=== PATIENT | female | born 1960 | race African-American/Black ===

== ENCOUNTER 2016-07-15 10:20 | Emergency (ER) | payer MEDICAID ==
--- NOTE | 2016-07-15 10:13 | EDPHY ---
H & P HPI/ROS: CHIEF COMPLAINT: Dyspnea HISTORY OF PRESENT ILLNESS: The patient is a 56 year old female with history of reactive airway disease, brought in by EMS, presenting with 4 days of worsening shortness of breath. The patient has a violent cough with associated chest pain. The patient has repeated bouts of asthma exacerbation and has been intubated multiple times in the past.She has been taking Mucinex, using albuterol inhaler, and DuoNeb treatments. She received 125mg Solu-Medrol IV and 2 breathing treatments en route. Vitals in the field BP: 102/56, HR: 110, and O2 saturations in the 90s. Patient additionally notes fever and diarrhea for the past few days and is concerned she may have the flu. REVIEW OF SYSTEMS: Aside from elements discussed in the HPI, a comprehensive 10-point review of systems was reviewed and is negative. Past Medical/Surgical History: I reviewed the patient's past medical records from admission 07/05/16. Reactive airways disease, Seizure disorder. Social History: Current tobacco user. Currently living in a safe house in [place], but usually lives in [place]. Physical Exam: General Appearance: Alert, tachypneic Eyes: Pupils equal and round, no conjunctival pallor or injection ENT, Mouth: Mucous membranes moist Neck: Normal inspection Respiratory: Moderate respiratory distress, Tachypneic, Good air exchange, Occasional expiatory wheezing. Cardiovascular: Regular rate and rhythm Gastrointestinal: Abdomen is soft and non-tender Neurological: A&O, nonfocal, normal gait Skin: Warm and dry, no rash Extremities: Nontender, no pedal edema Psychiatric: anxious Constitutional: Initial Vital Signs Temperature (C) 36.7 C 07/15/16 10:37 Heart Rate 115 H 07/15/16 10:37 Respiratory Rate 32 H 07/15/16 10:37 Blood Pressure 115/77 07/15/16 10:37 O2 Sat (%) 100 07/15/16 10:37 O2 Delivery Mode Room Air O2 (L/minute) 2 Allergies/Adverse Reactions: acetaminophen [From Tylenol] Allergy (Verified 07/15/16 10:37) ibuprofen Allergy (Verified 07/15/16 10:37) Home Medications: Medication Instructions Recorded diphenhydrAMINE [Benadryl 25 MG 50 mg PO BID 07/05/16 (*)] Albuterol Hfa Anes Only [Proair 2 puffs IH BID #1 mdi 07/07/16 Hfa Icu (*)] Benzonatate [Tessalon Pearles] 200 mg PO TID PRN #30 cap 07/07/16 Cephalexin [Keflex (*)] 500 mg PO Q6H #24 cap 07/07/16 Fluticasone/Salmeter 250/50Mcg 2 puffs IH BID #1 disk 07/07/16 [Advair 250/50 (*)] HYDROmorphone HCL [Dilaudid 2 mg 2 mg PO Q6H PRN #10 tab 07/07/16 (*)] levETIRAcetam [Keppra 500 mg (*)] 500 mg PO BID #60 tab 07/07/16 predniSONE 40 mg PO DAILY #6 tab 07/07/16 Azithromycin [Zithromax] 250 mg PO DAILY #6 tab 07/15/16 predniSONE 1 tab PO DAILY #15 tab 07/15/16 Medical Decision Making - Diagnostics Imaging: Study: X-ray of the chest was obtained. Results: No acute disease. I viewed the images myself on the PACS system. ED Course/Re-evaluation: On initial evaluation, she was very anxious and tachypneic. Concerning for acute severe bronchospasm. However, she was able to speak in full sentences and respiratory rate decreased just with speaking to her. c/w acute bronchospasm with underlying anxiety. Plan to start patient on continuous nebulizer. 12:05 p.m.: On reevaluation, the patient is feeling better. Her symptoms have resolved. Chest CTA, good air exchange, O2 sat 96% on RA. Plan to discharge home with Prednisone and Azithromycin. Differential Diagnosis: includes though not limited to pneumonia, respiratory failure, status asthmaticus, ACS. - Data Points Laboratory Results: Laboratory Results 07/15/16 10:30 07/15/16 10:30 Medications Given: Discontinued Medications Albuterol (Proventil Neb) 9 ml IH CONT ONE Stop: 07/15/16 10:31 Last Admin: 07/15/16 10:43 Dose: 9 ml Albuterol Sulfate (Proventil Inh Prepack) 1 mdi TAKEHOME EDNOW ONE Stop: 07/15/16 12:25 Last Admin: 07/15/16 12:28 Dose: 1 mdi Sodium Chloride (Ns) 1,000 mls @ 0 mls/hr IV ONCE ONE PRN Reason: Wide Open Stop: 07/15/16 10:31 Last Admin: 07/15/16 10:43 Dose: 1,000 mls Departure - Departure Disposition: Home, Routine, Self-Care Clinical Impression: Asthma attack Acute bronchitis Qualifiers: Bronchitis organism: unspecified organism Qualifier Code: (J20.9) Acute bronchitis, unspecified Condition: Good Instructions: Reactive Airways Disease (ED), Acute Bronchitis (GEN) Additional Instructions: Take Prednisone as directed. Take full course of antibiotics as prescribed. Followup with your primary care physician if symptoms persist. Use albuterol inhaler 2 puffs three times daily as needed for wheezing. Return to the Emergency Department with shortness of breath, chest pain, or worsening of your condition. Referrals: [facility] [Outside] - As per Instructions Prescriptions: Azithromycin [Zithromax] 250 mg PO DAILY #6 tab predniSONE 1 tab PO DAILY #15 tab Report Scribed for: Traci Harrell Report Scribed by: Blanca Delgado Date of Report: 07/15/16 Time of Report: 10:12 Physician Review and Approval Statement: 07/15/16 10:12 Portions of this note were transcribed by a medical or surgical instrument maker. I personally performed the history, physical exam, and medical decision-making; and confirmed the accuracy of the information in the transcribed note.
[2016-07-15] MEDS ORDERED: NS 1,000 ML IV ONE (10:30)
[2016-07-15] MEDS ORDERED: ALBUTEROL 3 ML DEYVIAL IH ONE (10:30)
[2016-07-15 10:47] LABS: % IMMATURE GRANULYOCYTES 0.4 % (0.0-1.1); ABSOLUTE IMMATURE GRANULOCYTES 0.05 10^3/uL (0.00-0.10); ADD DIFF? NO; ADD MORPH? NO; ADD SCAN? NO; ATYPICAL LYMPHOCYTE FLAG 10 (0-99); FRAGMENT RBC FLAG 0 (0-99); HEMATOCRIT 37.6 % (38.0-47.0); HEMOGLOBIN 12.9 g/dL (12.6-16.3); LEFT SHIFT FLG 0 (0-99); LIPEMIA HEMOLYSIS FLAG 90 (0-99); MEAN CELL HEMOGLOBIN 30.9 pg (27.9-34.1); MEAN CELL HEMOGLOBIN CONCENTR. 34.3 g/dL (32.4-36.7); MEAN CELL VOLUME 90.2 fL (81.5-99.8); MEAN PLATELET VOLUME 10.3 fL (8.7-11.7); PLATELET CLUMPS FLAG 0 (0-99); PLATELET COUNT 319 10^3/uL (150-400); RED BLOOD CELL COUNT 4.17 10^6/uL (4.18-5.33); RED CELL DISTRIBUTION WIDTH 12.5 % (11.5-15.2)
[2016-07-15 11:12] LABS: ANION GAP 12 mEq/L (8-16); CALCIUM 9.8 mg/dL (8.5-10.4); CARBON DIOXIDE 24 mEq/l (22-31); CHLORIDE 105 mEq/L (97-110); CREATININE 0.8 mg/dL (0.6-1.0); GLOMERULAR FILTRATION RATE > 60; GLUCOSE 99 mg/dL (70-100); POTASSIUM 4.4 mEq/L (3.5-5.2); SODIUM 141 mEq/L (134-144)
[2016-07-15 12:12] VITALS: TEMP 98.1
[2016-07-15] MEDS ORDERED: ALBUTEROL INH PREPACK MDI TAKEHOME ONE ×2 (12:24)
[2016-07-15 12:27] VITALS: BP 110/62; PULSE 97; RESP 16; O2SAT 95
--- NOTE | 2016-07-15 12:37 | DX ---
Portable Chest, Single View July 15, 2016 at 10:43 a.m. Indication: Dyspnea. Findings: Mild diffuse peribronchial thickening is similar to July 05, 2016. No pneumothorax, demetris ma, consolidation or effusion has developed. Heart size is normal. Impression: Mild bronchitis unchanged since 2 weeks prior.
== END 2016-07-15 12:26 | disposition home or self-care (01) ==
LOC: EDUNIT#
DX: J45.909 Unspecified asthma, uncomplicated (principal); J20.9 Acute bronchitis, unspecified; F17.200 Nicotine dependence, unspecified, uncomplicated

== ENCOUNTER 2016-08-17 09:25 | Emergency (ER) | payer MEDICAID ==
[2016-08-17] MEDS ORDERED: IPRATROPIUM/ALBUTEROL 3 ML DEYVIAL ONE (09:30)
--- NOTE | 2016-08-17 09:32 | EDPHY ---
HPI/HX/ROS/PE/MDM Narrative: Chief complaint: Seizure HPI: 56-year-old female was in the hospital to visit a friend when she was witnessed to have a tonic-clonic seizure in a common area. Patient was a rapid response and was brought to the emergency department. Emergency department initially she appeared postictal and then abruptly woke up and was answering questions. Patient states she has a history of a seizure disorder but is not take medications because they make her sick. No recent illness. No fevers or chills. No nausea or vomiting. Patient is admitted month ago after a CE OPD exacerbation. At that time they started her on Keppra however the patient states she stopped taking this because she who felt nauseated. She discussed with her primary care physician at [facility] who is going to start her on another medication but she has not followed up since that time. On my examination patient was initially not responding however to noxious stimuli shoe abruptly woke up and looked around and asked what was going on. There was no confusion. She is awake and alert an oriented immediately. Complaining some mild headache. ROS: 10 point Review of Systems is negative except as noted in the HPI. Physical exam: Gen: Awake, Alert, No Distress, mild scalp tenderness on the right parietal. There is no hematoma. There is no abrasion. There is no laceration. There is no bony tenderness. HEENT: Nose: no rhinorrhea Eyes: PERRLA, EOMI Mouth: Moist mucosa no intraoral trauma, no tongue biting Neck: Supple, no JVD Chest: nontender, lungs clear to auscultation Heart: S1, S2 normal, no murmur Abd: Soft, non-tender, no guarding Back: no CVA tenderness, no midline tenderness Ext: no edema, non-tender Skin: no rash Neuro: CN II-XII intact, Sensation grossly intact, Strength 5/5 in bilateral upper and lower extremities ED Course: 56-year-old with a history of known seizures presenting with a seizure while in the waiting area up stairs. Patient is now awake and alert. She did not really have much of a postictal process. I have discussed with Dr. Troy Miller, neurology. He is recommending that given the patient's Keppra allergy was start the patient on lamotrigine 25 mg twice a day. She can follow up with him or with her neurologist as an outpatient for outpatient EEG and further evaluation. Patient is awake and alert. Has not had any further complications. Blood work is unremarkable. - Data Points Laboratory Results: Laboratory Results 08/17/16 09:35 08/17/16 09:35 08/17/16 09:35 WBC 8.02 10^3/uL (3.80-9.50) RBC 4.33 10^6/uL (4.18-5.33) Hgb 13.5 g/dL (12.6-16.3) Hct 40.4 % (38.0-47.0) MCV 93.3 fL (81.5-99.8) MCH 31.2 pg (27.9-34.1) MCHC 33.4 g/dL (32.4-36.7) RDW 13.1 % (11.5-15.2) Plt Count 289 10^3/uL (150-400) MPV 10.7 fL (8.7-11.7) Neut % (Auto) 60.7 % (39.3-74.2) Lymph % (Auto) 24.6 % (15.0-45.0) Grimes % (Auto) 7.5 % (4.5-13.0) Eos % (Auto) 6.4 % (0.6-7.6) Baso % (Auto) 0.6 % (0.3-1.7) Nucleat RBC Rel Count 0.0 % (0.0-0.2) Absolute Neuts (auto) 4.87 10^3/uL (1.70-6.50) Absolute Lymphs (auto) 1.97 10^3/uL (1.00-3.00) Absolute Monos (auto) 0.60 10^3/uL (0.30-0.80) Absolute Eos (auto) 0.51 H 10^3/uL (0.03-0.40) Absolute Basos (auto) 0.05 10^3/uL (0.02-0.10) Absolute Nucleated RBC 0.00 10^3/uL (0-0.01) Immature Gran % 0.2 % (0.0-1.1) Immature Gran # 0.02 10^3/uL (0.00-0.10) Sodium 144 mEq/L (134-144) Potassium 4.7 mEq/L (3.5-5.2) Chloride 105 mEq/L (97-110) Carbon Dioxide 23 mEq/l (22-31) Anion Gap 16 mEq/L (8-16) BUN 11 mg/dL (7-23) Creatinine 0.9 mg/dL (0.6-1.0) Estimated GFR > 60 Glucose 86 mg/dL (70-100) Calcium 9.7 mg/dL (8.5-10.4) Medications Given: Discontinued Medications Albuterol/Ipratropium (Duoneb) 3 ml IH EDNOW ONE Stop: 08/17/16 09:36 Last Admin: 08/17/16 09:48 Dose: 3 ml General Time Seen by Provider: 08/17/16 09:26 Initial Vital Signs: Initial Vital Signs Temperature (C) 37.1 C 08/17/16 09:27 Heart Rate 96 08/17/16 09:27 Respiratory Rate 18 08/17/16 09:27 Blood Pressure 116/70 08/17/16 09:27 O2 Sat (%) 97 08/17/16 09:27 O2 Delivery Mode Room Air Allergies/Adverse Reactions: acetaminophen [From Tylenol] Allergy (Verified 07/15/16 10:37) ibuprofen Allergy (Verified 07/15/16 10:37) Home Medications: Medication Instructions Recorded Albuterol Hfa Anes Only [Proair 2 puffs IH BID #1 mdi 07/07/16 Hfa Icu (*)] Fluticasone/Salmeter 250/50Mcg 2 puffs IH BID #1 disk 07/07/16 [Advair 250/50 (*)] lamOTRIGine [LAMOTRIGINE] 25 mg PO BID #60 08/17/16 Departure - Departure Disposition: Home, Routine, Self-Care Clinical Impression: Seizure Condition: Good Instructions: Epilepsy (ED) Additional Instructions: Follow up with Dr. Miller next week for further evaluation of your seizures in for outpatient EEG testing. Start lamotrigine 25 mg twice a day for seizures. Return to the emergency department for further seizures, worsening difficulty breathing, cough, fevers, chills, or any other concerns. Referrals: NONE *PRIMARY CARE P,. [Primary Care Provider] - As per Instructions Troy Miller MD [Medical Doctor] - As per Instructions Prescriptions: lamOTRIGine [LAMOTRIGINE] 25 mg PO BID #60
[2016-08-17 09:33] VITALS: RESP 18
[2016-08-17] MEDS ORDERED: IPRATROPIUM/ALBUTEROL 3 ML DEYVIAL IH ONE (09:35)
[2016-08-17 09:54] LABS: % IMMATURE GRANULYOCYTES 0.2 % (0.0-1.1); ABSOLUTE IMMATURE GRANULOCYTES 0.02 10^3/uL (0.00-0.10); ADD DIFF? NO; ADD MORPH? NO; ADD SCAN? NO; ATYPICAL LYMPHOCYTE FLAG 20 (0-99); FRAGMENT RBC FLAG 0 (0-99); HEMATOCRIT 40.4 % (38.0-47.0); HEMOGLOBIN 13.5 g/dL (12.6-16.3); LEFT SHIFT FLG 0 (0-99); LIPEMIA HEMOLYSIS FLAG 80 (0-99); MEAN CELL HEMOGLOBIN 31.2 pg (27.9-34.1); MEAN CELL HEMOGLOBIN CONCENTR. 33.4 g/dL (32.4-36.7); MEAN CELL VOLUME 93.3 fL (81.5-99.8); MEAN PLATELET VOLUME 10.7 fL (8.7-11.7); PLATELET CLUMPS FLAG 0 (0-99); PLATELET COUNT 289 10^3/uL (150-400); RED BLOOD CELL COUNT 4.33 10^6/uL (4.18-5.33); RED CELL DISTRIBUTION WIDTH 13.1 % (11.5-15.2)
[2016-08-17 10:11] LABS: ANION GAP 16 mEq/L (8-16); CALCIUM 9.7 mg/dL (8.5-10.4); CARBON DIOXIDE 23 mEq/l (22-31); CHLORIDE 105 mEq/L (97-110); CREATININE 0.9 mg/dL (0.6-1.0); GLOMERULAR FILTRATION RATE > 60; GLUCOSE 86 mg/dL (70-100); POTASSIUM 4.7 mEq/L (3.5-5.2); SODIUM 144 mEq/L (134-144)
[2016-08-17] MEDS ORDERED: lamoTRIgine 25 MG TAB PO ONE (11:22)
[2016-08-17 12:22] VITALS: BP 160/90; PULSE 75; O2SAT 96
[2016-08-17 12:28] VITALS: TEMP 97.9
== END 2016-08-17 12:28 | disposition home or self-care (01) ==
DX: G40.909 Epilepsy, unspecified, not intractable, without status epilepticus (principal)

== ENCOUNTER 2016-09-10 23:38 | Emergency (ER) | payer MEDICAID ==
[2016-09-10] MEDS ORDERED: IPRATROPIUM/ALBUTEROL 3 ML DEYVIAL ONE (23:56)
[2016-09-10] MEDS ORDERED: methylPREDNISolone SOD SUCC 125 MG/2 ML VIAL ONE (23:56)
[2016-09-10] MEDS ORDERED: IPRATROPIUM/ALBUTEROL 3 ML DEYVIAL IH ONE (23:56)
[2016-09-10] MEDS ORDERED: methylPREDNISolone SOD SUCC 125 MG/2 ML VIAL IVP ONE (23:56)
--- NOTE | 2016-09-11 00:16 | EDPHY ---
H & P Time Seen by Provider: 09/10/16 23:50 HPI/ROS: HPI Seizure at [facility], fall out of bed. 56-year-old female by ambulance. She comes from the homeless retirement. She was apparently in bed, lower bunk at the homeless retirement when she started having seizure activity described as shaking all over per the staff. She fell out of bed onto her right side. She apparently hit the right side of her head. EMS was called. EMS reports normal blood glucose 136. Intermittent seizure activity described as shaking all over. She would then suddenly stop, answer questions appropriately. No postictal phase. She complains of right lateral neck pain into her trapezius and pain to her right posterior parietal scalp. This is very similar to her presentation on August 17 in our emergency department when she was seen for the same complaint. She is supposed to be on Keppra but she states it makes her feel ill and nausea. She was started on lamotrigine after a neurology consult from her last emergency department visit on follow-up. She states that she followed up with Neurology through the office of Troy Miller and was put on another seizure medication because the lamotrigine made her feel nauseous. She reports that this medication makes her feel nauseous as well and she has not taken any in 3 days. She does not know the name of it. ROS: Constitutional: No fever, no chills. No weakness. As above Eyes: No discharge. No changes in vision. ENT: No sore throat. No nasal congestion or rhinorrhea. Respiratory: Chronic. No shortness of breath. Cardiac: No chest pain, no palpitations. Gastrointestinal: No abdominal pain, no vomiting, no diarrhea. Genitourinary: No hematuria. No dysuria or increased frequency with urination. Musculoskeletal: No back pain. No neck pain. No myalgias or arthralgias. Skin: No rashes. Neurological: No headache. No focal weakness or altered sensation. Past medical history: Asthma/COPD. She takes an albuterol inhaler for this. Seizure disorder versus pseudoseizures. Social history: Heavy smoker. Homeless. Physical Exam: General Appearance: Alert, no distress. This patient is responding to questions appropriately and in full sentences. This patient appears well- hydrated and well-nourished. Head: Normocephalic atraumatic. Some tenderness right posterior parietal scalp but no associated hematoma or other abnormality. Face: Facial bones are stable on palpation. Eyes: Pupils equal and round and reactive to light, no pallor or injection. No lid erythema or edema. ENT, Mouth: Mucous membranes moist. Dentition is intact. No malocclusion of the jaw. No tongue lacerations or abrasions. Pharynx is clear. The bilateral nasal canals are clear. No septal hematoma. Respiratory: There are no retractions, she has diffuse wheezing on exhalation anteriorly but good air movement. No tachypnea.. Chest wall is stable to AP and lateral palpation. Cardiovascular: Regular rate and rhythm. No murmur. Gastrointestinal: Abdomen is soft and nontender, no masses, bowel sounds normal. Neurological: Motor sensory function is intact. Cranial nerves are normal. Cerebellar function intact. Skin: Warm and dry, no rashes. No lacerations, abrasions or contusions. Musculoskeletal: Neck is supple and nontender. The trachea is midline. No midline cervical, thoracic, lumbar or sacral tenderness on palpation. No flank tenderness on palpation. She has mild tenderness right lateral lower paraspinal area extending into the right mid muscle body of the trapezius. Extremities are symmetrical, full range of motion. All joints in the bilateral upper and bilateral lower extremities range without pain or impingement. No tenderness on palpation of the long bones in the bilateral upper and bilateral lower extremities. Psychiatric: No agitation. No depression. Database: EKG: Imaging: Procedures: Emergency department course: Patient given albuterol/Atrovent nebulizer by EMS. She was given 60 mg of oral prednisone here in the emergency department. 12:10 a.m., while an IV was being attempted by her nursing staff, the patient had sudden seizure activity. I was immediately at the bedside. She shakes all over then suddenly stops. No postictal phase. She then will answer questions appropriately. She then starts shaking all over again. These episodes would last 10-15 seconds at a time. She fell out of her bed during this episode. Repeat trauma physical was as above with no change. She refuses to wear her cervical collar. She is refusing any imaging. I feel that significant traumatic spinal injury, head injury is unlikely. She was given 60 mg of oral prednisone. Vital signs on this patient reviewed. 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 She is noncompliant with any medications provided to her in the past for her seizures. Plan will be to discharge her back to the retirement. I have instructed her on following up again with Dr. Troy Miller and his Neurology group [facility] regarding her seizure disorder. Return to emergency department precautions discussed. All of her questions were answered. She was discharged in good condition. Differential Diagnosis: The differential diagnosis on this patient includes but is not limited to pseudoseizures, asthma. Traumatic brain injury, hypoglycemia, hyponatremia, traumatic spinal injury, other significant traumatic injury unlikely. This represents a partial list of diagnoses considered. These considerations are based on history, physical exam, past history, reassessment and diagnostic testing. Smoking Status: Light smoker Constitutional: Initial Vital Signs Temperature (C) 36.6 C 09/10/16 23:46 Heart Rate 108 H 09/10/16 23:46 Respiratory Rate 23 H 09/10/16 23:46 Blood Pressure 116/68 09/10/16 23:46 O2 Sat (%) 99 09/10/16 23:46 O2 Delivery Mode Room Air Allergies/Adverse Reactions: acetaminophen [From Tylenol] Allergy (Verified 07/15/16 10:37) ibuprofen Allergy (Verified 07/15/16 10:37) Home Medications: Medication Instructions Recorded Albuterol Hfa Anes Only [Proair 2 puffs IH BID #1 mdi 07/07/16 Hfa Icu (*)] Fluticasone/Salmeter 250/50Mcg 2 puffs IH BID #1 disk 07/07/16 [Advair 250/50 (*)] lamOTRIGine [LAMOTRIGINE] 25 mg PO BID #60 08/17/16 predniSONE [prednisone 20mg (RX)] 60 mg PO DAILY #9 tab 09/11/16 Medical Decision Making - Data Points Laboratory Results: 09/10/16 23:59 Sodium Pending Potassium Pending Chloride Pending Carbon Dioxide Pending Anion Gap Pending BUN Pending Creatinine Pending Estimated GFR Pending Glucose Pending Calcium Pending Medications Given: Discontinued Medications Albuterol/Ipratropium (Duoneb) 3 ml IH EDNOW ONE Stop: 09/10/16 23:57 Last Admin: 09/10/16 23:58 Dose: 3 ml Methylprednisolone Sodium Succinate (Solu-Medrol) 125 mg IVP EDNOW ONE Stop: 09/10/16 23:57 Last Admin: 09/11/16 00:09 Dose: Not Given Prednisone (Prednisone) 60 mg PO EDNOW ONE Stop: 09/11/16 00:19 Last Admin: 09/11/16 00:25 Dose: 60 mg Departure - Departure Disposition: Home, Routine, Self-Care Clinical Impression: Pseudoseizures, Asthma Condition: Good Instructions: Asthma (ED), Recurrent Seizures in Adults (ED) Additional Instructions: Read and follow provided instructions. Follow-up with your primary care physician at [facility] in 1-2 days for re -evaluation at their walk-in clinic regarding her seizure activity. They can refer you back to the office of Troy Miller, neurologist, as needed. Take medication your medications as prescribed. Return to the emergency department for worsening symptoms or other serious concerns. Referrals: Patient,NotPresent [Unknown] - As per Instructions Prescriptions: predniSONE [prednisone 20mg (RX)] 60 mg PO DAILY #9 tab
[2016-09-11 00:18] VITALS: BP 105/58; PULSE 98; RESP 20; TEMP 97.7; O2SAT 93
[2016-09-11] MEDS ORDERED: predniSONE 20 MG TAB PO ONE (00:18)
[2016-09-11 00:41] LABS: ANION GAP 16 mEq/L (8-16); CALCIUM 10.1 mg/dL (8.5-10.4); CARBON DIOXIDE 22 mEq/l (22-31); CHLORIDE 104 mEq/L (97-110); CREATININE 0.8 mg/dL (0.6-1.0); GLOMERULAR FILTRATION RATE > 60; GLUCOSE 100 mg/dL (70-100); POTASSIUM 3.7 mEq/L (3.5-5.2); SODIUM 142 mEq/L (134-144)
== END 2016-09-11 00:27 | disposition home or self-care (01) ==
LOC: EDUNIT#
DX: F44.5 Conversion disorder with seizures or convulsions (principal); J45.909 Unspecified asthma, uncomplicated; F17.200 Nicotine dependence, unspecified, uncomplicated

== ENCOUNTER 2017-04-28 00:56 | Inpatient (IN) | payer MEDICAID ==
[2017-04-28] MEDS ORDERED: IPRATROPIUM/ALBUTEROL 3 ML DEYVIAL ONE (01:00)
[2017-04-28] MEDS ORDERED: NS 1,000 ML IV ONE (01:02)
[2017-04-28] MEDS ORDERED: MAGNESIUM SULF 2 GM/WATER 50 ML BAG IV ONE (01:02)
[2017-04-28] MEDS ORDERED: ONDANSETRON 4 MG/2 ML VIAL IVP ONE (01:03)
[2017-04-28] MEDS ORDERED: MAGNESIUM SULF 2 GM/WATER 50 ML IV ONE (01:03)
--- NOTE | 2017-04-28 01:07 | CPEKG ---
Heart Rate: 105 RR Interval: 571 P-R Interval: 148 QRSD Interval: 82 QT Interval: 352 QTC Interval: 466 P Shanks: 88 QRS Shanks: 73 T Wave Shanks: 37 EKG Severity - BORDERLINE ECG - EKG Impression: SINUS TACHYCARDIA EKG Impression: Possible right atrial abnormality. This is seen only significant change from EKG Impression: July 05, 2016 Electronically Signed By: Darrius Granger 04-May-2017 10:53:53
--- NOTE | 2017-04-28 01:07 | EDPHY ---
H & P HPI/ROS: HPI CHIEF COMPLAINT: Respiratory distress, severe asthma HISTORY OF PRESENT ILLNESS: Patient is a 56-year-old female, well known to myself as well as the emergency room she presents emergency room from a local [facility] for acute asthma attack. She states she has been sick recently with cough, diarrhea and vomiting. Additionally a source is a fever. She called 911 from fdc for increased work of breathing and wheezing. When EMS arrived they found to be tachypneic in the 60s. An audible wheezing. Respiratory distress and try potting. Room air saturation was noted to be 90%. But in severe distress. It is reported to me this patient has been intubated before for acute asthma. Past Medical History: Severe asthma Past Surgical History: No recent surgery Social History: Denies daily use of drugs alcohol tobacco. Family History: Noncontributory ROS REVIEW OF SYSTEMS: A comprehensive 10 point review of systems is otherwise negative aside from elements mentioned in the history of present illness. Exam Constitutional respiratory distress, triage nursing summary reviewed, vital signs reviewed, awake/alert. Noted to be in respiratory distress. Tachycardic , tachypneic. Eyes normal conjunctivae and sclera, EOMI, PERRLA. HENT normal inspection, atraumatic, moist mucus membranes, no epistaxis, neck supple/ no meningismus, no raccoon eyes. Respiratory decreased breath sounds bilaterally, audible wheezing, respiratory distress, tachypnea Cardiovascular tachycardic , regular rhythm, no murmur, no edema, distal pulses normal. Gastrointestinal soft, non-tender, no rebound, no guarding, normal bowel sounds, no distension, no pulsatile mass. Genitourinary no CVA tenderness. Musculoskeletal no midline vertebral tenderness, full range of motion, no calf swelling, no tenderness of extremities, no meningismus, good pulses, neurovascularly intact. Skin pink, warm, & dry, no rash, skin atraumatic. Neurologic awake, alert and oriented x 3, AAOx3, moves all 4 extremities equally, motor intact, sensory intact, CN II-XII intact, normal cerebellar, normal vision, normal speech. Psychiatric normal mood/affect. Heme/Lymph/Immune no lymphadenopathy. Differential Diagnosis: Includes but is not limited to in a particular order acute asthma, severe asthma attack, pneumonia, pneumothorax, CHF. Medical Decision Making: Plan for this patient IV establishment, blood draw, BiPAP breathing treatment, continuous albuterol neb, ABG, IV fluid bolus, IV magnesium, continuous neb, close monitoring of respiratory distress. May need intubation. Re-evaluation: Critical Care: Total Critical Care Time Spent Managing this Patient: 65Minutes. This time was spent Exclusively with this patient. This Care was exclusive of procedures. The Organ System/life at risk was respiratory distress This Patient was in Critical Condition because respiratory distress, asthma exacerbation, hypoxia. EKG interpretation by me on record in [employer] system. Impression time of EKG 1:02 a.m., this is sinus rhythm rate of 105. No acute ischemic change appreciated. Biphasic T-wave noted V1 V2 pain 0148: I was able to remove this patient from BiPAP as she has made a drastic recovery. Her heart rate is currently 96. Pulse ox 90% on 2 L. Respiratory rate 20. Resting comfortably. 0157: I did re-evaluate this patient this time resting comfortably. Feels comfortable on nasal cannula. Good air movement. Pulse ox appropriate. No distress. I believe that she can go to a PCU bed and does not require ICU at this time. ED x-ray chest one view: No appreciable pneumonia. No acute cardiopulmonary disease. Source: Patient, EMS - Medical/Surgical History Hx Asthma: Yes Hx Chronic Respiratory Disease: No Hx Diabetes: No Hx Cardiac Disease: No Hx Renal Disease: No Hx Cirrhosis: No Hx Alcoholism: No Hx HIV/AIDS: No Hx Splenectomy or Spleen Trauma: No Other PMH: asthma, sz, hysterectomy, abd infx req mult surg - Social History Smoking Status: Light smoker Constitutional: Initial Vital Signs Heart Rate 103 H 04/28/17 01:15 Respiratory Rate 29 H 04/28/17 01:15 O2 Sat (%) 98 04/28/17 01:15 O2 Delivery Mode Nasal Cannula O2 (L/minute) 2 Allergies/Adverse Reactions: acetaminophen [From Tylenol] Allergy (Verified 04/28/17 01:35) ibuprofen Allergy (Verified 04/28/17 01:35) Home Medications: Medication Instructions Recorded Gabapentin [Neurontin 400 MG (*)] 800 mg PO BID 04/28/17 diphenhydrAMINE [Benadryl 50 MG 50 mg PO DAILY PRN 04/28/17 (*)] Albuterol [Proventil Inhaler HFA 1 - 2 puffs IH Q4H PRN #1 mdi 04/29/17 (*)] Benzonatate [Tessalon Pearles] 200 mg PO TID PRN #30 cap 04/29/17 Budesonide/Formoterol 160/4.5 2 puffs IH BID mdi 04/29/17 [Symbicort 160-4.5 Mcg Inh (*)] Montelukast Sodium [Singulair 10 10 mg PO DAILY@1800 #30 tab 04/29/17 mg (*)] guaiFENesin [Mucinex 600 MG (*)] 1,200 mg PO BID #20 tab.er 04/29/17 predniSONE 60 mg PO DAILY #9 tablet 04/29/17 Medical Decision Making - Data Points Laboratory Results: Laboratory Results 04/28/17 05:58 04/29/17 04:12 Microbiology Results: MICROBIOLOGY 04/28/17 01:30 Blood Blood Culture - Preliminary 04/28/17 01:10 Blood Blood Culture - Preliminary Medications Given: Albuterol/Ipratropium (Duoneb) 3 ml IH Q6HRS [facility] Stop: 10/25/17 11:59 Last Admin: 04/30/17 05:23 Dose: 3 ml Budesonide/Formoterol Fumarate (Symbicort 160-4.5 Mcg Inhaler) 2 puffs IH BID [facility] Stop: 10/25/17 20:59 Last Admin: 04/29/17 21:11 Dose: 2 puffs Enoxaparin Sodium (Lovenox) 40 mg SC DAILY [facility] Stop: 10/25/17 08:59 Last Admin: 04/30/17 08:55 Dose: 40 mg Gabapentin (Neurontin) 800 mg PO BID [facility] Stop: 10/25/17 09:14 Last Admin: 04/30/17 08:55 Dose: 800 mg Guaifenesin (Mucinex) 1,200 mg PO BID [facility] Stop: 10/25/17 11:29 Last Admin: 04/30/17 08:55 Dose: 1,200 mg Sodium Chloride (Ns) 1,000 mls @ 100 mls/hr IV CONT [facility] Stop: 10/25/17 02:29 Last Admin: 04/28/17 03:05 Dose: 1,000 mls Lorazepam (Ativan) 0.5 - 1 mg PO Q8HRS PRN PRN Reason: Anxiety, Able to Take PO Stop: 10/25/17 02:24 Last Admin: 04/29/17 09:17 Dose: 1 mg Montelukast Sodium (Singulair) 10 mg PO DAILY@1800 [facility] Stop: 10/25/17 06:59 Last Admin: 04/28/17 20:23 Dose: 10 mg Nicotine (Nicoderm Cq) 21 mg TD DAILY [facility] Stop: 10/26/17 14:59 Last Admin: 04/30/17 08:55 Dose: 21 mg Prednisone (Prednisone) 60 mg PO DAILY [facility] Stop: 10/25/17 09:14 Last Admin: 04/30/17 08:55 Dose: 60 mg Discontinued Medications Albuterol (Proventil Neb) 3 ml IH Q2HRS PRN PRN Reason: Short of Breath/Dyspnea Stop: 10/25/17 02:24 Last Admin: 04/28/17 02:10 Dose: 3 ml Albuterol/Ipratropium (Duoneb) 9 ml IH EDNOW ONE Stop: 04/28/17 01:44 Last Admin: 04/28/17 01:10 Dose: 9 ml Albuterol/Ipratropium (Duoneb) 3 ml IH Q6HRS PRN PRN Reason: Short of Breath/Dyspnea Stop: 10/25/17 03:53 Last Admin: 04/28/17 05:27 Dose: 3 ml Budesonide (Budesonide 0.5mg/2ml Neb) 0.5 mg IH BID [facility] Stop: 10/25/17 08:59 Last Admin: 04/28/17 08:54 Dose: 0.5 mg Sodium Chloride (Ns) 1,000 mls @ 0 mls/hr IV EDNOW ONE; Wide Open PRN Reason: Protocol Stop: 04/28/17 01:03 Last Admin: 04/28/17 01:13 Dose: 1,000 mls Magnesium Sulfate (Magnesium Sulf 2 Gm (Premix)) 50 mls @ 50 mls/hr IV EDNOW ONE Stop: 04/28/17 02:02 Last Admin: 04/28/17 01:08 Dose: 50 mls Methylprednisolone Sodium Succinate (Solu-Medrol) 60 mg IVP BID [facility] Stop: 10/25/17 08:59 Last Admin: 04/28/17 12:36 Dose: Not Given Morphine Sulfate (Morphine) 4 mg IVP EDNOW ONE Stop: 04/28/17 01:04 Last Admin: 04/28/17 01:14 Dose: 4 mg Ondansetron HCl (Zofran) 4 mg IVP EDNOW ONE Stop: 04/28/17 01:04 Last Admin: 04/28/17 01:11 Dose: 4 mg Promethazine HCl (Phenergan) 6.25 mg IVP ONCE ONE Stop: 04/28/17 01:25 Last Admin: 04/28/17 01:31 Dose: 6.25 mg Departure - Departure Disposition: [facility] Acute Clinical Impression: Asthma exacerbation Qualifiers: Asthma severity: mild Asthma persistence: persistent Qualified Code(s): J45.31 - Mild persistent asthma with (acute) exacerbation Condition: Good
[2017-04-28] MEDS: ALBUTEROL 3 ML DEYVIAL IH PRN ×4 (01:15→02:10)
[2017-04-28 01:19] LABS: % IMMATURE GRANULYOCYTES 0.2 % (0.0-1.1); ABSOLUTE IMMATURE GRANULOCYTES 0.03 10^3/uL (0.00-0.10); ADD DIFF? NO; ADD MORPH? NO; ADD SCAN? NO; ATYPICAL LYMPHOCYTE FLAG 0 (0-99); FRAGMENT RBC FLAG 0 (0-99); HEMATOCRIT 36.4 % (38.0-47.0); HEMOGLOBIN 12.9 g/dL (12.6-16.3); LEFT SHIFT FLG 0 (0-99); LIPEMIA HEMOLYSIS FLAG 90 (0-99); MEAN CELL HEMOGLOBIN 31.2 pg (27.9-34.1); MEAN CELL HEMOGLOBIN CONCENTR. 35.4 g/dL (32.4-36.7); MEAN CELL VOLUME 87.9 fL (81.5-99.8); MEAN PLATELET VOLUME 10.2 fL (8.7-11.7); PLATELET CLUMPS FLAG 0 (0-99); PLATELET COUNT 260 10^3/uL (150-400); RED BLOOD CELL COUNT 4.14 10^6/uL (4.18-5.33); RED CELL DISTRIBUTION WIDTH 13.2 % (11.5-15.2)
[2017-04-28] MEDS ORDERED: PROMETHAZINE HCL 25 MG/ML INJ IVP ONE (01:24)
[2017-04-28] MEDS ORDERED: PROMETHAZINE HCL 25 MG/ML INJ ONE (01:24)
[2017-04-28 01:27] LABS: INR 0.98 (0.83-1.16); PROTIME(PATIENT) 12.9 SEC (12.0-15.0)
[2017-04-28 01:28] LABS: APTT 33.6 SEC (23.0-38.0)
[2017-04-28 01:36] LABS: ALANINE AMINOTRANSFERASE 26 IU/L (9-52); ALKALINE PHOSPHATASE 116 IU/L (38-126); ANION GAP 15 mEq/L (8-16); ASPARTATE AMINOTRANSFERASE 23 IU/L (14-46); BILIRUBIN,TOTAL 0.6 mg/dL (0.1-1.4); BILIRUBIN-CONJUGATED 0.3 mg/dL (0.0-0.5); BILIRUBIN-UNCONJUGATED 0.3 mg/dL (0.0-1.1); CALCIUM 10.6 mg/dL (8.5-10.4); CARBON DIOXIDE 23 mEq/l (22-31); CHLORIDE 105 mEq/L (97-110); CREATININE 0.8 mg/dL (0.6-1.0); GLOMERULAR FILTRATION RATE > 60; GLUCOSE 96 mg/dL (70-100); MAGNESIUM 1.9 mg/dL (1.6-2.3); POTASSIUM 4.3 mEq/L (3.5-5.2); SODIUM 143 mEq/L (134-144); TOTAL PROTEIN 7.7 g/dL (6.3-8.2)
[2017-04-28] MEDS ORDERED: IPRATROPIUM/ALBUTEROL 3 ML DEYVIAL IH ONE (01:43)
[2017-04-28 01:49] LABS: CREATINE KINASE-MB FRACTION 1.76 ng/mL (0.00-3.19); TROPONIN I < 0.012 ng/mL (0.000-0.034)
[2017-04-28] MEDS ORDERED: ONDANSETRON 4 MG/2 ML VIAL IVP PRN (02:25)
[2017-04-28] MEDS ORDERED: NS 1,000 ML IV SCH (02:30)
[2017-04-28 02:48] LABS: CALCULATED OXYGEN SATURATION 100 % (92-95)
[2017-04-28] MEDS ORDERED: IPRATROPIUM/ALBUTEROL 3 ML DEYVIAL IH PRN (03:54)
[2017-04-28 06:18] LABS: % IMMATURE GRANULYOCYTES 0.5 % (0.0-1.1); ABSOLUTE IMMATURE GRANULOCYTES 0.05 10^3/uL (0.00-0.10); ADD DIFF? NO; ADD MORPH? NO; ADD SCAN? NO; ATYPICAL LYMPHOCYTE FLAG 0 (0-99); FRAGMENT RBC FLAG 20 (0-99); HEMOGLOBIN 11.1 g/dL (12.6-16.3); LEFT SHIFT FLG 0 (0-99); LIPEMIA HEMOLYSIS FLAG 80 (0-99); MEAN CELL HEMOGLOBIN 30.7 pg (27.9-34.1); MEAN CELL HEMOGLOBIN CONCENTR. 33.6 g/dL (32.4-36.7); MEAN CELL VOLUME 91.4 fL (81.5-99.8); MEAN PLATELET VOLUME 10.6 fL (8.7-11.7); PLATELET CLUMPS FLAG 10 (0-99); PLATELET COUNT 222 10^3/uL (150-400); RED BLOOD CELL COUNT 3.61 10^6/uL (4.18-5.33); RED CELL DISTRIBUTION WIDTH 13.2 % (11.5-15.2)
[2017-04-28 06:36] LABS: ANION GAP 12 mEq/L (8-16); CALCIUM 8.9 mg/dL (8.5-10.4); CARBON DIOXIDE 21 mEq/l (22-31); CHLORIDE 107 mEq/L (97-110); CREATININE 0.7 mg/dL (0.6-1.0); GLOMERULAR FILTRATION RATE > 60; GLUCOSE 156 mg/dL (70-100); MAGNESIUM 2.2 mg/dL (1.6-2.3); POTASSIUM 4.2 mEq/L (3.5-5.2); SODIUM 140 mEq/L (134-144)
--- NOTE | 2017-04-28 07:31 | GHP ---
[f rep st] HISTORY AND PHYSICAL DATE OF ADMISSION: 04/28/2017 Patient without PCP. SOURCE: Patient able to provide majority of the history, appears reliable. Her EMR was also javier garcia, but however, she is not forthcoming with all of her answers. CHIEF COMPLAINT: Shortness of breath. HISTORY OF PRESENT ILLNESS: This is a 56-year-old female with past medical history significant for t obacco abuse, polysubstance abuse, asthma, and seizure disorder, who presents to the emergency depart ment today with complaints of worsening shortness of breath. The patient currently resides at a home less long-term and had been feeling unwell over the course of several days. In fact, she has made charly ral visits to the emergency department for worsening shortness of breath. Patient was diagnosed with bronchitis and discharged with azithromycin. She has no known sick contacts. She has persistent pr oductive cough of green sputum. Positive nasal congestion, rhinorrhea, fevers, chills and sweats at home. The patient reports that she just received her influenza and Pneumovax recently. REVIEW OF SYSTEMS: GENERAL: Positive for fevers, chills, sweats. SKIN: Patient complains of dry s kin. No open sores or rashes. ENT: Patient reports chronic rhinorrhea and nasal congestion due to seasonal allergies. EYES: Patient denies any acute changes in vision. Does wear readers. CV: The patient reporting some substernal chest pain that only occurs with coughing. She also reports some swelling in the right leg, which is persistent and stable. RESPIRATORY: Patient reports a productiv e cough of green thick sputum. GI: Nausea, vomiting, diarrhea. : No dysuria or hematuria. MUSC ULOSKELETAL: Patient does complain of chronic back pain, as well as diffuse myalgias more acutely. NEURO: The patient complains of right arm numbness, tingling to her fingers. She also reports heada debbie. PSYCH: The patient denies any anxiety, depression. The remainder of review of systems negativ e, except as noted above. ALLERGIES: Acetaminophen, ibuprofen. Patient reports she develops seizures. MEDICATIONS: Gabapentin, Keppra. Home medications: Gabapentin. Recently given prednisone, Lamictal, Advair and albuterol. PAST MEDICAL HISTORY: Significant for asthma, seizures, chronic back pain. PAST SURGICAL HISTORY: Significant for hysterectomy. FAMILY HISTORY: Significant for a daughter who is at age 29 due to asthma exacerbation. Radhames sanabria and 2 sisters with history of CAD and CHF all in the 50s. SOCIAL HISTORY: Patient continues to smoke tobacco, last intake was 3-4 days ago. She denies any il licit drugs or alcohol. However, her U tox is positive for cocaine and opioids. CODE STATUS: Patient does not want any cardiac resuscitation, but she is amenable to intubation if n eeded. PHYSICAL EXAMINATION: VITAL SIGNS: Upon arrival to the emergency department, heart rate 103, respir atory rate 29, O2 saturation 98% on BiPAP. Please note that the patient was brought in by EMS and wh en they evaluated the patient she had respiratory rate in the 60s, blood pressure 154/112. Current v itals: Blood pressure 120/67, heart rate 88, respiratory rate 22, O2 saturation 95% on 2 L by OxyMas k, temperature 36.4. GENERAL: No acute distress. Patient is resting quietly in bed. She does appe ar chronically ill and older than stated age. HEAD: Normocephalic, atraumatic. EYES: Extraocular muscles intact. Pupils equal, round, react to light bilaterally and symmetric. No scleral icterus o r conjunctival injection noted. ENT: Mucous membranes appear dry. No oropharyngeal erythema. Poor dentition. NECK: Supple. Trachea midline. CV: Regular rate and rhythm. No murmurs, rubs, or ga llops appreciated. RESPIRATORY: Patient with significantly decreased air movement in all lung field s. There is occasional wheezing. No crackles or rhonchi. Breathing is unlabored. ABDOMEN: Positi ve bowel sounds. Soft, nontender to palpation. No rebound, guarding, or masses appreciated. : N o Woodard in place. No suprapubic tenderness to palpation. No CVA tenderness. MUSCULOSKELETAL: Madeleine ent able to sit up independently. Strength is grossly normal with strength 5/5 in upper and lower ex tremities. NEURO: Cranial nerves 2-12 are intact, symmetric bilaterally. Patient is awake, alert, and oriented x3. No focal deficits. LABORATORY STUDIES: WBC 13.5, H and H is 12.9, 36.4, MCV 87.9, platelet count 260, neutrophil percen t is an absolute neutrophil 9.83, no bands. PT 12.9, INR 0.98, PTT 33.6. Point of care VBG, pH is 7 .66, pCO2 16, PO2 is 159, bicarb 17, total CO2 is 18, base excess -1, O2 saturation 100%. VBG lactic acid is 1.26. Sodium is 143, potassium 4.3, chloride 105, CO2 23, BUN is 14, creatinine is 0.8, GFR greater than 60, glucose 96, calcium 10.6, magnesium 1.9, total bilirubin 0.6, ALT 26, AST 23, alkal ine phosphatase is 116. CK is 137, CK-MB 1.76. Troponin is less than 0.012. BTNP is 195. Total pr otein 7.7, albumin is 5.0, lipase is 54. U tox positive for opiates and cocaine. Chest x-ray: Image reviewed myself, report is pending. Clear without any evidence of consolidation. EKG: Reviewed myself, sinus tachycardia in the 140s. No acute ST changes. QTc is 466. ASSESSMENT AND PLAN: This is a 56-year-old female with history of asthma, who presents today with co mplaints of acute on chronic shortness of breath. 1. Asthma exacerbation. The patient has received steroids, which will continue. We will also sched ule albuterol nebulizers and add Pulmicort and Singulair. The patient is status post multiple contin uous nebulizers from the ED to the floor. 2. Acute respiratory failure with hypoxia. Continue with supplemental oxygen. Continue treatment a s above. 3. Systemic inflammatory response syndrome. Patient without a leukocytosis, but has tachycardic and tachypneic, but this is likely related to her asthma, as well as likely a viral etiology. 4. Bronchitis, as noted above. 5. Polysubstance abuse. Cessation will be encouraged. 6. Chronic back pain, supportive care. 7. Anxiety, depression. Ativan p.r.n. Resume home medications. 8. Homelessness. Case Management consultation at discharge. 9. Fluid, electrolyte, nutrition: IV fluids overnight for some gentle hydration. Electrolyte repla cement p.r.n. and nutrition. Diet as tolerated. 10. Prophylaxis. Sequential compression devices and Lovenox. 11. Code status. Patient is a limited code. She does not want any cardiac resuscitation, but mainor ble to intubation if needed. 12. Disposition: The patient will be admitted to observation on the PCU floor at this time. /[id number]/MODL
[2017-04-28] MEDS ORDERED: methylPREDNISolone SOD SUCC 125 MG/2 ML VIAL IVP SCH (09:00)
[2017-04-28] MEDS ORDERED: BUDESONIDE 0.5 MG/2 ML AMPUL.NEB IH SCH (09:00)
[2017-04-28] MEDS ORDERED: diphenhydrAMINE 50 MG CAP PO PRN (09:08)
[2017-04-28] MEDS ORDERED: diphenhydrAMINE 25 MG CAP PO PRN (09:13)
[2017-04-28] MEDS ORDERED: ALBUTEROL 60 PUFFS/8 GM MDI IH SCH (09:15)
[2017-04-28] MEDS: ENOXAPARIN 40 MG/0.4 ML SYR SC SCH (09:18)
[2017-04-28] MEDS ORDERED: ALBUTEROL 200 PUFFS/18 GM MDI IH PRN (09:36)
[2017-04-28] MEDS: GABAPENTIN 400 MG CAP PO SCH ×2 (09:56→20:22)
[2017-04-28] MEDS: predniSONE 20 MG TAB PO SCH (09:56)
[2017-04-28] MEDS ORDERED: ALBUTEROL 200 PUFFS/18 GM MDI IH SCH (10:00)
--- NOTE | 2017-04-28 10:14 | ASMTCMCOM ---
CM Note CM Note Notes: Case Management Note Met w/pt. Pt reports living in transitional housing through the [facility] giving the [facility] as [facility]. Reports Casimiro is [employer]. Left vm for Casimiro at [phone] ext [phone]. Pt reports working at [employer] [place] [facility], reports using the bus for transportation and that meals are provided by the [facility]. Pt states that Yris Gonzalez is primary MD and that Dr. Edmond through [facility] is psychiatrist. All phone numbers pt gave case management are wrong numbers or disconnected. Pt reports daughter lives in [facility] but works in [place]. Case Management unable to verify information. Case Management d/c poc: to homeless [facility] when medically stable. Date Signed: 04/28/2017 10:13 AM Electronically Signed By:Le Russell RN
[2017-04-28] MEDS: MONTELUKAST SODIUM 10 MG TAB PO SCH ×4 (10:40→20:23)
[2017-04-28] MEDS: IPRATROPIUM/ALBUTEROL 3 ML DEYVIAL IH SCH ×3 (12:31→21:46)
[2017-04-28] MEDS: guaiFENesin 600 MG TAB.ER PO SCH ×2 (12:52→20:22)
--- NOTE | 2017-04-28 17:50 | HOSPPROG ---
Hospitalist Progress Note Assessment/Plan: Prolonged service in addition to the history and physical originally performed by Dr. Tori Greer, direct patient care at bedside, [id number] with the patient and her partner, from 10:55 a.m. until 11:28 a.m., 33 minutes, addressing the following: -physical exam reveals ongoing diffuse expiratory wheezes, although the patient is able to speak in full sentences, she does appear to have tachypnea when she is speaking, continues on supplemental oxygen face mask, heart rate remains tachycardic and regular -if worsening, get ABG level -continue scheduled duo nebs, utilize Xopenex as the p.r.n. neb given her tremulousness -adjusted steroids IV to oral 60 mg daily of prednisone -per patient's request, adjusted Advair to Symbicort, this which she is taking at home -placed on scheduled Mucinex, as needed Tessalon Raymonde -patient is not currently taking Seroquel, discontinue -monitor respiratory status closely as she is high risk for decompensation, and did present with acute overt hypoxic respiratory failure, saturating 89% on room air with objective tachypnea of 34 breaths per minute, requiring immediate BiPAP therapy -continue monitor this patient very closely as she may require intubation, although she has sided not to receive CPR, she would be okay with intubation if necessary from a pulmonary standpoint Subjective: tremulous w/ activity, ongoing SOB Objective: Vital Signs Temp Pulse Resp BP Pulse Ox 36.6 C 120 H 15 104/48 L 98 04/28/17 13:56 04/28/17 13:56 04/28/17 13:56 04/28/17 13:56 04/28/17 13:56 Laboratory Results 04/28/17 05:58 04/28/17 05:58 04/27/17 04/28/17 04/29/17 05:59 05:59 05:59 Intake Total 1559 671 Output Total 300 1000 Balance 1259 -329 PT 12.9 SEC (12.0-15.0) 04/28/17 01:00 INR 0.98 (0.83-1.16) 04/28/17 01:00 ICD10 Worksheet Patient Problems: Problems Problem Status Onset Asthma attack Acute Seizure Acute Submandibular gland swelling Acute Acute asthma exacerbation Acute
[2017-04-28] MEDS ORDERED: FLUTICASONE/SALMETER 250/50MCG DISKUS IH SCH (21:00)
[2017-04-28] MEDS ORDERED: QUEtiapine FUMARATE 200 MG TAB PO SCH (21:00)
[2017-04-28] MEDS ORDERED: QUETIAPINE FUMARATE 400 MG PO SCH (21:00)
[2017-04-28] MEDS: BUDESONIDE/FORMOTEROL 160/4.5 60 PUFFS/MDI IH SCH (22:00)
[2017-04-29] MEDS: GABAPENTIN 400 MG CAP PO SCH ×2 (04:27→21:37)
[2017-04-29] MEDS: IPRATROPIUM/ALBUTEROL 3 ML DEYVIAL IH SCH ×4 (05:33→22:17)
[2017-04-29 05:57] LABS: ANION GAP 13 mEq/L (8-16); CALCIUM 9.5 mg/dL (8.5-10.4); CARBON DIOXIDE 25 mEq/l (22-31); CHLORIDE 106 mEq/L (97-110); CREATININE 0.7 mg/dL (0.6-1.0); GLOMERULAR FILTRATION RATE > 60; GLUCOSE 111 mg/dL (70-100); SODIUM 144 mEq/L (134-144)
[2017-04-29 07:01] LABS: BASE EXCESS 0.8 mEq/L (-2.5-2.5); BICARBONATE 25 mEq/L (22-26); MEASURED OXYGEN SATURATION 93 % (92-95); PCO2 37 mmHg (34-38); PO2 65 mmHg (65-75); TCO2 26 mEq/L (23-27)
[2017-04-29] MEDS: guaiFENesin 600 MG TAB.ER PO SCH ×2 (09:12→21:37)
[2017-04-29] MEDS: ENOXAPARIN 40 MG/0.4 ML SYR SC SCH (09:12)
[2017-04-29] MEDS: predniSONE 20 MG TAB PO SCH (09:12)
[2017-04-29] MEDS: LORazepam 0.5 MG TAB PO PRN (09:17)
[2017-04-29] MEDS: BUDESONIDE/FORMOTEROL 160/4.5 60 PUFFS/MDI IH SCH ×2 (11:32→21:11)
--- NOTE | 2017-04-29 14:59 | CPEKG ---
Heart Rate: 116 RR Interval: 517 P-R Interval: 144 QRSD Interval: 78 QT Interval: 328 QTC Interval: 456 P Wilton: 68 QRS Wilton: 52 T Wave Wilton: 44 EKG Severity - BORDERLINE ECG - EKG Impression: SINUS TACHYCARDIA EKG Impression: CONSIDER INFERIOR INFARCT EKG Impression: No significant change from April 28, 2017 EKG Impression: Possible left atrial abnormality Electronically Signed By: Darrius Granger 30-Apr-2017 06:51:05
--- NOTE | 2017-04-29 16:47 | HOSPPROG ---
Hospitalist Progress Note Assessment/Plan: Assessment: 56 yo F p/w acute asthma exacerbation Plan: # Asthma exacerbation. Acute, new problem, further w/u indicated. Evidenced by diffuse exp wheezes, recurrent this afternoon after ambulation and patient surreptitiously smoking a cigarette off the unit - patient informed that if she leaves unit unsupervised again, she will be discharged; patient reports she will not leave unit - give xopenex now, cont scheduled duoneb, cont pred 60 daily, cont symbicort - condition unresolved, HR 150 w/ tachypnea s/p ambulation, placed on o2 - EKG ordered, sinus tach (personally interpreted), ddimer ordered to r/o PE, CXR w/o focal infiltrate - will need pulm f/u s/p discharge, rec w/ Dr. Abreu # Polysubstance abuse. Cocaine and Opiate positive on presentation, patient denies taking cocaine while off unit today, although her behavior upon returning to unit is suspicious for use - cont to monitor behavior, recommend complete sobriety # Acute hypoxic respiratory failure. Evidenced by SpO2 89% on room air w/ objective tachypnea (RR 34) and labored breathing, requiring BiPAP, 2/2 asthma exacerbation - she is high risk of decompensation, will tx on scheduled nebs additional 24hrs and monitor progress Diet. Regular PPx. High risk, on lovenox 40 Code. No CPR per patient, OK w/ intubation if necessary Dispo. ADD uncertain, upgrade to inpatient admission status re: anticipated LOS > 48hrs for reasonable medical necessity including clinically unresolved asthma exacerbation Subjective: patient reports respiratory distress s/p her jaunt off the unit Objective: Vital Signs Temp Pulse Resp BP Pulse Ox 36.7 C 135 H 27 H 129/79 H 93 04/29/17 13:29 04/29/17 14:22 04/29/17 14:22 04/29/17 13:29 04/29/17 14:22 Laboratory Results 04/28/17 05:58 04/29/17 04:12 04/28/17 04/29/17 04/30/17 05:59 05:59 05:59 Intake Total 1559 1971 360 Output Total 300 1400 100 Balance 1259 571 260 PT 12.9 SEC (12.0-15.0) 04/28/17 01:00 INR 0.98 (0.83-1.16) 04/28/17 01:00 - Physical Exam Constitutional: appears nourished, chronically ill appearing, uncomfortable, No obese Cardiovascular: tachycardia, No systolic murmur, No irregularly irregular, No edema Respiratory: reduced air movement (on exp bilat), expiratory wheeze, other ( visible tachypnea, unable to speak full sentences), No inspiratory crackles Gastrointestinal: normoactive bowel sounds, soft, non-tender abdomen, no palpable masses Neurologic: AAOx3, No facial droop Psychiatric: not encephalopathic, anxious, other (having difficulty focusing, but directible), No agitated ICD10 Worksheet Patient Problems: Problems Problem Status Onset Asthma attack Acute Seizure Acute Submandibular gland swelling Acute Acute asthma exacerbation Acute
[2017-04-29] MEDS: NICOTINE 21 MG/24 HR PATCH TD SCH (17:40)
--- NOTE | 2017-04-29 17:42 | PDMN ---
Medical Necessity Medical necessity: C/M review: est. > 2 MN LOS for eval and TX of acute and persistent asthma exacerbation, acute hypoxic respiratory failure, patient at high risk of decompensation, tachycardia, requiring ongoing cardiac monitoring, pulse oximetry, Duonebs, supplemental O2 as needed, comorbid polysubstance abuse , 04/29/2017 unsupervised episode of patient leaving the nursing unit and surreptitiously smoking a cigarette per 04/29/2017 Hospitalist progress note.
[2017-04-30 04:54] LABS: ANION GAP 11 mEq/L (8-16); CALCIUM 9.7 mg/dL (8.5-10.4); CARBON DIOXIDE 26 mEq/l (22-31); CHLORIDE 106 mEq/L (97-110); CREATININE 0.7 mg/dL (0.6-1.0); GLOMERULAR FILTRATION RATE > 60; GLUCOSE 80 mg/dL (70-100); POTASSIUM 3.9 mEq/L (3.5-5.2); SODIUM 143 mEq/L (134-144)
[2017-04-30] MEDS: IPRATROPIUM/ALBUTEROL 3 ML DEYVIAL IH SCH ×4 (05:23→23:11)
[2017-04-30] MEDS: predniSONE 20 MG TAB PO SCH (08:55)
[2017-04-30] MEDS: guaiFENesin 600 MG TAB.ER PO SCH ×2 (08:55→19:48)
[2017-04-30] MEDS: NICOTINE 21 MG/24 HR PATCH TD SCH (08:55)
[2017-04-30] MEDS: GABAPENTIN 400 MG CAP PO SCH ×2 (08:55→19:48)
[2017-04-30] MEDS: ENOXAPARIN 40 MG/0.4 ML SYR SC SCH (08:55)
[2017-04-30] MEDS: BUDESONIDE/FORMOTEROL 160/4.5 60 PUFFS/MDI IH SCH ×2 (09:42→20:44)
--- NOTE | 2017-04-30 10:17 | HOSPPROG ---
Hospitalist Progress Note Assessment/Plan: Assessment: 56 yo F p/w acute asthma exacerbation Plan: # Asthma exacerbation. Acute, ongoing wheezes/reactive airways, clinically unresolved - cont on scheduled duonebs x 24hrs, PRN xopenex w/ RT - add more PRN anti-tussives - cont Pred, D#3/ - will need pulm f/u s/p discharge, rec w/ Dr. Abreu # Polysubstance abuse. Cocaine and Opiate positive on presentation - cont to monitor behavior, recommend complete sobriety - NRT # Acute hypoxic respiratory failure. Evidenced by SpO2 89% on room air w/ objective tachypnea (RR 34) and labored breathing, requiring BiPAP, 2/2 asthma exacerbation - she is high risk of decompensation, will tx on scheduled nebs additional 24hrs and monitor progress Diet. Regular PPx. High risk, on lovenox 40 Code. No CPR per patient, OK w/ intubation if necessary Dispo. ADD uncertain, clinically unresolved. Subjective: ongoing SOB w/ any ambulation, coughing all night Objective: Vital Signs Temp Pulse Resp BP Pulse Ox 36.6 C 102 H 25 H 128/85 H 93 04/30/17 04:00 04/30/17 09:40 04/30/17 09:40 04/30/17 08:00 04/30/17 09:40 Laboratory Results 04/30/17 04:21 04/29/17 04/30/17 05/01/17 05:59 05:59 05:59 Intake Total 1150 Output Total 2500 Balance -1350 PT 12.9 SEC (12.0-15.0) 04/28/17 01:00 INR 0.98 (0.83-1.16) 04/28/17 01:00 - Physical Exam Constitutional: not in pain, chronically ill appearing, uncomfortable, unkempt Cardiovascular: tachycardia, No systolic murmur, No irregularly irregular, No edema Respiratory: reduced air movement (on expiration bilaterally), expiratory wheeze , bronchial breath sounds, No inspiratory crackles Gastrointestinal: normoactive bowel sounds, soft, non-tender abdomen, no palpable masses Neurologic: AAOx3, sensation intact bilaterally Psychiatric: not anxious, not encephalopathic, thought process linear, flat affect, other (poor eye contact) ICD10 Worksheet Patient Problems: Problems Problem Status Onset Asthma attack Acute Seizure Acute Submandibular gland swelling Acute Acute asthma exacerbation Acute
--- NOTE | 2017-04-30 15:01 | ASMTCMCOM ---
CM Note CM Note Notes: 04/30/2017 Case Management Note Received call from Casimiro, caser at the [place] [facility] through the [facility] (P: [phone] ext [phone]) Casimiro states that pt has a bed in the [facility]. Casimiro requested notification of d/c. Notified pt that Casimiro requires pt to report directly to fdc after d/c to maintain bed in the transitions program at the fdc. Pt in agreement. Case Management to follow. Date Signed: 04/30/2017 03:00 PM Electronically Signed By:Le Russell RN
[2017-04-30] MEDS: LEVALBUTEROL 1.25 MG/3 ML DEYVIAL IH PRN (17:33)
[2017-04-30] MEDS: BENZONATATE 100 MG CAP PO PRN (17:50)
[2017-04-30] MEDS: MONTELUKAST SODIUM 10 MG TAB PO SCH (17:50)
[2017-04-30] MEDS: LORazepam 0.5 MG TAB PO PRN (19:48)
[2017-05-01] MEDS: LORazepam 0.5 MG TAB PO PRN ×2 (04:12→19:56)
[2017-05-01] MEDS: BENZONATATE 100 MG CAP PO PRN ×2 (04:12→19:56)
[2017-05-01] MEDS: IPRATROPIUM/ALBUTEROL 3 ML DEYVIAL IH SCH ×3 (05:51→16:33)
[2017-05-01] MEDS: NICOTINE 21 MG/24 HR PATCH TD SCH (09:39)
[2017-05-01] MEDS: predniSONE 20 MG TAB PO SCH (09:39)
[2017-05-01] MEDS: GABAPENTIN 400 MG CAP PO SCH ×2 (09:39→19:56)
[2017-05-01] MEDS: guaiFENesin 600 MG TAB.ER PO SCH ×2 (09:39→19:56)
[2017-05-01] MEDS: ENOXAPARIN 40 MG/0.4 ML SYR SC SCH (09:40)
[2017-05-01] MEDS: BUDESONIDE/FORMOTEROL 160/4.5 60 PUFFS/MDI IH SCH ×2 (10:38→20:00)
--- NOTE | 2017-05-01 19:31 | HOSPPROG ---
Hospitalist Progress Note Assessment/Plan: Assessment: 56 yo F p/w acute asthma exacerbation Plan: # Asthma exacerbation. Acute, ongoing wheezes/reactive airways, clinically unresolved - cont on scheduled duonebs x 24hrs, PRN xopenex w/ RT - cont PRN anti-tussives, add decongestants as PND may be contributing - cont Pred, D#4/5 - will need pulm f/u s/p discharge, rec w/ Dr. Abreu # Polysubstance abuse. Cocaine and Opiate positive on presentation - cont to monitor behavior, recommend complete sobriety - NRT # Acute hypoxic respiratory failure. Evidenced by SpO2 89% on room air w/ objective tachypnea (RR 34) and labored breathing, requiring BiPAP, 2/2 asthma exacerbation - she is high risk of decompensation, will tx on scheduled nebs additional 24hrs and monitor progress Diet. Regular PPx. High risk, on lovenox 40 Code. No CPR per patient, OK w/ intubation if necessary Dispo. ADD uncertain, clinically unresolved. Subjective: ongoing SOB w/ any ambulation, feels very congested in sinuses w/ coughing Objective: Vital Signs Temp Pulse Resp BP Pulse Ox 36.6 C 114 H 22 H 145/76 H 94 05/01/17 15:30 05/01/17 16:36 05/01/17 16:36 05/01/17 15:30 05/01/17 16:36 Laboratory Results 04/30/17 04:21 04/30/17 05/01/17 05/02/17 05:59 05:59 05:59 Intake Total 1150 1450 Output Total 2500 950 Balance -1350 500 PT 12.9 SEC (12.0-15.0) 04/28/17 01:00 INR 0.98 (0.83-1.16) 04/28/17 01:00 - Physical Exam Constitutional: no apparent distress, not in pain, chronically ill appearing, uncomfortable Cardiovascular: tachycardia, No systolic murmur, No irregularly irregular, No edema Respiratory: reduced air movement (on exp bilat), expiratory wheeze, bronchial breath sounds, No inspiratory crackles Gastrointestinal: normoactive bowel sounds, soft, non-tender abdomen, no palpable masses Neurologic: AAOx3, other (no tremulousness) Psychiatric: not encephalopathic, thought process linear, anxious, No agitated ICD10 Worksheet Patient Problems: Problems Problem Status Onset Asthma attack Acute Seizure Acute Submandibular gland swelling Acute Acute asthma exacerbation Acute
[2017-05-01] MEDS: CETIRIZINE 10 MG TAB PO SCH (19:57)
[2017-05-01] MEDS: MONTELUKAST SODIUM 10 MG TAB PO SCH (19:57)
[2017-05-01] MEDS: LEVALBUTEROL 1.25 MG/3 ML DEYVIAL IH PRN (20:00)
[2017-05-02] MEDS: IPRATROPIUM/ALBUTEROL 3 ML DEYVIAL IH SCH ×6 (00:19→23:01)
[2017-05-02] MEDS: FLUTICASONE NASAL 120 SPRAYS/16 GM MDI EACHNARE SCH ×2 (01:54→10:15)
[2017-05-02] MEDS: LEVALBUTEROL 1.25 MG/3 ML DEYVIAL IH PRN ×2 (03:08→17:57)
[2017-05-02] MEDS: BUDESONIDE/FORMOTEROL 160/4.5 60 PUFFS/MDI IH SCH ×2 (09:13→21:57)
[2017-05-02] MEDS: GABAPENTIN 400 MG CAP PO SCH ×2 (09:29→21:04)
[2017-05-02] MEDS: guaiFENesin 600 MG TAB.ER PO SCH ×2 (09:29→21:04)
[2017-05-02] MEDS: NICOTINE 21 MG/24 HR PATCH TD SCH (09:29)
[2017-05-02] MEDS: ENOXAPARIN 40 MG/0.4 ML SYR SC SCH (09:30)
[2017-05-02] MEDS: predniSONE 20 MG TAB PO SCH (09:35)
[2017-05-02] MEDS ORDERED: FUROSEMIDE 20 MG TAB PO ONE (16:03)
--- NOTE | 2017-05-02 16:07 | HOSPPROG ---
Hospitalist Progress Note Assessment/Plan: new patient encounter # Asthma exacerbation. Acute, ongoing wheezes/reactive airways, clinically unresolved - cont on scheduled duonebs x 24hrs, PRN xopenex w/ RT - cont PRN anti-tussives, add decongestants as PND may be contributing - cont Prednisone at 60mg daily. Would taper - will need pulm f/u s/p discharge, rec w/ Dr. Abreu # Polysubstance abuse. Cocaine and Opiate positive on presentation - cont to monitor behavior, recommend complete sobriety - NRT # Acute hypoxic respiratory failure. Evidenced by SpO2 89% on room air w/ objective tachypnea (RR 34) and labored breathing, requiring BiPAP, 2/2 asthma exacerbation - she is high risk of decompensation, will tx on scheduled nebs additional 24hrs and monitor progress #generalized weakness and deconditioning and right leg weakness. The back and leg weakness is chronic. PT following. They recommend home. Diet. Regular PPx. High risk, on lovenox 40 Code. No CPR per patient, OK w/ intubation if necessary Dispo: very symptomatic, cont with inpt. Care per above. Subjective: still with cough and sob. On RA. Feels weak. Balance is off. Objective: Vital Signs Temp Pulse Resp BP Pulse Ox 37.1 C 125 H 14 133/78 H 96 05/02/17 15:32 05/02/17 15:32 05/02/17 15:32 05/02/17 15:32 05/02/17 15:32 Laboratory Results 04/30/17 04:21 05/01/17 05/02/17 05/03/17 05:59 05:59 05:59 Intake Total 1450 750 Output Total 950 Balance 500 750 PT 12.9 SEC (12.0-15.0) 04/28/17 01:00 INR 0.98 (0.83-1.16) 04/28/17 01:00 - Physical Exam Constitutional: no apparent distress, appears nourished Eyes: PERRL, EOMI Ears, Nose, Mouth, Throat: moist mucous membranes, hearing normal Cardiovascular: regular rate and rhythym, no murmur, rub, or gallop Respiratory: reduced air movement, expiratory wheeze, rhonchi Gastrointestinal: normoactive bowel sounds, soft, non-tender abdomen Skin: warm Neurologic: AAOx3 Psychiatric: interacting appropriately, not anxious, not encephalopathic, thought process linear ICD10 Worksheet Patient Problems: Problems Problem Status Onset Asthma attack Acute Acute asthma exacerbation Acute Seizure Acute Submandibular gland swelling Acute
[2017-05-02] MEDS: MONTELUKAST SODIUM 10 MG TAB PO SCH (17:26)
[2017-05-02] MEDS: LORazepam 0.5 MG TAB PO PRN (21:04)
[2017-05-02] MEDS: CETIRIZINE 10 MG TAB PO SCH (21:04)
[2017-05-03] MEDS: IPRATROPIUM/ALBUTEROL 3 ML DEYVIAL IH SCH ×2 (05:46→09:35)
[2017-05-03 08:18] VITALS: BP 124/78; TEMP 97.9
[2017-05-03] MEDS: GABAPENTIN 400 MG CAP PO SCH (08:58)
[2017-05-03] MEDS: ENOXAPARIN 40 MG/0.4 ML SYR SC SCH (08:58)
[2017-05-03] MEDS: predniSONE 20 MG TAB PO SCH (08:58)
[2017-05-03] MEDS: guaiFENesin 600 MG TAB.ER PO SCH (08:58)
[2017-05-03] MEDS: NICOTINE 21 MG/24 HR PATCH TD SCH (08:59)
[2017-05-03] MEDS: FLUTICASONE NASAL 120 SPRAYS/16 GM MDI EACHNARE SCH (08:59)
[2017-05-03] MEDS: BUDESONIDE/FORMOTEROL 160/4.5 60 PUFFS/MDI IH SCH (09:35)
[2017-05-03 09:52] VITALS: PULSE 111; RESP 24; O2SAT 96
--- NOTE | 2017-05-03 10:01 | GDS ---
[f rep st] DISCHARGE SUMMARY DISCHARGE DIAGNOSES: 1. Acute hypoxemic respiratory failure secondary to asthma exacerbation. 2. Acute exacerbation of asthma. 3. Polysubstance abuse. CONSULTANTS: None. HISTORY: For details, please see the history and physical dated May 01, 2017. In brief, the cesar silva is a 56-year-old female with a history of tobacco abuse and asthma diagnosed as a young child, w ho presents to the Emergency Department with shortness of breath and a productive cough. She was adm itted to the hospital for further management of an asthma exacerbation. HOSPITAL COURSE: The patient was admitted to the Progressive Care Unit. She initially required BiPA P, but then was able to wean off oxygen, has been maintaining her saturations in the mid 90s on room air for the past 4 days. She was treated with high-dose steroids in addition to scheduled nebulizers , along with Pulmicort and Singulair. There was no evidence of pneumonia on chest x-ray, which did r eveal some airway disease. She does have a history of polysubstance abuse with cocaine and opiates. It is unclear if there may be some chemical pneumonitis playing a role in her symptoms. On the day of discharge, she reports significant improvement in her symptoms, and she wishes to discharge back t o her transitional housing. DISPOSITION: The patient is discharged home to her transitional housing center in stable condition. FOLLOWUP: 1. [facility]. 2. Dr. Dusty Abreu, Pulmonology. DISCHARGE MEDICATIONS: Please see NAVX for complete updated outpatient medication list. New med ications on discharge include: Prednisone taper, Singulair, guaifenesin, Tessalon, albuterol inhaler , DuoNebs, Flonase and Zyrtec. She will continue her gabapentin and other outpatient medications as previously prescribed. /[id number]/MODL
--- NOTE | 2017-05-03 14:33 | ASDISCHSUM ---
Discharge Information Plan Status:Homeless/Jail Medically Cleared to Leave: Discharge Date:05/03/2017 11:43 AM CM D/C Disposition:[facility]reets (Homeless) ADT D/C Disposition:Home, Routine, Self-Care Projected Discharge Date:05/03/2017 11:43 AM Transportation at D/C:Self Discharge Delay Reason: Follow-Up Date:05/03/2017 11:43 AM Discharge Slot: Final Diagnosis: Placement Information Patient Contact Information Contact Name:NETTA Relationship:Other Address: Work Phone: City: [facility] Phone: State/Zip Code: Email: Financial Information Financial Class: Primary Plan Desc:[facility] Primary Plan Number:[id number] Secondary Plan Desc: Secondary Plan Number: Assessment Information [facility] CM Progress Note CM Note CM Note Notes: Case Management Note Met w/pt. Pt reports living in transitional housing through the [facility] giving the address as [address] [place] [address]. Reports Casimiro is Quality Control Scientist. Left for Casimiro at [phone] ext [phone]. Pt reports working at [employer] in the [place] [employer] [place], reports using the bus for transportation and that meals are provided by the [facility]. Pt states that Yris Gonzalez is primary MD and that Dr. Edmond through [facility] is psychiatrist. All phone numbers pt gave case management are wrong numbers or disconnected. Pt reports daughter lives in [facility] but works in [place]. Case Management unable to verify information. Case Management d/c poc: to homeless [facility] when medically stable. Date Signed: 04/28/2017 10:13 AM Electronically Signed By:Le Russell RN [facility] CM Progress Note CM Note CM Note Notes: 04/30/2017 Case Management Note Received call from Casimiro, rn field case manager at the [facility] through the [facility] (P: [phone] ext [phone]) Casimiro states that pt has a bed in the [facility]. Casimiro requested notification of d/c. Notified pt that Casimiro requires pt to report directly to [facility] after d/c to maintain bed in the transitions program at the [facility]. Pt in agreement. Case Management to follow. Date Signed: 04/30/2017 03:00 PM Electronically Signed By:Le Russell RN Intervention Information
== END 2017-05-03 11:43 | disposition home or self-care (01) | DRG 202 ==
LOC: EDUNIT# → INTOOBSV 01:56 → F2W 02:40 → OBSVTOIN 04-29 16:49 → F3E 05-03 02:33
PROVIDERS: ADMIT Family Medicine; ATTEND Hospitalist
DX: J45.901 Unspecified asthma with (acute) exacerbation (principal); J96.01 Acute respiratory failure with hypoxia; G40.909 Epilepsy, unspecified, not intractable, without status epilepticus; F32.9 Major depressive disorder, single episode, unspecified; F41.9 Anxiety disorder, unspecified; F11.10 Opioid abuse, uncomplicated; F14.10 Cocaine abuse, uncomplicated; Z72.0 Tobacco use; Z59.0 Homelessness; Z79.51 Long term (current) use of inhaled steroids; Z79.52 Long term (current) use of systemic steroids
CPT/HCPCS: 80305; 96365; 97110-GP; 97116-GP; 97162-GP; G0378; J1650; J2405; J2550; J7626

== ENCOUNTER 2017-05-05 21:55 | Inpatient (IN) | payer MEDICAID ==
[2017-05-05] MEDS ORDERED: NS 1,000 ML IV ONE ×2 (21:57→21:58)
[2017-05-05] MEDS ORDERED: ONDANSETRON 4 MG/2 ML VIAL IVP ONE (21:58)
[2017-05-05] MEDS ORDERED: IPRATROPIUM/ALBUTEROL 3 ML DEYVIAL IH ONE (21:58)
[2017-05-05] MEDS ORDERED: MAGNESIUM SULF 2 GM/WATER 50 ML IV ONE (21:59)
--- NOTE | 2017-05-05 22:02 | EDPHY ---
H & P HPI/ROS: HPI CHIEF COMPLAINT: Respiratory distress HISTORY OF PRESENT ILLNESS: This patient 56-year-old female, well known to myself as well as the emergency department she presents from a local [facility] respiratory distress. She has a history of asthma polysubstance abuse. She was recently admitted by myself on April 28 for acute asthma exacerbation. She presents emergency room in respiratory distress tachypneic in the 40s. Audible wheezing. This started prior to arrival. She was brought in by ambulance received 2 DuoNeb breathing treatments EN route. 125 mg IV Solu- Medrol. Upon arrival to the emergency room she is in respiratory distress tachypneic in the 30s. Audible wheezing. Getting a DuoNeb breathing treatment. Past Medical History: Asthma, polysubstance abuse Past Surgical History: No recent surgery Social History: Homeless, polysubstance abuse Family History: Noncontributory ROS REVIEW OF SYSTEMS: A comprehensive 10 point review of systems is otherwise negative aside from elements mentioned in the history of present illness. Exam Constitutional respiratory distress triage nursing summary reviewed, vital signs reviewed, awake/alert. Eyes normal conjunctivae and sclera, EOMI, PERRLA. HENT normal inspection, atraumatic, moist mucus membranes, no epistaxis, neck supple/ no meningismus, no raccoon eyes. Respiratory decreased breath sounds bilaterally, audible wheezing, wheeze out lung person, respiratory distress, tachypnea. Cardiovascular tachycardia regular rhythm, no murmur, no edema, distal pulses normal. Gastrointestinal soft, non-tender, no rebound, no guarding, normal bowel sounds, no distension, no pulsatile mass. Genitourinary no CVA tenderness. Musculoskeletal no midline vertebral tenderness, full range of motion, no calf swelling, no tenderness of extremities, no meningismus, good pulses, neurovascularly intact. Skin pink, warm, & dry, no rash, skin atraumatic. Neurologic awake, alert and oriented x 3, AAOx3, moves all 4 extremities equally, motor intact, sensory intact, CN II-XII intact, normal cerebellar, normal vision, normal speech. Psychiatric normal mood/affect. Heme/Lymph/Immune no lymphadenopathy. Differential Diagnosis: Includes but is not limited to in a particular order acute respiratory distress, acute asthma exacerbation, hypoxic respiratory failure, polysubstance abuse, pneumonia, pulmonary edema, pneumothorax, CHF Medical Decision Making: Plan for this patient IV establishment, full monitoring engineer, obtain EKG, blood work, IV Solu-Medrol was given in route by EMS, will give continuous breathing treatment. Will monitor closely for respiratory distress. Re-evaluation: EKG interpretation by me on record in [facility] system. Impression time of EKG 2224: This is sinus rhythm rate of 94. No acute ischemic changes. No ST elevation ST depression or significant T-wave abnormalities. Intervals are appropriate. ED x-ray chest one view: No pneumonia. Low lung volumes. 2315: I did re-evaluate this patient at this time. She still wheezing but feels better after continuous neb. She is able to talk to me in clear sentences. She does have a hacking bronchitic cough. She is asking me for another DuoNeb which I will provide for her. She will need to be admitted to the hospital. She has had IV Solu-Medrol by EMS, IV magnesium by me, IV fluids, DuoNeb breathing treatment x2, continuous albuterol neb. She continues to have a hacking bronchitic cough with wheezing. But much improved. Reason for admission respiratory distress asthma. Asthma exacerbation. Spoke with the hospitalist service will admit to Dr. Anguiano. Patient is stable at this time. Stable for Step-Down Unit admission. Much improved since arrival. Noted her drug screen was positive for cocaine last time she was here 5 days ago. Source: Patient, EMS - Medical/Surgical History Hx Asthma: Yes Hx Chronic Respiratory Disease: No Hx Diabetes: No Hx Cardiac Disease: No Hx Renal Disease: No Hx Cirrhosis: No Hx Alcoholism: No Hx HIV/AIDS: No Hx Splenectomy or Spleen Trauma: No Other PMH: asthma, sz, hysterectomy, abd infx req mult surg - Social History Smoking Status: Light smoker Constitutional: Initial Vital Signs Temperature (C) 37.3 C 05/05/17 22:05 Heart Rate 104 H 05/05/17 22:05 Respiratory Rate 32 H 05/05/17 22:05 Blood Pressure 116/74 05/05/17 22:05 O2 Delivery Mode Nasal Cannula O2 (L/minute) 2 Allergies/Adverse Reactions: acetaminophen [From Tylenol] Allergy (Verified 04/28/17 01:35) ibuprofen Allergy (Verified 04/28/17 01:35) Home Medications: Medication Instructions Recorded Gabapentin [Neurontin 400 MG (*)] 800 mg PO BID 10/21/17 diphenhydrAMINE [Benadryl 50 MG 50 mg PO DAILY PRN 04/28/17 (*)] Benzonatate [Tessalon Pearles] 200 mg PO TID PRN #30 cap 04/29/17 Budesonide/Formoterol 160/4.5 2 puffs IH BID mdi 04/29/17 [Symbicort 160-4.5 Mcg Inh (*)] Montelukast Sodium [Singulair 10 10 mg PO DAILY@1800 #30 tab 04/29/17 mg (*)] guaiFENesin [Mucinex 600 MG (*)] 1,200 mg PO BID #20 tab.er 04/29/17 Albuterol [Ventolin Hfa Inhaler] 1 - 2 puffs IH Q4 PRN mdi 05/03/17 Cetirizine [ZyrTEC 10 mg (*)] 10 mg PO HS #30 tab 05/03/17 Fluticasone Nasal [Flonase Nasal 2 sprays EACHNARE DAILY #1 mdi 05/03/17 [place]] Ipratropium/Albuterol [Duoneb (*)] 3 ml IH Q6HRS deyvial 05/03/17 Albuterol Sulfate [Proair Hfa] 1 - 2 puffs IH Q4H PRN 05/06/17 predniSONE [Deltasone] 60 mg PO DAILY 05/06/17 Medical Decision Making - Data Points Laboratory Results: Laboratory Results 05/05/17 22:05 05/05/17 22:05 05/05/17 05/05/17 23:30 22:05 Smear Review By Dakota NEFF MD Puncture Site Cancelled Patient Temperature Cancelled pCO2 Cancelled pO2 Cancelled Total CO2 Cancelled ABG pH Cancelled ABG PO2/FiO2 Ratio Cancelled ABG HCO3 Cancelled ABG O2 Sat (Calculated) Cancelled ABG O2 Saturation Cancelled ABG Base Excess Cancelled Total O2 Concentration Cancelled O2 Concentration % Cancelled Respiration Rate Cancelled Actual Respiration Rate Cancelled Set Respiration Rate Cancelled SIMV Cancelled Assist Control Cancelled Vent Rate Cancelled Inspiratory Time Cancelled Expiratory Pressure Cancelled Tidal Volume Cancelled End Tidal CO2 Cancelled PEEP Cancelled Inspiratory Pressure Cancelled Peak Inspir Pressure Cancelled Pressure Support Cancelled Pressure Control Cancelled CPAP Cancelled BiPAP Cancelled Mode BiPAP Cancelled Inspir/Expir Ratio Cancelled Medications Given: Albuterol (Proventil Neb) 3 ml IH Q4 ISHAN Stop: 11/02/17 01:59 Last Admin: 05/06/17 08:32 Dose: 3 ml Azithromycin (Zithromax) 250 mg PO DAILY ISHAN PRN Reason: Protocol Stop: 06/05/17 08:59 Last Admin: 05/06/17 07:54 Dose: 250 mg Enoxaparin Sodium (Lovenox) 40 mg SC DAILY ISHAN Stop: 11/02/17 08:59 Last Admin: 05/06/17 07:54 Dose: 40 mg Prednisone (Prednisone) 40 mg PO DAILY ISHAN Stop: 11/02/17 08:59 Last Admin: 05/06/17 07:54 Dose: 40 mg Discontinued Medications Albuterol (Proventil Neb) 10 ml IH CONT ONE Stop: 05/05/17 22:30 Last Admin: 05/05/17 22:46 Dose: 12 ml Albuterol/Ipratropium (Duoneb) 3 ml IH EDNOW ONE Stop: 05/05/17 21:59 Last Admin: 05/05/17 22:02 Dose: 3 ml Azithromycin (Zithromax) 500 mg PO ONCE ONE PRN Reason: Protocol Stop: 05/05/17 23:39 Last Admin: 05/05/17 23:46 Dose: 500 mg Sodium Chloride (Ns) 1,000 mls @ 0 mls/hr IV EDNOW ONE; Wide Open PRN Reason: Protocol Stop: 05/05/17 21:58 Last Admin: 05/05/17 22:03 Dose: 1,000 mls Sodium Chloride (Ns) 1,000 mls @ 0 mls/hr IV ONCE ONE PRN Reason: Wide Open Stop: 05/05/17 21:59 Last Admin: 05/05/17 22:03 Dose: 1,000 mls Magnesium Sulfate (Magnesium Sulf 2 Gm (Premix)) 50 mls @ 50 mls/hr IV EDNOW ONE Stop: 05/05/17 22:58 Last Admin: 05/05/17 22:04 Dose: 50 mls Morphine Sulfate (Morphine) 4 mg IVP EDNOW ONE Stop: 05/05/17 21:59 Last Admin: 05/05/17 22:03 Dose: 4 mg Morphine Sulfate (Morphine) 4 mg IVP Q1HR PRN PRN Reason: Pain, Severe Unable to Take PO Stop: 05/15/17 23:13 Last Admin: 05/05/17 23:46 Dose: 4 mg Ondansetron HCl (Zofran) 4 mg IVP EDNOW ONE Stop: 05/05/17 21:59 Last Admin: 05/05/17 22:03 Dose: 4 mg Oseltamivir Phosphate (Tamiflu) 75 mg PO ONCE ONE Stop: 05/06/17 01:46 Last Admin: 05/06/17 02:14 Dose: 75 mg Departure - Departure Disposition: [facility] Inpatient Acute Clinical Impression: Asthma Qualifiers: Asthma severity: severe Asthma persistence: unspecified Asthma complication type: with acute exacerbation Qualified Code(s): J45.901 - Unspecified asthma with (acute) exacerbation Condition: Fair
[2017-05-05] MEDS ORDERED: ALBUTEROL 3 ML DEYVIAL ONE (22:13)
[2017-05-05 22:17] LABS: ABSOLUTE NRBC COUNT 0.02 10^3/uL (0-0.01); ADD DIFF? YES; ADD MORPH? NO; ADD SCAN? NO; ATYPICAL LYMPHOCYTE FLAG 20 (0-99); FRAGMENT RBC FLAG 0 (0-99); HEMATOCRIT 35.5 % (38.0-47.0); HEMOGLOBIN 12.1 g/dL (12.6-16.3); LEFT SHIFT FLG 20 (0-99); LIPEMIA HEMOLYSIS FLAG 90 (0-99); MEAN CELL HEMOGLOBIN CONCENTR. 34.1 g/dL (32.4-36.7); MEAN PLATELET VOLUME 9.6 fL (8.7-11.7); NRBC-AUTO% 0.2 % (0.0-0.2); PLATELET CLUMPS FLAG 20 (0-99); PLATELET COUNT 315 10^3/uL (150-400); RED CELL DISTRIBUTION WIDTH 13.7 % (11.5-15.2)
[2017-05-05 22:25] LABS: INR 0.91 (0.83-1.16); PROTIME(PATIENT) 12.1 SEC (12.0-15.0)
[2017-05-05 22:26] LABS: APTT 26.3 SEC (23.0-38.0)
[2017-05-05 22:27] LABS: ALANINE AMINOTRANSFERASE 80 IU/L (9-52); ALKALINE PHOSPHATASE 110 IU/L (38-126); ANION GAP 13 mEq/L (8-16); ASPARTATE AMINOTRANSFERASE 40 IU/L (14-46); BILIRUBIN,TOTAL 0.2 mg/dL (0.1-1.4); BILIRUBIN-CONJUGATED 0.1 mg/dL (0.0-0.5); BILIRUBIN-UNCONJUGATED 0.1 mg/dL (0.0-1.1); CARBON DIOXIDE 26 mEq/l (22-31); CHLORIDE 98 mEq/L (97-110); CREATININE 0.8 mg/dL (0.6-1.0); GLOMERULAR FILTRATION RATE > 60; GLUCOSE 88 mg/dL (70-100); MAGNESIUM 2.3 mg/dL (1.6-2.3); POTASSIUM 4.4 mEq/L (3.5-5.2); SODIUM 137 mEq/L (134-144); TOTAL PROTEIN 6.4 g/dL (6.3-8.2)
--- NOTE | 2017-05-05 22:27 | CPEKG ---
Heart Rate: 94 RR Interval: 638 P-R Interval: 144 QRSD Interval: 82 QT Interval: 368 QTC Interval: 461 P Squire: 64 QRS Squire: 58 T Wave Squire: 45 EKG Severity - NORMAL ECG - EKG Impression: SINUS RHYTHM Electronically Signed By: Boy Camacho 06-May-2017 03:00:34
[2017-05-05] MEDS ORDERED: ALBUTEROL 3 ML DEYVIAL IH ONE (22:29)
[2017-05-05 22:39] LABS: CREATINE KINASE-MB FRACTION 1.41 ng/mL (0.00-3.19); TROPONIN I < 0.012 ng/mL (0.000-0.034)
[2017-05-05 22:47] LABS: CALCULATED OXYGEN SATURATION 99 % (92-95)
[2017-05-05 22:48] LABS: PLATELET ESTIMATE ADEQUATE (ADEQ); POLYCHROMASIA 1+
[2017-05-05] MEDS ORDERED: ACETAMINOPHEN 325 MG TAB PO PRN (23:33)
[2017-05-05] MEDS ORDERED: ONDANSETRON 4 MG/2 ML VIAL IVP PRN (23:33)
[2017-05-05] MEDS ORDERED: ONDANSETRON DISINTEGRATING 4 MG TAB PO PRN (23:33)
[2017-05-05] MEDS ORDERED: ALBUTEROL 3 ML DEYVIAL IH PRN (23:37)
[2017-05-05] MEDS ORDERED: AZITHROMYCIN 250 MG TAB PO ONE ×2 (23:38→23:45)
[2017-05-06] MEDS: ALBUTEROL 3 ML DEYVIAL IH SCH ×5 (01:32→16:49)
[2017-05-06] MEDS ORDERED: OSELTAMIVIR PHOSPHATE 75 MG CAP PO ONE (01:45)
--- NOTE | 2017-05-06 01:49 | PDGENHP ---
History and Physical - Chief Complaint Shortness of breath - History of Present Illness 56 yo F w/ hx of asthma presents in acute respiratory distress. She was discharged on 05/03 after treatment for the same. After discharge patient says she initially felt better but then started to experienced fevers, cough, and nausea. This was followed by progressive shortness of breath despite ongoing prednisone use and nebulized albuterol. In the ED her symptoms improved with nebulizers and facemaask, she did not require NIPPV. She denies tobacco or drug use since last discharge from the hospital. History Information - Allergies/Home Medication List Allergies/Adverse Reactions: acetaminophen [From Tylenol] Allergy (Verified 04/28/17 01:35) ibuprofen Allergy (Verified 04/28/17 01:35) Home Medications: Gabapentin [Neurontin 400 MG (*)] 800 mg PO BID 04/28/17 [Last Taken 04/27/17] diphenhydrAMINE [Benadryl 50 MG (*)] 50 mg PO DAILY PRN 04/28/17 [Last Taken Unknown] I have personally reviewed and updated: family history, medical history - Past Medical History asthma - Family History Positive for: cancer - Social History Smoking Status: Light smoker Review of Systems Review of Systems: ROS: 10pt was reviewed & negative except for what was stated in HPI & below Physical Exam Physical Exam: Temp Pulse Resp BP Pulse Ox 36.8 C 95 18 114/45 L 95 05/06/17 00:00 05/06/17 01:33 05/06/17 01:33 05/06/17 00:00 05/06/17 01:33 O2 (L/minute) 2 Constitutional: appears nourished, uncomfortable Eyes: PERRL, EOMI Ears, Nose, Mouth, Throat: moist mucous membranes, no oral mucosal ulcers Cardiovascular: regular rate and rhythym, no murmur, rub, or gallop Respiratory: reduced air movement, expiratory wheeze (Severe, diffuse) Gastrointestinal: normoactive bowel sounds, soft, non-tender abdomen Skin: warm, normal color Musculoskeletal: full muscle strength, no muscle tenderness Neurologic: AAOx3, CN II-XII Intact Psychiatric: interacting appropriately, not anxious Lab Data & Imaging Review 05/05/17 22:05 05/05/17 22:05 WBC 13.22 10^3/uL (3.80-9.50) H 10/28/17 22:05 RBC 3.90 10^6/uL (4.18-5.33) L 05/05/17 22:05 Hgb 12.1 g/dL (12.6-16.3) L 05/05/17 22:05 Hct 35.5 % (38.0-47.0) L 05/05/17 22:05 MCV 91.0 fL (81.5-99.8) 05/05/17 22:05 MCH 31.0 pg (27.9-34.1) 05/05/17 22:05 MCHC 34.1 g/dL (32.4-36.7) 05/05/17 22:05 RDW 13.7 % (11.5-15.2) 05/05/17 22:05 Plt Count 315 10^3/uL (150-400) 05/05/17 22:05 MPV 9.6 fL (8.7-11.7) 05/05/17 22:05 Neut % (Auto) Not Reported 05/05/17 22:05 Lymph % (Auto) Not Reported 05/05/17 22:05 [place] % (Auto) Not Reported 05/05/17 22:05 Eos % (Auto) Not Reported 05/05/17 22:05 Baso % (Auto) Not Reported 05/05/17 22:05 Nucleat RBC Rel Count 0.2 % (0.0-0.2) 05/05/17 22:05 Absolute Neuts (auto) Not Reported 05/05/17 22:05 Absolute Lymphs (auto) Not Reported 05/05/17 22:05 Absolute Monos (auto) Not Reported 05/05/17 22:05 Absolute Eos (auto) Not Reported 05/05/17 22:05 Absolute Basos (auto) Not Reported 05/05/17 22:05 Absolute Nucleated RBC 0.02 10^3/uL (0-0.01) H 05/05/17 22:05 Immature Gran % Not Reported 05/05/17 22:05 Seg Neutrophils % 48 % 05/05/17 22:05 Band Neutrophils % 1 % 05/05/17 22:05 Lymphocytes % 34 % 05/05/17 22:05 Monocytes % 8 % 05/05/17 22:05 Eosinophils % 3 % 05/05/17 22:05 Metamyelocytes % 4 % 05/05/17 22:05 Myelocytes % 2 % 05/05/17 22:05 Immature Gran # Not Reported 05/05/17 22:05 Absolute Seg Neuts 6.35 10^/uL (1.70-6.50) 05/05/17 22:05 Absolute Band Neuts 0.13 10^3/uL (0.00-0.70) 05/05/17 22:05 Absolute Lymphocytes 4.49 10^3/uL (1.00-3.00) H 05/05/17 22:05 Absolute Monocytes 1.06 10^3/uL (0.30-0.80) H 05/05/17 22:05 Absolute Eosinophils 0.40 10^3/uL (0.03-0.40) 05/05/17 22:05 Absolute Metamyelocyte 0.53 10^3/mL (0.00-0.00) H 05/05/17 22:05 Absolute Myelocytes 0.26 10^3/mL (0.00-0.00) H 05/05/17 22:05 Atypical Lymphocytes 1+ H 05/05/17 22:05 Platelet Estimate ADEQUATE (ADEQ) 05/05/17 22:05 Polychromasia 1+ H 05/05/17 22:05 PT 12.1 SEC (12.0-15.0) 05/05/17 22:05 INR 0.91 (0.83-1.16) 05/05/17 22:05 APTT 26.3 SEC (23.0-38.0) 05/05/17 22:05 POC Blood Source OTHER 05/05/17 22:32 Puncture Site Cancelled 05/05/17 23:30 Patient Temperature 37.0 DEGREES 05/05/17 22:32 POC pH 7.35 (7.35-7.45) 05/05/17 22:32 POC pCO2 45 mmHg (34-38) H 05/05/17 22:32 pCO2 Cancelled 05/05/17 23:30 POC pO2 130 mmHg (65-75) H 05/05/17 22:32 pO2 Cancelled 05/05/17 23:30 POC HCO3 25 mEq/L (22-26) 05/05/17 22:32 Total CO2 Cancelled 05/05/17 23:30 POC Total CO2 27 mEq/L (23-27) 05/05/17 22:32 POC Base Excess -1.0 mEq/L (-2.5-2.5) 05/05/17 22:32 POC O2 Sat (Calc) 99 % (92-95) H 05/05/17 22:32 ABG pH Cancelled 05/05/17 23:30 ABG PO2/FiO2 Ratio Cancelled 05/05/17 23:30 ABG HCO3 Cancelled 05/05/17 23:30 ABG O2 Sat (Calculated) Cancelled 05/05/17 23:30 ABG O2 Saturation Cancelled 05/05/17 23:30 ABG Base Excess Cancelled 05/05/17 23:30 Total O2 Concentration Cancelled 05/05/17 23:30 O2 Concentration % Cancelled 05/05/17 23:30 Respiration Rate Cancelled 05/05/17 23:30 Actual Respiration Rate Cancelled 05/05/17 23:30 Set Respiration Rate Cancelled 05/05/17 23:30 SIMV Cancelled 05/05/17 23:30 Assist Control Cancelled 05/05/17 23:30 Vent Rate Cancelled 05/05/17 23:30 Inspiratory Time Cancelled 05/05/17 23:30 Expiratory Pressure Cancelled 05/05/17 23:30 Tidal Volume Cancelled 05/05/17 23:30 End Tidal CO2 Cancelled 05/05/17 23:30 PEEP Cancelled 05/05/17 23:30 Inspiratory Pressure Cancelled 05/05/17 23:30 Peak Inspir Pressure Cancelled 05/05/17 23:30 Pressure Support Cancelled 05/05/17 23:30 Pressure Control Cancelled 05/05/17 23:30 CPAP Cancelled 05/05/17 23:30 BiPAP Cancelled 05/05/17 23:30 Mode BiPAP Cancelled 05/05/17 23:30 Inspir/Expir Ratio Cancelled 05/05/17 23:30 Sodium 137 mEq/L (134-144) 05/05/17 22:05 Potassium 4.4 mEq/L (3.5-5.2) 05/05/17 22:05 Chloride 98 mEq/L (97-110) 05/05/17 22:05 Carbon Dioxide 26 mEq/l (22-31) 05/05/17 22:05 Anion Gap 13 mEq/L (8-16) 05/05/17 22:05 BUN 21 mg/dL (7-23) 05/05/17 22:05 Creatinine 0.8 mg/dL (0.6-1.0) 05/05/17 22:05 Estimated GFR > 60 05/05/17 22:05 Glucose 88 mg/dL (70-100) 05/05/17 22:05 Calcium 9.0 mg/dL (8.5-10.4) 05/05/17 22:05 Magnesium 2.3 mg/dL (1.6-2.3) 05/05/17 22:05 Total Bilirubin 0.2 mg/dL (0.1-1.4) 05/05/17 22:05 Conjugated Bilirubin 0.1 mg/dL (0.0-0.5) 05/05/17 22:05 Unconjugated Bilirubin 0.1 mg/dL (0.0-1.1) 05/05/17 22:05 AST 40 IU/L (14-46) 05/05/17 22:05 ALT 80 IU/L (9-52) H 05/05/17 22:05 Alkaline Phosphatase 110 IU/L (38-126) 05/05/17 22:05 Creatine Kinase 111 IU/L (0-156) 05/05/17 22:05 CK-MB (CK-2) Fraction 1.41 ng/mL (0.00-3.19) 05/05/17 22:05 Troponin I < 0.012 ng/mL (0.000-0.034) 05/05/17 22:05 NT-Pro-B Natriuret Pep 78 pg/mL (0-125) 05/05/17 22:05 Total Protein 6.4 g/dL (6.3-8.2) 05/05/17 22:05 Albumin 4.0 g/dL (3.5-5.0) 05/05/17 22:05 Visualized and Interpreted Chest x-ray results: Yes Chest X-Ray results: no infiltrate Visualized and Interpreted EKG results: Yes EKG Interpretation: Positive for: normal sinsus rhythm Assessment & Plan Assessment: 56 yo F w/ asthma presents with acute exacerbation after recent discharge on . Plan: 1. AHRF 2/2 acute asthma exacerbation - Symptoms recurrent after recent discharge, perhaps brought on by viral illness per history (fever, cough, nausea followed by progressive SOB). Improved with facemask O2 and nebulization in ED, has not required NIPPV. Patient states she has been compliant with her prednisone taper but cannot recall what dose she is currently taking. She received methylpred via EMS en route. - Albuterol scheduled q4h + q2h PRN - Prednisone 40 mg qD, azithromycin x5 days - Empiric Tamiflu x1, check respiratory PCR - Continue home inhalers once respiratory distress resolved Diet - Regular Code - Full Ppx - LMWH Dispo - Admit to observation status
[2017-05-06 05:06] LABS: ADD DIFF? YES; ADD MORPH? NO; ADD SCAN? NO; ATYPICAL LYMPHOCYTE FLAG 10 (0-99); FRAGMENT RBC FLAG 0 (0-99); HEMATOCRIT 32.2 % (38.0-47.0); HEMOGLOBIN 10.7 g/dL (12.6-16.3); LEFT SHIFT FLG 20 (0-99); LIPEMIA HEMOLYSIS FLAG 80 (0-99); MEAN CELL HEMOGLOBIN 31.1 pg (27.9-34.1); MEAN CELL HEMOGLOBIN CONCENTR. 33.2 g/dL (32.4-36.7); MEAN CELL VOLUME 93.6 fL (81.5-99.8); MEAN PLATELET VOLUME 9.7 fL (8.7-11.7); PLATELET CLUMPS FLAG 0 (0-99); PLATELET COUNT 286 10^3/uL (150-400); RED BLOOD CELL COUNT 3.44 10^6/uL (4.18-5.33); RED CELL DISTRIBUTION WIDTH 13.7 % (11.5-15.2)
[2017-05-06 05:43] LABS: ANION GAP 11 mEq/L (8-16); CALCIUM 8.5 mg/dL (8.5-10.4); CARBON DIOXIDE 21 mEq/l (22-31); CHLORIDE 107 mEq/L (97-110); CREATININE 0.6 mg/dL (0.6-1.0); GLOMERULAR FILTRATION RATE > 60; GLUCOSE 151 mg/dL (70-100); SODIUM 139 mEq/L (134-144)
[2017-05-06 05:49] LABS: PLATELET ESTIMATE ADEQUATE (ADEQ); POLYCHROMASIA 1+
[2017-05-06] MEDS: AZITHROMYCIN 250 MG TAB PO SCH (07:54)
[2017-05-06] MEDS: ENOXAPARIN 40 MG/0.4 ML SYR SC SCH (07:54)
[2017-05-06] MEDS ORDERED: predniSONE 20 MG TAB PO SCH (09:00)
--- NOTE | 2017-05-06 13:56 | HOSPPROG ---
Hospitalist Progress Note Assessment/Plan: Assessment: 56 yo F w/ asthma presents with acute exacerbation after recent discharge on . #. AHRF 2/2 acute asthma exacerbation likely triggered by rhinovirus - Albuterol scheduled q4h + q2h PRN - Prednisone 40 mg qD, azithromycin x5 days - dc Empiric Tamiflu - Continue home inhalers once respiratory distress resolved Diet - Regular Code - Full Ppx - LMWH Dispo - change to inpatient status Subjective: feels better but still wheezing. no fever or chills. nonproductive cough Objective: Vital Signs Temp Pulse Resp BP Pulse Ox 36.7 C 94 16 117/66 91 L 05/06/17 11:46 05/06/17 13:21 05/06/17 13:21 05/06/17 11:46 05/06/17 13:21 Microbiology 05/06/17 02:20 Respiratory Panel (PCR) - Final Nasal, Sinus - Swab Human Rhinovirus/Enterovirus Laboratory Results 05/06/17 04:59 05/06/17 04:59 05/05/17 05/06/17 05/07/17 05:59 05:59 05:59 Intake Total 3100 Balance 3100 PT 12.1 SEC (12.0-15.0) 05/05/17 22:05 INR 0.91 (0.83-1.16) 05/05/17 22:05 - Physical Exam Constitutional: no apparent distress, appears nourished, not in pain Ears, Nose, Mouth, Throat: moist mucous membranes, hearing normal, ears appear normal, no oral mucosal ulcers Cardiovascular: regular rate and rhythym, no murmur, rub, or gallop Respiratory: no respiratory distress, reduced air movement, expiratory wheeze Gastrointestinal: normoactive bowel sounds, soft, non-tender abdomen, no palpable masses, No guarding, No rebound ICD10 Worksheet Patient Problems: Problems Problem Status Onset Asthma attack Acute Seizure Acute Submandibular gland swelling Acute Acute asthma exacerbation Acute Asthma Acute
[2017-05-06] MEDS ORDERED: ASPIRIN EC 325 MG TAB PO PRN (14:00)
--- NOTE | 2017-05-06 14:43 | PDMN ---
Medical Necessity Medical necessity: C/M review: est. > 2 MN LOS for eval and TX of acute hypoxic respiratory failure secondary to acute asthma exacerbation likely triggered by rhinovirus requiring ongoing IV steroids, Albuterol, pulse oximetry , comorbid 04/29/2017-05/03/2017 hospitalization for acute asthma exacerbation per 05/06/2017 Hospitalist progress note.
[2017-05-06] MEDS: IPRATROPIUM/ALBUTEROL 3 ML DEYVIAL IH SCH ×2 (16:47→23:54)
--- NOTE | 2017-05-06 18:18 | ASMTCMCOM ---
CM Note CM Note Notes: 56 year old female admitted for asthma exascerbation, sz, was admitted and discharged 05/03 with the same dx. Patient transferred to . to follow for possible discharge needs. Date Signed: 05/06/2017 06:18 PM Electronically Signed By:Kaylee Garcia LCSW
[2017-05-06] MEDS: MONTELUKAST SODIUM 10 MG TAB PO SCH (18:29)
[2017-05-06] MEDS: methylPREDNISolone SOD SUCC 125 MG/2 ML VIAL IVP SCH (18:29)
[2017-05-06] MEDS: GABAPENTIN 400 MG CAP PO SCH (19:44)
[2017-05-06] MEDS: CETIRIZINE 10 MG TAB PO SCH (19:44)
[2017-05-06] MEDS: guaiFENesin 600 MG TAB.ER PO SCH (19:44)
[2017-05-06] MEDS: BUDESONIDE/FORMOTEROL 160/4.5 60 PUFFS/MDI IH SCH (21:02)
[2017-05-07] MEDS: methylPREDNISolone SOD SUCC 125 MG/2 ML VIAL IVP SCH ×5 (01:34→23:37)
[2017-05-07] MEDS: IPRATROPIUM/ALBUTEROL 3 ML DEYVIAL IH SCH ×4 (05:31→23:21)
[2017-05-07] MEDS: GABAPENTIN 400 MG CAP PO SCH ×2 (08:25→20:02)
[2017-05-07] MEDS: AZITHROMYCIN 250 MG TAB PO SCH (08:26)
[2017-05-07] MEDS: guaiFENesin 600 MG TAB.ER PO SCH (08:26)
[2017-05-07] MEDS: ENOXAPARIN 40 MG/0.4 ML SYR SC SCH (08:26)
[2017-05-07] MEDS: FLUTICASONE NASAL 120 SPRAYS/16 GM MDI EACHNARE SCH (09:33)
[2017-05-07] MEDS: BUDESONIDE/FORMOTEROL 160/4.5 60 PUFFS/MDI IH SCH ×2 (10:36→20:24)
[2017-05-07] MEDS ORDERED: HYDROmorphONE/DILAUDID 1 MG/ML INJ IVP ONE (11:44)
--- NOTE | 2017-05-07 11:46 | HOSPPROG ---
Hospitalist Progress Note Assessment/Plan: 56 yo F w/ asthma presents with acute exacerbation after recent discharge on . AHRF 2/2 acute asthma exacerbation likely triggered by rhinovirus cxr w no infiltrate (inter by me) Albuterol scheduled q4h + q2h PRN steroids escalated to solumedrol, azithromycin x5 days dc Empiric Tamiflu Continue home inhalers once respiratory distress resolved cough- add scheduled robitussin AC Diet - Regular Code - Full Ppx - LMWH Dispo - change to inpatient status Subjective: tele: sinus tach (interp by me). significant coughing when I walk in room Objective: Vital Signs Temp Pulse Resp BP Pulse Ox 36.9 C 101 H 24 H 131/83 H 91 L 05/07/17 08:00 05/07/17 10:24 05/07/17 10:24 05/07/17 08:00 05/07/17 10:24 05/06/17 05/07/17 05/08/17 05:59 05:59 05:59 Intake Total 1000 Balance 1000 PT 12.1 SEC (12.0-15.0) 05/05/17 22:05 INR 0.91 (0.83-1.16) 05/05/17 22:05 - Physical Exam Constitutional: other (coughing fit) Eyes: PERRL, anicteric sclera Ears, Nose, Mouth, Throat: moist mucous membranes, hearing normal Cardiovascular: regular rate and rhythym, no murmur, rub, or gallop, tachycardia Respiratory: other (coughing, b/l wheezes, good air movement) Gastrointestinal: normoactive bowel sounds, soft, non-tender abdomen Genitourinary: no bladder fullness, No hook in urethra Skin: warm, normal color Musculoskeletal: full muscle strength, no muscle tenderness Neurologic: AAOx3 ICD10 Worksheet Patient Problems: Problems Problem Status Onset Asthma Acute Acute asthma exacerbation Acute Asthma attack Acute Seizure Acute Submandibular gland swelling Acute
--- NOTE | 2017-05-07 12:20 | ASMTCMCOM ---
MAC Note MAC Note Notes: Spoke with patient - [facility]. She has called [facility] and let her inspector purchased parts Casimiro know that she's here. She will need a bus pass upon d/c. CM will follow. Date Signed: 05/07/2017 12:19 PM Electronically Signed By:Yolanda De Souza RN
[2017-05-07] MEDS: guaiFENesin/CODEINE PHOS 10 ML UDCUP PO SCH ×3 (12:26→23:37)
--- NOTE | 2017-05-07 14:21 | CPEKG ---
Heart Rate: 103 RR Interval: 583 P-R Interval: 156 QRSD Interval: 80 QT Interval: 340 QTC Interval: 445 P [place]: 66 QRS [place]: 46 T Wave [place]: 21 EKG Severity - ABNORMAL ECG - EKG Impression: SINUS TACHYCARDIA EKG Impression: RIGHT ATRIAL ABNORMALITY Electronically Signed By: Jose Vital 08-May-2017 09:57:43
[2017-05-07] MEDS: MONTELUKAST SODIUM 10 MG TAB PO SCH (17:03)
[2017-05-07] MEDS: CETIRIZINE 10 MG TAB PO SCH (20:02)
[2017-05-07 22:23] VITALS: TEMP 98.4
[2017-05-08] MEDS: IPRATROPIUM/ALBUTEROL 3 ML DEYVIAL IH SCH ×2 (05:25→10:09)
[2017-05-08 05:31] VITALS: O2SAT 94
[2017-05-08] MEDS: guaiFENesin/CODEINE PHOS 10 ML UDCUP PO SCH ×2 (06:17→11:18)
[2017-05-08] MEDS: methylPREDNISolone SOD SUCC 125 MG/2 ML VIAL IVP SCH ×2 (06:17→11:18)
[2017-05-08] MEDS: AZITHROMYCIN 250 MG TAB PO SCH (08:22)
[2017-05-08] MEDS: ENOXAPARIN 40 MG/0.4 ML SYR SC SCH (08:22)
[2017-05-08] MEDS: GABAPENTIN 400 MG CAP PO SCH (08:22)
[2017-05-08] MEDS: BUDESONIDE/FORMOTEROL 160/4.5 60 PUFFS/MDI IH SCH (08:23)
[2017-05-08] MEDS: FLUTICASONE NASAL 120 SPRAYS/16 GM MDI EACHNARE SCH (08:23)
[2017-05-08 10:07] VITALS: BP 129/76; RESP 20
[2017-05-08 10:23] VITALS: PULSE 100
--- NOTE | 2017-05-08 12:01 | HOSPPROG ---
Hospitalist Progress Note Assessment/Plan: 56 yo F w/ asthma presents with acute exacerbation after recent discharge on . AHRF 2/2 acute asthma exacerbation likely triggered by rhinovirus cxr w no infiltrate (inter by me) Albuterol scheduled q4h + q2h PRN steroids escalated to solumedrol, azithromycin x5 days dc Empiric Tamiflu Continue home inhalers once respiratory distress resolved cough- add scheduled robitussin AC Diet - Regular Code - Full Ppx - LMWH Dispo - home today > 30 minutes on dc Subjective: improved. on RA. amenable to dc Objective: Vital Signs Temp Pulse Resp BP Pulse Ox 36.9 C 100 20 129/76 H 94 05/08/17 08:00 05/08/17 10:10 05/08/17 10:10 05/08/17 08:00 05/08/17 10:10 05/07/17 05/08/17 05/09/17 05:59 05:59 05:59 Intake Total 1000 1100 Output Total 2 Balance 1000 1098 PT 12.1 SEC (12.0-15.0) 05/05/17 22:05 INR 0.91 (0.83-1.16) 05/05/17 22:05 - Physical Exam Constitutional: no apparent distress, appears nourished Eyes: PERRL, anicteric sclera Ears, Nose, Mouth, Throat: moist mucous membranes, hearing normal Cardiovascular: regular rate and rhythym, no murmur, rub, or gallop Respiratory: no respiratory distress, no rales or rhonchi Gastrointestinal: normoactive bowel sounds, soft, non-tender abdomen Genitourinary: No hook in urethra Skin: warm, normal color Musculoskeletal: full muscle strength, no muscle tenderness Neurologic: AAOx3 Psychiatric: interacting appropriately Lymph, Heme, Immunologic: no cervical LAD ICD10 Worksheet Patient Problems: Problems Problem Status Onset Asthma Acute Acute asthma exacerbation Acute Asthma attack Acute Seizure Acute Submandibular gland swelling Acute
--- NOTE | 2017-05-08 12:34 | GDS ---
[f rep st] DISCHARGE SUMMARY HOSPITAL COURSE: Please see admission history and physical by Dr. Cholo Anguiano, as the patie nt presented with increased work of breathing, wheezing. She had a chest x-ray, negative for infiltr ate. There was some discussion that this is influenza, however, she was negative for influenza. She had recently been admitted and I refer the reader to that discharge summary. The patient was coughi ng, Robitussin AC was added with significant improvement. She was on room air with good air movement . Scattered wheezes and prolonged expiratory phase. At the time of discharge, she said she felt bet ter than her baseline. Prescription was provided with azithromycin x2 days. DISCHARGE DIAGNOSES: 1. Asthma exacerbation. 2. Hypoxemic and hypercarbic respiratory failure. 3. Chest pain syndrome. 4. Cough. DISCHARGE STATUS: Home. DISCHARGE MEDICATIONS: Prescription was provided for 2 additional days of azithromycin. /[id number]/MODL
--- NOTE | 2017-05-08 12:40 | ASMTCMCOM ---
CM Note CM Note Notes: 05/08/2017 Case Management Note Pt d/c today. Notified Casimiro at [facility] [phone] ext [phone] of d/c. Provided bus ticket. Date Signed: 05/08/2017 12:39 PM Electronically Signed By:Le Russell RN
--- NOTE | 2017-05-08 14:01 | ASDISCHSUM ---
Discharge Information Plan Status:[facility] Medically Cleared to Leave:05/08/2017 Discharge Date:05/08/2017 12:32 PM CM D/C Disposition:Home, Routine, Self-Care ADT D/C Disposition:Home, Routine, Self-Care Projected Discharge Date:05/08/2017 12:32 PM Transportation at D/C:Bus Ticket Discharge Delay Reason: Follow-Up Date:05/08/2017 12:32 PM Discharge Slot: Final Diagnosis: Placement Information Patient Contact Information Contact Name:NETTA Relationship:Other Address: Work Phone: City: [facility] Phone: State/[place] Code: Email: Financial Information Financial Class: Primary Plan Desc:[employer] Primary Plan Number:[id number] Secondary Plan Desc: Secondary Plan Number: Assessment Information [facility] Progress Note CM Note CM Note Notes: 56 year old female admitted for asthma exascerbation, sz, was admitted and discharged 05/03 with the same dx. Patient transferred to [facility] to follow for possible discharge needs. Date Signed: 05/06/2017 06:18 PM Electronically Signed By:Kaylee Garcia LCSW [facility] MAC Progress Note CM Note CM Note Notes: Spoke with patient - [facility]. She has called [facility] and let her inbound sales manager Casimiro know that she's here. She will need a bus pass upon d/c. CM will follow. Date Signed: 05/07/2017 12:19 PM Electronically Signed By:Yolanda De Souza RN [facility] CM Progress Note CM Note CM Note Notes: 05/08/2017 Case Management Note Pt d/c today. Notified Casimiro at [facility] [phone] ext [phone] of d/c. Provided bus ticket. Date Signed: 05/08/2017 12:39 PM Electronically Signed By:Le Russell RN Intervention Information Intervention Type:Bus Pass Date of Service:05/08/2017 12:39 PM Patient Type:Inpatient Staff Member:ABRAN Russell, Le Hours: Discipline: Severity: Comment:
== END 2017-05-08 12:32 | disposition home or self-care (01) | DRG 202 ==
LOC: EDUNIT# → INTOOBSV 23:33 → F2N 05-06 00:02 → F2W 05-06 11:30 → OBSVTOIN 05-06 14:30
PROVIDERS: ADMIT Student in an Organized Health Care Education/Training Program; ATTEND Student in an Organized Health Care Education/Training Program
DX: J45.901 Unspecified asthma with (acute) exacerbation (principal); J96.91 Respiratory failure, unspecified with hypoxia; J96.92 Respiratory failure, unspecified with hypercapnia; R07.89 Other chest pain; Z72.0 Tobacco use
CPT/HCPCS: 96365; G0378; J1170; J1650; J2405

== ENCOUNTER 2017-05-29 09:12 | Inpatient (IN) | payer MEDICAID ==
[2017-05-29] MEDS ORDERED: IPRATROPIUM/ALBUTEROL 3 ML DEYVIAL IH ONE (09:22)
--- NOTE | 2017-05-29 09:29 | EDPHY ---
General Narrative: CHIEF COMPLAINT: Asthma exacerbation HISTORY OF PRESENT ILLNESS: Patient arrives by EMS with complaints of asthma exacerbation. She is seen at time of arrival. She complains of cough, wheezing, shortness of breath and chest pain. This all started yesterday. It has been constant duration. Worse when she lays down. Minimal improvement with her nebulizer treatments, which she has had many of. The chest pain is reproduced with cough and movement. She feels it is due to breathing heavily for the past few days. No radiating chest pain no exertional chest pain. Some productive cough at times. Mostly nonproductive. No fever or chills. No extremity erythema edema or pain. Recent hospitalization for similar complaints. She went home on Zithromax that she finished and prednisone , which she is finishing. No other associated complaints or modifying factors. REVIEW OF SYSTEMS: Ten systems reviewed and are negative unless otherwise noted in the HPI PCP: Dr. Weaver SPECIALISTS: None PAST MEDICAL HISTORY: Asthma, seasonal allergies, seizure disorder PAST SURGICAL HISTORY: Reviewed SOCIAL HISTORY: Smoker. No alcohol. No drug use. FAMILY HISTORY: Noncontributory EXAMINATION General Appearance: Alert, no distress, diaphoretic and tachypneic Head: normocephalic, atraumatic Eyes: Pupils equal and round, no conjunctival pallor or injection ENT, Mouth: Mucous membranes moist Neck: Normal inspection, supple, non-tender Respiratory: Scattered harsh wheezing and rhonchi. Decreased air movement in the bases. Some retractions and mild distress. Tachypnea. Cardiovascular: Regular rate and rhythm. No murmur. Gastrointestinal: Abdomen is soft and nontender Back: non-tender, no bony abnormalities Neurological: A&O, nonfocal, strength symmetric Skin: Diaphoretic face. Skin is grossly intact but no petechiae or purpura. Extremities: Nontender, no pedal edema Psychiatric: Mood and affect normal DIFFERENTIAL DIAGNOSES: Including but not limited to status asthmaticus, asthma exacerbation, pneumonia , bronchitis MDM: 9:24 a.m. Acute asthma exacerbation. No respiratory distress. No need for BiPAP or CPAP based on work of breathing. Oxygenation is normal on 2 L. Respiratory rate is coming down. Laboratory studies pending. Chest x-ray pending. No acute distress at this time. 10:00 a.m. Patient re-evaluated. CBC unremarkable. Chest x-ray pending. Laboratory studies pending. No further improvement but no worsening in her respiratory status. She is asking for BiPAP, but I do not feel she warrants at this time. Her work of breathing has improved. I will order a venous blood gas to analyze. 10:30 a.m. Venous blood gas does not indicate any significant hypoxemia. Given her symptoms I will order a continuous albuterol treatment per 10:55 a.m. Patient re-evaluated. She has a continuous albuterol treatment in place. Re- evaluated after this. 12:00 p.m. Patient has completed her continuous albuterol treatment. I have re-evaluated her at this time. Room air oxygen is 91%. Work of breathing is significantly elevated when taken off the oxygen. She is mildly tachycardic when doing so as well. I do not feel she is stable for discharge home at this time due to work of breathing. She may progress to the need of BiPAP intermittently. I will contact hospitalist for admission. 12:15 p.m. Case discussed with hospitalist Dr. Webb. She is requesting a peak flow to be evaluated. She will come evaluate the patient. 12:30 p.m. Patient evaluate by Respiratory therapist. Peak flow measured. Respiratory therapist also feels patient needed BiPAP. I do agree with at this point as her work of breathing continues to increase. 12:50 p.m. The patient has been evaluated in the ED by Dr. Webb. She agrees with BIPAP and SDU placement. She will monitor the patient closely. She has concern for the need for intubation in the near future. At this point the patient is admitted in stable condition with need for close monitoring of her respiratory status. - Diagnostics Imaging Results: Imaging Impressions Chest X-Ray 05/29/17 09:22 Impression: Clear lungs. Chronic minimal airways disease. - History Smoking Status: Light smoker - Objective Vital Signs: Initial Vital Signs Temperature (C) 98.4 F 05/29/17 09:17 Heart Rate 83 05/29/17 09:17 Respiratory Rate 32 H 05/29/17 09:17 Blood Pressure 110/83 H 05/29/17 09:17 O2 Sat (%) 94 05/29/17 09:17 O2 Delivery Mode Room Air O2 (L/minute) 6 Allergies/Adverse Reactions: acetaminophen [From Tylenol] Allergy (Verified 04/28/17 01:35) ibuprofen Allergy (Verified 04/28/17 01:35) Home Medications: Medication Instructions Recorded Gabapentin [Neurontin 400 MG (*)] 800 mg PO BID 04/28/17 diphenhydrAMINE [Benadryl 50 MG 50 mg PO DAILY PRN 04/28/17 (*)] Benzonatate [Tessalon Pearles] 200 mg PO TID PRN #30 cap 04/29/17 Budesonide/Formoterol 160/4.5 2 puffs IH BID mdi 04/29/17 [Symbicort 160-4.5 Mcg Inh (*)] Montelukast Sodium [Singulair 10 10 mg PO DAILY@1800 #30 tab 04/29/17 mg (*)] guaiFENesin [Mucinex 600 MG (*)] 1,200 mg PO BID #20 tab.er 04/29/17 Albuterol [Ventolin Hfa Inhaler] 1 - 2 puffs IH Q4 PRN mdi 05/03/17 Cetirizine [ZyrTEC 10 mg (*)] 10 mg PO HS #30 tab 05/03/17 Fluticasone Nasal [Flonase Nasal 2 sprays EACHNARE DAILY #1 mdi 05/03/17 [place]] Ipratropium/Albuterol [Duoneb (*)] 3 ml IH Q6HRS deyvial 05/03/17 Albuterol Sulfate [Proair Hfa] 1 - 2 puffs IH Q4H PRN 05/06/17 predniSONE [Deltasone] 60 mg PO DAILY 05/06/17 Azithromycin [Zithromax] 250 mg PO DAILY #2 tab 05/08/17 Laboratory Results: Laboratory Results 05/29/17 09:40 05/29/17 09:40 05/29/17 05/29/17 05/29/17 10:25 09:40 09:40 WBC RBC Hgb POC Hgb 12.9 gm/dL gm/dL (12.6-16.3) Hct POC Hct 38 % % (38-47) MCV MCH MCHC RDW Plt Count MPV Neut % (Auto) Lymph % (Auto) [place] % (Auto) Eos % (Auto) Baso % (Auto) Nucleat RBC Rel Count Absolute Neuts (auto) Absolute Lymphs (auto) Absolute Monos (auto) Absolute Eos (auto) Absolute Basos (auto) Absolute Nucleated RBC Immature Gran % Immature Gran # PT INR APTT Puncture Site NONE GIVEN Patient Temperature 37.0 DEGREES DEGREES VBG pH 7.35 (7.31-7.42) VBG HCO3 25 mEQ/L mEQ/L (22-26) VBG Total CO2 26 mEq/L mEq/L (23-27) VBG O2 Saturation 92 % H % (65-75) VBG Base Excess -0.9 mEq/L mEq/L (-2.5-2.5) Mixed VBG pCO2 46 mmHg H mmHg (40-44) Mixed VBG pO2 68 mmHg H mmHg (35-40) POC Sodium 142 mEq/L mEq/L (134-144) Sodium 142 mEq/L mEq/L (134-144) POC Potassium 4.1 mEq/L mEq/L (3.3-5.0) Potassium 4.3 mEq/L mEq/L (3.5-5.2) POC Chloride 107 mEq/L mEq/L (97-110) Chloride 107 mEq/L mEq/L (97-110) Carbon Dioxide 23 mEq/l mEq/l (22-31) Anion Gap 12 mEq/L mEq/L (8-16) POC BUN 12 mg/dL mg/dL (7-23) BUN 12 mg/dL mg/dL (7-23) Creatinine 0.8 mg/dL mg/dL (0.6-1.0) POC Creatinine 0.8 mg/dL mg/dL (0.6-1.0) Estimated GFR > 60 Glucose 92 mg/dL mg/dL (70-100) POC Glucose 94 mg/dL mg/dL (70-100) Calcium 9.3 mg/dL mg/dL (8.5-10.4) Troponin I < 0.012 ng/mL ng/mL (0.000-0.034) NT-Pro-B Natriuret Pep 48 pg/mL pg/mL (0-125) Nasal Influenza A PCR Nasal Influenza B PCR 05/29/17 05/29/17 05/29/17 09:40 09:40 09:30 WBC 4.38 10^3/uL 10^3/uL (3.80-9.50) RBC 4.18 10^6/uL 10^6/uL (4.18-5.33) Hgb 13.1 g/dL g/dL (12.6-16.3) POC Hgb Hct 38.1 % % (38.0-47.0) POC Hct MCV 91.1 fL fL (81.5-99.8) MCH 31.3 pg pg (27.9-34.1) MCHC 34.4 g/dL g/dL (32.4-36.7) RDW 13.4 % % (11.5-15.2) Plt Count 204 10^3/uL 10^3/uL (150-400) MPV 10.4 fL fL (8.7-11.7) Neut % (Auto) 39.0 % L % (39.3-74.2) Lymph % (Auto) 51.1 % H % (15.0-45.0) [place] % (Auto) 6.2 % % (4.5-13.0) Eos % (Auto) 3.2 % % (0.6-7.6) Baso % (Auto) 0.5 % % (0.3-1.7) Nucleat RBC Rel Count 0.0 % % (0.0-0.2) Absolute Neuts (auto) 1.71 10^3/uL 10^3/uL (1.70-6.50) Absolute Lymphs (auto) 2.24 10^3/uL 10^3/uL (1.00-3.00) Absolute Monos (auto) 0.27 10^3/uL L 10^3/uL (0.30-0.80) Absolute Eos (auto) 0.14 10^3/uL 10^3/uL (0.03-0.40) Absolute Basos (auto) 0.02 10^3/uL 10^3/uL (0.02-0.10) Absolute Nucleated RBC 0.00 10^3/uL 10^3/uL (0-0.01) Immature Gran % 0.0 % % (0.0-1.1) Immature Gran # 0.00 10^3/uL 10^3/uL (0.00-0.10) PT 13.3 SEC SEC (12.0-15.0) INR 1.02 (0.83-1.16) APTT 31.2 SEC SEC (23.0-38.0) Puncture Site Patient Temperature VBG pH VBG HCO3 VBG Total CO2 VBG O2 Saturation VBG Base Excess Mixed VBG pCO2 Mixed VBG pO2 POC Sodium Sodium POC Potassium Potassium POC Chloride Chloride Carbon Dioxide Anion Gap POC BUN BUN Creatinine POC Creatinine Estimated GFR Glucose POC Glucose Calcium Troponin I NT-Pro-B Natriuret Pep Nasal Influenza A PCR NEGATIVE FOR FLU A (NEGATIVE) Nasal Influenza B PCR NEGATIVE FOR FLU B (NEGATIVE) Medications Given: Discontinued Medications Albuterol (Proventil Neb) 3 ml IH CONT ONE Stop: 05/29/17 10:39 Last Admin: 05/29/17 10:49 Dose: 12 ml Albuterol/Ipratropium (Duoneb) 6 ml IH EDNOW ONE Stop: 05/29/17 09:23 Last Admin: 05/29/17 09:27 Dose: 6 ml Gabapentin (Neurontin) 800 mg PO EDNOW ONE Stop: 05/29/17 12:31 Last Admin: 05/29/17 12:23 Dose: 800 mg Point of Care Test Results: 05/29/17 09:40 POC Sodium 142 POC Potassium 4.1 POC Chloride 107 POC BUN 12 POC Creatinine 0.8 POC Glucose 94 Departure - Departure Disposition: [facility] Inpatient Acute Clinical Impression: Asthma exacerbation Qualifiers: Asthma severity: severe Asthma persistence: persistent Qualified Code(s): J45.51 - Severe persistent asthma with (acute) exacerbation Acute respiratory failure Qualifiers: Respiratory failure complication: unspecified whether with hypoxia or hypercapnia Qualified Code(s): J96.00 - Acute respiratory failure, unspecified whether with hypoxia or hypercapnia Condition: Fair
--- NOTE | 2017-05-29 09:48 | CPEKG ---
Heart Rate: 70 RR Interval: 857 P-R Interval: 160 QRSD Interval: 88 QT Interval: 400 QTC Interval: 432 P [place]: 63 QRS [place]: 46 T Wave [place]: 40 EKG Severity - NORMAL ECG - EKG Impression: SINUS RHYTHM Electronically Signed By: Lokesh Rubi 30-May-2017 06:58:30
[2017-05-29 10:05] LABS: ADD DIFF? NO; ADD MORPH? NO; ADD SCAN? NO; ATYPICAL LYMPHOCYTE FLAG 0 (0-99); FRAGMENT RBC FLAG 0 (0-99); HEMATOCRIT 38.1 % (38.0-47.0); HEMOGLOBIN 13.1 g/dL (12.6-16.3); LEFT SHIFT FLG 0 (0-99); LIPEMIA HEMOLYSIS FLAG 90 (0-99); MEAN CELL HEMOGLOBIN 31.3 pg (27.9-34.1); MEAN CELL HEMOGLOBIN CONCENTR. 34.4 g/dL (32.4-36.7); MEAN CELL VOLUME 91.1 fL (81.5-99.8); MEAN PLATELET VOLUME 10.4 fL (8.7-11.7); PLATELET CLUMPS FLAG 0 (0-99); PLATELET COUNT 204 10^3/uL (150-400); RED BLOOD CELL COUNT 4.18 10^6/uL (4.18-5.33); RED CELL DISTRIBUTION WIDTH 13.4 % (11.5-15.2)
[2017-05-29 10:09] LABS: APTT 31.2 SEC (23.0-38.0); INR 1.02 (0.83-1.16); PROTIME(PATIENT) 13.3 SEC (12.0-15.0)
[2017-05-29 10:21] LABS: TROPONIN I < 0.012 ng/mL (0.000-0.034)
[2017-05-29 10:29] LABS: PCO2 VENOUS 46 mmHg (40-44); PH VENOUS BLOOD 7.35 (7.31-7.42); PO2 VENOUS 68 mmHg (35-40); TCO2 VENOUS 26 mEq/L (23-27); VEN MEASURED OXYGEN SATURATION 92 % (65-75)
[2017-05-29] MEDS ORDERED: ALBUTEROL 3 ML DEYVIAL IH ONE (10:38)
[2017-05-29] MEDS ORDERED: ALBUTEROL 3 ML DEYVIAL ONE (10:39)
[2017-05-29 10:53] LABS: ANION GAP 12 mEq/L (8-16); CALCIUM 9.3 mg/dL (8.5-10.4); CARBON DIOXIDE 23 mEq/l (22-31); CHLORIDE 107 mEq/L (97-110); CREATININE 0.8 mg/dL (0.6-1.0); GLOMERULAR FILTRATION RATE > 60; GLUCOSE 92 mg/dL (70-100); POTASSIUM 4.3 mEq/L (3.5-5.2); SODIUM 142 mEq/L (134-144)
[2017-05-29] MEDS ORDERED: GABAPENTIN 100 MG CAP PO ONE (12:11)
[2017-05-29] MEDS ORDERED: GABAPENTIN 400 MG CAP PO ONE (12:30)
[2017-05-29] MEDS ORDERED: ACETAMINOPHEN 325 MG TAB PO PRN (13:14)
[2017-05-29] MEDS ORDERED: ONDANSETRON DISINTEGRATING 4 MG TAB PO PRN (13:14)
[2017-05-29] MEDS ORDERED: ALBUTEROL 3 ML DEYVIAL IH SCH (13:30)
--- NOTE | 2017-05-29 13:56 | GHP ---
[f rep st] HISTORY AND PHYSICAL DATE OF ADMISSION: 05/29/2017 CHIEF COMPLAINT: Shortness of breath. HISTORY OF PRESENT ILLNESS: This is a 56-year-old female with a history of asthma and 4 previous int ubations who presents after 2 days of described worsening shortness of breath and cough productive of slightly discolored sputum. Patient reports initially feeling badly over the weekend when she noted some shortness of breath and cough, reached out to her primary care office and was unable to obtain an appointment, therefore, presented to the emergency department. She reports up-titrating all of he r asthma medications at home until she was nearly on her nebulizer continuously before she presented to the emergency department. Her last intubation was in August of 2016. Patient has lost her daug hter in the recent year secondary to an asthma attack. Patient endorses subjective fevers or chills again, cough productive of slightly discolored sputum. Denies any nausea, vomiting, diarrhea. Has e xperienced some myalgias. Denies any rashes. Denies dysuria, hematuria, or lower extremity edema. Patient was admitted on 05/05/2017, for shortness of breath and asthma exacerbation. The patient did not require intubation during this hospital stay. PAST MEDICAL HISTORY: 1. Asthma, severe. 2. Seasonal allergies. SOCIAL HISTORY: Patient does intermittently smoke. Denies alcohol. [facility], but denies any active use. FAMILY HISTORY: Significant for severe asthma in multiple primary relatives. REVIEW OF SYSTEMS: A 10-point review of systems is negative with the exception of that reported in t he HPI. PHYSICAL EXAMINATION: VITAL SIGNS: Blood pressure 104/70, respiratory rate 38, saturating 94% on ro om air, tachycardic at 103. GENERAL: This is a middle-aged female in respiratory distress. HEENT: Notable for dry mucous membranes. Eye exam is negative for any icterus. CARDIAC: Patient is tachy cardic, but regular. PULMONARY: Very minimal movement in bilateral lung person. Can hear expirator y wheezing during cough only. Patient is tachypneic and distressed. GASTROINTESTINAL: Positive bow el sounds. Abdomen is soft. MUSCULOSKELETAL: Negative for any lower extremity edema. SKIN: Negat rhett for any rashes. NEUROLOGIC: She is alert and oriented x3. PSYCHIATRIC: She is anxious on my i nterview and examination. LABORATORY/IMAGING: White count is 4.3, hematocrit 38.1, platelets of 204. ABG: pH 7.35, pCO2 46, pO2 68, this was on room air. Creatinine 0.8, sodium 142, potassium 4.1. She is negative for influe nza A and negative for influenza B. Chest x-ray, which I personally reviewed and interpreted, shows no acute infiltrates or edema. ASSESSMENT AND PLAN: This is a 56-year-old female presenting with shortness of breath. 1. Acute asthma exacerbation. The patient's clinical presentation is consistent with status asthmat icus. Patient is markedly short of breath, tachypneic, even with oxygen supplementation, continuous nebulization. Will treat now with IV steroids and initiate BiPAP. Patient will be admitted to the [facility] unit in case she requires intubation. Respiratory viral PCR has been sent to rule out other viral pathogens. Will not initiate community-acquired pneumonia antibiotics at this time as the imag ing is not consistent with a bacterial pathogen. Discussed the case with Dr. Nicole in ICU who will a nticipate her arrival to the step-down. 2. Tachycardia. Based on telemetry appears sinus. Suspect related to continuous beta agonist thera py in the emergency department. Will continue to monitor in the ICU. 3. Diet, n.p.o. As I anticipate the patient likely will need intubation. 4. Prophylaxis with Lovenox. DISPOSITION: Greater than 2 midnights. Patient presenting in respiratory distress requiring critica l care support. I have discussed the case with Dr. Nicole in the ICU. Patient will be brought up on BiPAP and close monitoring. /[id number]/MODL
[2017-05-29] MEDS: methylPREDNISolone SOD SUCC 125 MG/2 ML VIAL IVP SCH ×2 (14:04→17:36)
[2017-05-29] MEDS: ONDANSETRON 4 MG/2 ML VIAL IVP PRN (14:27)
--- NOTE | 2017-05-29 15:19 | CPEKG ---
Heart Rate: 95 RR Interval: 632 P-R Interval: 148 QRSD Interval: 88 QT Interval: 380 QTC Interval: 478 P [place]: 84 QRS [place]: 67 T Wave [place]: 60 EKG Severity - ABNORMAL ECG - EKG Impression: SINUS RHYTHM EKG Impression: RIGHT ATRIAL ENLARGEMENT EKG Impression: BORDERLINE T ABNORMALITIES, ANT-LAT LEADS Electronically Signed By: Doug Alejandro 29-May-2017 15:35:32
--- NOTE | 2017-05-29 15:27 | PDMN ---
Medical Necessity Medical necessity: est los>2mn for acute asthma exacerbation c/w status asthmaticus, tachycardia r/t continuous beta agonist therapy; admit to ICU/SDU for critical care support, IV steroids and BiPAP; per order and H&P 05/29/17
[2017-05-29] MEDS ORDERED: IPRATROPIUM/ALBUTEROL 4GM MDI IH PRN (17:09)
[2017-05-29] MEDS ORDERED: IPRATROPIUM/ALBUTEROL 3 ML DEYVIAL ONE (17:34)
[2017-05-29] MEDS: MONTELUKAST SODIUM 10 MG TAB PO SCH (17:35)
[2017-05-29] MEDS: IPRATROPIUM/ALBUTEROL 3 ML DEYVIAL IH PRN ×2 (17:47→21:01)
[2017-05-29] MEDS: FAMOTIDINE 20 MG TAB PO SCH (20:31)
[2017-05-29] MEDS: GABAPENTIN 400 MG CAP PO SCH (20:35)
[2017-05-29] MEDS: diphenhydrAMINE 50 MG CAP PO PRN (20:52)
[2017-05-29] MEDS: BENZONATATE 100 MG CAP PO PRN (20:52)
[2017-05-30] MEDS: methylPREDNISolone SOD SUCC 125 MG/2 ML VIAL IVP SCH ×4 (00:22→18:05)
[2017-05-30] MEDS: ONDANSETRON 4 MG/2 ML VIAL IVP PRN (00:23)
[2017-05-30 00:50] LABS: % IMMATURE GRANULYOCYTES 0.4 % (0.0-1.1); ABSOLUTE IMMATURE GRANULOCYTES 0.03 10^3/uL (0.00-0.10); ADD DIFF? NO; ADD MORPH? NO; ADD SCAN? NO; ATYPICAL LYMPHOCYTE FLAG 0 (0-99); FRAGMENT RBC FLAG 0 (0-99); HEMOGLOBIN 11.6 g/dL (12.6-16.3); LEFT SHIFT FLG 0 (0-99); LIPEMIA HEMOLYSIS FLAG 90 (0-99); MEAN CELL HEMOGLOBIN 31.4 pg (27.9-34.1); MEAN CELL HEMOGLOBIN CONCENTR. 34.1 g/dL (32.4-36.7); MEAN CELL VOLUME 92.1 fL (81.5-99.8); MEAN PLATELET VOLUME 10.6 fL (8.7-11.7); PLATELET CLUMPS FLAG 0 (0-99); PLATELET COUNT 184 10^3/uL (150-400); RED BLOOD CELL COUNT 3.69 10^6/uL (4.18-5.33); RED CELL DISTRIBUTION WIDTH 13.3 % (11.5-15.2)
[2017-05-30 01:21] LABS: ANION GAP 15 mEq/L (8-16); CALCIUM 9.4 mg/dL (8.5-10.4); CARBON DIOXIDE 20 mEq/l (22-31); CHLORIDE 104 mEq/L (97-110); CREATININE 0.7 mg/dL (0.6-1.0); GLOMERULAR FILTRATION RATE > 60; GLUCOSE 300 mg/dL (70-100); MAGNESIUM 1.9 mg/dL (1.6-2.3); POTASSIUM 4.2 mEq/L (3.5-5.2); SODIUM 139 mEq/L (134-144)
--- NOTE | 2017-05-30 03:00 | GCON ---
[f rep st] CONSULTATION PULMONARY/CRITICAL CARE CONSULTATION DATE OF CONSULTATION: 05/29/2017 REASON FOR CONSULTATION: Acute severe asthma. HISTORY: The patient is a 56-year-old asthmatic, who presented to the emergency room today with incr easing shortness of breath, cough, and wheezing over approximately 48 hours. She denies fever or chi lls but has been bringing up some yellowish mucus. She has been using her nebulizer frequently at [facility]. She has had severe exacerbations in the past resulting in intubations x4. Her last was in 2016. Her last exacerbation was in late April of this year. She does have a history of seasonal allergies, as well. Home asthma medications include DuoNeb, Symb icort, albuterol by metered-dose inhaler, Singulair, and recently a prednisone burst. She comes in o n 60 mg of prednisone per day. She has also recently been on azithromycin, by report. In the emergency room, she was given albuterol by nebulizer, steroids, and placed on BiPAP. She is a dmitted to the intensive care unit on BiPAP, with significant improvement. PAST MEDICAL HISTORY: Remarkable for asthma and allergies. FAMILY HISTORY: Positive for asthma. Her daughter apparently of an acute asthma attack within the last year. Other relatives have asthma. SOCIAL HISTORY: She does smoke cigarettes occasionally. Alcohol is denied. REVIEW OF SYSTEMS: A 10-point review of systems is negative. There is no history of heart disease. DRUG ALLERGIES: Acetaminophen, ibuprofen. PHYSICAL EXAMINATION: GENERAL: Reveals a woman, who is on BiPAP and indicates that she is breathing better and is comfortable. VITAL SIGNS: Respiratory rate is 25. Blood pressure is 104/54, heart r ate 88, with sinus rhythm on the monitor. On 30% BiPAP, saturations are 99%. She is afebrile. She appears comfortable. She is not using accessory muscles. HEENT: Remarkable for the BiPAP mask bein g in place. Pupils appear equal. NECK: There is no jugular venous distention or lymphadenopathy. Trachea is midline. CHEST: Clear. On BiPAP, there are no wheezes. There are no rales or rhonchi. Breath sounds are somewhat diminished with expiratory phase slightly prolonged. BiPAP settings are 15/5. HEART: Tones are distant. The rhythm is regular. There are no gallops. P2 appears normal. ABDOMEN: Soft. Nontender. Bowel sounds are present. EXTREMITIES: Unremarkable for edema, cords, or tenderness. SKIN: Without lesions or rash. NEUROLOGIC: Within normal limits. DATABASE: Chest x-ray: Shows the lungs to be clear, and the heart size is normal. Laboratory: White blood cell count is 4.38, hematocrit 38, platelets 200,000. PT and PTT are normal . Arterial blood gas, apparently venous, drawn in the emergency department showed a pH of 7.35, veno us pCO2 of 46, and venous O2 of 68. Basic metabolic panel was within normal limits. Troponin and BNP are both negative. Influenza A/B is negative. A respiratory viral panel is negativ e. ASSESSMENT: Acute severe asthma exacerbation with respiratory failure, requiring BiPAP. With BiPAP and initial medications including continuous albuterol by nebulizer early on and Solu-Medrol, she is showed initial improvement and appears to be quite stable right now, although still requiring BiPAP s upport. A bacterial infectious etiology seems unlikely. There is no evidence of pneumonia or obviou s infectious bronchitis. Antibiotics will be held for now, but considered if indicated. PLAN/RECOMMENDATIONS: Continue treatment with nebulized bronchodilator therapy and intravenous stero ids will be continued. She will be followed closely. A sputum culture will be requested. Chest x-r ay and blood gas will be followed initially. Laboratory will be followed. Enoxaparin will be given for DVT prophylaxis and Pepcid for ulcer prophylaxis and reflux. Further plans and recommendations will be made based on her progress over the next 12-24 hours. /[id number]/MODL
[2017-05-30] MEDS: IPRATROPIUM/ALBUTEROL 3 ML DEYVIAL IH PRN ×3 (03:48→09:18)
[2017-05-30 06:32] LABS: BICARBONATE 21 mEq/L (22-26); MEASURED OXYGEN SATURATION 95 % (92-95); PCO2 36 mmHg (34-38); PO2 76 mmHg (65-75); TCO2 22 mEq/L (23-27)
[2017-05-30 06:34] LABS: BIPAP YES
[2017-05-30 06:35] LABS: EXP PRESSURE 7; O2 CONCENTRATIION 21 % (0-100); P/F RATIO 362 RATIO
[2017-05-30] MEDS: ENOXAPARIN 40 MG/0.4 ML SYR SC SCH (08:20)
[2017-05-30] MEDS: FAMOTIDINE 20 MG TAB PO SCH ×2 (08:20→20:21)
[2017-05-30] MEDS: GABAPENTIN 400 MG CAP PO SCH ×2 (08:20→20:20)
[2017-05-30] MEDS: BENZONATATE 100 MG CAP PO PRN ×2 (09:56→20:21)
[2017-05-30] MEDS: diphenhydrAMINE 50 MG CAP PO PRN ×2 (09:56→20:21)
[2017-05-30] MEDS: AZITHROMYCIN IV 500 MG in D5W 250 ML IV SCH (10:22)
--- NOTE | 2017-05-30 11:05 | ASMTCASEMG ---
Living Arrangements What is your living Answers: Alone arrangement? Who do you live with? Type Of Residence What kind of residence do Answers: House you live in? Discharge Plan Comments Coordination Status Comments Notes: Patient is a 56yo female with a hx of asthma who was admitted after 2 days of worsening shortness of breath and cough productive of slightly discolored sputum. Patient is and lost her daughter in the recent year secondary to an asthma attack.Patient has had some tachycardia. No therapies have been ordered yet. Patient will most likely d/c independently. CM available for d/c needs. Date Signed: 05/30/2017 11:04 AM Electronically Signed By:Bhavya Rao LCSW
--- NOTE | 2017-05-30 12:19 | PDINTPN ---
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 Secondary to bronchitis versus nonspecific. No evidence of pneumonia. Will add azithromycin for possible atypical bronchitis. Azithromycin also has an anti-inflammatory effect which may be of benefit. Acute severe asthma, with respiratory failure requiring almost continuous BiPAP therapy at this time. Improving slowly. Remains tight and wheezy without BiPAP support. ABG on BiPAP okay. On bronchodilators, steroids. Plan: Continue present care with BiPAP, nebulized treatments, intravenous steroids, Singulair, etc. I will add azithromycin. Follow laboratory, clinical status. Discussed with the patient, hospitalist, respiratory therapy, nursing, and the ICU multi disciplinary team. 35 minutes of critical care time spent directly with the patient. Subjective: On BiPAP. Short of breath, tight without it. Objective: Vital Signs Temp Pulse Resp BP Pulse Ox 37.0 C 104 H 24 H 115/65 92 05/30/17 12:10 05/30/17 12:10 05/30/17 12:10 05/30/17 12:10 05/30/17 12:10 Laboratory Results 05/30/17 00:45 05/30/17 00:45 05/29/17 05/30/17 05/31/17 05:59 05:59 05:59 Intake Total 1000 Balance 1000 PT 13.3 SEC (12.0-15.0) 05/29/17 09:40 INR 1.02 (0.83-1.16) 05/29/17 09:40 Laboratory Tests 05/30/17 05/30/17 00:45 06:24 pCO2 36 pO2 76 H ABG pH 7.39 O2 Concentration % 21 Expiratory Pressure 7 Mode BiPAP YES Calcium 9.4 Phosphorus 3.1 Magnesium 1.9 CXR: Remains clear Physical Exam - Physical Exam General Appearance: alert, no apparent distress (On BiPAP) EENT: PERRL/EOMI, other (BiPAP mask in place) Neck: normal inspection (No JVD) Respiratory: accessory muscle use (Mild off BiPAP), decreased breath sounds, wheezing (Present when off of BiPAP, relatively tight still.), prolonged inspiration, No lungs clear, No normal breath sounds, No respiratory distress ( On BiPAP) Cardiac/Chest: tachycardia (Sinus) Abdomen: normal bowel sounds, non-tender, soft Pelvic Exam: other (No Woodard catheter, uses bathroom) Skin: normal color, warm/dry Extremities: No pedal edema Neuro/Psych: no motor/sensory deficits, No cognition abnormalities ICD10 Worksheet Patient Problems: Problems Problem Status Onset Asthma attack Acute Seizure Acute Submandibular gland swelling Acute Acute asthma exacerbation Acute Asthma Acute Acute respiratory failure Acute
--- NOTE | 2017-05-30 16:10 | HOSPPROG ---
Hospitalist Progress Note Assessment/Plan: 56 yo F w severe asthma admitted w severe asthma exacerbation asthma exacerbation: severe, requiring BIPAP, although she is off now continue high dose steroids, nebs and antibiotics hyperglycemia: add lispro ss goal < 200 proph: lmwh tachycardia: sinus (interp by me) attributable to albuterol dispo: icu, inpt Subjective: case d/w dr gatica. cxr unchnaged, hyperinflated, no infiltrate ( interp by me) Objective: Vital Signs Temp Pulse Resp BP Pulse Ox 37.0 C 104 H 24 H 115/65 92 05/30/17 12:10 05/30/17 12:10 05/30/17 12:10 05/30/17 12:10 05/30/17 12:10 Laboratory Results 05/30/17 00:45 05/30/17 00:45 05/29/17 05/30/17 05/31/17 05:59 05:59 05:59 Intake Total 1000 Balance 1000 PT 13.3 SEC (12.0-15.0) 05/29/17 09:40 INR 1.02 (0.83-1.16) 05/29/17 09:40 - Physical Exam Constitutional: no apparent distress, appears nourished Eyes: PERRL, anicteric sclera Ears, Nose, Mouth, Throat: moist mucous membranes, hearing normal Cardiovascular: regular rate and rhythym, no murmur, rub, or gallop Respiratory: no respiratory distress, no rales or rhonchi Gastrointestinal: normoactive bowel sounds, soft, non-tender abdomen Genitourinary: no bladder fullness, No hook in urethra Skin: warm, normal color Musculoskeletal: full muscle strength, no muscle tenderness ICD10 Worksheet Patient Problems: Problems Problem Status Onset Acute respiratory failure Acute Asthma attack Acute Acute asthma exacerbation Acute Asthma Acute Seizure Acute Submandibular gland swelling Acute
[2017-05-30] MEDS ORDERED: ALBUTEROL 3 ML DEYVIAL IH PRN (16:11)
[2017-05-30] MEDS: IPRATROPIUM/ALBUTEROL 3 ML DEYVIAL IH SCH ×2 (16:31→21:45)
[2017-05-30] MEDS: MONTELUKAST SODIUM 10 MG TAB PO SCH (18:03)
[2017-05-31] MEDS: IPRATROPIUM/ALBUTEROL 3 ML DEYVIAL IH SCH ×7 (00:05→23:46)
[2017-05-31] MEDS: methylPREDNISolone SOD SUCC 125 MG/2 ML VIAL IVP SCH ×4 (00:56→17:41)
[2017-05-31] MEDS: AZITHROMYCIN IV 500 MG in D5W 250 ML IV SCH (08:27)
[2017-05-31] MEDS: GABAPENTIN 400 MG CAP PO SCH ×2 (08:28→20:17)
[2017-05-31] MEDS: FAMOTIDINE 20 MG TAB PO SCH ×2 (08:28→20:17)
[2017-05-31] MEDS: ENOXAPARIN 40 MG/0.4 ML SYR SC SCH (08:28)
--- NOTE | 2017-05-31 09:41 | PDINTPN ---
Handbag Frames Inspector Progress Note Assessment/Plan: Assessment: Asthma exacerbation. Secondary to bronchitis versus nonspecific. No evidence of pneumonia. Azithromycin added 05/30 for possible atypical bronchitis and anti-inflammatory effect Acute severe asthma, with respiratory failure requiring almost continuous BiPAP therapy initially. Improving, needing BiPAP less than 50% of the time currently. Moving more air today with resultant increased wheezing. Unable to clear secretions: Mucinex or Mucomyst may be of benefit. On bronchodilators, steroids, antibiotics. Hyperglycemia: Secondary to steroids. Will start insulin. Plan: Continue present care with BiPAP as needed, nebulized treatments, intravenous steroids, Singulair, etc. Continue azithromycin. Add mucolytics. Start insulin. Can transition to SDU status. Discussed with the patient, hospitalist, respiratory therapy, nursing, and the ICU multi disciplinary team. 30 minutes of critical care time spent directly with the patient. Subjective: Feeling better. Off BiPAP more: Used about 50% of the time last night. Coughing, but unable to bring up any mucus. Less tight, more wheezing. Objective: Vital Signs Temp Pulse Resp BP Pulse Ox 36.9 C 93 12 120/74 98 05/31/17 07:28 05/31/17 07:47 05/31/17 07:47 05/31/17 07:28 05/31/17 07:47 Laboratory Results 05/30/17 00:45 05/30/17 00:45 05/30/17 05/31/17 06/01/17 05:59 05:59 05:59 Intake Total 1000 1100 Balance 1000 1100 PT 13.3 SEC (12.0-15.0) 05/29/17 09:40 INR 1.02 (0.83-1.16) 05/29/17 09:40 A.m. glucose today 148, but repeat, but repeat is 465 Physical Exam - Physical Exam General Appearance: alert, no apparent distress EENT: PERRL/EOMI, other (Nasal cannula at 2 L) Neck: normal inspection (No JVD) Respiratory: decreased breath sounds, rhonchi (Central congestion present), wheezing (Diffuse wheezing present. Moving more air.), prolonged inspiration, No normal breath sounds, No respiratory distress, No accessory muscle use Cardiac/Chest: regular rate, rhythm Abdomen: normal bowel sounds, non-tender, soft Skin: normal color, warm/dry Extremities: No pedal edema Neuro/Psych: no motor/sensory deficits, No cognition abnormalities ICD10 Worksheet Patient Problems: Problems Problem Status Onset Asthma attack Acute Seizure Acute Submandibular gland swelling Acute Acute asthma exacerbation Acute Asthma Acute Acute respiratory failure Acute
[2017-05-31] MEDS: guaiFENesin 600 MG TAB.ER PO SCH ×2 (09:58→20:18)
[2017-05-31] MEDS ORDERED: D50W 25 GM/50 ML SYR IVP PRN (10:45)
[2017-05-31] MEDS: INSULIN REGULAR HUMAN 100 UNIT/ML SC SCH ×3 (11:57→20:32)
[2017-05-31] MEDS: ACETYLCYSTEINE 20% IH/PO 4 ML VIAL IH SCH ×3 (13:08→23:45)
--- NOTE | 2017-05-31 14:40 | HOSPPROG ---
Hospitalist Progress Note Assessment/Plan: 56 yo F w severe asthma admitted w severe asthma exacerbation asthma exacerbation: severe, requiring intermittent BIPAP, still very tight continue high dose steroids, nebs and antibiotics trial mucomyst hyperglycemia: cont SSI goal < 200 proph: lmwh tachycardia: sinus (interp by me) attributable to albuterol hyponatremia: mild, fluid restrict, recheck in am dispo: icu, inpt Subjective: Pt feels ok at rest, but very SOB with ambulation. Still requiring intermittent bipap. No fevers. No CP. Eating ok. Objective: Vital Signs Temp Pulse Resp BP Pulse Ox 36.7 C 85 22 H 119/73 99 05/31/17 12:00 05/31/17 13:14 05/31/17 13:14 05/31/17 12:00 05/31/17 13:14 Laboratory Results 05/30/17 00:45 05/30/17 00:45 05/30/17 05/31/17 06/01/17 05:59 05:59 05:59 Intake Total 1000 1100 Balance 1000 1100 PT 13.3 SEC (12.0-15.0) 05/29/17 09:40 INR 1.02 (0.83-1.16) 05/29/17 09:40 - Physical Exam Constitutional: no apparent distress Eyes: PERRL Ears, Nose, Mouth, Throat: moist mucous membranes Cardiovascular: regular rate and rhythym Respiratory: no respiratory distress, reduced air movement, expiratory wheeze Skin: warm Musculoskeletal: full muscle strength Neurologic: AAOx3 Psychiatric: interacting appropriately ICD10 Worksheet Patient Problems: Problems Problem Status Onset Acute respiratory failure Acute Asthma attack Acute Acute asthma exacerbation Acute Asthma Acute Seizure Acute Submandibular gland swelling Acute
[2017-05-31] MEDS: NICOTINE 21 MG/24 HR PATCH TD SCH (17:35)
[2017-05-31] MEDS: MONTELUKAST SODIUM 10 MG TAB PO SCH (17:42)
[2017-05-31] MEDS: BENZONATATE 100 MG CAP PO PRN (20:18)
[2017-05-31] MEDS: INSULIN GLARGINE 100 UNITS/ML SYRINGE SC SCH (20:18)
[2017-05-31] MEDS: diphenhydrAMINE 50 MG CAP PO PRN (20:19)
[2017-06-01] MEDS: methylPREDNISolone SOD SUCC 125 MG/2 ML VIAL IVP SCH ×4 (00:56→21:19)
--- NOTE | 2017-06-01 03:17 | CPEKG ---
Heart Rate: 87 RR Interval: 690 P-R Interval: 148 QRSD Interval: 88 QT Interval: 368 QTC Interval: 443 P [place]: 48 QRS [place]: 51 T Wave [place]: 33 EKG Severity - NORMAL ECG - EKG Impression: SINUS RHYTHM Electronically Signed By: Jose Vital 01-Jun-2017 10:05:09
[2017-06-01 04:33] LABS: ANION GAP 13 mEq/L (8-16); CALCIUM 9.6 mg/dL (8.5-10.4); CARBON DIOXIDE 25 mEq/l (22-31); CHLORIDE 105 mEq/L (97-110); CREATININE 0.6 mg/dL (0.6-1.0); GLOMERULAR FILTRATION RATE > 60; GLUCOSE 129 mg/dL (70-100); SODIUM 143 mEq/L (134-144)
[2017-06-01] MEDS: IPRATROPIUM/ALBUTEROL 3 ML DEYVIAL IH SCH ×5 (04:55→21:29)
[2017-06-01] MEDS: ACETYLCYSTEINE 20% IH/PO 4 ML VIAL IH SCH (05:22)
[2017-06-01] MEDS: INSULIN REGULAR HUMAN 100 UNIT/ML SC SCH (08:48)
[2017-06-01] MEDS: AZITHROMYCIN IV 500 MG in D5W 250 ML IV SCH (09:51)
[2017-06-01] MEDS: ENOXAPARIN 40 MG/0.4 ML SYR SC SCH (09:51)
[2017-06-01] MEDS: NICOTINE 21 MG/24 HR PATCH TD SCH (09:52)
[2017-06-01] MEDS: FAMOTIDINE 20 MG TAB PO SCH ×2 (09:52→20:08)
[2017-06-01] MEDS: guaiFENesin 600 MG TAB.ER PO SCH ×2 (09:52→20:08)
[2017-06-01] MEDS: GABAPENTIN 400 MG CAP PO SCH ×2 (09:52→20:08)
[2017-06-01] MEDS: diphenhydrAMINE 50 MG CAP PO PRN ×2 (09:56→20:08)
--- NOTE | 2017-06-01 11:22 | HOSPPROG ---
Hospitalist Progress Note Assessment/Plan: 56 yo F w severe asthma admitted w severe asthma exacerbation asthma exacerbation: severe, requiring intermittent BIPAP, still very tight. No bipap needs today. D/W Dr. Nicole. continue high dose steroids, begin to wean slowly cont nebs and azithromycin added mucomyst hyperglycemia: cont SSI goal < 200 tachycardia: sinus (interp by me) attributable to albuterol hyponatremia: normalized with fluid restriction, will adjust to 1.5 L / day proph: lmwh dispo: cont inpt, transfer to med/surg Subjective: Pt feels a bit better. No SOB at rest, but gets dyspneic with activity. No fevers/chills. Eating well. Objective: Vital Signs Temp Pulse Resp BP Pulse Ox 37.0 C 88 18 134/73 H 96 06/01/17 07:46 06/01/17 08:40 06/01/17 08:40 06/01/17 07:46 06/01/17 08:40 Laboratory Results 05/30/17 00:45 06/01/17 04:00 05/31/17 06/01/17 06/02/17 05:59 05:59 05:59 Intake Total 1100 2260 Balance 1100 2260 PT 13.3 SEC (12.0-15.0) 05/29/17 09:40 INR 1.02 (0.83-1.16) 05/29/17 09:40 - Physical Exam Constitutional: no apparent distress Eyes: PERRL Ears, Nose, Mouth, Throat: moist mucous membranes Cardiovascular: regular rate and rhythym Respiratory: no respiratory distress, reduced air movement, expiratory wheeze Gastrointestinal: normoactive bowel sounds, soft, non-tender abdomen Skin: warm Musculoskeletal: full muscle strength Neurologic: AAOx3 Psychiatric: interacting appropriately ICD10 Worksheet Patient Problems: Problems Problem Status Onset Acute respiratory failure Acute Asthma attack Acute Acute asthma exacerbation Acute Asthma Acute Seizure Acute Submandibular gland swelling Acute
[2017-06-01] MEDS ORDERED: D50W 25 GM/50 ML SYR IVP PRN (11:26)
--- NOTE | 2017-06-01 12:27 | PDINTPN ---
Juvenile Justice Specialist Progress Note Assessment/Plan: Assessment: Asthma exacerbation. Secondary to bronchitis versus nonspecific. No evidence of pneumonia. Azithromycin added 05/30 for possible atypical bronchitis and anti-inflammatory effect Acute severe asthma, with respiratory failure requiring almost continuous BiPAP therapy initially. Improving, needing BiPAP less than 50% of the time currently. Moving more air today with resultant increased wheezing. Unable to clear secretions: Mucinex or Mucomyst may be of benefit. On bronchodilators, steroids, antibiotics. Hyperglycemia: Secondary to steroids. Will start insulin. Plan: Continue present care, can D/C BiPAP at this point, taper steroids, continue nebulized treatments, Singulair, etc. Continue azithromycin times 5 days total. Continue Mucinex. Start insulin. Can transfer to a medical- surgical bed today. Increase ambulation. Possible discharge to home tomorrow? Discussed with the patient, hospitalist, respiratory therapy, nursing, and the ICU multi disciplinary team. 30 minutes of critical care time spent directly with the patient. Subjective: Doing well, feels much better. Back close to baseline? Did not need BiPAP over night. Objective: Vital Signs Temp Pulse Resp BP Pulse Ox 37.0 C 88 18 134/73 H 96 06/01/17 07:46 06/01/17 08:40 06/01/17 08:40 06/01/17 07:46 06/01/17 08:40 Laboratory Results 05/30/17 00:45 06/01/17 04:00 05/31/17 06/01/17 06/02/17 05:59 05:59 05:59 Intake Total 1100 2260 Balance 1100 2260 PT 13.3 SEC (12.0-15.0) 05/29/17 09:40 INR 1.02 (0.83-1.16) 05/29/17 09:40 Physical Exam - Physical Exam General Appearance: alert, no apparent distress EENT: other (On room air) Neck: normal inspection Respiratory: decreased breath sounds, wheezing (Minimal comma scattered wheezes) , No rales, No rhonchi Cardiac/Chest: regular rate, rhythm Abdomen: normal bowel sounds, non-tender, soft Skin: normal color, warm/dry Extremities: No pedal edema Neuro/Psych: no motor/sensory deficits, No cognition abnormalities ICD10 Worksheet Patient Problems: Problems Problem Status Onset Asthma attack Acute Seizure Acute Submandibular gland swelling Acute Acute asthma exacerbation Acute Asthma Acute Acute respiratory failure Acute
--- NOTE | 2017-06-01 12:35 | ASMTCMCOM ---
CM Note CM Note Notes: Patient will transfer to the floor today. D/C plan remains home independent. CM available should needs arise. Date Signed: 06/01/2017 12:34 PM Electronically Signed By:Bhavya Rao LCSW
[2017-06-01] MEDS: INSULIN LISPRO 100 UNIT/ML SC SCH ×2 (12:38→16:39)
[2017-06-01] MEDS: BENZONATATE 100 MG CAP PO PRN (20:07)
[2017-06-01] MEDS: MONTELUKAST SODIUM 10 MG TAB PO SCH (20:11)
[2017-06-01] MEDS: INSULIN GLARGINE 100 UNITS/ML SYRINGE SC SCH (20:54)
[2017-06-02] MEDS: IPRATROPIUM/ALBUTEROL 3 ML DEYVIAL IH SCH ×3 (00:46→09:01)
[2017-06-02 05:32] VITALS: O2SAT 93
[2017-06-02] MEDS: methylPREDNISolone SOD SUCC 125 MG/2 ML VIAL IVP SCH (05:33)
[2017-06-02 08:13] VITALS: BP 145/91; PULSE 84; TEMP 98.2
[2017-06-02] MEDS ORDERED: AZITHROMYCIN 250 MG TAB PO SCH (09:00)
[2017-06-02 09:04] VITALS: RESP 94
[2017-06-02] MEDS: INSULIN LISPRO 100 UNIT/ML SC SCH (09:44)
[2017-06-02] MEDS: guaiFENesin 600 MG TAB.ER PO SCH (09:45)
[2017-06-02] MEDS: GABAPENTIN 400 MG CAP PO SCH (09:46)
[2017-06-02] MEDS: FAMOTIDINE 20 MG TAB PO SCH (09:46)
[2017-06-02] MEDS: NICOTINE 21 MG/24 HR PATCH TD SCH (09:48)
[2017-06-02] MEDS: ENOXAPARIN 40 MG/0.4 ML SYR SC SCH (09:50)
[2017-06-02] MEDS ORDERED: predniSONE 20 MG TAB PO SCH (14:00)
--- NOTE | 2017-06-02 14:51 | ASDISCHSUM ---
Discharge Information Plan Status:Home with No Needs Medically Cleared to Leave: Discharge Date:06/02/2017 11:08 AM CM D/C Disposition: ADT D/C Disposition:Home, Routine, Self-Care Projected Discharge Date:06/02/2017 11:08 AM Transportation at D/C: Discharge Delay Reason: Follow-Up Date:06/02/2017 11:08 AM Discharge Slot: Final Diagnosis: Placement Information Patient Contact Information Contact Name:NETTA Relationship:Other Address: Work Phone: City: [facility] Phone: State/Zip Code: Email: Financial Information Financial Class: Primary Plan Desc:[employer] [facility] [place] Primary Plan Number:[id number] Secondary Plan Desc: Secondary Plan Number: Assessment Information [facility] Initial CM Assessment Living Arrangements What is your living Answers: Alone arrangement? Who do you live with? Type Of Residence What kind of residence do Answers: House you live in? Discharge Plan Comments Coordination Status Comments Notes: Patient is a 56yo female with a hx of asthma who was admitted after 2 days of worsening shortness of breath and cough productive of slightly discolored sputum. Patient is and lost her daughter in the recent year secondary to an asthma attack.Patient has had some tachycardia. No therapies have been ordered yet. Patient will most likely d/c independently. CM available for d/c needs. Date Signed: 05/30/2017 11:04 AM Electronically Signed By:Bhavya Rao LCSW [facility] CM Progress Note CM Note CM Note Notes: Patient will transfer to the floor today. D/C plan remains home independent. CM available should needs arise. Date Signed: 06/01/2017 12:34 PM Electronically Signed By:Bhavya Rao, GREASE REMOVER Intervention Information
--- NOTE | 2017-06-02 15:13 | GDS ---
[f rep st] DISCHARGE SUMMARY DISCHARGE DIAGNOSES: 1. Severe asthma with acute exacerbation and status asthmaticus. 2. Tachycardia secondary to beta 2 agonists, improved. 3. Hyperglycemia secondary to steroids, improved. 4. Hyponatremia, resolved. HISTORY: For details please see the history and physical dated May 29, 2017. In brief, the deepak bowers is a 56-year-old female with a history of severe asthma who has lost both her daughter and her fa ther to asthma exacerbations, presents to the emergency department with acute shortness of breath and wheezing. She has had 4 previous intubations. Her presenting picture was consistent with status as thmaticus. She was admitted to the ICU for further management. HOSPITAL COURSE: The patient was admitted in the intensive care unit on supplemental oxygen with con tinuous nebulizers. She was given IV steroids and started on BiPAP. She did not require intubation. Her respiratory viral pathogen panel was negative for influenza or other viral pathogens. She rece ived high-dose IV steroids which were weaned to oral prednisone. On the day of discharge she is on p rednisone 60 mg p.o. daily. Her wheezing is completely resolved. She is actually moving air really quite well and saturating 94% on room air. She has all of her nebulizer medications at home as well as her Symbicort and albuterol inhalers. DISPOSITION: Patient is discharged home in stable condition. FOLLOWUP: 1. Dr. Carlos Mendoza, primary care. 2. Dr. Rainer Nicole, Pulmonology. DISCHARGE MEDICATIONS: [facility] for complete updated outpatient medication list. New medications on discharge include: 1. DuoNeb 3 mL inhaled q.i.d. 2. Albuterol nebulizers 3 mL q.2 hours p.r.n. 3. Singulair 10 mg p.o. daily. 4. Symbicort 160-4.5 two puffs inhaled b.i.d. 5. Flonase 2 sprays each naris daily. 6. Tessalon Perles 200 mg p.o. t.i.d. p.r.n., #30, no refills. 7. Benadryl 50 mg p.o. daily p.r.n. 8. NicoDerm 21 mg transdermal patch daily. 9. Prednisone taper 60 mg p.o. daily for 2 more days and 50 mg daily for 3 days, then 40 mg daily fo r 3 days, then 30 mg daily for 3 days, then 20 mg daily for 3 days and 10 mg daily for 3 days, then o ff. /[id number]/MODL
== END 2017-06-02 11:08 | disposition home or self-care (01) | DRG 202 ==
LOC: EDUNIT# → F2N 13:37 → F1N 06-01 14:43
PROVIDERS: ADMIT Hospitalist; ATTEND Hospitalist
DX: J45.52 Severe persistent asthma with status asthmaticus (principal); J45.51 Severe persistent asthma with (acute) exacerbation; J96.90 Respiratory failure, unspecified, unspecified whether with hypoxia or hypercapnia; R73.9 Hyperglycemia, unspecified; T38.0X5A Adverse effect of glucocorticoids and synthetic analogues, initial encounter; E87.1 Hypo-osmolality and hyponatremia; R00.0 Tachycardia, unspecified; T44.7X5A Adverse effect of beta-adrenoreceptor antagonists, initial encounter
CPT/HCPCS: 82947-QW; J0456; J1650; J1815; J2405; J2930; J7608

== ENCOUNTER 2017-06-30 08:15 | Inpatient (IN) | payer MEDICAID ==
--- NOTE | 2017-06-30 08:25 | EDPHY ---
H & P Time Seen by Provider: 06/30/17 08:21 HPI/ROS: Chief complaint. Lethargy HPI. 57 old female with long history of severe asthma and previous intubations and recent pneumonia presents with lethargy and weakness for 1 day. She attributes it to a medication that was given to her by [facility] this week. Today she could not walk and is having trouble speaking. She has some chest discomfort at coughing. Cough is nonproductive. Some shortness of breath but not severe. No fever. No abdominal pain. Generalized weakness but no focal weakness to arms or legs. No similar symptoms previously. ROS Constitutional. Generalized weakness Eyes. no problems with vision ENT. no sore throat, no nasal drainage Cardiovascular. Chest discomfort with coughing Respiratory. Shortness breath and cough Abdominal. no abdominal pain, no nausea/vomiting, no diarrhea . no problems urinating MS. no calf pain/swelling, no neck/back pain, no joint pain Skin. no rash Lymph. no swollen glands Neuro. Inability to walk secondary to weakness and difficulty speaking Past Medical/Surgical History: Asthma with intubations and recent hospitalizations Social History: Single, daily walker, no alcohol Smoking Status: Light smoker Physical Exam: General Appearance: Alert well-developed female moderate distress signs are stable Eyes: Pupils equal and round no pallor or injection. ENT, Mouth: Mucous membranes are moist. Respiratory: No retractions with inspiratory expiratory rhonchi. Some wheezing. Cardiovascular: Regular rate and rhythm. Gastrointestinal: Abdomen is soft and nontender, no masses, bowel sounds normal. Neurological: Awake and alert, sensory and motor exams grossly normal. Speech is somewhat garbled but cranial nerves appear to be intact. No pronator drift. [id number] is intact. Skin: Warm and dry, no rashes. Musculoskeletal: Neck is supple nontender. Extremities symmetrical, full range of motion. Psychiatric: Patient is oriented X 3, there is no agitation. Constitutional: Initial Vital Signs Temperature (C) 36.3 C 06/30/17 08:27 Heart Rate 94 06/30/17 08:27 Respiratory Rate 18 06/30/17 08:27 Blood Pressure 130/106 H 06/30/17 08:27 O2 Sat (%) 95 06/30/17 08:27 O2 Delivery Mode Room Air Allergies/Adverse Reactions: acetaminophen [From Tylenol] Allergy (Severe, Verified 06/30/17 08:29) Anaphylaxis ibuprofen Allergy (Verified 06/30/17 08:29) Home Medications: Medication Instructions Recorded Gabapentin [Neurontin 400 MG (*)] 800 mg PO BID 04/28/17 diphenhydrAMINE [Benadryl 50 MG 50 mg PO DAILY PRN 04/28/17 (*)] Benzonatate [Tessalon Pearles] 200 mg PO TID PRN #30 cap 04/29/17 Budesonide/Formoterol 160/4.5 2 puffs IH BID mdi 04/29/17 [Symbicort 160-4.5 Mcg Inh (*)] Montelukast Sodium [Singulair 10 10 mg PO DAILY@1800 #30 tab 04/29/17 mg (*)] Ipratropium/Albuterol [Duoneb (*)] 3 ml IH Q6HRS deyvial 05/03/17 Albuterol Sulfate [Proair Hfa] 1 - 2 puffs IH Q4H PRN 05/06/17 Albuterol [Proventil Neb] 3 ml IH Q2HRS PRN deyvial 06/02/17 predniSONE 60 mg PO DAILY #32 tablet 06/02/17 QUEtiapine FUMARATE [Seroquel 600 mg PO DAILY 06/30/17 300mg (*)] Medical Decision Making - Diagnostics Imaging Results: Chest x-ray interpreted by me shows no obvious pneumonia Procedures: IV normal saline, monitor. DuoNeb updraft. Septic workup. ED Course/Re-evaluation: On serial evaluations patient remained stable. Mental status is unchanged. The patient and I discussed laboratory imaging evaluation. We discussed treatment plan including recommendation for admission. She expresses understanding and agreement I consulted and discussed case with Dr. Gonzalez, hospitalist, who agrees to the admission Differential Diagnosis: Patient has a cough and I considered pneumonia. She has a history of severe asthma with multiple intubations. She is lethargic possibly due to medication. Plan will be admission, respiratory support. - Data Points Laboratory Results: Laboratory Results 06/30/17 09:55 06/30/17 09:55 Medications Given: Albuterol/Ipratropium (Duoneb) 3 ml IH Q6HRS ISHAN Stop: 12/27/17 11:59 Last Admin: 07/01/17 05:36 Dose: 3 ml Benzonatate (Tessalon Pearles) 200 mg PO TID PRN PRN Reason: Cough, Mild Stop: 12/27/17 12:17 Last Admin: 06/30/17 19:58 Dose: 200 mg Budesonide/Formoterol Fumarate (Symbicort 160-4.5 Mcg Inhaler) 2 puffs IH BID [facility] Stop: 12/27/17 20:59 Last Admin: 06/30/17 21:49 Dose: 2 puffs Gabapentin (Neurontin) 800 mg PO BID [facility] Stop: 12/27/17 20:59 Last Admin: 06/30/17 19:58 Dose: 800 mg Guaifenesin (Mucinex) 1,200 mg PO BID [facility] Stop: 12/27/17 12:29 Last Admin: 06/30/17 19:58 Dose: 1,200 mg Guaifenesin/Codeine Phosphate (Robitussin Ac) 10 ml PO Q6HRS PRN PRN Reason: Cough, Moderate Stop: 12/27/17 12:17 Last Admin: 06/30/17 19:59 Dose: 10 ml Montelukast Sodium (Singulair) 10 mg PO DAILY@1800 [facility] Stop: 12/27/17 17:59 Last Admin: 06/30/17 18:00 Dose: 10 mg Discontinued Medications Albuterol/Ipratropium (Duoneb) 3 ml IH EDNOW ONE Stop: 06/30/17 08:36 Last Admin: 06/30/17 08:52 Dose: 3 ml Azithromycin (Zithromax) 500 mg PO ONCE ONE PRN Reason: Protocol Stop: 06/30/17 12:31 Last Admin: 06/30/17 14:31 Dose: 500 mg Sodium Chloride (Ns) 1,000 mls @ 0 mls/hr IV ONCE ONE; Wide Open PRN Reason: Protocol Stop: 06/30/17 08:36 Last Admin: 06/30/17 09:57 Dose: 1,000 mls Ceftriaxone Sodium/Dextrose (Rocephin 1 Gm (Premix)) 50 mls @ 100 mls/hr IV DAILY [facility] PRN Reason: Protocol Stop: 07/30/17 12:59 Last Admin: 06/30/17 14:33 Dose: Not Given Methylprednisolone Sodium Succinate (Solu-Medrol) 125 mg IVP EDNOW ONE Stop: 06/30/17 08:36 Last Admin: 06/30/17 09:57 Dose: 125 mg Departure - Departure Disposition: [facility] Acute Clinical Impression: Acute asthma exacerbation Qualifiers: Asthma severity: moderate Asthma persistence: persistent Qualified Code(s): J45.41 - Moderate persistent asthma with (acute) exacerbation Altered mental status Qualifiers: Altered mental status type: stupor Qualified Code(s): R40.1 - Stupor Condition: Fair
[2017-06-30] MEDS ORDERED: methylPREDNISolone SOD SUCC 125 MG/2 ML VIAL IVP ONE (08:35)
[2017-06-30] MEDS ORDERED: NS 1,000 ML IV ONE (08:35)
[2017-06-30] MEDS ORDERED: IPRATROPIUM/ALBUTEROL 3 ML DEYVIAL IH ONE (08:35)
--- NOTE | 2017-06-30 09:14 | CPEKG ---
Heart Rate: 81 RR Interval: 741 P-R Interval: 148 QRSD Interval: 86 QT Interval: 388 QTC Interval: 451 P [place]: 40 QRS [place]: 47 T Wave [place]: 32 EKG Severity - NORMAL ECG - EKG Impression: SINUS RHYTHM Electronically Signed By: Darrius Swain 30-Jun-2017 15:23:22
[2017-06-30 10:03] LABS: % IMMATURE GRANULYOCYTES 0.5 % (0.0-1.1); ABSOLUTE IMMATURE GRANULOCYTES 0.02 10^3/uL (0.00-0.10); ADD DIFF? NO; ADD MORPH? NO; ADD SCAN? NO; ATYPICAL LYMPHOCYTE FLAG 30 (0-99); FRAGMENT RBC FLAG 0 (0-99); HEMATOCRIT 37.7 % (38.0-47.0); HEMOGLOBIN 12.6 g/dL (12.6-16.3); LEFT SHIFT FLG 0 (0-99); LIPEMIA HEMOLYSIS FLAG 80 (0-99); MEAN CELL HEMOGLOBIN 31.2 pg (27.9-34.1); MEAN CELL HEMOGLOBIN CONCENTR. 33.4 g/dL (32.4-36.7); MEAN CELL VOLUME 93.3 fL (81.5-99.8); PLATELET CLUMPS FLAG 0 (0-99); PLATELET COUNT 234 10^3/uL (150-400); RED BLOOD CELL COUNT 4.04 10^6/uL (4.18-5.33)
[2017-06-30 10:11] LABS: INR 0.87 (0.83-1.16); PROTIME(PATIENT) 12.1 SEC (12.0-15.0)
[2017-06-30 10:12] LABS: APTT 24.8 SEC (23.0-38.0)
[2017-06-30 10:28] LABS: ANION GAP 12 mEq/L (8-16); BILIRUBIN,TOTAL 0.4 mg/dL (0.1-1.4); CALCIUM 9.8 mg/dL (8.5-10.4); CARBON DIOXIDE 25 mEq/l (22-31); CHLORIDE 110 mEq/L (97-110); CREATININE 0.8 mg/dL (0.6-1.0); GLOMERULAR FILTRATION RATE > 60; GLUCOSE 87 mg/dL (70-100); POTASSIUM 3.9 mEq/L (3.5-5.2); SODIUM 147 mEq/L (134-144)
[2017-06-30 10:40] LABS: TROPONIN I < 0.012 ng/mL (0.000-0.034)
[2017-06-30] MEDS ORDERED: ONDANSETRON DISINTEGRATING 4 MG TAB PO PRN (11:38)
[2017-06-30] MEDS ORDERED: ONDANSETRON 4 MG/2 ML VIAL IVP PRN (11:38)
[2017-06-30] MEDS ORDERED: ALBUTEROL 60 PUFFS/8 GM MDI IH PRN (12:00)
[2017-06-30] MEDS: IPRATROPIUM/ALBUTEROL 3 ML DEYVIAL IH SCH ×3 (12:28→21:49)
[2017-06-30] MEDS ORDERED: AZITHROMYCIN 250 MG TAB PO ONE (12:30)
[2017-06-30] MEDS: guaiFENesin/CODEINE PHOS 10 ML UDCUP PO PRN ×2 (12:40→19:59)
--- NOTE | 2017-06-30 13:38 | GHP ---
[f rep st] HISTORY AND PHYSICAL DATE OF ADMISSION: 06/30/2017 CHIEF COMPLAINT: Confusion, lethargy. HISTORY OF PRESENT ILLNESS: A 57-year-old female, with severe asthma with 4 prior intubations, presenting with lethargy and confusion. She says the weakness is due to an antibiotic that she was given by [facility]. Per review of [facility] records, she was seen on June 28 with cough. Chest x- ray there showed a right-sided pneumonia, and she was started on medication, which she did not bring with her. She said this morning she could not walk and was having issues speaking. She reports sweats recently. She had a temperature of a 103 earlier this week, with 5 days of diarrhea, which has since resolved. She was hospitalized at [facility] 05/29 through for asthma exacerbation. She then was hospitalized at [facility] early June for cough, was hospitalized at [facility] 06/16 through 06/18/2017 with exacerbation, thought secondary to possible crack cocaine inhalation. Since then, she says she has had increased cough with hernandez sputum. Threw up a small amount of blood yesterday. Denies NSAIDs. REVIEW OF SYSTEMS: I completed a 10-point review of systems and personally reviewed [facility] records. PAST MEDICAL HISTORY: Depression, asthma with a history of 4 intubations, allergies, seizures, cocaine use. FAMILY HISTORY: Daughter and father of asthma. Other family members with asthma. SOCIAL HISTORY: Lives in transitional housing here in [place]. Denies drugs. Said she quit smoking a week ago. Denies alcohol. PAST SURGICAL HISTORY: , tubal ligation, hysterectomy. ALLERGIES: Tylenol, ibuprofen. HOME MEDICATIONS: Seroquel 600 mg daily. Tessalon Perles as needed, albuterol nebs as needed, ProAir 1-2 puffs q.4 hours, gabapentin 800 mg b.i.d., Symbicort b.i.d., Benadryl as needed, Singulair. PHYSICAL EXAMINATION: VITAL SIGNS: Temperature 36.6, blood pressure 126/78, heart rate 70, respiration 18, 95% on room air: GENERAL: Ill-appearing and uncomfortable, coughing. HEENT: PERRLA. Dry mucous membranes. CV: Regular rate and rhythm. No murmurs, gallops, rubs. LUNGS: Rhonchorous, diffuse expiratory wheezing. ABDOMEN: Soft, nontender, nondistended. Positive bowel sounds. : No [place]. MUSCULOSKELETAL: 5/5 upper and lower extremity strength. NEURO: 2 through 12 intact. PSYCH: Alert and oriented x3. Very pleasant. LABORATORY DATA: WBCs 3, hemoglobin 12, hematocrit 37, platelets 234, coags within normal. Sodium 147, potassium 3.9, chloride 110, carbon dioxide 25, creatinine 0.8. Troponin less than 0.012. BNP is 49. Chest x-ray is personally reviewed by me. No opacity. EKG personally reviewed by me. Sinus rhythm. CT head personally reviewed. No acute hemorrhage or mass. ASSESSMENT AND PLAN: 1. Lethargy, confusion: She states due to medication, but she does not have that listed here, and neither I myself, nor the pharmacist, could obtain a list from [facility] ([place], [place], as it is closed. She is currently alert and oriented x3. Chest x-ray is without pneumonia. She had a negative flu on 06/28. We will check a urinalysis. Question possible illicit drug use, as she was positive earlier in June at [facility] ([place], [place] We will check a drug screen. 2. Asthma exacerbation: Again, no pneumonia noted on x-ray here. However, she did have pneumonia on x-ray 06/28. She was started on some sort of antibiotic, will cover for CAP. Check a procalcitonin. Scheduled DuoNeb steroids. 3. Acute cough: Mucinex, codeine, Tessalon Perles. 4. Depression: Continue Seroquel. 5. History of seizures: Continue gabapentin. 6. Diet: Regular. 7. Deep vein thrombosis prophylaxis: Lovenox. 8. Patient warrants observation and admission, given acute asthma exacerbation , confusion. Requires scheduled nebs, prednisone, and further lab testing. /[id number]/MODL MTDD
[2017-06-30] MEDS: guaiFENesin 600 MG TAB.ER PO SCH ×2 (14:26→19:58)
[2017-06-30] MEDS: MONTELUKAST SODIUM 10 MG TAB PO SCH (18:00)
[2017-06-30] MEDS: GABAPENTIN 400 MG CAP PO SCH (19:58)
[2017-06-30] MEDS: BENZONATATE 100 MG CAP PO PRN (19:58)
[2017-06-30] MEDS: BUDESONIDE/FORMOTEROL 160/4.5 60 PUFFS/MDI IH SCH (21:49)
[2017-06-30 23:36] LABS: COLOR PALE YELLOW; LEUKOCYTE ESTERASE,URINE NEGATIVE (NEGATIVE); NITRITE,URINE NEGATIVE (NEGATIVE)
[2017-06-30 23:42] LABS: MUCUS TRACE /lpf (NONE-1+)
[2017-06-30 23:43] LABS: RBC,URINE NONE SEEN /hpf (0-3); WBC,URINE NONE SEEN /hpf (0-3)
[2017-07-01 00:27] LABS: PHENCYCLIDINE URINE BCH < 6 ng/ml (NEGATIVE); PHENCYCLIDINE URINE BCH NEGATIVE (NEGATIVE); TETRAHYDROCANNABINOL URINE < 5 ng/mL (NEGATIVE); TETRAHYDROCANNABINOL URINE NEGATIVE (NEGATIVE)
[2017-07-01 05:31] LABS: HEMATOCRIT 32.1 % (38.0-47.0); HEMOGLOBIN 10.9 g/dL (12.6-16.3); MEAN CELL HEMOGLOBIN 31.1 pg (27.9-34.1); MEAN CELL VOLUME 91.5 fL (81.5-99.8); RED BLOOD CELL COUNT 3.51 10^6/uL (4.18-5.33); RED CELL DISTRIBUTION WIDTH 13.5 % (11.5-15.2)
[2017-07-01 05:33] LABS: ANION GAP 12 mEq/L (8-16); CALCIUM 9.5 mg/dL (8.5-10.4); CARBON DIOXIDE 23 mEq/l (22-31); CHLORIDE 106 mEq/L (97-110); CREATININE 0.7 mg/dL (0.6-1.0); GLOMERULAR FILTRATION RATE > 60; GLUCOSE 124 mg/dL (70-100); SODIUM 141 mEq/L (134-144)
[2017-07-01] MEDS: IPRATROPIUM/ALBUTEROL 3 ML DEYVIAL IH SCH ×4 (05:36→21:09)
[2017-07-01] MEDS: BENZONATATE 100 MG CAP PO PRN ×2 (08:26→20:31)
[2017-07-01] MEDS: GABAPENTIN 400 MG CAP PO SCH ×2 (08:27→20:31)
[2017-07-01] MEDS: predniSONE 20 MG TAB PO SCH (08:28)
[2017-07-01] MEDS: AZITHROMYCIN 250 MG TAB PO SCH (08:28)
[2017-07-01] MEDS: QUEtiapine FUMARATE 300 MG TAB PO SCH (08:28)
[2017-07-01] MEDS: guaiFENesin 600 MG TAB.ER PO SCH ×2 (08:29→20:31)
--- NOTE | 2017-07-01 08:33 | HOSPPROG ---
Hospitalist Progress Note Assessment/Plan: #Tachycardia: BP stable. May be due to drugs, vs. dehydration. Stat EKG (sinus tachy, personally-reviewed), bolus fluids #Asthma exacerbation: due to crack. Procalcitonin normal. Cont nebs, pred, azithro. #Crack abuse: counseled on cessation #Hypovolemic hyponatremia: resolved with IVFs #Depression: Seroquel, Gabapentin #Diet: regular #Disp: cont inpatient admission with poor air movement, dizziness, tachycardia. Cont IVFs, Duonebs Subjective: chest pain with cough Objective: Vital Signs Temp Pulse Resp BP Pulse Ox 37.1 C 99 19 146/78 H 92 07/01/17 08:00 07/01/17 08:00 07/01/17 08:00 07/01/17 08:00 07/01/17 08:00 Microbiology 06/30/17 14:30 Respiratory Panel (PCR) - Final Nasal, Sinus - Swab No Organism Detected Laboratory Results 07/01/17 05:02 07/01/17 05:02 06/30/17 07/01/17 07/02/17 05:59 05:59 05:59 Intake Total 1000 Balance 1000 PT 12.1 SEC (12.0-15.0) 06/30/17 09:55 INR 0.87 (0.83-1.16) 06/30/17 09:55 - Physical Exam Constitutional: no apparent distress Eyes: PERRL Ears, Nose, Mouth, Throat: moist mucous membranes Cardiovascular: tachycardia Respiratory: reduced air movement, expiratory wheeze, rhonchi Gastrointestinal: normoactive bowel sounds Genitourinary: no bladder fullness Skin: warm Musculoskeletal: full muscle strength Neurologic: AAOx3, CN II-XII Intact Psychiatric: interacting appropriately ICD10 Worksheet Patient Problems: Problems Problem Status Onset Acute asthma exacerbation Acute Altered mental status Acute Acute respiratory failure Acute Asthma Acute Asthma attack Acute Seizure Acute Submandibular gland swelling Acute
[2017-07-01] MEDS: ENOXAPARIN 40 MG/0.4 ML SYR SC SCH (08:37)
[2017-07-01] MEDS: BUDESONIDE/FORMOTEROL 160/4.5 60 PUFFS/MDI IH SCH ×2 (08:41→21:09)
[2017-07-01] MEDS ORDERED: predniSONE 20 MG TAB PO SCH (09:00)
[2017-07-01] MEDS ORDERED: FLUTICASONE NASAL 120 SPRAYS/16 GM MDI EACHNARE SCH (09:00)
[2017-07-01] MEDS ORDERED: NICOTINE 21 MG/24 HR PATCH TD SCH (09:00)
[2017-07-01] MEDS ORDERED: LR 500 ML IV SCH (10:30)
--- NOTE | 2017-07-01 10:36 | CPEKG ---
Heart Rate: 125 RR Interval: 480 P-R Interval: 140 QRSD Interval: 82 QT Interval: 304 QTC Interval: 439 P [place]: 68 QRS [place]: 53 T Wave [place]: 38 EKG Severity - BORDERLINE ECG - EKG Impression: SINUS TACHYCARDIA EKG Impression: PROBABLE LEFT ATRIAL ABNORMALITY EKG Impression: CONSIDER INFERIOR INFARCT EKG Impression: COMPARED WITH 06/30/2017 AT 9:13 AM, HR FASTER; SMALL INFERIOR Q WAVES NOW EKG Impression: PRESENT Electronically Signed By: Crystal Leigh 01-Jul-2017 17:15:08
--- NOTE | 2017-07-01 11:59 | PDMN ---
Medical Necessity Medical necessity: C/M review: est. > 2 MN LOS for eval and TX of acute and persistent asthma exacerbation due to crack, tachycardia, hypovolemic hyponatremia (resolved), dizziness, poor air movement requiring ongoing IV fluids, Duonebs, pulse oximetry, comorbid crack abuse, depression per 2016 Hospitalist progress note.
--- NOTE | 2017-07-01 15:15 | ASMTCMCOM ---
CM Note CM Note Notes: Spoke w/pt, states is in the transitional program at the [facility] and will go back there when medically stable. CM to assist with bus pass. DC Plan: [facility] Home Transitional Program Date Signed: 07/01/2017 03:15 PM Electronically Signed By:Mady Ferrell RN
[2017-07-01] MEDS: MONTELUKAST SODIUM 10 MG TAB PO SCH (17:37)
[2017-07-01] MEDS: guaiFENesin/CODEINE PHOS 10 ML UDCUP PO PRN (20:31)
[2017-07-02] MEDS: guaiFENesin/CODEINE PHOS 10 ML UDCUP PO PRN ×2 (02:42→20:13)
[2017-07-02] MEDS: BENZONATATE 100 MG CAP PO PRN ×2 (02:42→20:13)
[2017-07-02] MEDS: LR 1,000 ML IV SCH ×2 (03:41→08:11)
[2017-07-02 05:26] LABS: % IMMATURE GRANULYOCYTES 1.8 % (0.0-1.1); ABSOLUTE IMMATURE GRANULOCYTES 0.16 10^3/uL (0.00-0.10); ADD DIFF? NO; ADD MORPH? NO; ADD SCAN? NO; ATYPICAL LYMPHOCYTE FLAG 0 (0-99); FRAGMENT RBC FLAG 0 (0-99); HEMATOCRIT 31.2 % (38.0-47.0); HEMOGLOBIN 10.6 g/dL (12.6-16.3); LEFT SHIFT FLG 10 (0-99); LIPEMIA HEMOLYSIS FLAG 90 (0-99); MEAN CELL HEMOGLOBIN 31.6 pg (27.9-34.1); MEAN CELL VOLUME 93.1 fL (81.5-99.8); MEAN PLATELET VOLUME 10.1 fL (8.7-11.7); PLATELET CLUMPS FLAG 0 (0-99); PLATELET COUNT 208 10^3/uL (150-400); RED BLOOD CELL COUNT 3.35 10^6/uL (4.18-5.33); RED CELL DISTRIBUTION WIDTH 13.6 % (11.5-15.2)
[2017-07-02 05:37] LABS: ANION GAP 11 mEq/L (8-16); CALCIUM 9.3 mg/dL (8.5-10.4); CARBON DIOXIDE 25 mEq/l (22-31); CHLORIDE 106 mEq/L (97-110); CREATININE 0.7 mg/dL (0.6-1.0); GLOMERULAR FILTRATION RATE > 60; GLUCOSE 121 mg/dL (70-100); POTASSIUM 3.6 mEq/L (3.5-5.2); SODIUM 142 mEq/L (134-144)
[2017-07-02] MEDS: IPRATROPIUM/ALBUTEROL 3 ML DEYVIAL IH SCH ×4 (05:40→22:21)
[2017-07-02] MEDS: guaiFENesin 600 MG TAB.ER PO SCH ×2 (08:03→20:13)
[2017-07-02] MEDS: GABAPENTIN 400 MG CAP PO SCH ×2 (08:04→20:13)
[2017-07-02] MEDS: AZITHROMYCIN 250 MG TAB PO SCH (08:04)
[2017-07-02] MEDS: predniSONE 20 MG TAB PO SCH (08:04)
[2017-07-02] MEDS: ENOXAPARIN 40 MG/0.4 ML SYR SC SCH (08:05)
[2017-07-02] MEDS: QUEtiapine FUMARATE 300 MG TAB PO SCH ×2 (09:12→12:00)
[2017-07-02] MEDS: BUDESONIDE/FORMOTEROL 160/4.5 60 PUFFS/MDI IH SCH ×2 (10:17→22:21)
[2017-07-02] MEDS: KETOROLAC 15 MG/1 ML SDV IVP SCH ×2 (11:55→17:54)
--- NOTE | 2017-07-02 13:20 | HOSPPROG ---
Hospitalist Progress Note Assessment/Plan: #Tachycardia: BP stable. Goes up with nebulizers. May be due to drugs, vs. dehydration. Stat EKG (sinus tachy, personally-reviewed) #Asthma exacerbation: due to crack. Procalcitonin normal. Cont nebs, pred, azithro. Still with poor air movement today #Fall: did not have LOC. Orthostatics normal #Crack abuse: counseled on cessation #Hypovolemic hyponatremia: resolved with IVFs #Depression: Seroquel, Gabapentin #Diet: regular #Disp: cont inpatient admission with poor air movement, dizziness, tachycardia. Cont IVFs, Duonebs Subjective: Fell last night when in bathroom. Mildly dizzy, "leg gave out". Chest pain with cough. No associated diaphoresis, palps or nausea Objective: Vital Signs Temp Pulse Resp BP Pulse Ox 36.9 C 105 H 20 119/81 H 95 07/02/17 07:34 07/02/17 10:19 07/02/17 10:19 07/02/17 07:34 07/02/17 10:19 Laboratory Results 07/02/17 05:10 07/02/17 05:10 07/01/17 07/02/17 07/03/17 05:59 05:59 05:59 Intake Total 440 Output Total 1450 Balance -1010 PT 12.1 SEC (12.0-15.0) 06/30/17 09:55 INR 0.87 (0.83-1.16) 06/30/17 09:55 ICD10 Worksheet Patient Problems: Problems Problem Status Onset Acute asthma exacerbation Acute Altered mental status Acute Acute respiratory failure Acute Asthma Acute Asthma attack Acute Seizure Acute Submandibular gland swelling Acute
[2017-07-02] MEDS: MONTELUKAST SODIUM 10 MG TAB PO SCH (17:53)
[2017-07-03] MEDS: LR 1,000 ML IV SCH (00:11)
[2017-07-03] MEDS: KETOROLAC 15 MG/1 ML SDV IVP SCH ×2 (00:15→05:35)
[2017-07-03] MEDS: IPRATROPIUM/ALBUTEROL 3 ML DEYVIAL IH SCH ×2 (02:54→10:07)
--- NOTE | 2017-07-03 08:18 | HOSPPROG ---
Hospitalist Progress Note Assessment/Plan: #Tachycardia: resolved. BP stable. Goes up with nebulizers. May be due to drugs , vs. dehydration. Stat EKG (sinus tachy, personally-reviewed) #Asthma exacerbation: due to crack. Procalcitonin normal. Cont nebs, pred, azithro. Still with poor air movement today #Fall: did not have LOC. Orthostatics normal #Crack abuse: counseled on cessation #Hypovolemic hyponatremia: resolved with IVFs #Depression: Seroquel, Gabapentin #Diet: regular #Disp: DC to homeless assisted with pred, azithro and tessalon pearles Subjective: wants to go home. Feeling better, but still coughing Objective: Vital Signs Temp Pulse Resp BP Pulse Ox 36.6 C 92 20 145/88 H 96 07/03/17 00:00 07/03/17 02:55 07/03/17 02:55 07/03/17 00:00 07/03/17 02:55 Laboratory Results 07/02/17 05:10 07/02/17 05:10 07/02/17 07/03/17 07/04/17 05:59 05:59 05:59 Intake Total 440 1914 Output Total 1450 Balance -1010 1914 PT 12.1 SEC (12.0-15.0) 06/30/17 09:55 INR 0.87 (0.83-1.16) 06/30/17 09:55 - Time Spent With Patient Time Spent with Patient: greater than 35 minutes Time Spent with Patient: Greater than 35 minutes spent on this patients care, greater than 50% of time spent counseling, educating, and coordinating care regarding the above mentioned plan. - Physical Exam Constitutional: chronically ill appearing Eyes: PERRL Ears, Nose, Mouth, Throat: moist mucous membranes Cardiovascular: regular rate and rhythym Respiratory: rhonchi, No expiratory wheeze Gastrointestinal: normoactive bowel sounds Genitourinary: no bladder fullness Skin: warm Musculoskeletal: full muscle strength Neurologic: AAOx3, CN II-XII Intact Psychiatric: interacting appropriately ICD10 Worksheet Patient Problems: Problems Problem Status Onset Acute asthma exacerbation Acute Altered mental status Acute Acute respiratory failure Acute Asthma Acute Asthma attack Acute Seizure Acute Submandibular gland swelling Acute
[2017-07-03] MEDS: BUDESONIDE/FORMOTEROL 160/4.5 60 PUFFS/MDI IH SCH (08:23)
[2017-07-03] MEDS: AZITHROMYCIN 250 MG TAB PO SCH (08:44)
[2017-07-03] MEDS: ENOXAPARIN 40 MG/0.4 ML SYR SC SCH (08:44)
[2017-07-03] MEDS: predniSONE 20 MG TAB PO SCH (08:45)
[2017-07-03] MEDS: guaiFENesin 600 MG TAB.ER PO SCH (08:45)
[2017-07-03] MEDS: GABAPENTIN 400 MG CAP PO SCH (08:45)
[2017-07-03] MEDS: QUEtiapine FUMARATE 300 MG TAB PO SCH (08:46)
--- NOTE | 2017-07-03 10:53 | GDS ---
[f rep st] DISCHARGE SUMMARY DISCHARGE DIAGNOSES: 1. Asthma exacerbation secondary to crack. 2. Tachycardia. 3. Fall. 4. History of crack abuse. 5. Hypovolemic hyponatremia. 6. Depression. 7. Homelessness. 8. Acute toxic encephalopathy. HISTORY OF PRESENT ILLNESS: A 57-year-old female with severe asthma requiring 4 prior intubations, presenting with lethargy and confusion. She was seen on June 28 with a cough at [facility]. An x-ray showed a small right-sided pneumonia and was started on antibiotics, but she could not tell me which one. The morning of arrival here at [facility], she could not walk and was having issues speaking. She states she previously had diarrhea and temperature at 103, but this has since resolved. Upon review of [facility] records, she was hospitalized 06/16 through 06/18 with an exacerbation thought secondary to smoking crack cocaine. HOSPITAL COURSE: 1. Acute toxic encephalopathy, resolved by the time I met the patient but is likely secondary to crack use. Electrolytes are within normal. She remained afebrile here. Respiratory panel and blood cultures were negative. Chest x- ray did not reveal pneumonia, and her procalcitonin was normal. 2. Acute asthma exacerbation: Again, negative x-ray, blood cultures and respiratory panel. U-tox was positive for crack cocaine. I treated with DuoNeb , prednisone and azithromycin, which she will be discharged on. 3. Crack use. counseled on several occasions for cessation given her significant history of asthma, as well as a family history. 4. Depression. Resume home medications. 5. Fall. May have been related to her medications. She did not have a loss of consciousness. Her blood pressure remained stable. Negative orthostatics. 6. History of seizures. Continue gabapentin. 7. Disposition: Patient is stable for discharge. Has a permanent bed at [facility]. NEW MEDICATIONS: 1. Prednisone 40 mg for 3 more days. 2. Azithromycin for 1 day 3. Santosh Crawley. FOLLOWUP: 1. Primary care physician. 2. Refrain from crack use. /[id number]/MODL MTDD
[2017-07-03 11:06] VITALS: BP 138/72; PULSE 109; RESP 16; TEMP 98.6; O2SAT 95
--- NOTE | 2017-07-03 12:20 | ASDISCHSUM ---
Discharge Information Plan Status:Homeless/[facility] Medically Cleared to Leave: Discharge Date:07/03/2017 11:28 AM CM D/C Disposition:Home, Routine, Self-Care ADT D/C Disposition:Home, Routine, Self-Care Projected Discharge Date:07/03/2017 11:28 AM Transportation at D/C:Bus Ticket Discharge Delay Reason: Follow-Up Date:07/03/2017 11:28 AM Discharge Slot: Final Diagnosis: Placement Information Patient Contact Information Contact Name:NETTA Relationship:Other Address: Work Phone: City: [facility] Phone: State/Zip Code: Email: Financial Information Financial Class: Primary Plan Desc:[employer] [place] IP Primary Plan Number:[id number] Secondary Plan Desc: Secondary Plan Number: Assessment Information [facility] CM Progress Note CM Note CM Note Notes: Spoke w/pt, states is in the transitional program at the [facility] and will go back there when medically stable. CM to assist with bus pass. DC Plan: [facility] Transitional Program Date Signed: 07/01/2017 03:15 PM Electronically Signed By:Mady Ferrell RN Case Management Discharge Plan Note Case Management Discharge Discharge Order Complete? Answers: Yes Patient to Obtain Answers: Independently Medications Transportation Arranged Answers: Bus Tokens Discharge Comments Notes: Patient discharged back to her bed at the [facility] Transitional program. She has informed her case management assistant Laurie of her return. She will mushroom picker her RX at [facility]; I gave her a bus pass to get there. Date Signed: 07/03/2017 10:40 AM Electronically Signed By:Yolanda De Souza RN Intervention Information
== END 2017-07-03 11:28 | disposition home or self-care (01) | DRG 202 ==
LOC: EDUNIT# → INTOOBSV 11:17 → F3E 11:41 → OBSVTOIN 07-01 11:49
PROVIDERS: ADMIT Internal Medicine; ATTEND Internal Medicine
DX: J45.901 Unspecified asthma with (acute) exacerbation (principal); T40.5X5A Adverse effect of cocaine, initial encounter; G92 Toxic encephalopathy; F14.10 Cocaine abuse, uncomplicated; E87.1 Hypo-osmolality and hyponatremia; F32.9 Major depressive disorder, single episode, unspecified; Z87.01 Personal history of pneumonia (recurrent); Z91.81 History of falling; Z59.0 Homelessness; F17.210 Nicotine dependence, cigarettes, uncomplicated
CPT/HCPCS: 80307; 96374; G0378; G0480; J0696; J1650; J1885; J2930

== ENCOUNTER 2017-07-23 12:32 | Inpatient (IN) | payer MEDICAID ==
[2017-07-23] MEDS ORDERED: ALBUTEROL 3 ML DEYVIAL ONE ×2 (13:02→13:28)
--- NOTE | 2017-07-23 13:02 | CPEKG ---
Heart Rate: 99 RR Interval: 606 P-R Interval: 124 QRSD Interval: 88 QT Interval: 360 QTC Interval: 462 P [place]: 38 QRS [place]: 53 T Wave [place]: 56 EKG Severity - BORDERLINE ECG - EKG Impression: SINUS RHYTHM EKG Impression: BORDERLINE T ABNORMALITIES, ANT-LAT LEADS Electronically Signed By: Catalina Olivarez 23-Jul-2017 14:27:38
[2017-07-23] MEDS ORDERED: ALBUTEROL 3 ML DEYVIAL IH ONE (13:04)
--- NOTE | 2017-07-23 13:20 | EDPHY ---
H & P Stated Complaint: hx asthma/resp distress and cp HPI/ROS: CHIEF COMPLAINT: Cough HISTORY OF PRESENT ILLNESS: The patient is a homeless 57 y/o female with several recent admissions for asthma exacerbation and 4 prior intubations complaining of difficulty breathing and severe cough worsening over the last few days. She was most recently admitted here on 07/01/17, 3 weeks ago, for asthma exacerbation secondary to crack cocaine inhalation. She was visiting [place] last week and returned in the last few days. She has a permanent bed at the homeless long term when she stays in [place]. A couple days ago she developed a cough, then earache and shortness of breath. She says, "I feel like I have the frickin' flu." She has been using all of her home respiratory medications and nebulizers without improvement. She last used cocaine a week ago ; she normally smokes it. She is currently on a 2-week course of 40mg QD prednisone. Upon initial assessment, she has 1-2 word dyspnea and frequent paroxysmal coughing. She denies chest pain. REVIEW OF SYSTEMS: A ten point review of systems was performed and is negative with the exception of the items mentioned in the HPI. Past medical history: Asthma with frequent exacerbations and 4 intubations by patient's report, depression, seizures, cocaine use Past surgical history: , tubal ligation, hysterectomy Family history: Noncontributory Social history: Homelessness with permanent bed at [facility]. No tobacco use. History of cocaine abuse, last used 1 week ago. PCP: [facility] Reviewed prior medical records including admission 07/01/17 for asthma exacerbation. General Appearance: Alert. Vital signs reviewed. Respiratory rate 37 at triage. Eyes: Pupils equal and round, no conjunctival injection, no discharge. Anicteric. ENT, Mouth: Mucous membranes are moist, no oropharyngeal erythema or edema. TMs obscured by cerumen bilaterally. Neck: No lymphadenopathy, supple. Trachea midline. Respiratory: Lungs have diffuse wheezes. Tachypneic. 1-2 word dyspnea. Frequent forceful coughing. Cardiovascular: Tachycardic. Gastrointestinal: Abdomen is soft and nontender, no masses or organomegaly. Skin: Warm and dry, no rashes on exposed skin, normal color. Back: Nontender to palpation over the thoracolumbar spine. No CVAT. Extremities: No lower extremity edema, no calf tenderness or swelling. Neurological: Alert and oriented. Moving all four extremities easily and equally. Psychiatric: Normal affect. - Personal History Current Tetanus/Diphtheria Vaccine: Yes Tetanus Vaccine Date: less than 5 years - Medical/Surgical History Hx Asthma: Yes Hx Chronic Respiratory Disease: No Hx Diabetes: No Hx Cardiac Disease: No Hx Renal Disease: No Hx Cirrhosis: No Hx Alcoholism: No Hx HIV/AIDS: No Hx Splenectomy or Spleen Trauma: No Other PMH: asthma, seziure, hysterectomy, abd infx req mult surg - Social History Smoking Status: Light smoker Constitutional: Initial Vital Signs Temperature (C) 36.4 C 07/23/17 12:34 Heart Rate 100 07/23/17 12:34 Respiratory Rate 37 H 07/23/17 12:34 Blood Pressure 135/72 H 07/23/17 12:34 O2 Sat (%) 98 07/23/17 12:34 O2 Delivery Mode Non-Rebreather Mask O2 (L/minute) 10 Allergies/Adverse Reactions: acetaminophen [From Tylenol] Allergy (Severe, Verified 07/23/17 12:33) Anaphylaxis ibuprofen Allergy (Verified 07/23/17 12:33) Home Medications: Medication Instructions Recorded Gabapentin [Neurontin 400 MG (*)] 800 mg PO BID 04/28/17 diphenhydrAMINE [Benadryl 50 MG 50 mg PO DAILY PRN 04/28/17 (*)] Budesonide/Formoterol 160/4.5 2 puffs IH BID mdi 04/29/17 [Symbicort 160-4.5 Mcg Inh (*)] Montelukast Sodium [Singulair 10 10 mg PO DAILY@1800 #30 tab 04/29/17 mg (*)] Ipratropium/Albuterol [Duoneb (*)] 3 ml IH Q6HRS deyvial 05/03/17 Albuterol [Proventil Neb] 3 ml IH Q2HRS PRN deyvial 06/02/17 QUEtiapine FUMARATE [Seroquel 600 mg PO DAILY 06/30/17 300mg (*)] guaiFENesin [Mucinex 600 MG (*)] 1,200 mg PO BID #30 tab.er 07/03/17 Albuterol [Proventil Inhaler HFA 1 - 2 puffs IH Q4H PRN 07/23/17 (*)] Medical Decision Making - Diagnostics Imaging Results: Imaging Impressions Chest X-Ray 07/23/17 13:25 Impression: No evidence for acute cardiopulmonary abnormality. Imaging: I viewed and interpreted images myself ED Course/Re-evaluation: This is an ill-appearing 57 y/o female with history of frequent admissions and 4 intubations for asthma exacerbation who presents in respiratory distress following a couple days of worsening cough and shortness of breath. She is tachypneic between 35-40, has diffuse wheezes audible when walking into the room , and has frequent severe coughing fits producing clear phlegm. She is tachycardic and afebrile; unable to determine room air sat comfortably at this time. Plan for IV, labs including respiratory pathogen panel, EKG, chest x-ray, and symptom management. Patient given a DuoNeb and placed on continuous nebulizer treatment. The 12 lead EKG was interpreted by myself. Sinus mechanism. See hard copy and/ or "tracemaster" electronic copy for interpretation. Chest x-ray: no infiltrate Labs unremarkable. Reassessed patient. She looks improved with decreased respiratory effort. She is able to speak in nearly complete sentences now. Remains tachycardic and tachypneic. Will continue nebulizer treatment. Recommended admission for better control of symptoms and observation, which patient agrees to. Spoke with hospitalist service. Dr. Yu accepts admission. Respiratory pathogen panel was positive for RSV which is likely what triggered this asthma exacerbation. Differential Diagnosis: Shortness of breath including but not limited to pulmonary infectious process, COPD, asthma, pulmonary embolus and congestive heart failure. Critical Care Time: I spent a total of 30 minutes of critical care time in obtaining history, performing a physical exam, bedside monitoring of interventions, collecting and interpreting tests and discussion with consultants but not including time spent performing procedures. She was at risk of respiratory failure/deterioration. She has been intubated in the past with her asthma exacerbations. - Data Points Laboratory Results: Laboratory Results 07/23/17 13:39 07/23/17 13:39 07/23/17 07/23/17 07/23/17 13:39 13:39 13:39 WBC 4.80 10^3/uL 10^3/uL (3.80-9.50) RBC 3.86 10^6/uL L 10^6/uL (4.18-5.33) Hgb 12.0 g/dL L g/dL (12.6-16.3) Hct 35.5 % L % (38.0-47.0) MCV 92.0 fL fL (81.5-99.8) MCH 31.1 pg pg (27.9-34.1) MCHC 33.8 g/dL g/dL (32.4-36.7) RDW 13.5 % % (11.5-15.2) Plt Count 244 10^3/uL 10^3/uL (150-400) MPV 10.9 fL fL (8.7-11.7) Neut % (Auto) 53.4 % % (39.3-74.2) Lymph % (Auto) 34.4 % % (15.0-45.0) [place] % (Auto) 8.3 % % (4.5-13.0) Eos % (Auto) 3.3 % % (0.6-7.6) Baso % (Auto) 0.4 % % (0.3-1.7) Nucleat RBC Rel Count 0.0 % % (0.0-0.2) Absolute Neuts (auto) 2.56 10^3/uL 10^3/uL (1.70-6.50) Absolute Lymphs (auto) 1.65 10^3/uL 10^3/uL (1.00-3.00) Absolute Monos (auto) 0.40 10^3/uL 10^3/uL (0.30-0.80) Absolute Eos (auto) 0.16 10^3/uL 10^3/uL (0.03-0.40) Absolute Basos (auto) 0.02 10^3/uL 10^3/uL (0.02-0.10) Absolute Nucleated RBC 0.00 10^3/uL 10^3/uL (0-0.01) Immature Gran % 0.2 % % (0.0-1.1) Immature Gran # 0.01 10^3/uL 10^3/uL (0.00-0.10) Sodium 142 mEq/L mEq/L (135-145) Potassium 3.8 mEq/L mEq/L (3.5-5.2) Chloride 107 mEq/L mEq/L (97-110) Carbon Dioxide 23 mEq/l mEq/l (22-31) Anion Gap 12 mEq/L mEq/L (8-16) BUN 12 mg/dL mg/dL (7-23) Creatinine 0.7 mg/dL mg/dL (0.6-1.0) Estimated GFR > 60 Glucose 108 mg/dL H mg/dL (70-100) Calcium 9.4 mg/dL mg/dL (8.5-10.4) Troponin I < 0.012 ng/mL ng/mL (0.000-0.034) Microbiology Results: MICROBIOLOGY 07/23/17 13:05 Nasal, Sinus - Swab Respiratory Panel (PCR) - Final Respiratory Syncytial Virus Medications Given: Albuterol/Ipratropium (Duoneb) 3 ml IH Q4H ISHAN Stop: 01/19/18 15:29 Last Admin: 07/23/17 15:34 Dose: 3 ml Discontinued Medications Albuterol (Proventil Neb) 3 ml IH EDNOW ONE Stop: 07/23/17 13:05 Last Admin: 07/23/17 13:15 Dose: 3 ml Albuterol/Ipratropium (Duoneb) 3 ml IH EDNOW ONE Stop: 07/23/17 13:22 Last Admin: 07/23/17 13:25 Dose: 3 ml Methylprednisolone Sodium Succinate (Solu-Medrol) 125 mg IVP EDNOW ONE Stop: 07/23/17 13:25 Last Admin: 07/23/17 13:42 Dose: 125 mg Departure - Departure Disposition: [facility] Inpatient Acute Clinical Impression: Acute asthma exacerbation Qualifiers: Asthma severity: severe Asthma persistence: unspecified Qualified Code(s): J45.901 - Unspecified asthma with (acute) exacerbation Condition: Fair Report Scribed for: Catalina Olivarez Report Scribed by: Angelica Chowdhury Date of Report: 07/23/17 Time of Report: 13:51 Physician Review and Approval Statement: 07/23/17 13:20 Portions of this note were transcribed by the medical accounts receivable specialist. I, Dr. Catalina Olivarez, personally performed the history, physical exam, and medical decision- making; and confirmed the accuracy of the information in the transcribed note.
[2017-07-23] MEDS ORDERED: IPRATROPIUM/ALBUTEROL 3 ML DEYVIAL IH ONE (13:21)
[2017-07-23] MEDS ORDERED: methylPREDNISolone SOD SUCC 125 MG/2 ML VIAL IVP ONE (13:24)
[2017-07-23 14:15] LABS: PLATELET COUNT 244 10^3/uL (150-400)
[2017-07-23] MEDS ORDERED: ONDANSETRON DISINTEGRATING 4 MG TAB PO PRN (15:08)
[2017-07-23] MEDS ORDERED: ONDANSETRON 4 MG/2 ML VIAL IVP PRN (15:08)
[2017-07-23] MEDS ORDERED: diphenhydrAMINE 50 MG CAP PO PRN (15:10)
--- NOTE | 2017-07-23 15:15 | PDGENHP ---
History and Physical - Chief Complaint SOB, wheezing - History of Present Illness 57 yo female with h/o asthma, cocaine abuse, and frequent hospitalizations, who has required intubation in the past, presents to ED with cough, wheezing and SOB. She was recently discharged from the hospital ~3 weeks ago. She has been ill with URI symptoms for several days since returning from a trip to [place]. She endorses fever, which resolved 2-3 days ago. She complains of productive cough. Also notes chest pain, which she thinks is from coughing. No chest pressure. She quit smoking 2 weeks ago. 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 Her symptoms worsened and she presented to ED. She has not required oxygen, but has been on continuous neb treatment. She is admitted for acute exacerbation of her asthma. History Information - Allergies/Home Medication List Allergies/Adverse Reactions: acetaminophen [From Tylenol] Allergy (Severe, Verified 07/23/17 12:33) Anaphylaxis ibuprofen Allergy (Verified 07/23/17 12:33) Home Medications: Gabapentin [Neurontin 400 MG (*)] 800 mg PO BID 04/28/17 [Last Taken 07/23/17] diphenhydrAMINE [Benadryl 50 MG (*)] 50 mg PO DAILY PRN 04/28/17 [Last Taken ] QUEtiapine FUMARATE [Seroquel 300mg (*)] 600 mg PO DAILY 06/30/17 [Last Taken ] Albuterol [Proventil Inhaler HFA (*)] 1 - 2 puffs IH Q4H PRN 07/23/17 [Last Taken 07/22/17] I have personally reviewed and updated: family history, medical history, social history, surgical history - Past Medical History asthma Additional medical history: Asthma - 4 previous intubations, frequent hospitalizations. Depression. H/O seizure. Cocaine abuse - Surgical History Reports: no pertinent surgical hx - Family History Positive for: cancer Additional family history: Daughter of asthma exacerbation - Social History Smoking Status: Former smoker Alcohol Use: None Drug Use: Cocaine Additional social history: Just got an apartment, was previously homeless. Quit smoking 2 weeks ago. H/O cocaine use. Review of Systems Review of Systems: ROS: 10pt was reviewed & negative except for what was stated in HPI & below Physical Exam Physical Exam: Temp Pulse Resp BP Pulse Ox 36.8 C 103 H 32 H 142/61 H 100 07/23/17 13:16 07/23/17 13:43 07/23/17 13:43 07/23/17 13:43 07/23/17 13:43 Constitutional: no apparent distress Eyes: PERRL Ears, Nose, Mouth, Throat: moist mucous membranes Cardiovascular: no murmur, rub, or gallop, tachycardia Respiratory: no respiratory distress, reduced air movement, expiratory wheeze Gastrointestinal: normoactive bowel sounds, soft, non-tender abdomen Skin: warm Musculoskeletal: full muscle strength Neurologic: AAOx3 Psychiatric: interacting appropriately Lab Data & Imaging Review 07/23/17 13:39 07/23/17 13:39 WBC 4.80 10^3/uL (3.80-9.50) 07/23/17 13:39 RBC 3.86 10^6/uL (4.18-5.33) L 07/23/17 13:39 Hgb 12.0 g/dL (12.6-16.3) L 07/23/17 13:39 Hct 35.5 % (38.0-47.0) L 07/23/17 13:39 MCV 92.0 fL (81.5-99.8) 07/23/17 13:39 MCH 31.1 pg (27.9-34.1) 07/23/17 13:39 MCHC 33.8 g/dL (32.4-36.7) 07/23/17 13:39 RDW 13.5 % (11.5-15.2) 07/23/17 13:39 Plt Count 244 10^3/uL (150-400) 07/23/17 13:39 MPV 10.9 fL (8.7-11.7) 07/23/17 13:39 Neut % (Auto) 53.4 % (39.3-74.2) 07/23/17 13:39 Lymph % (Auto) 34.4 % (15.0-45.0) 07/23/17 13:39 [place] % (Auto) 8.3 % (4.5-13.0) 07/23/17 13:39 Eos % (Auto) 3.3 % (0.6-7.6) 07/23/17 13:39 Baso % (Auto) 0.4 % (0.3-1.7) 07/23/17 13:39 Nucleat RBC Rel Count 0.0 % (0.0-0.2) 07/23/17 13:39 Absolute Neuts (auto) 2.56 10^3/uL (1.70-6.50) 07/23/17 13:39 Absolute Lymphs (auto) 1.65 10^3/uL (1.00-3.00) 07/23/17 13:39 Absolute Monos (auto) 0.40 10^3/uL (0.30-0.80) 07/23/17 13:39 Absolute Eos (auto) 0.16 10^3/uL (0.03-0.40) 07/23/17 13:39 Absolute Basos (auto) 0.02 10^3/uL (0.02-0.10) 07/23/17 13:39 Absolute Nucleated RBC 0.00 10^3/uL (0-0.01) 07/23/17 13:39 Immature Gran % 0.2 % (0.0-1.1) 07/23/17 13:39 Immature Gran # 0.01 10^3/uL (0.00-0.10) 07/23/17 13:39 Sodium 142 mEq/L (135-145) 07/23/17 13:39 Potassium 3.8 mEq/L (3.5-5.2) 07/23/17 13:39 Chloride 107 mEq/L (97-110) 07/23/17 13:39 Carbon Dioxide 23 mEq/l (22-31) 07/23/17 13:39 Anion Gap 12 mEq/L (8-16) 07/23/17 13:39 BUN 12 mg/dL (7-23) 07/23/17 13:39 Creatinine 0.7 mg/dL (0.6-1.0) 07/23/17 13:39 Estimated GFR > 60 07/23/17 13:39 Glucose 108 mg/dL (70-100) H 07/23/17 13:39 Calcium 9.4 mg/dL (8.5-10.4) 07/23/17 13:39 Visualized and Interpreted Chest x-ray results: Yes Chest X-Ray results: no infiltrate Visualized and Interpreted EKG results: Yes EKG Interpretation: Positive for: normal sinsus rhythm Assessment & Plan Assessment: Acute asthma exacerbation (Acute) secondary to RSV - She is not requiring oxygen , but has required continuous nebs. -schedule solumedrol -schedule duonebs and prn alb nebs -O2 as needed -supportive care with mucinex, anti-tussives, RT support Tobacco abuse - quit 2 weeks ago, using nicoderm 21 mg patch, will continue H/O cocaine use - check UDS. Trend troponin given report of chest pain, EKG reassuring. Depression - cont seroquel Full code Dispo - anticipate >48 hrs hospitalization, step down unit given h/o intubation
[2017-07-23] MEDS ORDERED: IPRATROPIUM/ALBUTEROL 3 ML DEYVIAL IH SCH (15:30)
[2017-07-23] MEDS ORDERED: IPRATROPIUM/ALBUTEROL 3 ML DEYVIAL ONE (15:30)
--- NOTE | 2017-07-23 15:57 | PDMN ---
Medical Necessity Medical necessity: Pt meets IP criteria per MD; est los >2 mn for eval/tx of acute asthma exacerbation secondary to RSV, pt requiring 10 lpm O2 via non- rebreather mask & continuous nebs; admit to Step Down Unit for further workup/ monitoring & supportive care; hx drug abuse, asthma requiring intubation in the past & homelessness; per H&P & order 07/23/17
[2017-07-23] MEDS: MONTELUKAST SODIUM 10 MG TAB PO SCH (16:13)
[2017-07-23] MEDS: guaiFENesin 600 MG TAB.ER PO SCH ×2 (16:14→20:45)
[2017-07-23] MEDS ORDERED: 1/2 NS IV ONE (16:15)
[2017-07-23] MEDS ORDERED: D5W IV ONE (16:15)
[2017-07-23] MEDS ORDERED: MAGNESIUM SULFATE IV ONE (16:15)
[2017-07-23] MEDS: GUAIFENESIN/DM 10 ML UDCUP PO PRN ×2 (17:20→20:45)
[2017-07-23] MEDS ORDERED: methylPREDNISolone SOD SUCC 125 MG/2 ML VIAL IVP SCH (19:00)
[2017-07-23] MEDS: GABAPENTIN 400 MG CAP PO SCH (20:45)
[2017-07-23] MEDS: QUEtiapine FUMARATE 300 MG TAB PO SCH (20:45)
[2017-07-23] MEDS: methylPREDNISolone SOD SUCC 125 MG/2 ML VIAL IVP SCH (20:45)
[2017-07-23] MEDS: BUDESONIDE/FORMOTEROL 160/4.5 60 PUFFS/MDI IH SCH (20:56)
--- NOTE | 2017-07-23 21:19 | GCON ---
[f rep st] CONSULTATION This is an microarray specialist consultation REASON FOR ADMISSION: Acute asthma and RSV. HISTORY OF PRESENT ILLNESS: The patient is a very pleasant 57-year-old female with a past medical hi story of asthma, as well as previous tobacco abuse. She presents with complaints of breathlessness. In discussion, the patient states over last several days she has noticed increasing shortness of larry ath and worsening upon exertion. She admits to a low-grade fever. She has a cough productive of yel lowish sputum, but denies any hemoptysis. There is no chest pain, pleuritic-type chest pain, or patience na equivalent. She recently saw her primary care physician who placed her on a steroid tapering dose regimen, but she still continues to struggle. Currently she is in the intensive care unit. PAST MEDICAL HISTORY: Significant for asthma, depression, and history of seizures. ALLERGIES: Include acetaminophen and ibuprofen. SOCIAL HISTORY: She is a 3-pack-year smoker and has recently quit. No significant alcohol use. 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 She is single. She is milian sing 3 children. MEDICATIONS: Include gabapentin, albuterol, Seroquel, Benadryl, Symbicort, and Singulair. REVIEW OF SYSTEMS: A 10-point review of systems was performed and was negative except for what was s tated in the HPI. PHYSICAL EXAMINATION: VITAL SIGNS: Blood pressure is 128/60; pulse is 90; respirations 22; temperat ure is 36.8, and oxygen saturation 95% on room air. GENERAL: She is a well-developed, well-nourishe d 57-year-old female, who is resting comfortably in no acute distress HEENT: Eyes are PERRLA, EOMI. Throat shows no erythema or tonsillar hypertrophy. NECK: Supple. There is no cervical adenopathy. HEART: Regular rate and rhythm without murmurs, rubs, or gallops. LUNGS: Diminished breath sound s and end-expiratory wheeze in all lung person. ABDOMEN: Soft, nontender. Bowel sounds are present in all 4 quadrants. EXTREMITIES: No clubbing, cyanosis, or edema. LABORATORY DATA: White count 4.8, hemoglobin 12, hematocrit 35, platelet count 244. Sodium 142, pot assium 3.8, chloride 107, CO2 23, BUN 12, creatinine 0.7, and glucose is 108. Respiratory syncytial viral panel is positive for RSV. Chest x-ray is clear. IMPRESSION: 1. Acute asthma. 2. Acute respiratory failure secondary to asthma. 3. Respiratory syncytial virus. 4. History of tobacco abuse. RECOMMENDATIONS: 1. Agree with current nebulized treatment. We will discontinue DuoNeb and continue just on albutero l. 2. We will increase steroids to Solu-Medrol 125 q.6h. 3. Hold antibiotics for now. 4. DVT and PE prophylaxis. 5. Stress ulcer prophylaxis. 6. We will add magnesium to intravenous fluid. /[id number]/MODL
[2017-07-24] MEDS: methylPREDNISolone SOD SUCC 125 MG/2 ML VIAL IVP SCH ×4 (00:45→18:06)
[2017-07-24] MEDS: GUAIFENESIN/DM 10 ML UDCUP PO PRN ×2 (02:37→20:10)
[2017-07-24] MEDS: BUDESONIDE/FORMOTEROL 160/4.5 60 PUFFS/MDI IH SCH ×2 (08:46→21:17)
[2017-07-24] MEDS: GABAPENTIN 400 MG CAP PO SCH ×3 (08:57→21:12)
[2017-07-24] MEDS: NICOTINE 21 MG/24 HR PATCH TD SCH (08:57)
[2017-07-24] MEDS: ENOXAPARIN 40 MG/0.4 ML SYR SC SCH (08:58)
[2017-07-24] MEDS: guaiFENesin 600 MG TAB.ER PO SCH ×2 (08:58→21:13)
--- NOTE | 2017-07-24 09:00 | PDINTPN ---
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 Still with poor air movement. * Acute respiratory failure secondary to asthma-continue on supplemental oxygen * Depression * History of seizures Plan: Will discontinue magnesium inter IV fluid Continue frequent nebulized treatments Continue high-dose steroids Begin ambulation Out of bed to chair Adequate nutrition Subjective: Sitting up in bed. Still coughing. Breathing is little less labored. Objective: Vital Signs Temp Pulse Resp BP Pulse Ox 36.6 C 86 15 103/53 L 94 07/24/17 08:00 07/24/17 08:00 07/24/17 08:00 07/24/17 08:00 07/24/17 08:00 07/23/17 07/24/17 07/25/17 05:59 05:59 05:59 Intake Total 1610 Balance 1610 - Time Spent With Patient Time Spent With Patient: 35 min of time spent with patient, over half involved with coordination of care or counseling Physical Exam - Physical Exam General Appearance: alert, mild distress EENT: PERRL/EOMI, normal ENT inspection, pharynx normal Neck: non-tender, full range of motion, supple, normal inspection Respiratory: respiratory distress (Mild), decreased breath sounds (Poor air movement), wheezing (Diffuse but less) Cardiac/Chest: normal peripheral pulses, regular rate, rhythm, tachycardia Abdomen: normal bowel sounds, non-tender, soft Pelvic Exam: deferred Rectal: deferred Skin: normal color, warm/dry Extremities: normal range of motion, non-tender, normal inspection, normal capillary refill Neuro/Psych: no motor/sensory deficits, alert, normal mood/affect, oriented x 3 ICD10 Worksheet Patient Problems: Problems Problem Status Onset Acute asthma exacerbation Acute Acute respiratory failure Acute Altered mental status Acute Asthma Acute Asthma attack Acute Seizure Acute Submandibular gland swelling Acute
[2017-07-24] MEDS ORDERED: D5W 1/2 NS 1,000 ML IV SCH (09:15)
[2017-07-24] MEDS: ALBUTEROL 3 ML DEYVIAL IH PRN ×2 (12:28→16:20)
--- NOTE | 2017-07-24 17:11 | HOSPPROG ---
Hospitalist Progress Note Assessment/Plan: Assessment: 57-year-old female presents with acute hypoxic respiratory failure 2/2 acute asthma exacerbation Plan: # Acute asthma exacerbation secondary to RSV. Evidenced by diffuse exp wheezes, tachypnea, resp failure, CXR w/o infiltrate (personally interpreted) - d/w Dr. Peacock on team rounds, he recommends ongoing scheduled IV steroids, ongoing magnesium, cont frequent bronchodilator - patient w/ significant tachycardia, adjust from albuterol to xopenex - cont on supp o2, does not require heliox - supportive care for RSV w/ mucinex/guaif+cod/tessalon - ongoing freq RT monitoring # Acute hypoxic respiratory failure. Evidenced by 1-2 word dyspnea, objective tachypnea w/ RR 35-40, requiring up to 10LPM NRB - weaning w/ above tx - cont step down unit monitoring, high risk of worsening morbidity and high medical complexity # Tobacco abuse. Quit 2 weeks ago, using nicoderm 21 mg patch, will continue # Depression. Chronic, cont seroquel Full code Diet reg PPx lovenox Dispo ADD uncertain, clinically unresolved, start PT Subjective: ongoing shortness of breath, cough Objective: Vital Signs Temp Pulse Resp BP Pulse Ox 36.9 C 118 H 16 133/67 H 92 07/24/17 16:00 07/24/17 16:22 07/24/17 16:22 07/24/17 16:00 07/24/17 16:22 07/23/17 07/24/17 07/25/17 05:59 05:59 05:59 Intake Total 1610 Balance 1610 - Physical Exam Constitutional: not in pain, chronically ill appearing, uncomfortable, unkempt Cardiovascular: tachycardia, No systolic murmur, No irregularly irregular, No edema Respiratory: expiratory wheeze (diffusely throughout), respiratory distress ( visible tachypnea), No reduced air movement, No inspiratory crackles, No bronchial breath sounds Gastrointestinal: normoactive bowel sounds, soft, non-tender abdomen, no palpable masses Neurologic: AAOx3, sensation intact bilaterally, No weakness Psychiatric: interacting appropriately, not anxious, not encephalopathic, thought process linear ICD10 Worksheet Patient Problems: Problems Problem Status Onset Acute asthma exacerbation Acute Acute respiratory failure Acute Altered mental status Acute Asthma Acute Asthma attack Acute Seizure Acute Submandibular gland swelling Acute
[2017-07-24] MEDS ORDERED: D5W 1/2 NS W/ 20 KCl/L 1,000 ML IV SCH (17:15)
[2017-07-24] MEDS: MONTELUKAST SODIUM 10 MG TAB PO SCH (18:05)
[2017-07-24] MEDS: QUEtiapine FUMARATE 300 MG TAB PO SCH (21:13)
[2017-07-24] MEDS ORDERED: ALBUTEROL 3 ML DEYVIAL ONE (21:13)
[2017-07-25] MEDS: methylPREDNISolone SOD SUCC 125 MG/2 ML VIAL IVP SCH ×2 (00:15→04:48)
[2017-07-25] MEDS: GUAIFENESIN/DM 10 ML UDCUP PO PRN ×4 (01:11→18:46)
[2017-07-25] MEDS: LEVALBUTEROL 0.63 MG/3 ML DEYVIAL IH PRN ×3 (04:58→20:46)
[2017-07-25] MEDS: ENOXAPARIN 40 MG/0.4 ML SYR SC SCH (08:32)
[2017-07-25] MEDS: NICOTINE 21 MG/24 HR PATCH TD SCH (08:32)
[2017-07-25] MEDS: guaiFENesin 600 MG TAB.ER PO SCH ×2 (08:33→20:20)
[2017-07-25] MEDS: GABAPENTIN 400 MG CAP PO SCH ×3 (08:33→20:20)
[2017-07-25] MEDS: BUDESONIDE/FORMOTEROL 160/4.5 60 PUFFS/MDI IH SCH ×2 (08:57→20:46)
--- NOTE | 2017-07-25 09:25 | PDINTPN ---
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 Still coughing. * Acute respiratory failure secondary to asthma-improved * Depression * History of seizures Plan: Continue frequent nebulized treatments Continue high-dose steroids Begin ambulation Out of bed to chair Adequate nutrition Will transfer to medical surgical floor Subjective: Sitting up in chair. Feels markedly better. Some dizziness is present. Objective: Vital Signs Temp Pulse Resp BP Pulse Ox 37.5 C 111 H 16 121/65 H 98 07/25/17 07:51 07/25/17 08:59 07/25/17 08:59 07/25/17 07:51 07/25/17 08:59 Laboratory Results 07/25/17 06:10 07/24/17 07/25/17 07/26/17 05:59 05:59 05:59 Intake Total 1610 3904 Output Total 1900 Balance 1610 2003 - Time Spent With Patient Time Spent With Patient: 35 min of time spent with patient, over 1/2 involved coordination of care or counseling Physical Exam - Physical Exam General Appearance: alert, no apparent distress EENT: PERRL/EOMI, normal ENT inspection Neck: non-tender, full range of motion, supple, normal inspection Respiratory: prolonged expiration, No respiratory distress, No wheezing Cardiac/Chest: normal peripheral pulses, regular rate, rhythm, tachycardia Peripheral Pulses: 2+: carotid (R), carotid (L), femoral (R), femoral (L), dorsalis-pedis (R), dorsalis-pedis (L) Abdomen: normal bowel sounds, non-tender, soft Pelvic Exam: deferred Rectal: deferred Skin: normal color, warm/dry Extremities: normal range of motion, non-tender, normal inspection, normal capillary refill Neuro/Psych: no motor/sensory deficits, alert, normal mood/affect, oriented x 3 ICD10 Worksheet Patient Problems: Problems Problem Status Onset Acute asthma exacerbation Acute Acute respiratory failure Acute Altered mental status Acute Asthma Acute Asthma attack Acute Seizure Acute Submandibular gland swelling Acute
--- NOTE | 2017-07-25 11:19 | ASMTCMCOM ---
CM Note CM Note Notes: Patient admitted for asthma exacerbation/respiratory failure, for which she has frequent admissions. She is doing well, was cleared by PT for home, and will not have any discharge needs. Of note - patient has been living at the [facility] in their transitional housing program but has recently rented her own apartment in [place]. She is going to be caring for her three grandchildren. We talked about her need to be healthy and a positive role model for them; fortunately, she is quite well connected to resources through [facility]. Her psychiatrist Dr Mendoza recently adjusted her psych meds, and she feels more stable on the new doses. She will follow up with him upon discharge. She also said that she has a sponsor through [facility] who she calls when she is feeling overwhelmed. She attends [facility] support groups when she can. I applauded her efforts. Current CM Discharge plan: home independent Date Signed: 07/25/2017 11:19 AM Electronically Signed By:Yolanda De Souza RN
[2017-07-25] MEDS: predniSONE 20 MG TAB PO SCH (13:13)
[2017-07-25] MEDS ORDERED: LACTULOSE 20 GM/30 ML UDCUP PO PRN (13:46)
[2017-07-25] MEDS ORDERED: POLYETHYLENE GLYCOL 3350 17 GM PKT PO PRN (13:46)
[2017-07-25] MEDS ORDERED: MAGNESIUM HYDROXIDE 30 ML UDCUP PO PRN (13:46)
[2017-07-25] MEDS ORDERED: BISACODYL 10 MG SUPP PR PRN (13:46)
--- NOTE | 2017-07-25 13:49 | HOSPPROG ---
Hospitalist Progress Note Assessment/Plan: Assessment: 57-year-old female presents with acute hypoxic respiratory failure 2/2 acute asthma exacerbation Plan: # Acute asthma exacerbation secondary to RSV. Evidenced by diffuse exp wheezes, tachypnea, resp failure, CXR w/o infiltrate - d/w Dr. Peacock on team rounds, he recommends adjusting to Pred 40, ongoing bronchodilator (adjusted to xopenex) - cont on supp o2, does not require heliox - supportive care for RSV w/ mucinex/guaif+cod/tessalon - ongoing freq RT monitoring - ongoing significant wheezes bilat, clinically unresolved # Acute hypoxic respiratory failure. Evidenced by 1-2 word dyspnea, objective tachypnea w/ RR 35-40, requiring up to 10LPM NRB - weaning w/ above tx - cont step down unit monitoring # Tobacco abuse. Quit 2 weeks ago, using nicoderm 21 mg patch, will continue # Depression. Chronic, cont seroquel # Tachycardia. Acute, new problem, further w/u indicated. Sinus on tele ( personally interpreted), suspect 2/2 underlying pulm pathology and beta agonist - will get ddimer to r/o contributing PE Full code Diet reg PPx lovenox Dispo ADD uncertain, clinically unresolved, start PT Subjective: ongoing shortness of breath, feeling tired Objective: Vital Signs Temp Pulse Resp BP Pulse Ox 36.8 C 115 H 26 H 139/70 H 98 07/25/17 11:40 07/25/17 11:40 07/25/17 11:40 07/25/17 11:40 07/25/17 08:59 Laboratory Results 07/25/17 06:10 07/24/17 07/25/17 07/26/17 05:59 05:59 05:59 Intake Total 1610 3904 Output Total 1900 Balance 1610 2003 - Physical Exam Constitutional: no apparent distress, not in pain, chronically ill appearing, uncomfortable Cardiovascular: tachycardia, edema (mild bilat), No systolic murmur, No irregularly irregular Respiratory: expiratory wheeze (diffusely throughout), No inspiratory crackles, No bronchial breath sounds, No respiratory distress Gastrointestinal: normoactive bowel sounds, soft, non-tender abdomen, no palpable masses, distension (mild) Neurologic: AAOx3, sensation intact bilaterally, No weakness Psychiatric: not anxious, not encephalopathic, thought process linear, flat affect ICD10 Worksheet Patient Problems: Problems Problem Status Onset Acute asthma exacerbation Acute Acute respiratory failure Acute Altered mental status Acute Asthma Acute Asthma attack Acute Seizure Acute Submandibular gland swelling Acute
[2017-07-25] MEDS: MONTELUKAST SODIUM 10 MG TAB PO SCH (18:46)
[2017-07-25] MEDS: QUEtiapine FUMARATE 300 MG TAB PO SCH (20:20)
[2017-07-25] MEDS: SENNOSIDES/DOCUSATE SODIUM TAB PO SCH (20:20)
[2017-07-26] MEDS: LEVALBUTEROL 0.63 MG/3 ML DEYVIAL IH PRN ×3 (01:13→12:35)
[2017-07-26] MEDS: GUAIFENESIN/DM 10 ML UDCUP PO PRN ×3 (06:35→20:48)
[2017-07-26] MEDS: BUDESONIDE/FORMOTEROL 160/4.5 60 PUFFS/MDI IH SCH ×2 (08:37→21:06)
--- NOTE | 2017-07-26 09:08 | SOAPPROG ---
SOAP Progress Note Assessment/Plan: Assessment/Plan: * Acute asthma-more wheezy in breathless today. Coughing up green sputum. -start antibiotics * Acute respiratory failure secondary to asthma-a little worse today -will check a chest x-ray * Depression * History of seizures * PT/OT * Ambulation * Adequate nutrition * Subjective: Complains of more breathlessness with exertion. She admits to a cough productive of green sputum. Objective: Vital Signs Temp Pulse Resp BP Pulse Ox 37.7 C 103 H 20 157/87 H 95 07/25/17 20:19 07/26/17 08:45 07/26/17 01:13 07/25/17 20:19 07/26/17 08:45 Laboratory Results 07/25/17 06:10 07/25/17 07/26/17 07/27/17 05:59 05:59 05:59 Intake Total 3904 600 Output Total 1900 Balance 2003 600 - Time Spent With Patient Time Spent With Patient: 35 min of time spent with patient-over 1/2 involved with coordination of care or counseling Physical Exam - Physical Exam General Appearance: alert, mild distress EENT: PERRL/EOMI, normal ENT inspection, pharynx normal, TMs normal Neck: non-tender, full range of motion, supple, normal inspection Respiratory: respiratory distress (Mild), wheezing (Diffuse) Cardiac/Chest: normal peripheral pulses, regular rate, rhythm Peripheral Pulses: 2+: carotid (R), carotid (L), femoral (R), femoral (L), dorsalis-pedis (R), dorsalis-pedis (L) Abdomen: normal bowel sounds, non-tender, soft Pelvic Exam: deferred Rectal: deferred Back: Normal inspection Skin: normal color, warm/dry Lymphatic: no adenopathy Extremities: normal range of motion, non-tender, normal inspection, normal capillary refill Neuro/Psych: no motor/sensory deficits, alert, normal mood/affect, oriented x 3 ICD10 Worksheet Patient Problems: Problems Problem Status Onset Acute asthma exacerbation Acute Acute respiratory failure Acute Altered mental status Acute Asthma Acute Asthma attack Acute Seizure Acute Submandibular gland swelling Acute
[2017-07-26] MEDS: predniSONE 20 MG TAB PO SCH (09:26)
[2017-07-26] MEDS: ENOXAPARIN 40 MG/0.4 ML SYR SC SCH (09:27)
[2017-07-26] MEDS: GABAPENTIN 400 MG CAP PO SCH ×3 (09:27→20:48)
[2017-07-26] MEDS: guaiFENesin 600 MG TAB.ER PO SCH ×2 (09:27→20:49)
[2017-07-26] MEDS: NICOTINE 21 MG/24 HR PATCH TD SCH (09:27)
[2017-07-26] MEDS: SENNOSIDES/DOCUSATE SODIUM TAB PO SCH ×2 (09:27→20:49)
[2017-07-26] MEDS: AZITHROMYCIN 250 MG TAB PO SCH (12:28)
[2017-07-26] MEDS: BENZONATATE 100 MG CAP PO PRN ×2 (12:33→20:49)
[2017-07-26] MEDS ORDERED: ALBUTEROL 3 ML DEYVIAL IH PRN (15:01)
--- NOTE | 2017-07-26 17:35 | HOSPPROG ---
Hospitalist Progress Note Assessment/Plan: Assessment: 57-year-old female presents with acute hypoxic respiratory failure 2/2 acute asthma exacerbation Plan: # Acute asthma exacerbation secondary to RSV. Evidenced by diffuse exp wheezes, tachypnea, resp failure, CXR w/o infiltrate - d/w Dr. Peacock on team rounds, he recommends scheduled bronchodilator (xopenex ), ongoing pred 40 - weaned off supplemental o2 - supportive care for RSV w/ mucinex/guaif+cod/tessalon - ongoing freq RT monitoring - ongoing significant wheezes bilat, clinically unresolved - encouraged patient to work w/ therapy # Acute hypoxic respiratory failure. Evidenced by 1-2 word dyspnea, objective tachypnea w/ RR 35-40, requiring up to 10LPM NRB - weaning w/ above tx - CXR w/o infiltrate (personally interpreted) # Tobacco abuse. Quit 2 weeks ago, using nicoderm 21 mg patch, will continue # Depression. Chronic, cont seroquel # Tachycardia. Acute, new problem, further w/u indicated. Sinus on tele, suspect 2/2 underlying pulm pathology and beta agonist - dimer neg Full code Diet reg PPx lovenox Dispo ADD uncertain, clinically unresolved, started PT Subjective: ongoing SOB w/ ambulation, patient concerned about tachycardia, producing sputum Objective: Vital Signs Temp Pulse Resp BP Pulse Ox 36.9 C 107 H 22 H 148/75 H 97 07/26/17 16:00 07/26/17 16:00 07/26/17 16:00 07/26/17 16:00 07/26/17 16:00 Laboratory Results 07/25/17 06:10 07/25/17 07/26/17 07/27/17 05:59 05:59 05:59 Intake Total 3904 600 Output Total 1900 Balance 2004 600 - Physical Exam Constitutional: no apparent distress, not in pain, chronically ill appearing, uncomfortable Cardiovascular: tachycardia, No systolic murmur, No irregularly irregular, No edema Respiratory: reduced air movement (shortened exp phase), expiratory wheeze ( diffusely throughout), No inspiratory crackles, No bronchial breath sounds Gastrointestinal: normoactive bowel sounds, soft, non-tender abdomen, no palpable masses Neurologic: AAOx3, sensation intact bilaterally, No weakness Psychiatric: interacting appropriately, not anxious, not encephalopathic, thought process linear ICD10 Worksheet Patient Problems: Problems Problem Status Onset Asthma attack Acute Seizure Acute Submandibular gland swelling Acute Acute asthma exacerbation Acute Asthma Acute Acute respiratory failure Acute Altered mental status Acute
[2017-07-26] MEDS: ALBUTEROL 3 ML DEYVIAL IH SCH ×2 (18:01→20:58)
[2017-07-26] MEDS: MONTELUKAST SODIUM 10 MG TAB PO SCH (20:48)
[2017-07-26] MEDS: QUEtiapine FUMARATE 300 MG TAB PO SCH (20:49)
[2017-07-27] MEDS: ALBUTEROL 3 ML DEYVIAL IH SCH ×3 (00:15→09:12)
[2017-07-27] MEDS: GUAIFENESIN/DM 10 ML UDCUP PO PRN (04:42)
[2017-07-27 06:05] VITALS: O2SAT 96
[2017-07-27 07:48] VITALS: BP 133/76; PULSE 91; RESP 16; TEMP 98.3
[2017-07-27] MEDS: AZITHROMYCIN 250 MG TAB PO SCH (08:37)
[2017-07-27] MEDS: GABAPENTIN 400 MG CAP PO SCH (08:37)
[2017-07-27] MEDS: predniSONE 20 MG TAB PO SCH (08:38)
[2017-07-27] MEDS: guaiFENesin 600 MG TAB.ER PO SCH (08:38)
[2017-07-27] MEDS: NICOTINE 21 MG/24 HR PATCH TD SCH (08:38)
[2017-07-27] MEDS: ENOXAPARIN 40 MG/0.4 ML SYR SC SCH (08:38)
[2017-07-27] MEDS: BENZONATATE 100 MG CAP PO PRN (08:46)
[2017-07-27] MEDS: SENNOSIDES/DOCUSATE SODIUM TAB PO SCH (08:50)
[2017-07-27] MEDS: BUDESONIDE/FORMOTEROL 160/4.5 60 PUFFS/MDI IH SCH (09:13)
--- NOTE | 2017-07-27 09:38 | SOAPPROG ---
SOAP Progress Note Assessment/Plan: Assessment/Plan: * Acute asthma-wheezes resolved. Patient feels she is at her baseline. And wishes to be discharged home * Acute respiratory failure secondary to asthma-markedly better * Depression * History of seizures * PT/OT * Ambulation * Adequate nutrition * Disposition-likely be discharged home today. Subjective: Resting comfortably. Denies any breathlessness. Denies any wheeze. Objective: Vital Signs Temp Pulse Resp BP Pulse Ox 36.8 C 91 16 133/76 H 96 07/27/17 07:43 07/27/17 07:43 07/27/17 07:43 07/27/17 07:43 07/27/17 07:43 Laboratory Results 07/25/17 06:10 07/26/17 07/27/17 07/28/17 05:59 05:59 05:59 Intake Total 600 2800 Balance 600 2800 - Time Spent With Patient Time Spent With Patient: 35 min of time spent with patient, over 1/2 involved with coordination of care or counseling Physical Exam - Physical Exam General Appearance: alert, no apparent distress EENT: PERRL/EOMI Neck: non-tender, full range of motion, supple, normal inspection Respiratory: prolonged expiration, No wheezing Cardiac/Chest: normal peripheral pulses, regular rate, rhythm Peripheral Pulses: 2+: carotid (R), carotid (L), femoral (R), femoral (L), dorsalis-pedis (R), dorsalis-pedis (L) Abdomen: normal bowel sounds, non-tender, soft Pelvic Exam: deferred Rectal: deferred Skin: normal color, warm/dry Extremities: normal range of motion, non-tender, normal inspection, normal capillary refill Neuro/Psych: alert, oriented x 3 ICD10 Worksheet Patient Problems: Problems Problem Status Onset Acute asthma exacerbation Acute Acute respiratory failure Acute Altered mental status Acute Asthma Acute Asthma attack Acute Seizure Acute Submandibular gland swelling Acute
--- NOTE | 2017-07-27 12:51 | ASMTCMCOM ---
CM Note CM Note Notes: Patient provided a bus pass to return to her new apartment through the [facility] transitional housing program. Patient to d/c today. No further needs.CM available if new needs arise. Date Signed: 07/27/2017 12:50 PM Electronically Signed By:Bhavya Rao LCSW
--- NOTE | 2017-07-27 19:02 | PDDCSUM ---
Discharge Summary Discharge Summary: DISCHARGE SUMMARY FOLLOW-UP ITEMS: Outpatient Pulmonary referral DATE OF ADMISSION: 07/23/2017 DATE OF DISCHARGE: 07/27/2017 DISCHARGE DIAGNOSES: 1. Acute asthma exacerbation 2. Respiratory syncytial virus 3. Acute hypoxic respiratory failure 4. Sinus tachycardia CONSULTATIONS: Pulmonary critical care PROCEDURES / IMAGING: Chest x-ray demonstrating no infiltrate CHIEF COMPLAINT: Acute shortness of breath and cough SUBJECTIVE: Patient is feeling well at time discharge, she reports she is able to ambulate without getting symptomatically short of breath PHYSICAL EXAM ON DISCHARGE: Systolic blood pressure is 130-160, heart rate 90-100, satting well on room air , alert awake oriented x3, lungs are clear to auscultation bilateral without any expiratory wheezes, no tachypnea, heart is regular rhythm LABS ON DISCHARGE: RSV positive HOSPITAL COURSE BY PROBLEM: The patient presented with an acute asthma exacerbation secondary to RSV infection. This was evidenced by diffuse expiratory wheezes, tachypnea, respiratory failure and she required intensive bronchodilator treatment with frequent Xopenex and high-dose steroids. Her respiratory failure was initially evidenced by 1-2 word dyspnea, objective tachypnea with respiratory rate of 35- 40, and she required up to 10 L high-flow non-rebreather mask for stabilization. Her chest x-ray did not demonstrate a focal infiltrate, and the cause of her respiratory failure was acute asthma exacerbation. The patient had a protracted recovery, which is common for this patient, as she has significant underlying asthma. Once her expiratory wheezes had improved and the patient was symptomatically stabilized, she was re-initiated on her home dosages of inhaled corticosteroids, as needed albuterol, and Singulair. She also have a 6 day prednisone taper and she will follow up with her primary provider. He was also noted during this hospitalization the patient had significant sinus tachycardia with ambulation, this is most likely secondary to her underlying asthma exacerbation as well as beta agonist therapy. A D-dimer demonstrated no evidence of pulmonary embolism. DISCHARGE MEDICATIONS: Please see official discharge medication reconciliation sheet in chart , prednisone taper, continue home inhaled corticosteroid as well as as needed albuterol, 5 day course of Mucinex, Singulair. DISCHARGE INSTRUCTIONS: Please get outpatient pulmonary referral through her primary care office. TIME SPENT: Greater than 30 minutes were spent on direct patient care, as well as discharge planning and preparation.
== END 2017-07-27 12:28 | disposition home or self-care (01) | DRG 202 ==
LOC: F2N 15:51
PROVIDERS: ADMIT Hospitalist; ATTEND Hospitalist
DX: J45.901 Unspecified asthma with (acute) exacerbation (principal); B97.4 Respiratory syncytial virus as the cause of diseases classified elsewhere; J96.01 Acute respiratory failure with hypoxia; R00.0 Tachycardia, unspecified; F14.10 Cocaine abuse, uncomplicated; Z59.0 Homelessness; Z87.891 Personal history of nicotine dependence; F32.9 Major depressive disorder, single episode, unspecified
CPT/HCPCS: 80307; 96374; 97161-GP; G0480; J1650; J2405; J2930; J3475; J7512; J7613

== ENCOUNTER 2017-08-02 10:14 | Inpatient (IN) | payer MEDICAID ==
[2017-08-02] MEDS ORDERED: IPRATROPIUM/ALBUTEROL 3 ML DEYVIAL IH ONE ×2 (10:20→10:24)
[2017-08-02] MEDS ORDERED: IPRATROPIUM/ALBUTEROL 3 ML DEYVIAL ONE (10:21)
--- NOTE | 2017-08-02 10:22 | EDPHY ---
H & P Stated Complaint: Asthmatic-Recent Hx RSV. Source: Patient Exam Limitations: No limitations - Personal History Current Tetanus/Diphtheria Vaccine: Unsure Current Tetanus Diphtheria and Acellular Pertussis (TDAP): Unsure Tetanus Vaccine Date: less than 5 years - Medical/Surgical History Hx Asthma: Yes Hx Chronic Respiratory Disease: No Hx Diabetes: No Hx Cardiac Disease: No Hx Renal Disease: No Hx Cirrhosis: No Hx Alcoholism: No Hx HIV/AIDS: No Hx Splenectomy or Spleen Trauma: No Other PMH: asthma, seziure, hysterectomy, abd infx req mult surg - Social History Smoking Status: Former smoker Time Seen by Provider: 08/02/17 10:21 HPI/ROS: HPI: This is a 57-year-old female presents with Chief Complaint: Asthmatic-Recent Hx RSV. Location: Chest Quality: Dyspnea Duration: 3 days Signs and Symptoms: + shortness of breath at rest, + shortness of breath on exertion, + cough, no chest pain, no palpitations, no lower extremity edema, + wheezing, no orthopnea, no paroxysmal nocturnal dyspnea, no fever, no injury/ trauma, no hemoptysis Timing: Acute on chronic Severity: Moderate to severe Context: Patient has a history asthma recently seen and admitted to the hospital on 07/23/2017-07/27/2017 for asthma exacerbation, RSV infection and respiratory failure presents with 3 day history of worsening shortness of breath accompanied by wheezing and dry hacking cough. Patient reports that she returned 3 days ago from visiting her family in [place] and believes that she may have developed an illness [place] She has been using her albuterol nebulizer every 3 hr and is taking prednisone 40 mg daily. Patient reports that she has been intubated 4 times secondary to respiratory failure along with multiple hospitalizations for asthma exacerbation and respiratory failure. Modifying Factors: Comment: ROS: see HPI Constitutional: No fever, no chills, no weight loss Eyes: No blurred vision Respiratory: No shortness of breath, no cough Cardiovascular: No chest pain, no palpitations, no lower extremity edema Gastrointestinal: No nausea, no vomiting, no diarrhea Genitourinary: No dysuria Extremities: No myalgias Neurologic: No weakness, no numbness Skin: No rashes Hematologic: No bruising, no bleeding MEDICAL/SURGICAL/SOCIAL HISTORY: Medical/surgical history: asthma, seizure, hysterectomy, abd infx req mult surg Social history: Strong family support CONSTITUTIONAL: Dry hacking cough, adult female, awake and alert, moderate respiratory distress HEENT: Atraumatic and normocephalic, PERRL, EOMI. Tympanic membranes clear. Oropharynx clear, no exudate and moist pink mucosa. Airway patent. No lymphadenopathy. No meningismus. Cardiovascular: Normal S1/S2, tachycardic, regular rhythm, without murmur rub or gallop. PULMONARY/CHEST: Symmetrical and nontender. Poor air movement. 1-2 word dyspnea. Tachypnea. No accessory muscle use. high pitched expiratory wheezing throughout ABDOMEN: Soft, nondistended, nontender, no rebound, no guarding, no peritoneal signs, no masses or organomegaly. No CVAT. EXTREMITIES: 2/2 pulses, strength 5/5, no deformities, no clubbing, no cyanosis or edema. NEUROLOGICAL: no focal neuro deficits. GCS 15. SKIN: Warm and dry, no erythema. no rash. Good capillary refill. (Yadira Rollins) Constitutional: Initial Vital Signs Temperature (C) 36.9 C 08/02/17 10:15 Heart Rate 106 H 08/02/17 10:15 Respiratory Rate 28 H 08/02/17 10:15 O2 Sat (%) 96 08/02/17 10:15 O2 Delivery Mode Room Air Allergies/Adverse Reactions: acetaminophen [From Tylenol] Allergy (Severe, Verified 07/23/17 12:33) Anaphylaxis ibuprofen Allergy (Verified 07/23/17 12:33) Home Medications: Medication Instructions Recorded Gabapentin [Neurontin 400 MG (*)] 800 mg PO BID 04/28/17 diphenhydrAMINE [Benadryl 50 MG 50 mg PO DAILY PRN 04/28/17 (*)] Albuterol [Proventil Inhaler HFA 2 puffs IH Q4H PRN #1 mdi 07/27/17 (*)] Benzonatate [Tessalon Pearles] 200 mg PO TID PRN #40 cap 07/27/17 Budesonide/Formoterol 160/4.5 2 puffs IH BID #1 mdi 07/27/17 [Symbicort 160-4.5 Mcg Inh (*)] Montelukast Sodium [Singulair 10 10 mg PO DAILY@1800 #30 tab 07/27/17 mg (*)] guaiFENesin [Mucinex 600 MG (*)] 1,200 mg PO BID #20 tab.er 07/27/17 predniSONE 40 mg PO DAILY #10 tablet 07/27/17 Albuterol [Proventil Neb] 3 ml IH Q3HRS PRN 08/02/17 QUEtiapine FUMARATE [Seroquel 200 800 mg PO DAILY 08/02/17 mg (*)] guaiFENesin/DEXTROMETHORPHAN 10 ml PO Q4 08/02/17 [Robitussin Dm Oral Liquid (*)] Medical Decision Making - Diagnostics EKG Interpretation: EKG interpreted by me shows normal sinus rhythm normal interval and axis. QRS is normal there is no significant ST elevation or depression. No arrhythmia. Rate is 84 (Darrius Swain) Imaging Results: Imaging Impressions Chest X-Ray 08/02/17 10:24 Impression: 1. Persistent prominence of perihilar interstitial markings and peribronchial cuffing. Findings are nonspecific but can be seen with bronchitis, reactive airway disease, or viral process. 2. Mild haziness has developed at the left base that could represent pneumonitis or early pneumonia. ED Course/Re-evaluation: EKG, labs, chest x-ray, nebulizer therapy, influenza test, IV medications ordered O2 sat 96% on room air but moderate respiratory distress Given DuoNeb, lidocaine neb and IV Solu-Medrol 125 mg Chest x-ray my read shows no lissa opacity. Radiologist reads: mild haziness has developed at the left base that could represent pneumonitis or early pneumonia. Blood cultures ordered and IV Rocephin and Zithromax given Reassessed patient with improved aeration and less tachypnea. 1140: Patient will require admission for respiratory failure and asthma exacerbation. Spoke with Hospitalist. Admit to PCU with Dr. Pearson. This patient was seen under the supervision of my secondary supervising physician. I evaluated care for this patient independently. (Yadira Rollins) I did not see this patient while she was in the emergency department. However her care was discussed with the PA while the patient was in the department. I agree with treatment plan and management (Darrius Swain) Differential Diagnosis: Shortness of breath including but not limited to pulmonary infectious process, COPD, asthma, pulmonary embolus and congestive heart failure. (Yadira Rollins) - Data Points Laboratory Results: Laboratory Results 08/02/17 10:39 08/02/17 10:39 08/02/17 08/02/17 08/02/17 10:39 10:39 10:39 WBC 8.10 10^3/uL 10^3/uL (3.80-9.50) RBC 3.80 10^6/uL L 10^6/uL (4.18-5.33) Hgb 11.8 g/dL L g/dL (12.6-16.3) Hct 35.6 % L % (38.0-47.0) MCV 93.7 fL fL (81.5-99.8) MCH 31.1 pg pg (27.9-34.1) MCHC 33.1 g/dL g/dL (32.4-36.7) RDW 14.1 % % (11.5-15.2) Plt Count 238 10^3/uL 10^3/uL (150-400) MPV 9.8 fL fL (8.7-11.7) Neut % (Auto) 66.1 % % (39.3-74.2) Lymph % (Auto) 20.9 % % (15.0-45.0) [place] % (Auto) 8.6 % % (4.5-13.0) Eos % (Auto) 2.3 % % (0.6-7.6) Baso % (Auto) 0.1 % L % (0.3-1.7) Nucleat RBC Rel Count 0.0 % % (0.0-0.2) Absolute Neuts (auto) 5.35 10^3/uL 10^3/uL (1.70-6.50) Absolute Lymphs (auto) 1.69 10^3/uL 10^3/uL (1.00-3.00) Absolute Monos (auto) 0.70 10^3/uL 10^3/uL (0.30-0.80) Absolute Eos (auto) 0.19 10^3/uL 10^3/uL (0.03-0.40) Absolute Basos (auto) 0.01 10^3/uL L 10^3/uL (0.02-0.10) Absolute Nucleated RBC 0.00 10^3/uL 10^3/uL (0-0.01) Immature Gran % 2.0 % H % (0.0-1.1) Immature Gran # 0.16 10^3/uL H 10^3/uL (0.00-0.10) Sodium 141 mEq/L mEq/L (135-145) Potassium 4.7 mEq/L mEq/L (3.5-5.2) Chloride 108 mEq/L mEq/L (97-110) Carbon Dioxide 23 mEq/l mEq/l (22-31) Anion Gap 10 mEq/L mEq/L (8-16) BUN 12 mg/dL mg/dL (7-23) Creatinine 0.6 mg/dL mg/dL (0.6-1.0) Estimated GFR > 60 Glucose 114 mg/dL H mg/dL (70-100) Calcium 9.1 mg/dL mg/dL (8.5-10.4) Troponin I < 0.012 ng/mL ng/mL (0.000-0.034) NT-Pro-B Natriuret Pep 42 pg/mL pg/mL (0-125) Procalcitonin 0.05 ng/mL ng/mL (0.02-0.10) Nasal Influenza A PCR Nasal Influenza B PCR 08/02/17 10:25 WBC RBC Hgb Hct MCV MCH MCHC RDW Plt Count MPV Neut % (Auto) Lymph % (Auto) [place] % (Auto) Eos % (Auto) Baso % (Auto) Nucleat RBC Rel Count Absolute Neuts (auto) Absolute Lymphs (auto) Absolute Monos (auto) Absolute Eos (auto) Absolute Basos (auto) Absolute Nucleated RBC Immature Gran % Immature Gran # Sodium Potassium Chloride Carbon Dioxide Anion Gap BUN Creatinine Estimated GFR Glucose Calcium Troponin I NT-Pro-B Natriuret Pep Procalcitonin Nasal Influenza A PCR NEGATIVE FOR FLU A (NEGATIVE) Nasal Influenza B PCR NEGATIVE FOR FLU B (NEGATIVE) Medications Given: Albuterol/Ipratropium (Duoneb) 3 ml IH Q6 PRN PRN Reason: Short of Breath/Dyspnea Stop: 01/29/18 12:31 Last Admin: 08/02/17 18:23 Dose: 3 ml Benzonatate (Tessalon Pearles) 200 mg PO TID PRN PRN Reason: Cough, Mild Stop: 01/29/18 16:08 Last Admin: 08/02/17 18:20 Dose: 200 mg Gabapentin (Neurontin) 800 mg PO BID [facility] Stop: 01/29/18 20:59 Last Admin: 08/02/17 20:03 Dose: 800 mg Guaifenesin (Mucinex) 1,200 mg PO BID ISHAN Stop: 01/29/18 20:59 Last Admin: 08/02/17 20:03 Dose: 1,200 mg Montelukast Sodium (Singulair) 10 mg PO DAILY@1800 [facility] Stop: 01/29/18 17:59 Last Admin: 08/02/17 18:19 Dose: 10 mg Pantoprazole Sodium (Protonix) 40 mg PO DAILY [facility] Stop: 01/29/18 12:44 Last Admin: 08/02/17 14:57 Dose: 40 mg Quetiapine Fumarate (Seroquel) 800 mg PO HS [facility] Stop: 01/29/18 20:59 Last Admin: 08/02/17 20:11 Dose: 800 mg Discontinued Medications Albuterol/Ipratropium (Duoneb) 3 ml IH EDNOW ONE Stop: 08/02/17 10:21 Last Admin: 08/02/17 10:25 Dose: 3 ml Albuterol/Ipratropium (Duoneb) 3 ml IH EDNOW ONE Stop: 08/02/17 10:25 Last Admin: 08/02/17 13:58 Dose: Not Given Azithromycin 500 mg/ Dextrose 255 mls @ 255 mls/hr IV EDNOW ONE PRN Reason: Protocol Stop: 08/02/17 13:02 Last Admin: 08/02/17 13:10 Dose: 255 mls Ceftriaxone Sodium 1 gm/ (Sterile Water) 10 mls @ 150 mls/hr IV EDNOW ONE PRN Reason: Protocol Stop: 08/02/17 12:07 Last Admin: 08/02/17 13:12 Dose: 10 mls Lidocaine HCl (Lidocaine Hcl 1%) 2 ml IH ONCE ONE Stop: 08/02/17 11:01 Last Admin: 08/02/17 11:00 Dose: 2 ml Lorazepam (Ativan) 1 mg PO ONCE ONE Stop: 08/02/17 18:46 Last Admin: 08/02/17 20:03 Dose: 1 mg Methylprednisolone Sodium Succinate (Solu-Medrol) 125 mg IVP EDNOW ONE Stop: 08/02/17 10:25 Last Admin: 08/02/17 11:03 Dose: 125 mg Departure - Departure Disposition: [facility] Inpatient Acute Clinical Impression: Respiratory failure Qualifiers: Chronicity: acute on chronic Respiratory failure complication: hypoxia Qualified Code(s): J96.21 - Acute and chronic respiratory failure with hypoxia Asthma with acute exacerbation Qualifiers: Asthma severity: moderate Asthma persistence: persistent Qualified Code(s): J45.41 - Moderate persistent asthma with (acute) exacerbation Pneumonia Qualifiers: Pneumonia type: due to unspecified organism Laterality: left Lung location: lower lobe of lung Qualified Code(s): J18.1 - Lobar pneumonia, unspecified organism Condition: Fair
[2017-08-02] MEDS ORDERED: methylPREDNISolone SOD SUCC 125 MG/2 ML VIAL IVP ONE (10:24)
[2017-08-02] MEDS ORDERED: LIDOCAINE 1% 300 MG/30 ML SDV ONE (10:43)
[2017-08-02 10:47] LABS: PLATELET COUNT 238 10^3/uL (150-400)
[2017-08-02] MEDS ORDERED: LIDOCAINE 1% 2 ML INJ IH ONE (11:00)
--- NOTE | 2017-08-02 11:37 | CPEKG ---
Heart Rate: 84 RR Interval: 714 P-R Interval: 148 QRSD Interval: 80 QT Interval: 364 QTC Interval: 431 P [place]: 68 QRS [place]: 32 T Wave [place]: 44 EKG Severity - BORDERLINE ECG - EKG Impression: SINUS RHYTHM EKG Impression: PROBABLE LEFT ATRIAL ABNORMALITY Electronically Signed By: Darrius Swain 02-Aug-2017 14:08:18
[2017-08-02] MEDS ORDERED: AZITHROMYCIN IV 500 MG in D5W 250 ML IV ONE (12:03)
[2017-08-02] MEDS ORDERED: cefTRIAXone 1 GM in STERILE WATER INJ 10 ML IV ONE (12:04)
[2017-08-02] MEDS ORDERED: ONDANSETRON 4 MG/2 ML VIAL IVP PRN (12:32)
[2017-08-02] MEDS ORDERED: CODEINE/PROMETHAZINE 5 ML UDL PO PRN (12:35)
--- NOTE | 2017-08-02 12:36 | PDGENHP ---
History and Physical - Chief Complaint Cough and wheezing - History of Present Illness This is a 57-year-old female with history of asthma discharged from [facility] on 07/27/2017 to be treated for an acute asthma exacerbation thought to be due to RSV virus. Since discharge the patient states that she has not been smoking. She has been taking prednisone 40 mg daily as well as well as her inhalers. She traveled back to [place] last week and upon arriving back to [place] she has developed worsening cough and wheezing. She does report some subjective fevers and chills. Her cough is constant and seems to be rather nonproductive. She has been using Tessalon Perles without much relief. History Information - Allergies/Home Medication List Allergies/Adverse Reactions: acetaminophen [From Tylenol] Allergy (Severe, Verified 07/23/17 12:33) Anaphylaxis ibuprofen Allergy (Verified 07/23/17 12:33) Home Medications: Gabapentin [Neurontin 400 MG (*)] 800 mg PO BID 04/28/17 [Last Taken 07/23/17] diphenhydrAMINE [Benadryl 50 MG (*)] 50 mg PO DAILY PRN 04/28/17 [Last Taken ] QUEtiapine FUMARATE [Seroquel 300mg (*)] 600 mg PO DAILY 06/30/17 [Last Taken ] I have personally reviewed and updated: family history, medical history, social history, surgical history - Past Medical History asthma Additional medical history: Asthma - 4 previous intubations, frequent hospitalizations. Depression. H/O seizure. Cocaine abuse - Surgical History Reports: no pertinent surgical hx - Family History Positive for: cancer Additional family history: Daughter of asthma exacerbation - Social History Smoking Status: Former smoker Additional social history: Just got an apartment, was previously homeless. Quit smoking 3 weeks ago. H/O cocaine use, reports to be sober. Review of Systems Review of Systems: ROS: 10pt was reviewed & negative except for what was stated in HPI & below Physical Exam Physical Exam: Temp Pulse Resp BP Pulse Ox 36.9 C 99 18 105/57 L 95 08/02/17 10:15 08/02/17 11:01 08/02/17 11:01 08/02/17 11:01 08/02/17 11:01 Constitutional: chronically ill appearing, uncomfortable Eyes: PERRL, anicteric sclera, EOMI Ears, Nose, Mouth, Throat: moist mucous membranes, hearing normal, ears appear normal, no oral mucosal ulcers Cardiovascular: no murmur, rub, or gallop, tachycardia, No JVD, No edema Respiratory: no rales or rhonchi, reduced air movement, expiratory wheeze, No dullness to percussion Gastrointestinal: normoactive bowel sounds, soft, non-tender abdomen, no palpable masses, No guarding, No rebound Genitourinary: no bladder fullness, no bladder tenderness Skin: warm, normal color, no rashes or abrasions, no fluctuance, no induration, No mottled Musculoskeletal: full muscle strength, no muscle tenderness, normal joint ROM, no joint effusions Neurologic: AAOx3, CN II-XII Intact, No facial droop Psychiatric: interacting appropriately, not anxious, not encephalopathic, thought process linear Lymph, Heme, Immunologic: no cervical LAD, no supraclavicular LAD Lab Data & Imaging Review 08/02/17 10:39 08/02/17 10:39 WBC 8.10 10^3/uL (3.80-9.50) 08/02/17 10:39 RBC 3.80 10^6/uL (4.18-5.33) L 08/02/17 10:39 Hgb 11.8 g/dL (12.6-16.3) L 08/02/17 10:39 Hct 35.6 % (38.0-47.0) L 08/02/17 10:39 MCV 93.7 fL (81.5-99.8) 08/02/17 10:39 MCH 31.1 pg (27.9-34.1) 08/02/17 10:39 MCHC 33.1 g/dL (32.4-36.7) 08/02/17 10:39 RDW 14.1 % (11.5-15.2) 08/02/17 10:39 Plt Count 238 10^3/uL (150-400) 08/02/17 10:39 MPV 9.8 fL (8.7-11.7) 08/02/17 10:39 Neut % (Auto) 66.1 % (39.3-74.2) 08/02/17 10:39 Lymph % (Auto) 20.9 % (15.0-45.0) 08/02/17 10:39 [place] % (Auto) 8.6 % (4.5-13.0) 08/02/17 10:39 Eos % (Auto) 2.3 % (0.6-7.6) 08/02/17 10:39 Baso % (Auto) 0.1 % (0.3-1.7) L 08/02/17 10:39 Nucleat RBC Rel Count 0.0 % (0.0-0.2) 08/02/17 10:39 Absolute Neuts (auto) 5.35 10^3/uL (1.70-6.50) 08/02/17 10:39 Absolute Lymphs (auto) 1.69 10^3/uL (1.00-3.00) 08/02/17 10:39 Absolute Monos (auto) 0.70 10^3/uL (0.30-0.80) 08/02/17 10:39 Absolute Eos (auto) 0.19 10^3/uL (0.03-0.40) 08/02/17 10:39 Absolute Basos (auto) 0.01 10^3/uL (0.02-0.10) L 08/02/17 10:39 Absolute Nucleated RBC 0.00 10^3/uL (0-0.01) 08/02/17 10:39 Immature Gran % 2.0 % (0.0-1.1) H 08/02/17 10:39 Immature Gran # 0.16 10^3/uL (0.00-0.10) H 08/02/17 10:39 Sodium 141 mEq/L (135-145) 08/02/17 10:39 Potassium 4.7 mEq/L (3.5-5.2) 08/02/17 10:39 Chloride 108 mEq/L (97-110) 08/02/17 10:39 Carbon Dioxide 23 mEq/l (22-31) 08/02/17 10:39 Anion Gap 10 mEq/L (8-16) 08/02/17 10:39 BUN 12 mg/dL (7-23) 08/02/17 10:39 Creatinine 0.6 mg/dL (0.6-1.0) 08/02/17 10:39 Estimated GFR > 60 08/02/17 10:39 Glucose 114 mg/dL (70-100) H 08/02/17 10:39 Calcium 9.1 mg/dL (8.5-10.4) 08/02/17 10:39 Troponin I < 0.012 ng/mL (0.000-0.034) 08/02/17 10:39 NT-Pro-B Natriuret Pep 42 pg/mL (0-125) 08/02/17 10:39 Nasal Influenza A PCR NEGATIVE FOR FLU A (NEGATIVE) 08/02/17 10:25 Nasal Influenza B PCR NEGATIVE FOR FLU B (NEGATIVE) 08/02/17 10:25 Visualized and Interpreted Chest x-ray results: Yes Chest X-Ray results: other (Left lower lobe haziness without impressive infiltrate, perihilar fullness with interstitial markings) Visualized and Interpreted EKG results: Yes EKG Interpretation: Positive for: normal sinsus rhythm (84 beats per minute without acute ischemic changes) Assessment & Plan Assessment: This is a 57-year-old female with history of severe persistent asthma discharged from [facility] on 07/27/17 presenting with: # Acute hypoxemic respiratory failure due to below # Acute asthma exacerbation (Acute) # mild left lower lobe opacity seen on chest x-ray unclear if this represents a bacterial pneumonia versus pneumonitis # history of tobacco abuse # history of depression # history of homelessness Plan: 1. Place in observation 2. Continue with nebulizer treatments 3 trial Phenergan with codeine for cough as well as Mucinex 1200 mg twice daily 4. Obtain a procalcitonin level and will continue antibiotics if this is elevated 5. Repeat respiratory panel PCR 6. Increase dose of prednisone to 60 mg daily 7. Closely monitor oxygen saturations 8. Start Protonix in case her asthma is being exacerbated by GERD in the setting of high-dose prednisone use
[2017-08-02] MEDS: PANTOPRAZOLE SODIUM 40 MG TAB PO SCH (14:57)
[2017-08-02] MEDS: IPRATROPIUM/ALBUTEROL 3 ML DEYVIAL IH PRN ×3 (15:32→21:20)
[2017-08-02] MEDS ORDERED: diphenhydrAMINE 50 MG CAP PO PRN (16:09)
[2017-08-02] MEDS: MONTELUKAST SODIUM 10 MG TAB PO SCH ×2 (18:17→18:19)
[2017-08-02] MEDS: BENZONATATE 100 MG CAP PO PRN (18:20)
[2017-08-02] MEDS ORDERED: LORazepam 1 MG TAB PO ONE (18:45)
[2017-08-02] MEDS: GABAPENTIN 400 MG CAP PO SCH (20:03)
[2017-08-02] MEDS: guaiFENesin 600 MG TAB.ER PO SCH (20:03)
[2017-08-02] MEDS: QUEtiapine FUMARATE 200 MG TAB PO SCH (20:11)
[2017-08-02] MEDS: BUDESONIDE/FORMOTEROL 160/4.5 60 PUFFS/MDI IH SCH (21:19)
[2017-08-03] MEDS: BUDESONIDE/FORMOTEROL 160/4.5 60 PUFFS/MDI IH SCH ×2 (08:56→19:58)
[2017-08-03] MEDS: ENOXAPARIN 40 MG/0.4 ML SYR SC SCH (09:46)
[2017-08-03] MEDS: GABAPENTIN 400 MG CAP PO SCH ×2 (09:47→19:57)
[2017-08-03] MEDS: guaiFENesin 600 MG TAB.ER PO SCH ×2 (09:47→19:57)
[2017-08-03] MEDS: PANTOPRAZOLE SODIUM 40 MG TAB PO SCH (09:47)
[2017-08-03] MEDS: predniSONE 20 MG TAB PO SCH (09:47)
--- NOTE | 2017-08-03 11:28 | ASMTCMCOM ---
CM Note CM Note Notes: 08/01/2017 Case Management Note Met w/pt. She reports her address as [address] [facility] for [facility] at [facility] to confirm address and notifiy of hospital admission. Casimiro can be reached at [phone] ext [phone]. Contacted [facility]. Pt is not on current case load. Notified [employer] of need for residential Medicaid Application for HCBS. Pt reports she has 3 grandchildren living with her: ages 15, 13 and 12. Pt reports her neighbor Mary is watching them and preparing meals during her hospitalization. Pt is unable to provide Mary's phone number. Pt reports that both parents (her daughter and son in law) the same year. Pt could not recall the name of the school her grandchildren attend. She did not provide names of grandchildren, just ages. Contacted [facility] for need home health RN. [facility] able to accept pt if d/c later in the weekend. Case Management d/c poc: home with [facility] head machinist to follow. Date Signed: 08/03/2017 11:27 AM Electronically Signed By:Le Russell RN
--- NOTE | 2017-08-03 12:51 | HOSPPROG ---
Hospitalist Progress Note Assessment/Plan: Assessment: This is a 57-year-old female with history of severe persistent asthma discharged from [facility] on 07/27[facility]17 presenting with: # Acute hypoxemic respiratory failure due to acute asthma exacerbation -cont nebs and pulse dose prednisone -protonix in case her cough/asthma is being worsened by GERD # persistent tachycardia most like secondary to above vs nebs vs less likely PE (dimer ordered today was negative) # mild left lower lobe opacity seen on chest x-ray unclear if this represents a bacterial pneumonia versus pneumonitis (procalcitonin nml) -cont to monitor off of antibiotics # chest pain likely due to cough -trial oxycodone # dizziness likely due to above # history of tobacco abuse # history of depression # history of homelessness change to inpatient status given persistent wheezing and tachycardia Subjective: reports persistent productive cough and shortness of breath. epidose of wheezing last night that responded to duonebs and ativan. states she is dizzy with walking. denies fever Objective: Vital Signs Temp Pulse Resp BP Pulse Ox 36.7 C 125 H 19 110/65 94 08/03/17 07:20 08/03/17 07:20 08/03/17 07:20 08/03/17 07:20 08/03/17 07:20 08/02/17 08/03/17 08/04/17 05:59 05:59 05:59 Intake Total 400 Output Total 1150 500 Balance -1150 -100 - Physical Exam Constitutional: no apparent distress Cardiovascular: regular rate and rhythym, no murmur, rub, or gallop, tachycardia Respiratory: no respiratory distress, reduced air movement, expiratory wheeze Gastrointestinal: normoactive bowel sounds, soft, non-tender abdomen, no palpable masses Neurologic: AAOx3, sensation intact bilaterally ICD10 Worksheet Patient Problems: Problems Problem Status Onset Asthma attack Acute Seizure Acute Submandibular gland swelling Acute Acute asthma exacerbation Acute Asthma Acute Acute respiratory failure Acute Altered mental status Acute Respiratory failure Acute Pneumonia Acute
[2017-08-03] MEDS ORDERED: HYDROCODONE/APAP 5/325 TAB PO PRN (12:54)
[2017-08-03] MEDS: IPRATROPIUM/ALBUTEROL 3 ML DEYVIAL IH PRN (13:32)
--- NOTE | 2017-08-03 16:27 | PDMN ---
Medical Necessity Medical necessity: change to IP; los>2mn for acute hypoxemic resp failure r/t acute asthma exacerbation, w/persistent tachycardia, wheezing, dizziness, and possible pna vs pneumonitis; requires continued nebs, prednisone, r/o PE; hx intubations x 4 r/t asthma, depression, sz; per order and progress note 08/03/17
[2017-08-03] MEDS: oxyCODONE IR 5 MG TAB PO PRN ×2 (16:36→23:25)
[2017-08-03] MEDS: QUEtiapine FUMARATE 200 MG TAB PO SCH (19:58)
[2017-08-03] MEDS: BENZONATATE 100 MG CAP PO PRN (20:04)
[2017-08-04] MEDS: BUDESONIDE/FORMOTEROL 160/4.5 60 PUFFS/MDI IH SCH ×2 (09:25→21:28)
[2017-08-04] MEDS: IPRATROPIUM/ALBUTEROL 3 ML DEYVIAL IH PRN ×3 (09:30→21:35)
[2017-08-04] MEDS: guaiFENesin 600 MG TAB.ER PO SCH ×2 (09:46→20:44)
[2017-08-04] MEDS: BENZONATATE 100 MG CAP PO PRN ×2 (09:46→15:57)
[2017-08-04] MEDS: predniSONE 20 MG TAB PO SCH (09:46)
[2017-08-04] MEDS: GABAPENTIN 400 MG CAP PO SCH ×2 (09:46→20:44)
[2017-08-04] MEDS: PANTOPRAZOLE SODIUM 40 MG TAB PO SCH (09:46)
[2017-08-04] MEDS: ENOXAPARIN 40 MG/0.4 ML SYR SC SCH (09:46)
[2017-08-04] MEDS: oxyCODONE IR 5 MG TAB PO PRN ×2 (09:47→20:43)
--- NOTE | 2017-08-04 10:17 | ASMTCMCOM ---
CM Note CM Note Notes: CM note from 08/03/17 15:10 from CM Le Russell which was not saved in Allscripts: 08/03/2017 Case Management Note Phone Call from Casimiro at [facility]itional [facility] with the [facility] [phone] ext [phone]. [facility] on the nights that she has not been hospitalized. She has not been able to participate in the transitional housing intake to start the process of enrolling her in a lottery for housing. Case management notified [facility] RN. Case management d/c poc: To have [facility] the [facility] follow the pt. Date Signed: 08/04/2017 10:17 AM Electronically Signed By:HERRERA De La Cruz
[2017-08-04] MEDS: AZITHROMYCIN 250 MG TAB PO SCH (15:57)
--- NOTE | 2017-08-04 16:47 | HOSPPROG ---
Hospitalist Progress Note Assessment/Plan: 57-year-old female with severe persistent asthma following an acute respiratory infection. She had been discharged from [facility] on 07/27/2017 and now presented again in acute respiratory failure. She has persistent wheezing despite the use of inhaled steroids, oral steroids, without the use of antibiotics. Procalcitonin was normal, and flu PCR was negative. Patient is new to me today Plan: Will add duo nebs 4 times a day to inhaled steroids and oral steroids and begin a azithromycin despite the normal procalcitonin. She has a significant cough and continues to wheeze and will require maximal therapy. There is likely underlying COPD. Patient will need to be changed to inpatient status. # Acute hypoxemic respiratory failure due to acute asthma exacerbation -cont nebs and pulse dose prednisone, adding dual nebs four times daily and continue long-acting bronchodilators twice daily. -protonix in case her cough/asthma is being worsened by GERD # persistent tachycardia most like secondary to above vs nebs vs less likely PE (dimer ordered today was negative) # mild left lower lobe opacity seen on chest x-ray unclear if this represents a bacterial pneumonia versus pneumonitis (procalcitonin nml) -today will add azithromycin due to the possible infiltrate in the persistence of her respiratory distress. # chest pain likely due to cough -trial oxycodone, increased dual nebs to four times daily as the cough may be secondary to bronchospasm. # dizziness likely due to above # copd with history of tobacco abuse # history of depression # history of homelessness Disposition: Possible discharge in 1-2 days. Patient is homeless Time: 40 min Subjective: Reports she continues to have shortness of breath cough and wheezing without chest pain. She has rest less and anxious. No nausea or vomiting although her appetite is decreased Objective: Vital Signs Temp Pulse Resp BP Pulse Ox 36.6 C 121 H 17 132/81 H 98 08/04/17 15:49 08/04/17 15:49 08/04/17 15:49 08/04/17 15:49 08/04/17 15:49 08/03/17 08/04/17 08/05/17 05:59 05:59 05:59 Intake Total 1000 Balance 1000 - Time Spent With Patient Time Spent with Patient: greater than 35 minutes Time Spent with Patient: Greater than 35 minutes spent on this patients care, greater than 50% of time spent counseling, educating, and coordinating care regarding the above mentioned plan. - Pending Discharge Pending Discharge Within 24 Hours: No Pending Discharge Within 48 Hours: No - Physical Exam Constitutional: chronically ill appearing, other (Acutely ill also with shortness of breath) Eyes: PERRL, anicteric sclera Ears, Nose, Mouth, Throat: moist mucous membranes, hearing normal Cardiovascular: regular rate and rhythym, no murmur, rub, or gallop Respiratory: reduced air movement, expiratory wheeze, inspiratory crackles, bronchial breath sounds, other (Inspiratory and expiratory wheezing noted) Gastrointestinal: normoactive bowel sounds, soft, non-tender abdomen Genitourinary: no bladder fullness Skin: warm Musculoskeletal: full muscle strength Neurologic: AAOx3, CN II-XII Intact, other Psychiatric: interacting appropriately, anxious ICD10 Worksheet Patient Problems: Problems Problem Status Onset Asthma attack Acute Seizure Acute Submandibular gland swelling Acute Acute asthma exacerbation Acute Asthma Acute Acute respiratory failure Acute Altered mental status Acute Respiratory failure Acute Pneumonia Acute
[2017-08-04] MEDS: MONTELUKAST SODIUM 10 MG TAB PO SCH (17:20)
[2017-08-04] MEDS: QUEtiapine FUMARATE 200 MG TAB PO SCH (20:44)
[2017-08-05] MEDS: oxyCODONE IR 5 MG TAB PO PRN (05:11)
[2017-08-05] MEDS: BENZONATATE 100 MG CAP PO PRN (05:11)
[2017-08-05 08:06] VITALS: BP 113/94; TEMP 98
[2017-08-05] MEDS ORDERED: ACETAMINOPHEN/CODEINE 300/30MG TAB PO PRN (08:22)
[2017-08-05] MEDS: predniSONE 20 MG TAB PO SCH (08:53)
[2017-08-05] MEDS: guaiFENesin 600 MG TAB.ER PO SCH (08:53)
[2017-08-05] MEDS: ENOXAPARIN 40 MG/0.4 ML SYR SC SCH (08:53)
[2017-08-05] MEDS: AZITHROMYCIN 250 MG TAB PO SCH (08:53)
[2017-08-05] MEDS: PANTOPRAZOLE SODIUM 40 MG TAB PO SCH (08:53)
[2017-08-05] MEDS: GABAPENTIN 400 MG CAP PO SCH (08:54)
[2017-08-05] MEDS ORDERED: OSELTAMIVIR PHOSPHATE 75 MG CAP PO SCH (09:15)
[2017-08-05] MEDS: BUDESONIDE/FORMOTEROL 160/4.5 60 PUFFS/MDI IH SCH (09:36)
[2017-08-05 09:44] VITALS: PULSE 104; RESP 18; O2SAT 94
--- NOTE | 2017-08-05 14:23 | ASDISCHSUM ---
Discharge Information Plan Status:Homeless/Assisted Medically Cleared to Leave: Discharge Date:08/05/2017 10:02 AM CM D/C Disposition: ADT D/C Disposition:Against Medical Advice Projected Discharge Date:08/05/2017 10:02 AM Transportation at D/C: Discharge Delay Reason: Follow-Up Date:08/05/2017 10:02 AM Discharge Slot: Final Diagnosis: Placement Information Patient Contact Information Contact Name:NETAT Relationship:Other Address: Work Phone: City: [facility] Phone: State/Zip Code: Email: Financial Information Financial Class: Primary Plan Desc:MEDICAID HEALTH FIRST 911 DISPATCHER Primary Plan Number:[id number] Secondary Plan Desc: Secondary Plan Number: Assessment Information [facility] CM Progress Note CM Note CM Note Notes: 08/01/2017 Case Management Note Met w/pt. She reports her address as [address] [place] [address]. Left for Casimiro at [facility] to confirm address and notifiy of hospital admission. Casimiro can be reached at [phone] ext [phone]. Contacted [facility]. Pt is not on current case load. Notified [employer] of need for long-term Medicaid Application for HCBS. Pt reports she has 3 grandchildren living with her: ages 15, 13 and 12. Pt reports her neighbor Mary is watching them and preparing meals during her hospitalization. Pt is unable to provide Mary's phone number. Pt reports that both parents (her daughter and son in law) the same year. Pt could not recall the name of the school her grandchildren attend. She did not provide names of grandchildren, just ages. Contacted [facility] for need home health RN. [facility] able to accept pt if d/c later in the weekend. Case Management d/c poc: home with [facility] hair tinter to follow. Date Signed: 08/03/2017 11:27 AM Electronically Signed By:Le Russell RN [facility] CM Progress Note CM Note CM Note Notes: CM note from 08/03/17 15:10 from CM Le Russell which was not saved in Allscripts: 08/03/2017 Case Management Note Phone Call from Casimiro at Transitional Housing with the [facility] [phone] ext [phone]. Pt has been staying at the residential in the standby beds on the nights that she has not been hospitalized. She has not been able to participate in the transitional housing intake to start the process of enrolling her in a lottery for housing. Case management notified [facility] RN. Case management d/c poc: To have [facility] RN for the residential follow the pt. Date Signed: 08/04/2017 10:17 AM Electronically Signed By:HERRERA De La Cruz Intervention Information
--- NOTE | 2017-08-05 14:25 | ASMTCMCOM ---
CM Note CM Note Notes: Pt left AMA from hospital this morning. Date Signed: 08/05/2017 02:24 PM Electronically Signed By:Carlita Rachel RN
--- NOTE | 2017-08-05 17:00 | HOSPPROG ---
Hospitalist Progress Note Assessment/Plan: 57-year-old female with severe persistent asthma following an acute respiratory infection. She had been discharged from [facility] on 07/27/2017 and now presented again in acute respiratory failure. She has persistent wheezing despite the use of inhaled steroids, oral steroids, without the use of antibiotics. Procalcitonin was normal, and flu PCR was negative. Today the patient continues with a very persistent heavy cough that is primarily nonproductive. Plan: continue duo nebs 4 times a day to inhaled steroids and oral steroids and begin a azithromycin despite the normal procalcitonin. Will also start Tamiflu as they do not know when she actually was infected with influenza. She has a significant cough and continues to wheeze and will require maximal therapy. There is likely underlying COPD. # Acute hypoxemic respiratory failure due to acute asthma exacerbation -cont nebs and pulse dose prednisone, adding dual nebs four times daily and continue long-acting bronchodilators twice daily. -protonix in case her cough/asthma is being worsened by GERD -add Tamiflu and Tylenol No. 3 for cough. # persistent tachycardia most like secondary to above vs nebs vs less likely PE (dimer ordered today was negative) # mild left lower lobe opacity seen on chest x-ray unclear if this represents a bacterial pneumonia versus pneumonitis (procalcitonin nml) -today will add azithromycin and Tamiflu due to the possible infiltrate in the persistence of her respiratory distress. # chest pain likely due to cough -trial oxycodone, increased dual nebs to four times daily as the cough may be secondary to bronchospasm. # dizziness likely due to above # copd with history of tobacco abuse # history of depression # patient currently lives with family; she is not homeless Disposition: Patient is day-to-day regarding the discharge. She has a very persistent heavy cough which is incapacitating when it occurs. She also continues to have wheezing on expiration. Time: 40 min Subjective: Reports she feels somewhat better but had significant coughing throughout the night was unable to sleep. The cough is quite proximal deep and heavy and she has vomiting with it. Objective: Vital Signs Temp Pulse Resp BP Pulse Ox 36.6 C 104 H 18 113/94 H 94 08/05/17 08:00 08/05/17 09:33 08/05/17 09:33 08/05/17 08:00 08/05/17 09:33 08/04/17 08/05/17 08/06/17 05:59 05:59 05:59 Intake Total 1000 1000 Balance 1000 1000 - Time Spent With Patient Time Spent with Patient: greater than 35 minutes Time Spent with Patient: Greater than 35 minutes spent on this patients care, greater than 50% of time spent counseling, educating, and coordinating care regarding the above mentioned plan. - Pending Discharge Pending Discharge Within 24 Hours: No Pending Discharge Within 48 Hours: No - Physical Exam Constitutional: other (Mild respiratory distress) Eyes: PERRL, anicteric sclera Ears, Nose, Mouth, Throat: moist mucous membranes, hearing normal Cardiovascular: regular rate and rhythym, no murmur, rub, or gallop Respiratory: reduced air movement, expiratory wheeze, inspiratory crackles, bronchial breath sounds, respiratory distress, rhonchi Gastrointestinal: normoactive bowel sounds, soft, non-tender abdomen, no palpable masses Genitourinary: no bladder fullness Skin: warm Musculoskeletal: full muscle strength Neurologic: AAOx3, CN II-XII Intact Psychiatric: interacting appropriately, not anxious, not encephalopathic, thought process linear ICD10 Worksheet Patient Problems: Problems Problem Status Onset Acute asthma exacerbation Acute Acute respiratory failure Acute Altered mental status Acute Asthma Acute Asthma attack Acute Pneumonia Acute Respiratory failure Acute Seizure Acute Submandibular gland swelling Acute
== END 2017-08-05 10:02 | disposition left against medical advice (07) | DRG 189 ==
LOC: F3N 13:44 → OBSVTOIN 08-03 16:07
PROVIDERS: ADMIT Family Medicine; ATTEND Family Medicine
DX: J96.01 Acute respiratory failure with hypoxia (principal); J45.51 Severe persistent asthma with (acute) exacerbation; J18.9 Pneumonia, unspecified organism; R00.0 Tachycardia, unspecified; R42 Dizziness and giddiness; J44.9 Chronic obstructive pulmonary disease, unspecified; F32.9 Major depressive disorder, single episode, unspecified; Z87.891 Personal history of nicotine dependence; Z79.51 Long term (current) use of inhaled steroids; Z79.52 Long term (current) use of systemic steroids; Z59.0 Homelessness
CPT/HCPCS: 96374; G0378; J0456; J0696; J1650; J2930; J7512

== ENCOUNTER 2017-09-18 10:28 | Inpatient (IN) | payer MEDICAID ==
[2017-09-18] MEDS ORDERED: IPRATROPIUM/ALBUTEROL 3 ML DEYVIAL ONE ×2 (10:45→11:50)
[2017-09-18] MEDS ORDERED: IPRATROPIUM/ALBUTEROL 3 ML DEYVIAL IH ONE (10:48)
--- NOTE | 2017-09-18 11:12 | EDPHY ---
H & P Stated Complaint: SOB Time Seen by Provider: 09/18/17 11:11 - Personal History Current Tetanus/Diphtheria Vaccine: Yes Current Tetanus Diphtheria and Acellular Pertussis (TDAP): Yes Tetanus Vaccine Date: less than 5 years - Medical/Surgical History Hx Asthma: Yes Hx Chronic Respiratory Disease: No Hx Diabetes: No Hx Cardiac Disease: No Hx Renal Disease: No Hx Cirrhosis: No Hx Alcoholism: No Hx HIV/AIDS: No Hx Splenectomy or Spleen Trauma: No Other PMH: asthma, seziure, hysterectomy, abd infx req mult surg, RSV - Social History Smoking Status: Former smoker Constitutional: Initial Vital Signs Temperature (C) 36.9 C 09/18/17 10:43 Heart Rate 102 H 09/18/17 10:43 Respiratory Rate 20 09/18/17 10:43 Blood Pressure 164/87 H 09/18/17 10:43 O2 Sat (%) 99 09/18/17 10:43 O2 Delivery Mode Nasal Cannula,Heliox O2 (L/minute) 5 Allergies/Adverse Reactions: acetaminophen [From Tylenol] Allergy (Severe, Verified 09/18/17 10:42) Anaphylaxis ibuprofen Allergy (Verified 09/18/17 10:42) Home Medications: Medication Instructions Recorded Gabapentin [Neurontin 400 MG (*)] 800 mg PO BID 04/28/17 diphenhydrAMINE [Benadryl 50 MG 50 mg PO DAILY PRN 04/28/17 (*)] Albuterol [Proventil Inhaler HFA 2 puffs IH Q4H PRN #1 mdi 07/27/17 (*)] Budesonide/Formoterol 160/4.5 2 puffs IH BID #1 mdi 07/27/17 [Symbicort 160-4.5 Mcg Inh (*)] Montelukast Sodium [Singulair 10 10 mg PO DAILY@1800 #30 tab 07/27/17 mg (*)] guaiFENesin [Mucinex 600 MG (*)] 1,200 mg PO BID #20 tab.er 07/27/17 predniSONE 40 mg PO DAILY #10 tablet 07/27/17 Albuterol [Proventil Neb] 3 ml IH Q3HRS PRN 08/02/17 QUEtiapine FUMARATE [Seroquel 200 800 mg PO DAILY 08/02/17 mg (*)] Medical Decision Making - Diagnostics Imaging Results: Imaging Impressions Chest X-Ray 09/18/17 11:22 Impression: Nothing acute identified. Imaging: I viewed and interpreted images myself ED Course/Re-evaluation: CHIEF COMPLAINT: Respiratory distress HISTORY OF PRESENT ILLNESS: The patient is a 57 y/o female with a history of severe chronic asthma complaining of severe difficulty breathing worsening over the last 3 days. She has required intubations previously for asthma exacerbations and has been admitted here 6 times in the last 5 months for asthma exacerbations. She has been taking prednisone and antibiotics and nebs every 3 hours for the last 3 days with no control of symptoms. History limited as patient is minimally able to speak due to profound dyspnea. REVIEW OF SYSTEMS: A 10 point review of systems was performed and is negative with the exception of the elements mentioned in the history of present illness. PHYSICAL EXAM: HR, BP, O2 Sat, RR. Temp noted General Appearance: Alert, increased work of breathing with acute respiratory distress Head: Atraumatic without scalp tenderness or obvious injury Eyes: Pupils equal, round, reactive to light and accommodation, EOMI, no trauma , no injection. Ears: Clear bilaterally, no perforation, normal landmarks Nose: Atraumatic, no rhinorrhea, clear. Throat: There is no erythema or exudates, no lesions, normal tonsils, mucus membranes moist. Neck: Supple, nontender, no lymphadenopathy. Respiratory: Decreased air movement, tachypnea, stridorous upper airway noises and grunting, unable to speak, acute respiratory distress. Cardiovascular: Regular rate and rhythm, no murmurs, rubs, or gallops. Good capillary refill all extremities. Gastrointestinal: Abdomen is soft, nontender, non-distended, no masses, no rebound, no guarding, no peritoneal signs. Musculoskeletal: Normal active ROM of all extremities, atraumatic. Neurological: Alert, appropriate, and interactive. Nonfocal. Skin: No rashes, good turgor, no nodules on palpation. Past medical history: Asthma with frequent admissions and at least 4 intubations , seizure disorder, depression Past surgical history: Noncontributory Family history: Daughter of asthma exacerbation. Social history: History of cocaine abuse and smoking. Previously homeless. Prior medical records reviewed including admission 08/02/17 for asthma exacerbation. DIAGNOSTICS/PROCEDURES/CRITICAL CARE TIME: Chest x-ray: possible bronchitis Critical care time spent by , Dr. Cooley, exclusively with this patient was 45 minutes, exclusive of PA time and exclusive of procedures. The organ system at risk was pulmonary. Time spent in urgent assessment and serial assessments of the patient, consideration of interventions, respiratory consultation, and review of labs and imaging results. DIFFERENTIAL DIAGNOSIS: The differential diagnosis for the patient's shortness of breath and hypoxemia included but was not limited to acute severe asthma exacerbation, pneumonia, myocardial infarction, acute mountain sickness, high altitude pulmonary edema, congestive heart failure, and pulmonary embolus. MEDICAL DECISION MAKING: This is a 57 y/o female with history of severe asthma exacerbations requiring intubations who presents with a 2-3 day history of worsening dyspnea not controlled by home treatments. She is in acute respiratory distress with tachypnea,, decreased air movement and lower lung sounds, stridorous/grunting upper airway noises, and difficulty speaking due to dyspnea. Symptoms have not improved here with initial duo neb and O2. Plan for rapid interventions, RT involvement, and airway management as needed. Patient maintaining saturation on neb/NRB. 1115: RT paged. Plan for 10mg IV Decadron, Heliox, 2gm IV magnesium. Will work to avoid intubation for this patient if possible. Though she has tachypneic and tachycardia, she is not febrile, is normotensive, and does not meet sepsis criteria. Reassessed patient. Slight improvement in work of breathing. Will continue continuous heliox. RT remains at bedside. 1200: Reassessed patient. Symptoms have improved. Tachypnea has slowed somewhat and she is looking more comfortable. She is able to speak a few words in a row now. Will keep on continuous Heliox and continue to monitor closely. Spoke with hospitalist service. Dr. Li accepts admission. 1425: Consulted with Dr. Li. He was able to obtain further history during his assessment and has requested a CTA Chest due to history of left leg swelling for several days and concern for a PE. - Data Points Laboratory Results: Laboratory Results 09/18/17 11:19 09/18/17 11:19 09/18/17 09/18/17 09/18/17 11:19 11:19 11:19 WBC 6.71 10^3/uL 10^3/uL (3.80-9.50) RBC 4.07 10^6/uL L 10^6/uL (4.18-5.33) Hgb 12.4 g/dL L g/dL (12.6-16.3) Hct 36.7 % L % (38.0-47.0) MCV 90.2 fL fL (81.5-99.8) MCH 30.5 pg pg (27.9-34.1) MCHC 33.8 g/dL g/dL (32.4-36.7) RDW 13.1 % % (11.5-15.2) Plt Count 282 10^3/uL 10^3/uL (150-400) MPV 10.6 fL fL (8.7-11.7) Neut % (Auto) 50.2 % % (39.3-74.2) Lymph % (Auto) 38.2 % % (15.0-45.0) [place] % (Auto) 5.7 % % (4.5-13.0) Eos % (Auto) 5.1 % % (0.6-7.6) Baso % (Auto) 0.4 % % (0.3-1.7) Nucleat RBC Rel Count 0.0 % % (0.0-0.2) Absolute Neuts (auto) 3.37 10^3/uL 10^3/uL (1.70-6.50) Absolute Lymphs (auto) 2.56 10^3/uL 10^3/uL (1.00-3.00) Absolute Monos (auto) 0.38 10^3/uL 10^3/uL (0.30-0.80) Absolute Eos (auto) 0.34 10^3/uL 10^3/uL (0.03-0.40) Absolute Basos (auto) 0.03 10^3/uL 10^3/uL (0.02-0.10) Absolute Nucleated RBC 0.00 10^3/uL 10^3/uL (0-0.01) Immature Gran % 0.4 % % (0.0-1.1) Immature Gran # 0.03 10^3/uL 10^3/uL (0.00-0.10) PT 12.5 SEC SEC (12.0-15.0) INR 0.91 (0.83-1.16) APTT 28.5 SEC SEC (23.0-38.0) VBG Lactic Acid Sodium 141 mEq/L mEq/L (135-145) Potassium 4.5 mEq/L mEq/L (3.5-5.2) Chloride 107 mEq/L mEq/L (97-110) Carbon Dioxide 25 mEq/l mEq/l (22-31) Anion Gap 9 mEq/L mEq/L (8-16) BUN 12 mg/dL mg/dL (7-23) Creatinine 0.6 mg/dL mg/dL (0.6-1.0) Estimated GFR > 60 Glucose 80 mg/dL mg/dL (70-100) Calcium 9.6 mg/dL mg/dL (8.5-10.4) Total Bilirubin 0.5 mg/dL mg/dL (0.1-1.4) 09/18/17 11:19 WBC RBC Hgb Hct MCV MCH MCHC RDW Plt Count MPV Neut % (Auto) Lymph % (Auto) [place] % (Auto) Eos % (Auto) Baso % (Auto) Nucleat RBC Rel Count Absolute Neuts (auto) Absolute Lymphs (auto) Absolute Monos (auto) Absolute Eos (auto) Absolute Basos (auto) Absolute Nucleated RBC Immature Gran % Immature Gran # PT INR APTT VBG Lactic Acid 1.4 mmol/L mmol/L (0.7-2.1) Sodium Potassium Chloride Carbon Dioxide Anion Gap BUN Creatinine Estimated GFR Glucose Calcium Total Bilirubin Microbiology Results: MICROBIOLOGY 09/18/17 12:10 Nasal, Sinus - Swab Respiratory Panel (PCR) - Final No Organism Detected Medications Given: Discontinued Medications Albuterol (Proventil Neb) 15 ml IH CONT ONE Stop: 09/18/17 11:40 Last Admin: 09/18/17 11:30 Dose: 15 ml Albuterol/Ipratropium (Duoneb) 3 ml IH EDNOW ONE Stop: 09/18/17 10:49 Last Admin: 09/18/17 10:49 Dose: 3 ml Dexamethasone (Decadron Injection) 10 mg IVP EDNOW ONE Stop: 09/18/17 11:20 Last Admin: 09/18/17 11:29 Dose: 10 mg Magnesium Sulfate (Magnesium Sulf 2 Gm (Premix)) 50 mls @ 50 mls/hr IV EDNOW ONE Stop: 09/18/17 12:23 Last Admin: 09/18/17 11:29 Dose: 50 mls Departure - Departure Disposition: [facility] Inpatient Acute Clinical Impression: Acute asthma exacerbation Qualifiers: Asthma severity: severe Asthma persistence: persistent Qualified Code(s): J45.51 - Severe persistent asthma with (acute) exacerbation Condition: Fair Report Scribed for: Jerson Cooley Report Scribed by: Angelica Chowdhury Date of Report: 09/18/17 Time of Report: 11:14
[2017-09-18] MEDS ORDERED: DEXAMETHASONE 10 MG/ML VIAL IVP ONE (11:19)
[2017-09-18] MEDS ORDERED: MAGNESIUM SULF 2 GM/WATER 50 ML BAG IV ONE (11:22)
[2017-09-18] MEDS ORDERED: ALBUTEROL 3 ML DEYVIAL ONE (11:22)
[2017-09-18] MEDS ORDERED: MAGNESIUM SULF 2 GM/WATER 50 ML IV ONE (11:24)
[2017-09-18 11:32] LABS: PLATELET COUNT 282 10^3/uL (150-400)
[2017-09-18] MEDS ORDERED: ALBUTEROL 3 ML DEYVIAL IH ONE (11:39)
[2017-09-18 11:40] LABS: INR 0.91 (0.83-1.16); PROTIME(PATIENT) 12.5 SEC (12.0-15.0)
[2017-09-18] MEDS ORDERED: LIDOCAINE 1% 300 MG/30 ML SDV ONE (11:50)
[2017-09-18] MEDS ORDERED: ONDANSETRON 4 MG/2 ML VIAL IVP PRN (14:27)
[2017-09-18] MEDS ORDERED: ALBUTEROL 3 ML DEYVIAL IH PRN ×2 (14:27→14:35)
[2017-09-18] MEDS ORDERED: ONDANSETRON DISINTEGRATING 4 MG TAB PO PRN (14:27)
[2017-09-18] MEDS ORDERED: IOPAMIDOL (ISOVUE 370) 100 ML BTL IV ONE ×2 (14:29→14:51)
[2017-09-18] MEDS ORDERED: diphenhydrAMINE 50 MG CAP PO PRN (14:35)
[2017-09-18] MEDS ORDERED: ALBUTEROL 60 PUFFS/8 GM MDI IH PRN (14:35)
--- NOTE | 2017-09-18 15:01 | GHP ---
[f rep st] HISTORY AND PHYSICAL DATE OF ADMISSION: 09/18/2017 CHIEF COMPLAINT: Short of breath. HISTORY OF PRESENT ILLNESS: This is a 57-year-old female with severe asthma, history of multiple int ubations in the past, who presents with severe dyspnea. She has felt sick for she tells me a few day s. She has been coughing with some sputum. She has been using her nebulizers every few hours. She had some prednisone from her last hospitalization. She took this for a day or two, however has been out for 2 days now. She notes that she had a very swollen left leg about a week ago. It was red and painful. That has resolved. She was initially seen in the Emergency Department, almost emergently intubated. She was placed on continuous Heliox. She has improved somewhat. She is still quite shor t of breath when I am seeing her. However, she tells me she is slightly better. PAST MEDICAL/SURGICAL HISTORY: 1. Severe asthma. 2. Seizure disorder, on gabapentin. 3. . 4. Hysterectomy. MEDICATIONS: Please see medication reconciliation. ALLERGIES: Acetaminophen, ibuprofen. FAMILY HISTORY: Daughter of an asthma attack. SOCIAL HISTORY: She is currently not smoking. She does not drink. She used cocaine in the past. REVIEW OF SYSTEMS: She has been nauseous. However, otherwise, a 10-point review of systems is condu cted and is negative except per HPI. PHYSICAL EXAM: VITAL SIGNS: Blood pressure is 136/78, heart rate 104, respiration rate 22, saturati ng at 100% on 5% oxygen with Heliox. GENERAL: The patient is a pleasant female who looks quite dysp neic. She has increased work of breathing. HEENT: Shows to be normocephalic, atraumatic. CARDIOVA SCULAR: Regular rate and rhythm. No murmurs, rubs, or gallops. PULMONARY: Shows her to have signi ficantly increased work of breathing. She has very scant wheezes. She is not moving much air. ABDO MEN: Soft, nontender, nondistended. SKIN: Shows no rash. : No [place]. NEUROLOGIC: Shows her t o be alert and oriented x3. She is moving all extremities. PSYCHIATRIC: Normal mood and affect. LABS: Hemoglobin is 12.4, INR is 0.9, lactate is 1.4. Basic metabolic panel is normal. Creatinine 0.6. DATA: 1. I discussed with Dr. Cooley. 2. I personally viewed and interpreted chest x-ray. This shows nothing acute. IMPRESSION AND PLAN: This is a critically ill 57-year-old female with an asthma exacerbation. 1. Asthma exacerbation: She has received Decadron, magnesium, Heliox in the Emergency Department. She received continuous nebulizers. She is slightly improved. She continues to have a high risk of decompensation requiring intubation. Given her history of left leg swelling, we will check stat CT a ngiogram. We will order as well an ultrasound of her lower extremity. We will check a stat ABG. Sh e will be triaged to the ICU. We will continue Heliox for now. Solu-Medrol. Check procalcitonin. If this is elevated, we will add antibiotics. 2. Seizure disorder: Gabapentin. 3. Venous thromboembolism risk is moderate. I will give her Lovenox. 4. Respiratory failure: This is due to asthma exacerbation. As above, CT angio is pending. BILLING: I spent 45 minutes of critical care time in the management of this patient. She is critica lly ill due to severe respiratory failure. /[id number]/MODL
[2017-09-18] MEDS ORDERED: ALBUTEROL 3 ML DEYVIAL IH SCH (15:30)
--- NOTE | 2017-09-18 15:45 | PDMN ---
Medical Necessity Medical necessity: est los>2mn for asthma exacerbation, & resp failure, critically ill, w/slight improvement only w/decadron, magnesium, Heliox and continuous nebs in ED; high risk of decompensation requiring intubation; admit to ICU, for heliox, IV solumedrol, r/o DVT/PE r/t red, painful ,swollen LLE 1 wk ago; hx severe asthma, sz disorder; per order and H&P 09/18/17
[2017-09-18] MEDS: MAGNESIUM SULFATE IV SCH (15:55)
[2017-09-18] MEDS: 1/2 NS IV SCH (15:55)
[2017-09-18] MEDS: AZITHROMYCIN 250 MG TAB PO SCH (16:01)
[2017-09-18] MEDS: IPRATROPIUM/ALBUTEROL 3 ML DEYVIAL IH SCH ×2 (16:18→20:21)
[2017-09-18] MEDS: MONTELUKAST SODIUM 10 MG TAB PO SCH (18:42)
[2017-09-18] MEDS: methylPREDNISolone SOD SUCC 125 MG/2 ML VIAL IVP SCH ×2 (18:42→23:53)
--- NOTE | 2017-09-18 18:47 | GCON ---
[f rep st] CONSULTATION SPECIFICATIONS WRITER CONSULTATION REASON FOR ADMISSION: Acute asthma. HISTORY OF PRESENT ILLNESS: The patient is a very pleasant 57-year-old female with a past medical hi story of seizure disorder and severe asthma with numerous admissions and intubations at this hospital in the past. She presents after several days of worsening breathlessness. This has been associated with a cough productive of greenish sputum. She denies any hemoptysis. There is no chest pain, but she has admitted to some chest tightness. She was brought to the emergency room, placed on continuo us Heliox, and she is improve somewhat. Currently, she is still markedly breathless. REVIEW OF SYSTEMS: A 10-point review of systems was performed and is negative, with exception noted in the HPI. PAST MEDICAL HISTORY: Significant for asthma and seizure disorder. PAST SURGICAL HISTORY: , hysterectomy. FAMILY HISTORY: Noncontributory. ALLERGIES: Acetaminophen and ibuprofen. SOCIAL HISTORY: She states she is not currently smoking, and has not smoked since her last admission . She does not drink alcohol. She has used cocaine in the past. PHYSICAL EXAM: VITAL SIGNS: Blood pressure is 136/78, pulse is 104, respirations are 22, temperatur e 36.9, oxygen saturation is 100% on 5 L. GENERAL: She is a well-developed 57-year-old white female , who is in moderate respiratory distress. HEENT: Eyes PERRL. EOMI. Throat shows no erythema or t onsillar hypertrophy. NECK: Supple. No cervical adenopathy. HEART: Mildly tachycardic, but no mu rmurs are appreciated. LUNGS: Significantly diminished breath sounds and very poor air movement. T here is no wheeze. ABDOMEN: Soft, nontender. Bowel sounds are present in all 4 quadrants. EXTREMI TIES: No clubbing, cyanosis, or edema. LABORATORIES: White count 6.7, hemoglobin 12, hematocrit 36, platelet count 282, INR 0.91, sodium 14 1, potassium 4.5, chloride 107, CO2 25, BUN 12, creatinine 0.6, glucose is 80. Chest x-ray is clear. Results of CT angiogram of the chest is pending. IMPRESSION: 1. Acute asthma. 2. Probable acute bronchitis. 3. Seizure disorder. 4. Acute respiratory failure secondary to above. RECOMMENDATIONS: 1. Agree with admission to [facility]. 2. Agree with neb treatment with albuterol. 3. Agree with high-dose IV steroids. 4. We will add IV fluids with magnesium. 5. Heliox at the bedside. 6. DVT and PE prophylaxis. 7. Stress ulcer prophylaxis. 8. We will start oral antibiotics. /[id number]/MODL
[2017-09-18] MEDS: BUDESONIDE/FORMOTEROL 160/4.5 60 PUFFS/MDI IH SCH (20:21)
[2017-09-18] MEDS: GABAPENTIN 400 MG CAP PO SCH (21:08)
[2017-09-18] MEDS: guaiFENesin 600 MG TAB.ER PO SCH (21:08)
[2017-09-18] MEDS: QUEtiapine FUMARATE 200 MG TAB PO SCH (21:19)
[2017-09-19] MEDS: LORazepam 0.5 MG TAB PO PRN ×2 (00:13→20:49)
[2017-09-19] MEDS ORDERED: NS 500 ML IV ONE (00:42)
[2017-09-19] MEDS: 1/2 NS IV SCH (03:24)
[2017-09-19] MEDS: MAGNESIUM SULFATE IV SCH (03:24)
[2017-09-19] MEDS: methylPREDNISolone SOD SUCC 125 MG/2 ML VIAL IVP SCH ×2 (05:40→12:07)
[2017-09-19] MEDS: BUDESONIDE/FORMOTEROL 160/4.5 60 PUFFS/MDI IH SCH ×2 (05:51→20:45)
[2017-09-19] MEDS: IPRATROPIUM/ALBUTEROL 3 ML DEYVIAL IH SCH (05:51)
[2017-09-19 07:52] LABS: PLATELET COUNT 254 10^3/uL (150-400)
[2017-09-19] MEDS: GABAPENTIN 400 MG CAP PO SCH ×2 (08:40→20:31)
[2017-09-19] MEDS: guaiFENesin 600 MG TAB.ER PO SCH ×2 (08:41→20:31)
[2017-09-19] MEDS: AZITHROMYCIN 250 MG TAB PO SCH (08:41)
[2017-09-19] MEDS: ENOXAPARIN 40 MG/0.4 ML SYR SC SCH (08:41)
--- NOTE | 2017-09-19 08:46 | PDINTPN ---
Mobile Security Specialist Progress Note Assessment/Plan: Assessment: * Acute asthma-improved from yesterday but still markedly wheezy and breathless , especially with any exertion * Acute bronchitis-on antibiotics * Acute respiratory failure secondary to above * VT prophylaxis * Stress ulcer prophylaxis * Nutrition-adequate Plan: Continue frequent nebulized treatments Continue High-dose by steroids Out of bed to chair Begin ambulation Continue antibiotics Subjective: Feels better than yesterday but still markedly breathless especially with exertion. Objective: Vital Signs Temp Pulse Resp BP Pulse Ox 36.6 C 110 H 20 129/44 H 100 09/19/17 07:42 09/19/17 07:42 09/19/17 07:42 09/19/17 07:42 09/19/17 07:42 Laboratory Results 09/19/17 07:40 09/19/17 07:40 09/18/17 09/19/17 09/20/17 05:59 05:59 05:59 Intake Total 3190 Output Total 3600 800 Balance -410 -800 PT 12.5 SEC (12.0-15.0) 09/18/17 11:19 INR 0.91 (0.83-1.16) 09/18/17 11:19 Laboratory Results 09/19/17 07:40 09/19/17 07:40 09/19/17 09/18/17 07:40 20:00 Calcium 9.7 mg/dL mg/dL (8.5 - 10.4) Total Bilirubin 0.3 mg/dL mg/dL (0.1 - 1.4) AST 23 IU/L IU/L (14 - 46) ALT 28 IU/L IU/L (9 - 52) Alkaline Phosphatase 77 IU/L IU/L (38 - 126) Total Protein 7.0 g/dL g/dL (6.3 - 8.2) Albumin 4.5 g/dL g/dL (3.5 - 5.0) Urine Opiates Screen NEGATIVE ng/mL ng/mL Urine Barbiturates NEGATIVE ng/mL ng/mL Ur Phencyclidine Scrn NEGATIVE ng/mL ng/mL Ur Amphetamines Screen NEGATIVE ng/mL ng/mL U Benzodiazepines Scrn NEGATIVE ng/mL ng/mL Urine Cocaine Screen NEGATIVE ng/mL ng/mL U Marijuana (THC) Screen NEGATIVE ng/mL ng/mL - Time Spent With Patient Time Spent With Patient: 35 min of time spent with patient, over 1/2 involved with coordination of care or counseling. Case discussed with respiratory therapy and nursing Physical Exam - Physical Exam General Appearance: alert, mild distress EENT: PERRL/EOMI, normal ENT inspection Neck: non-tender, full range of motion, supple, normal inspection Respiratory: respiratory distress (Moderate), decreased breath sounds, wheezing (Diffuse) Cardiac/Chest: normal peripheral pulses, regular rate, rhythm Peripheral Pulses: 2+: carotid (R), carotid (L), femoral (R), femoral (L), dorsalis-pedis (R), dorsalis-pedis (L) Abdomen: normal bowel sounds, non-tender, soft Pelvic Exam: deferred Rectal: deferred Back: Normal inspection Lymphatic: no adenopathy Extremities: normal range of motion, non-tender, normal inspection, normal capillary refill Neuro/Psych: no motor/sensory deficits, alert, normal mood/affect, oriented x 3 ICD10 Worksheet Patient Problems: Problems Problem Status Onset Acute asthma exacerbation Acute Acute respiratory failure Acute Altered mental status Acute Asthma Acute Asthma attack Acute Pneumonia Acute Respiratory failure Acute Seizure Acute Submandibular gland swelling Acute
--- NOTE | 2017-09-19 12:29 | ASMTCASEMG ---
Living Arrangements What is your living Answers: Alone arrangement? Who do you live with? Type Of Residence What kind of residence do Answers: House you live in? Discharge Plan Comments Coordination Status Comments Notes: Patient is a 57yo single female with severe asthma who presented with severe dyspnea almost requiring emergent intubation in the ER. Patient was admitted for asthma exacerbation, seizure disorder, respiratory failure. No therapies have been ordered to date. D/C plan TBD. CM will follow. Date Signed: 09/19/2017 12:29 PM Electronically Signed By:Bhavya Rao LCSW
--- NOTE | 2017-09-19 13:37 | HOSPPROG ---
Hospitalist Progress Note Assessment/Plan: #Acute Hypoxic Respiratory Failure #Acute Asthma Exacerbation #Acute Bronchitis #Seizure disorder Plan: Cont nebs Cont Azithromycin Cont IV steroids, can likely decrease dosage soon -Lovenox for DVT proph Subjective: Feels slightly better. Still not at baseline. Objective: Vital Signs Temp Pulse Resp BP Pulse Ox 36.8 C 116 H 18 123/62 H 95 09/19/17 12:00 09/19/17 12:00 09/19/17 12:00 09/19/17 12:00 09/19/17 12:00 Laboratory Results 09/19/17 07:40 09/19/17 07:40 09/18/17 09/19/17 09/20/17 05:59 05:59 05:59 Intake Total 3190 Output Total 3600 1400 Balance -410 -1400 PT 12.5 SEC (12.0-15.0) 09/18/17 11:19 INR 0.91 (0.83-1.16) 09/18/17 11:19 - Physical Exam Constitutional: no apparent distress Eyes: PERRL, EOMI Ears, Nose, Mouth, Throat: moist mucous membranes, No dry mucous membranes Cardiovascular: tachycardia Respiratory: reduced air movement, expiratory wheeze Gastrointestinal: normoactive bowel sounds, soft, non-tender abdomen Skin: warm Musculoskeletal: full muscle strength Neurologic: AAOx3 Psychiatric: interacting appropriately, not anxious, not encephalopathic, thought process linear Lymph, Heme, Immunologic: No petechiae ICD10 Worksheet Patient Problems: Problems Problem Status Onset Acute asthma exacerbation Acute Acute respiratory failure Acute Altered mental status Acute Asthma Acute Asthma attack Acute Pneumonia Acute Respiratory failure Acute Seizure Acute Submandibular gland swelling Acute
[2017-09-19] MEDS: ALBUTEROL 3 ML DEYVIAL IH PRN (14:54)
[2017-09-19] MEDS: MONTELUKAST SODIUM 10 MG TAB PO SCH (18:35)
[2017-09-19] MEDS: QUEtiapine FUMARATE 200 MG TAB PO SCH (20:30)
[2017-09-19] MEDS: methylPREDNISolone SOD SUCC 40 MG/ML VIAL IVP SCH (20:31)
[2017-09-20 05:40] LABS: PLATELET COUNT 253 10^3/uL (150-400)
--- NOTE | 2017-09-20 09:02 | PDINTPN ---
Ladies' Hat Trimmer Progress Note Assessment/Plan: Assessment: * Acute asthma-markedly better * Acute bronchitis-on antibiotics * Acute respiratory failure secondary to above * VT prophylaxis * Stress ulcer prophylaxis * Nutrition-adequate Plan: Continue frequent nebulized treatments Continue High-dose by steroids. Will change to p.o. Prednisone Out of bed to chair Begin ambulation Continue antibiotics Transfer to medical surgical floor Subjective: Looks and feels markedly improved. Less breathless. Objective: Vital Signs Temp Pulse Resp BP Pulse Ox 36.9 C 98 15 130/79 H 96 09/20/17 07:32 09/20/17 07:32 09/20/17 07:32 09/20/17 07:32 09/20/17 07:32 Laboratory Results 09/20/17 05:12 09/19/17 07:40 09/19/17 09/20/17 09/21/17 05:59 05:59 05:59 Intake Total 3190 1849 Output Total 3600 2450 Balance -410 -601 PT 12.5 SEC (12.0-15.0) 09/18/17 11:19 INR 0.91 (0.83-1.16) 09/18/17 11:19 - Time Spent With Patient Time Spent With Patient: 25 min of time spent with patient, over 1/2 involved with coordination of care or counseling Physical Exam - Physical Exam General Appearance: WD/WN, alert, no apparent distress EENT: PERRL/EOMI, normal ENT inspection, pharynx normal, TMs normal Respiratory: decreased breath sounds, No wheezing Cardiac/Chest: normal peripheral pulses, regular rate, rhythm Peripheral Pulses: 2+: carotid (R), carotid (L), femoral (R), femoral (L), dorsalis-pedis (R), dorsalis-pedis (L) Abdomen: normal bowel sounds, non-tender, soft Pelvic Exam: deferred Rectal: deferred Skin: normal color, warm/dry Extremities: normal range of motion, non-tender, normal inspection, normal capillary refill Neuro/Psych: no motor/sensory deficits, alert, normal mood/affect, oriented x 3 ICD10 Worksheet Patient Problems: Problems Problem Status Onset Acute asthma exacerbation Acute Acute respiratory failure Acute Altered mental status Acute Asthma Acute Asthma attack Acute Pneumonia Acute Respiratory failure Acute Seizure Acute Submandibular gland swelling Acute
[2017-09-20] MEDS: guaiFENesin 600 MG TAB.ER PO SCH ×2 (09:19→20:19)
[2017-09-20] MEDS: GABAPENTIN 400 MG CAP PO SCH ×2 (09:20→20:20)
[2017-09-20] MEDS: LORazepam 0.5 MG TAB PO PRN (09:20)
[2017-09-20] MEDS: ENOXAPARIN 40 MG/0.4 ML SYR SC SCH (09:21)
[2017-09-20] MEDS: AZITHROMYCIN 250 MG TAB PO SCH (09:21)
[2017-09-20] MEDS: predniSONE 20 MG TAB PO SCH (09:24)
[2017-09-20] MEDS: BUDESONIDE/FORMOTEROL 160/4.5 60 PUFFS/MDI IH SCH ×2 (09:30→20:51)
[2017-09-20] MEDS: methylPREDNISolone SOD SUCC 40 MG/ML VIAL IVP SCH (09:37)
--- NOTE | 2017-09-20 10:42 | HOSPPROG ---
Hospitalist Progress Note Assessment/Plan: #Acute Hypoxic Respiratory Failure #Acute Asthma Exacerbation #Acute Bronchitis #Seizure disorder Plan: Cont nebs Cont Azithromycin change steroids to PO PT transfer out of the ICU to [facility] floor Lovenox for DVT proph Subjective: doing better. still sob with activity. some tachycardia Objective: Vital Signs Temp Pulse Resp BP Pulse Ox 37.1 C 102 H 18 150/91 H 96 09/20/17 10:24 09/20/17 10:24 09/20/17 10:24 09/20/17 10:24 09/20/17 10:24 Laboratory Results 09/20/17 05:12 09/19/17 07:40 09/19/17 09/20/17 09/21/17 05:59 05:59 05:59 Intake Total 3190 1849 Output Total 3600 2450 Balance -410 -601 PT 12.5 SEC (12.0-15.0) 09/18/17 11:19 INR 0.91 (0.83-1.16) 09/18/17 11:19 - Physical Exam Constitutional: no apparent distress Eyes: PERRL, EOMI Ears, Nose, Mouth, Throat: moist mucous membranes, hearing normal Cardiovascular: regular rate and rhythym, No edema Respiratory: reduced air movement, expiratory wheeze Gastrointestinal: normoactive bowel sounds, soft, non-tender abdomen Skin: warm Musculoskeletal: full muscle strength Neurologic: AAOx3 Psychiatric: interacting appropriately, not anxious, not encephalopathic Lymph, Heme, Immunologic: No petechiae ICD10 Worksheet Patient Problems: Problems Problem Status Onset Acute asthma exacerbation Acute Acute respiratory failure Acute Altered mental status Acute Asthma Acute Asthma attack Acute Pneumonia Acute Respiratory failure Acute Seizure Acute Submandibular gland swelling Acute
[2017-09-20] MEDS: MONTELUKAST SODIUM 10 MG TAB PO SCH (17:29)
[2017-09-20] MEDS: ALBUTEROL 3 ML DEYVIAL IH PRN (17:48)
[2017-09-20] MEDS: QUEtiapine FUMARATE 200 MG TAB PO SCH (20:20)
[2017-09-21] MEDS: BUDESONIDE/FORMOTEROL 160/4.5 60 PUFFS/MDI IH SCH ×2 (08:02→22:45)
[2017-09-21] MEDS: guaiFENesin 600 MG TAB.ER PO SCH ×2 (09:11→20:30)
[2017-09-21] MEDS: AZITHROMYCIN 250 MG TAB PO SCH (09:12)
[2017-09-21] MEDS: GABAPENTIN 400 MG CAP PO SCH ×2 (09:12→20:30)
[2017-09-21] MEDS: ENOXAPARIN 40 MG/0.4 ML SYR SC SCH (09:12)
[2017-09-21] MEDS: predniSONE 20 MG TAB PO SCH (09:12)
--- NOTE | 2017-09-21 11:01 | HOSPPROG ---
Hospitalist Progress Note Assessment/Plan: #Acute Hypoxic Respiratory Failure #Acute Asthma Exacerbation #Acute Bronchitis #Seizure disorder Plan: She is still very symptomatic, will keep overnight Cont nebs, she has been getting PRN only, will schedule Cont Azithromycin Cont Prednisone 40mg daily Per her request, Seroquel will be stopped. She reports she is not taking this at home as it causes hallucinations. Will need to be removed from her home med list. PT Lovenox for DVT proph Subjective: still with dyspnea worse with exertion. + cough. + SOB. requesting we stop Seroquel Objective: Vital Signs Temp Pulse Resp BP Pulse Ox 36.9 C 99 19 133/76 H 97 09/21/17 08:00 09/21/17 08:00 09/21/17 08:00 09/21/17 08:00 09/21/17 08:00 Laboratory Results 09/20/17 05:12 09/19/17 07:40 09/20/17 09/21/17 09/22/17 05:59 05:59 05:59 Intake Total 1849 1150 Output Total 2450 Balance -601 1150 PT 12.5 SEC (12.0-15.0) 09/18/17 11:19 INR 0.91 (0.83-1.16) 09/18/17 11:19 - Physical Exam Constitutional: no apparent distress Eyes: PERRL, EOMI Ears, Nose, Mouth, Throat: moist mucous membranes, hearing normal Cardiovascular: regular rate and rhythym, No JVD, No edema Respiratory: reduced air movement, expiratory wheeze Gastrointestinal: normoactive bowel sounds, soft, non-tender abdomen Skin: warm Musculoskeletal: full muscle strength Neurologic: AAOx3 Psychiatric: interacting appropriately, not anxious, not encephalopathic Lymph, Heme, Immunologic: No petechiae ICD10 Worksheet Patient Problems: Problems Problem Status Onset Acute asthma exacerbation Acute Acute respiratory failure Acute Altered mental status Acute Asthma Acute Asthma attack Acute Pneumonia Acute Respiratory failure Acute Seizure Acute Submandibular gland swelling Acute
--- NOTE | 2017-09-21 13:17 | PDINTPN ---
Automation Analyst Progress Note Assessment/Plan: Assessment: * Acute asthma-better, however becomes markedly breathless any form of exertion * Acute bronchitis-on antibiotics * Acute respiratory failure secondary to above * VT prophylaxis * Stress ulcer prophylaxis * Nutrition-adequate Plan: Continue frequent nebulized treatments Continue High-dose by steroids. Will change to p.o. Prednisone Out of bed to chair Begin ambulation Continue antibiotics Subjective: Resting comfortably. States she becomes markedly breathless and tachycardic with any form of exertion. Objective: Vital Signs Temp Pulse Resp BP Pulse Ox 37.1 C 114 H 20 158/95 H 100 09/21/17 12:05 09/21/17 12:05 09/21/17 12:05 09/21/17 12:05 09/21/17 12:05 Laboratory Results 09/20/17 05:12 09/19/17 07:40 09/20/17 09/21/17 09/22/17 05:59 05:59 05:59 Intake Total 1849 1150 Output Total 2450 Balance -601 1150 PT 12.5 SEC (12.0-15.0) 09/18/17 11:19 INR 0.91 (0.83-1.16) 09/18/17 11:19 - Time Spent With Patient Time Spent With Patient: 25 min of time spent with patient, over 1/2 involved with coordination of care or counseling Physical Exam - Physical Exam General Appearance: alert, mild distress EENT: PERRL/EOMI, normal ENT inspection, pharynx normal, TMs normal Neck: non-tender, full range of motion, supple, normal inspection Respiratory: respiratory distress (Mild), decreased breath sounds, wheezing Cardiac/Chest: normal peripheral pulses, regular rate, rhythm, tachycardia Peripheral Pulses: 2+: carotid (R), carotid (L), femoral (R), femoral (L), dorsalis-pedis (R), dorsalis-pedis (L) Abdomen: normal bowel sounds, non-tender, soft Pelvic Exam: deferred Rectal: deferred Skin: normal color, warm/dry Extremities: normal range of motion, non-tender, normal inspection, normal capillary refill Neuro/Psych: no motor/sensory deficits, alert, normal mood/affect, oriented x 3 ICD10 Worksheet Patient Problems: Problems Problem Status Onset Acute asthma exacerbation Acute Acute respiratory failure Acute Altered mental status Acute Asthma Acute Asthma attack Acute Pneumonia Acute Respiratory failure Acute Seizure Acute Submandibular gland swelling Acute
[2017-09-21] MEDS: ALBUTEROL 3 ML DEYVIAL IH SCH ×3 (13:27→22:43)
[2017-09-21] MEDS ORDERED: GABAPENTIN 400 MG CAP PO ONE (15:45)
--- NOTE | 2017-09-21 17:46 | ASMTCMCOM ---
CM Note CM Note Notes: Pt admitted for asthma exacerbation. Pt is formerly homeless and per previous case mgmt reports, currently has an apt on [address] in [place] through the transitional care program. Pt gets medical care at the [facility], part of the [facility] but located at [facility]. Called [facility] to set up appt but they didn't have one for over a week and were going to have [facility] call case mgmnt to set up a closer appt. No one has called yet. If pt DC's this weekend, she will need to be encourage to set up her own appt. Pt may have other DC neds but these are unclear. CM to follow. Date Signed: 09/21/2017 05:45 PM Electronically Signed By:Bonita Ridley LCSW
[2017-09-21] MEDS: MONTELUKAST SODIUM 10 MG TAB PO SCH (17:59)
[2017-09-22] MEDS: ALBUTEROL 3 ML DEYVIAL IH SCH ×2 (05:05→09:42)
[2017-09-22] MEDS: LORazepam 0.5 MG TAB PO PRN (05:52)
[2017-09-22] MEDS: GABAPENTIN 400 MG CAP PO SCH (07:52)
[2017-09-22] MEDS: guaiFENesin 600 MG TAB.ER PO SCH (07:53)
[2017-09-22] MEDS: predniSONE 20 MG TAB PO SCH (07:53)
[2017-09-22] MEDS: ENOXAPARIN 40 MG/0.4 ML SYR SC SCH (07:53)
[2017-09-22] MEDS: AZITHROMYCIN 250 MG TAB PO SCH (07:53)
[2017-09-22] MEDS: BUDESONIDE/FORMOTEROL 160/4.5 60 PUFFS/MDI IH SCH (09:42)
--- NOTE | 2017-09-22 12:05 | PDDCSUM ---
Discharge Summary Discharge Summary: 57 yo with hx of Asthma admitted for acute hypoxic resp failure and asthama exacerbation. Now doing better. was treated with steroids and Azithromycin. Now ready for discharge. Will continue a steroid taper. ON RA DDX: #Acute Hypoxic Respiratory Failure #Acute Asthma Exacerbation #Acute Bronchitis #Seizure disorder f/u: with PCP in 2 days, keep appointment that is already scheduled Exam: NAD AAOX3 RRR EXP WHEEZE, NO INCREASED WORK OF BREATHING NO LE EDEMA MEDS: SEE MED REC: PREDNISONE TAPER TOTAL TIME SPENT ON D/C IS 35 MINS
[2017-09-22 12:22] VITALS: BP 143/79; PULSE 110; RESP 16; TEMP 98.3; O2SAT 95
--- NOTE | 2017-09-22 13:41 | ASDISCHSUM ---
Discharge Information Plan Status:Home with No Needs Medically Cleared to Leave:09/22/2017 Discharge Date:09/22/2017 CM D/C Disposition:Home, Routine, Self-Care ADT D/C Disposition:Home, Routine, Self-Care Projected Discharge Date:09/22/2017 Transportation at D/C:Bus Ticket Discharge Delay Reason: Follow-Up Date:09/22/2017 Discharge Slot: Final Diagnosis: Placement Information Patient Contact Information Contact Name:NETTA Relationship:Other Address: Work Phone: City: [facility] Phone: State/Zip Code: Email: Financial Information Financial Class:Medicaid Primary Plan Desc[place] Primary Plan Number:[id number] Secondary Plan Desc: Secondary Plan Number: Assessment Information [facility] Initial CM Assessment Living Arrangements What is your living Answers: Alone arrangement? Who do you live with? Type Of Residence What kind of residence do Answers: House you live in? Discharge Plan Comments Coordination Status Comments Notes: Patient is a 57yo single female with severe asthma who presented with severe dyspnea almost requiring emergent intubation in the ER. Patient was admitted for asthma exacerbation, seizure disorder, respiratory failure. No therapies have been ordered to date. D/C plan TBD. CM will follow. Date Signed: 09/19/2017 12:29 PM Electronically Signed By:Bhavya Rao LCSW [facility] CM Progress Note CM Note CM Note Notes: Pt admitted for asthma exacerbation. Pt is formerly homeless and per previous case mgmt reports, currently has an apt on [address] in [place] through the transitional care program. Pt gets medical care at the [facility], part of the [facility] but located at [facility]. Called [facility] to set up appt but they didn't have one for over a week and were going to have [facility] call case mgmnt to set up a closer appt. No one has called yet. If pt DC's this weekend, she will need to be encourage to set up her own appt. Pt may have other DC neds but these are unclear. CM to follow. Date Signed: 09/21/2017 05:45 PM Electronically Signed By:Bonita Ridley LCSW Case Management Discharge Plan Note Case Management Discharge Discharge Order Complete? Answers: Yes Patient to Obtain Answers: Independently Medications Transportation Arranged Answers: Bus Tokens Discharge Comments Notes: Pt discharged home today. Bus voucher provided. Pt encouraged to contact either [facility] or [facility] for f/u. Date Signed: 09/22/2017 01:39 PM Electronically Signed By:HERRERA Galan Intervention Information
--- NOTE | 2017-09-22 13:43 | ASMTLACE ---
LACE Length of stay for Answers: 4-6 days current admission Acuity / Level of Answers: Yes Care: Did the patient have an inpatient admission? Comorbidities - select Answers: Chronic pulmonary disease all that apply Other Notes: seizure d/o # of Emergency department Answers: 5-8 visits in the last 6 months Score: 14 Date Signed: 09/22/2017 01:43 PM Electronically Signed By:HERRERA Galan
== END 2017-09-22 13:44 | disposition home or self-care (01) | DRG 202 ==
LOC: OBSVTOIN 13:35 → F2N 15:04 → F1N 09-20 10:10
PROVIDERS: ADMIT Student in an Organized Health Care Education/Training Program; ATTEND Family Medicine
DX: J45.901 Unspecified asthma with (acute) exacerbation (principal); J96.01 Acute respiratory failure with hypoxia; J20.9 Acute bronchitis, unspecified; G40.909 Epilepsy, unspecified, not intractable, without status epilepticus; F32.9 Major depressive disorder, single episode, unspecified
CPT/HCPCS: 80307; 96374; G0480; J1100; J1650; J2920; J2930; J3475; J7512; J7613; Q9967

== ENCOUNTER 2017-11-16 20:12 | Inpatient (IN) | payer MEDICAID ==
[2017-11-16] MEDS ORDERED: ALBUTEROL 3 ML DEYVIAL ONE ×2 (20:27→21:42)
[2017-11-16] MEDS ORDERED: MAGNESIUM SULF 2 GM/WATER 50 ML IV ONE (20:29)
[2017-11-16] MEDS ORDERED: ALBUTEROL 3 ML DEYVIAL IH ONE (20:29)
[2017-11-16] MEDS ORDERED: methylPREDNISolone SOD SUCC 125 MG/2 ML VIAL IVP ONE (20:29)
[2017-11-16] MEDS ORDERED: IPRATROPIUM/ALBUTEROL 3 ML DEYVIAL IH ONE (20:29)
[2017-11-16 20:53] LABS: PLATELET COUNT 233 10^3/uL (150-400)
--- NOTE | 2017-11-16 20:53 | CPEKG ---
Heart Rate: 82 RR Interval: 732 P-R Interval: 144 QRSD Interval: 96 QT Interval: 392 QTC Interval: 458 P [place]: 69 QRS [place]: 40 T Wave [place]: 53 EKG Severity - BORDERLINE ECG - EKG Impression: SINUS RHYTHM EKG Impression: BORDERLINE T ABNORMALITIES, ANTERIOR LEADS Electronically Signed By: Francisco Rodgers 16-Nov-2017 22:46:57
--- NOTE | 2017-11-16 21:27 | EDPHY ---
H & P Time Seen by Provider: 11/16/17 20:29 HPI/ROS: HPI Asthma exacerbation. 57-year-old female by private vehicle. This patient has a history of severe asthma with multiple emergency department and hospital admissions as well as intubations secondary to this. She states that for the last several days she has had a cough and worsening shortness of breath. She reports that today she was getting no response from her nebulized albuterol. Her medications include albuterol, Symbicort and Singulair. She reports that she was intubated 2 weeks ago [facility] for an asthma exacerbation. ROS: Constitutional: No fever, no chills. No weakness. Eyes: No discharge. No changes in vision. ENT: No sore throat. No nasal congestion or rhinorrhea. Respiratory: As above. Cardiac: No chest pain, no palpitations. Gastrointestinal: No abdominal pain, no vomiting, no diarrhea. Genitourinary: No hematuria. No dysuria or increased frequency with urination. Musculoskeletal: No back pain. No neck pain. No myalgias or arthralgias. Skin: No rashes. Neurological: No headache. No focal weakness or altered sensation. Past medical history: Severe asthma, seizure disorder, , hysterectomy. Social history: She has used cocaine in the past. She currently does not smoke. Denies alcohol. She reports that both her mother and her daughter from asthma exacerbations. Physical Exam: General Appearance: Alert, markedly dyspneic, diaphoretic and wheezing. This patient is responding to questions yes or no short responses. This patient generally appears well-hydrated and well-nourished. Respiratory: Intermittent dry hacking cough. The patient is retracting, she is markedly tachypneic between 35 and 40, she is diaphoretic with diffuse scant wheezing throughout and poor air movement. Cardiovascular: Regular rate and rhythm. Borderline tachycardia No murmur. Appreciated. Gastrointestinal: Abdomen is soft and nontender, no masses, bowel sounds normal. No focal tenderness at McBurney's point. No Rivers sign. Neurological: Motor sensory function is grossly intact. Cranial nerves are normal. Skin: Warm and dry, no rashes. Musculoskeletal: Neck is supple and nontender. Extremities are symmetrical. All joints range without pain or impingement. Psychiatric: No agitation. No depression. Database: EKG: EKG time is 8:51 p.m.; EKG shows a narrow complex normal sinus rhythm with a ventricular rate of 82. The NE, QRS, QT intervals are within normal limits. Borderline T-wave abnormalities in the anterior leads. There are no ST-T wave changes indicative of ischemic or injury pattern. No evidence of right heart strain. Interpreted by me. Imaging: Chest x-ray AP portable; the cardiac mediastinal silhouette is unremarkable. No evidence of infiltrate or pneumothorax. Bronchitis. No other acute cardiopulmonary disease process noted. Interpreted by me. Procedures: Emergency department course: Vital signs reviewed. Pulse oximetry 100% currently on nebulized albuterol. Patient afebrile. Tachypneic as above. Vital signs normal otherwise. She was started on albuterol/Atrovent nebulizers 3 given [id number]. This will be followed by 15 mg continuous nebulizer. She was given 2 g of IV magnesium and 125 mg of IV Solu-Medrol. She looks in marked distress and is diaphoretic but her pulse oximetry is 100% on the neb. She was moved from room 12 to room 2. Advanced airway equipment to the bedside. 9:30 p.m., she is feeling better. Pulse oximetry currently on room air is 98% .. She still has an intermittent nonproductive cough. Poor air movement with scant wheezing throughout. She tells me that BiPAP works well for her. She will be started on a continuous nebulizer at 15 mg with BiPAP. Hospitalist paged. 9:45 p.m., discussed case with hospitalist. Patient admitted under the care of Dr. Webb to the step-down unit. She was admitted in guarded but improved condition. Differential Diagnosis: The differential diagnosis on this patient includes but is not limited to asthma exacerbation, bronchitis. This represents a partial list of diagnoses considered. These considerations are based on history, physical exam, past history, reassessment and diagnostic testing. Smoking Status: Former smoker Constitutional: Initial Vital Signs Temperature (C) 36.6 C 11/16/17 20:26 Heart Rate 82 11/16/17 20:26 Respiratory Rate 30 H 11/16/17 20:26 Blood Pressure 126/77 H 11/16/17 20:26 O2 Sat (%) 100 11/16/17 20:26 O2 Delivery Mode Non-Rebreather Mask O2 (L/minute) 8 Allergies/Adverse Reactions: acetaminophen [From Tylenol] Allergy (Severe, Verified 09/18/17 10:42) Anaphylaxis ibuprofen Allergy (Verified 09/18/17 10:42) Home Medications: Medication Instructions Recorded Gabapentin [Neurontin 400 MG (*)] 800 mg PO BID 04/28/17 diphenhydrAMINE [Benadryl 50 MG 50 mg PO DAILY PRN 04/28/17 (*)] Albuterol [Proventil Inhaler HFA 2 puffs IH Q4H PRN #1 mdi 07/27/17 (*)] Budesonide/Formoterol 160/4.5 2 puffs IH BID #1 mdi 07/27/17 [Symbicort 160-4.5 Mcg Inh (*)] Montelukast Sodium [Singulair 10 10 mg PO DAILY@1800 #30 tab 07/27/17 mg (*)] guaiFENesin [Mucinex 600 MG (*)] 1,200 mg PO BID #20 tab.er 07/27/17 Albuterol [Proventil Neb] 3 ml IH Q3HRS PRN 08/02/17 QUEtiapine FUMARATE [Seroquel 200 800 mg PO HS 08/02/17 mg (*)] predniSONE 40 mg PO DAILY #6 tablet 09/22/17 Medical Decision Making - Data Points Laboratory Results: Laboratory Results 11/16/17 20:48 11/16/17 20:48 11/16/17 11/16/17 20:48 20:48 WBC 7.45 10^3/uL 10^3/uL (3.80-9.50) RBC 4.03 10^6/uL L 10^6/uL (4.18-5.33) Hgb 11.9 g/dL L g/dL (12.6-16.3) Hct 35.7 % L % (38.0-47.0) MCV 88.6 fL fL (81.5-99.8) MCH 29.5 pg pg (27.9-34.1) MCHC 33.3 g/dL g/dL (32.4-36.7) RDW 13.6 % % (11.5-15.2) Plt Count 233 10^3/uL 10^3/uL (150-400) MPV 10.7 fL fL (8.7-11.7) Neut % (Auto) 50.5 % % (39.3-74.2) Lymph % (Auto) 40.1 % % (15.0-45.0) [place] % (Auto) 5.6 % % (4.5-13.0) Eos % (Auto) 3.4 % % (0.6-7.6) Baso % (Auto) 0.3 % % (0.3-1.7) Nucleat RBC Rel Count 0.0 % % (0.0-0.2) Absolute Neuts (auto) 3.76 10^3/uL 10^3/uL (1.70-6.50) Absolute Lymphs (auto) 2.99 10^3/uL 10^3/uL (1.00-3.00) Absolute Monos (auto) 0.42 10^3/uL 10^3/uL (0.30-0.80) Absolute Eos (auto) 0.25 10^3/uL 10^3/uL (0.03-0.40) Absolute Basos (auto) 0.02 10^3/uL 10^3/uL (0.02-0.10) Absolute Nucleated RBC 0.00 10^3/uL 10^3/uL (0-0.01) Immature Gran % 0.1 % % (0.0-1.1) Immature Gran # 0.01 10^3/uL 10^3/uL (0.00-0.10) Sodium 144 mEq/L mEq/L (135-145) Potassium 3.3 mEq/L L mEq/L (3.5-5.2) Chloride 107 mEq/L mEq/L (97-110) Carbon Dioxide 25 mEq/l mEq/l (22-31) Anion Gap 12 mEq/L mEq/L (8-16) BUN 10 mg/dL mg/dL (7-23) Creatinine 0.8 mg/dL mg/dL (0.6-1.0) Estimated GFR > 60 Glucose 127 mg/dL H mg/dL (70-100) Calcium 9.4 mg/dL mg/dL (8.5-10.4) Troponin I < 0.012 ng/mL ng/mL (0.000-0.034) NT-Pro-B Natriuret Pep 69 pg/mL pg/mL (0-125) Medications Given: Magnesium Sulfate (Magnesium Sulf 2 Gm (Premix)) 50 mls @ 50 mls/hr IV EDNOW ONE Stop: 11/16/17 21:28 Last Admin: 11/16/17 20:32 Dose: 50 mls Discontinued Medications Albuterol (Proventil Neb) 9 ml IH EDNOW ONE Stop: 11/16/17 20:30 Last Admin: 11/16/17 20:30 Dose: 9 ml Albuterol/Ipratropium (Duoneb) 9 ml IH EDNOW ONE Stop: 11/16/17 20:30 Last Admin: 11/16/17 20:32 Dose: 9 ml Methylprednisolone Sodium Succinate (Solu-Medrol) 125 mg IVP EDNOW ONE Stop: 11/16/17 20:30 Last Admin: 11/16/17 20:32 Dose: 125 mg Departure - Departure Disposition: [facility] Inpatient Acute Clinical Impression: Asthma exacerbation, Bronchitis Referrals: Yris Gonzales NP [Primary Care Provider] - As per Instructions
[2017-11-16] MEDS ORDERED: ONDANSETRON 4 MG/2 ML VIAL IVP PRN (22:20)
[2017-11-16] MEDS ORDERED: ONDANSETRON DISINTEGRATING 4 MG TAB PO PRN (22:20)
[2017-11-16] MEDS: ALBUTEROL 3 ML DEYVIAL IH PRN (23:08)
--- NOTE | 2017-11-16 23:10 | PDGENHP ---
History and Physical - Chief Complaint SOB - History of Present Illness 57 yo F w/ asthma and seizure d/o p/w SOB. Patient has severe asthma and frequent exacerbations. She was discharged from [facility] 2 weeks ago after severe exacerbation requiring intubation. She says she was feeling fairly well at time of discharge but not back to baseline. Then, 3 days prior to presentation here, she developed URI symptoms (fever, congestion, cough, sore throat). Over the last 3 days her SOB has become severe and not responsive to her home albuterol nebs. In addition, she finished her prednisone taper yesterday, which likely compounded her issues. History Information - Allergies/Home Medication List Allergies/Adverse Reactions: acetaminophen [From Tylenol] Allergy (Severe, Verified 09/18/17 10:42) Anaphylaxis ibuprofen Allergy (Verified 09/18/17 10:42) Home Medications: Gabapentin [Neurontin 400 MG (*)] 800 mg PO BID 04/28/17 [Last Taken 11/15/17] diphenhydrAMINE [Benadryl 50 MG (*)] 50 mg PO DAILY PRN 04/28/17 [Last Taken ] Albuterol [Proventil Neb] 3 ml IH Q3HRS PRN 08/02/17 [Last Taken 09/18/17] Flovent Unk Str 11/16/17 [Last Taken 11/15/17] Quetiapine Fumarate [Seroquel] 400 mg PO HS 11/16/17 [Last Taken 11/15/17] I have personally reviewed and updated: family history, medical history - Past Medical History asthma Additional medical history: Asthma - 4 previous intubations, frequent hospitalizations. Depression. H/O seizure. Cocaine abuse - Surgical History Reports: no pertinent surgical hx - Family History Positive for: cancer Additional family history: Daughter of asthma exacerbation - Social History Smoking Status: Current some day smoker Additional social history: Just got an apartment, was previously homeless. Quit smoking 3 weeks ago. H/O cocaine use, reports to be sober. Review of Systems Review of Systems: ROS: 10pt was reviewed & negative except for what was stated in HPI & below Physical Exam Physical Exam: Temp Pulse Resp BP Pulse Ox 37.0 C 107 H 27 H 123/55 H 99 11/16/17 20:44 11/16/17 22:49 11/16/17 22:49 11/16/17 22:49 11/16/17 22:49 O2 (L/minute) 8 FIO2 (%) 40 Constitutional: appears nourished, uncomfortable Eyes: PERRL, EOMI Ears, Nose, Mouth, Throat: moist mucous membranes, no oral mucosal ulcers Cardiovascular: no murmur, rub, or gallop, tachycardia Respiratory: reduced air movement, expiratory wheeze, respiratory distress Gastrointestinal: normoactive bowel sounds, soft, non-tender abdomen Skin: warm, normal color Musculoskeletal: full muscle strength, no muscle tenderness Neurologic: AAOx3, CN II-XII Intact Psychiatric: interacting appropriately, not anxious Lab Data & Imaging Review 11/16/17 20:48 11/16/17 20:48 WBC 7.45 10^3/uL (3.80-9.50) 11/16/17 20:48 RBC 4.03 10^6/uL (4.18-5.33) L 11/16/17 20:48 Hgb 11.9 g/dL (12.6-16.3) L 11/16/17 20:48 Hct 35.7 % (38.0-47.0) L 11/16/17 20:48 MCV 88.6 fL (81.5-99.8) 11/16/17 20:48 MCH 29.5 pg (27.9-34.1) 11/16/17 20:48 MCHC 33.3 g/dL (32.4-36.7) 11/16/17 20:48 RDW 13.6 % (11.5-15.2) 11/16/17 20:48 Plt Count 233 10^3/uL (150-400) 11/16/17 20:48 MPV 10.7 fL (8.7-11.7) 11/16/17 20:48 Neut % (Auto) 50.5 % (39.3-74.2) 11/16/17 20:48 Lymph % (Auto) 40.1 % (15.0-45.0) 11/16/17 20:48 [place] % (Auto) 5.6 % (4.5-13.0) 11/16/17 20:48 Eos % (Auto) 3.4 % (0.6-7.6) 11/16/17 20:48 Baso % (Auto) 0.3 % (0.3-1.7) 11/16/17 20:48 Nucleat RBC Rel Count 0.0 % (0.0-0.2) 11/16/17 20:48 Absolute Neuts (auto) 3.76 10^3/uL (1.70-6.50) 11/16/17 20:48 Absolute Lymphs (auto) 2.99 10^3/uL (1.00-3.00) 11/16/17 20:48 Absolute Monos (auto) 0.42 10^3/uL (0.30-0.80) 11/16/17 20:48 Absolute Eos (auto) 0.25 10^3/uL (0.03-0.40) 11/16/17 20:48 Absolute Basos (auto) 0.02 10^3/uL (0.02-0.10) 11/16/17 20:48 Absolute Nucleated RBC 0.00 10^3/uL (0-0.01) 11/16/17 20:48 Immature Gran % 0.1 % (0.0-1.1) 11/16/17 20:48 Immature Gran # 0.01 10^3/uL (0.00-0.10) 11/16/17 20:48 Sodium 144 mEq/L (135-145) 11/16/17 20:48 Potassium 3.3 mEq/L (3.5-5.2) L 11/16/17 20:48 Chloride 107 mEq/L (97-110) 11/16/17 20:48 Carbon Dioxide 25 mEq/l (22-31) 11/16/17 20:48 Anion Gap 12 mEq/L (8-16) 11/16/17 20:48 BUN 10 mg/dL (7-23) 11/16/17 20:48 Creatinine 0.8 mg/dL (0.6-1.0) 11/16/17 20:48 Estimated GFR > 60 11/16/17 20:48 Glucose 127 mg/dL (70-100) H 11/16/17 20:48 Calcium 9.4 mg/dL (8.5-10.4) 11/16/17 20:48 Troponin I < 0.012 ng/mL (0.000-0.034) 11/16/17 20:48 NT-Pro-B Natriuret Pep 69 pg/mL (0-125) 11/16/17 20:48 Procalcitonin < 0.02 ng/mL (0.02-0.10) L 11/16/17 20:40 Imaging Review: Imaging Impressions Chest X-Ray 11/16/17 20:29 Impression: 1. No acute pulmonary disease. 2. No focal pneumonia or definite pulmonary edema. Visualized and Interpreted Chest x-ray results: Yes Chest X-Ray results: no infiltrate Visualized and Interpreted EKG results: Yes EKG Interpretation: Positive for: normal sinsus rhythm, other (T wave flattening anterior leads) Assessment & Plan Assessment: 57 yo F w/ severe asthma presents with acute exacerbation. Plan: 1. Asthma with acute exacerbation - Discharged from [facility] 2 weeks ago after exacerbation requiring intubation. She developed URI symptoms 3 days ago and her prednisone taper ended on the day prior to presentation. No evidence of pneumonia on CXR; WBC normal and afebrile. At the time of admission she is in severe respiratory distress. - Admit to SDU for close observation - Will require frequent breathing treatments tonight to avoid intubation - Respiratory PCR, procalcitonin - S/p methylprednisone 125 mg x1 in ED; will continue 60 mg q6h - Albuterol QID ecle + Q2h PRN - Discussed case with Dr. Webb 2. AHRF - 2/2 above; requiring 10 L/min on arrival but now improving with breathing treatments. - Wean O2 as able 3. Seizure d/o - Continue home medications; denies recent seizures. Diet - Regular Code - Full Ppx - LMWH Dispo - Admit under inpatient status noting severe nature of exacerbation
[2017-11-16] MEDS: diphenhydrAMINE 25 MG CAP PO PRN (23:13)
[2017-11-16] MEDS: GABAPENTIN 400 MG CAP PO SCH (23:13)
--- NOTE | 2017-11-17 00:26 | PDMN ---
Medical Necessity Medical necessity: C/M review: est. > 2 MN LOS for eval and TX of acute - severe asthma exacerbation, hypoxic respiratory failure, shortness of breath, requiring ongoing IV steroids, frequent breathing treatments, Albuterol nebs, pulse oximetry, supplemental O2, comorbid seizure disorder, history of hospitalization at [facility] for severe asthma exacerbation requiring intubation - patient discharged two weeks ago prior to this admission, three days prior to this admission, patient developed upper respiratory symptoms, shortness of breath not responsive to home albuterol nebs, patient finished prednisone taper 11/15/2017 per H/P.
[2017-11-17] MEDS ORDERED: methylPREDNISolone SOD SUCC 125 MG/2 ML VIAL IVP SCH (04:00)
[2017-11-17] MEDS ORDERED: ALBUTEROL 3 ML DEYVIAL IH SCH (06:00)
[2017-11-17] MEDS ORDERED: PROTOCOL POTASSIUM 1 DOSE MISC PRN (08:02)
--- NOTE | 2017-11-17 08:06 | HOSPPROG ---
Hospitalist Progress Note Assessment/Plan: Asthma with acute exacerbation - Recently discharged from [facility] after exacerbation requiring intubation. Just completed Prednisone taper. CXR pers reviewed / interp- no PNA. WBC normal and afebrile. RVP neg. PCT neg. - scheduled nebs + prn - cont methylprednisone 60 mg q6h - mucomyst added per pulm - prn bipap AHRF - 2/2 above; 10 LPM --> 2 LPM - Wean O2 as able Seizure d/o - Continue home medications; denies recent seizures. Cocaine abuse - UDS positive for cocaine, pt initially denies, but ultimately admits to smoking cocaine, which she puts in her cigarettes. She is following with [facility] and they are arranging for her to get weekly injections to reduce cravings. CM consult to continue to provide resource counseling. Discussed this is contributing to asthma exacerbations, which can be life threatening. She demonstrates a small amount of insight. Diet - Regular Code - Full Ppx - LMWH Dispo - cont inpt, monitor in SDU today given severity of symptoms on presentation, use of bipap and recent intubation Subjective: Pt awake, still SOB and wheezing. Initially denies recent cocaine abuse, then admits to it. No fevers/chills. No CP. Objective: Vital Signs Temp Pulse Resp BP Pulse Ox 36.3 C 86 20 105/57 L 99 11/17/17 07:29 11/17/17 07:29 11/17/17 07:29 11/17/17 07:29 11/17/17 07:29 Microbiology 11/16/17 23:00 Respiratory Panel (PCR) - Final Nasal, Sinus - Swab No Organism Detected 11/16/17 11/17/17 11/18/17 05:59 05:59 05:59 Intake Total 400 Balance 400 - Physical Exam Constitutional: no apparent distress Eyes: PERRL Ears, Nose, Mouth, Throat: moist mucous membranes Cardiovascular: regular rate and rhythym Respiratory: no respiratory distress, reduced air movement Gastrointestinal: normoactive bowel sounds, soft, non-tender abdomen Skin: warm Musculoskeletal: full muscle strength Neurologic: AAOx3 Psychiatric: interacting appropriately ICD10 Worksheet Patient Problems: Problems Problem Status Onset Asthma attack Acute Bronchitis Acute Acute asthma exacerbation Acute Acute respiratory failure Acute Altered mental status Acute Asthma Acute Pneumonia Acute Respiratory failure Acute Seizure Acute Submandibular gland swelling Acute
[2017-11-17] MEDS ORDERED: BUDESONIDE/FORMOTEROL 160/4.5 60 PUFFS/MDI IH SCH (09:00)
[2017-11-17] MEDS: diphenhydrAMINE 25 MG CAP PO PRN ×3 (09:11→20:15)
[2017-11-17] MEDS: GABAPENTIN 400 MG CAP PO SCH ×2 (09:11→20:14)
[2017-11-17] MEDS: ENOXAPARIN 40 MG/0.4 ML SYR SC SCH (09:11)
[2017-11-17] MEDS: methylPREDNISolone SOD SUCC 125 MG/2 ML VIAL IVP SCH ×3 (09:12→20:15)
[2017-11-17 09:14] LABS: PLATELET COUNT 214 10^3/uL (150-400)
--- NOTE | 2017-11-17 09:19 | GCON ---
[f rep st] CONSULTATION REASON FOR ADMISSION: Acute asthma. HISTORY OF PRESENT ILLNESS: The patient is a pleasant 57-year-old white female, well known to me, wi th a history of asthma and seizure disorder. She has frequent admissions to this hospital. Approxim ately 2 weeks ago, she had an admission to hospital in [place] after she came so breathless she lost c onsciousness, and was placed on mechanical ventilation. She states over the last several days she cardozo s noticed increasing shortness of breath, worsening upon exertion. She has had significant wheeze, a s well as production of sputum that she has trouble controlling. She has been using her albuterol ne bulized treatments at home, and they have not been working very well. Currently, she is complaining of wheeze and cough, but is awake and alert, and somewhat comfortable on supplemental oxygen. PAST MEDICAL HISTORY: Significant for asthma and seizure disorder. FAMILY HISTORY: Noncontributory. SOCIAL HISTORY: She is a current smoker. She is approximately a 25 pack-year smoker and does not qu it. She has a history of cocaine use. No history of alcohol use. She has good family support. MEDICATIONS: Include Neurontin, Benadryl, Proventil, Flovent and Seroquel. REVIEW OF SYSTEMS: A 10-point review of systems was performed, is negative except for what was liste d in HPI. PHYSICAL EXAM: VITAL SIGNS: Blood pressure is 105/57, pulse is 86, respirations 20, temperature 36. 3, oxygen saturation 99% on 2 L. GENERAL: She is a well-developed 57-year-old female, who is restin g comfortably on supplemental oxygen. HEENT: Eyes are PERRLA, EOMI. Throat shows no erythema or to nsillar hypertrophy. NECK: Supple. There is no cervical adenopathy. HEART: Regular rate and rhyt hm, but she is tachycardic. LUNGS: Diminished breath sounds and diffuse wheeze in all lung person. She has a harsh cough. ABDOMEN: Soft, nontender. Bowel sounds are present. EXTREMITIES: No club rita, cyanosis, or edema. LABORATORIES: White count 7.4, hemoglobin 11, hematocrit 35, platelet count 233. Sodium 144, potass ium 3.3, chloride 107, CO2 25, BUN 10, creatinine 0.8, glucose is 127. Chest x-ray is clear. IMPRESSION: 1. Acute asthma, etiology of which is unclear at this time. However, patient does continue to smoke cigarettes. 2. Acute respiratory failure secondary to above. 3. History of seizure disorder. 4. Tobacco abuse. 5. Distant history of drug abuse. RECOMMENDATIONS: 1. Agree with supplemental oxygen. 2. IV steroids using Solu-Medrol. Increase this to 125 q.6. 3. Aggressive pulmonary toilet. Will add Mucomyst to the mix. 4. DVT and PE prophylaxis. 5. Stress ulcer prophylaxis. 6. Close cardiovascular monitoring. /[id number]/MODL
[2017-11-17] MEDS: ALBUTEROL 3 ML DEYVIAL IH SCH ×3 (11:37→21:52)
[2017-11-17] MEDS: ACETYLCYSTEINE 10% IH/PO 4 ML VIAL IH SCH ×3 (11:37→21:52)
--- NOTE | 2017-11-17 17:58 | ASMTCMCOM ---
CM Note CM Note Notes: 11/17/2017 Case Management Note Pt admitted w/asthma and seizure with recent URI symptoms. Pt is employed and has family support. Case Management d/c poc: to be determined. Case Management to follow. Date Signed: 11/17/2017 05:57 PM Electronically Signed By:Le Russell RN
[2017-11-17] MEDS: QUEtiapine FUMARATE 200 MG TAB PO SCH (20:15)
[2017-11-17] MEDS ORDERED: QUETIAPINE FUMARATE 400 MG PO SCH (21:00)
[2017-11-17] MEDS ORDERED: POTASSIUM CL 10 MEQ TAB PO ONE (21:23)
[2017-11-18] MEDS: methylPREDNISolone SOD SUCC 125 MG/2 ML VIAL IVP SCH ×2 (02:43→08:21)
[2017-11-18] MEDS: ALBUTEROL 3 ML DEYVIAL IH SCH (05:45)
[2017-11-18] MEDS: ACETYLCYSTEINE 10% IH/PO 4 ML VIAL IH SCH (05:58)
[2017-11-18] MEDS ORDERED: LEVALBUTEROL 1.25 MG/3 ML DEYVIAL IH SCH (08:00)
[2017-11-18] MEDS: ENOXAPARIN 40 MG/0.4 ML SYR SC SCH (08:21)
[2017-11-18] MEDS: GABAPENTIN 400 MG CAP PO SCH ×2 (08:21→21:18)
[2017-11-18] MEDS: diphenhydrAMINE 25 MG CAP PO PRN ×2 (08:27→21:32)
--- NOTE | 2017-11-18 08:49 | SOAPPROG ---
SOAP Progress Note Assessment/Plan: Assessment/Plan: * Acute asthma-improved -continue steroids and nebs -discontinue Mucomyst nebs * Acute respiratory failure secondary to above -wean FiO2 -discontinue BiPAP * History of tobacco abuse * Seizure disorder * Cocaine abuse * VT prophylaxis * Stress ulcer prophylaxis * Adequate nutrition * Disposition-okay for transfer to floor Subjective: Resting comfortably. Breathing easily without wheeze. Objective: Vital Signs Temp Pulse Resp BP Pulse Ox 36.9 C 114 H 26 H 99/50 L 96 11/18/17 00:00 11/18/17 07:59 11/18/17 07:59 11/18/17 07:59 11/18/17 07:59 Microbiology 11/16/17 23:00 Respiratory Panel (PCR) - Final Nasal, Sinus - Swab No Organism Detected Laboratory Results 11/17/17 09:05 11/18/17 06:00 11/17/17 11/18/17 11/19/17 05:59 05:59 05:59 Intake Total 400 3000 Output Total 2075 Balance 400 925 - Time Spent With Patient Time Spent With Patient: 25 min of time spent with patient, over 1/2 involved with coordination of care or counseling Physical Exam - Physical Exam General Appearance: WD/WN, alert, no apparent distress EENT: PERRL/EOMI, normal ENT inspection, pharynx normal, TMs normal Neck: non-tender, full range of motion, supple, normal inspection Respiratory: wheezing (Minimal), prolonged expiration, No respiratory distress Cardiac/Chest: normal peripheral pulses, regular rate, rhythm Peripheral Pulses: 2+: carotid (R), carotid (L), femoral (R), femoral (L), dorsalis-pedis (R), dorsalis-pedis (L) Abdomen: normal bowel sounds, non-tender, soft Pelvic Exam: deferred Rectal: deferred Skin: normal color, warm/dry Extremities: normal range of motion, non-tender, normal inspection, normal capillary refill Neuro/Psych: no motor/sensory deficits, alert, normal mood/affect, oriented x 3 ICD10 Worksheet Patient Problems: Problems Problem Status Onset Asthma attack Acute Bronchitis Acute Acute asthma exacerbation Acute Acute respiratory failure Acute Altered mental status Acute Asthma Acute Pneumonia Acute Respiratory failure Acute Seizure Acute Submandibular gland swelling Acute
--- NOTE | 2017-11-18 09:14 | HOSPPROG ---
Hospitalist Progress Note Assessment/Plan: Asthma with acute exacerbation - Recently discharged from [facility] after exacerbation requiring intubation. Just completed Prednisone taper. CXR pers reviewed / interp- no PNA. WBC normal and afebrile. RVP neg. PCT neg. - scheduled nebs + prn, change to xopenex due to tachycardia - change to po prednisone - d/c mucomyst - add oral guaifenesin AHRF - 2/2 above; 10 LPM --> room air today Seizure d/o - Continue home medications; denies recent seizures. Cocaine abuse - UDS positive for cocaine, pt initially denies, but ultimately admits to smoking cocaine, which she puts in her cigarettes. She is following with [facility] and they are arranging for her to get weekly injections to reduce cravings. CM consult to continue to provide resource counseling. Discussed this is contributing to asthma exacerbations, which can be life threatening. She demonstrates a small amount of insight. Diet - Regular Code - Full Ppx - LMWH Dispo - cont inpt, transfer to med/surg Subjective: Pt doing ok, still coughing and wheezing a bit. No fevers/chills. No CP. Feels SOB and dizzy with ambulation. Objective: Vital Signs Temp Pulse Resp BP Pulse Ox 36.9 C 114 H 26 H 99/50 L 96 11/18/17 00:00 11/18/17 07:59 11/18/17 07:59 11/18/17 07:59 11/18/17 07:59 Microbiology 11/16/17 23:00 Respiratory Panel (PCR) - Final Nasal, Sinus - Swab No Organism Detected Laboratory Results 11/17/17 09:05 11/18/17 06:00 11/17/17 11/18/17 11/19/17 05:59 05:59 05:59 Intake Total 400 3000 Output Total 2075 Balance 400 925 - Physical Exam Constitutional: no apparent distress Eyes: PERRL Ears, Nose, Mouth, Throat: moist mucous membranes Cardiovascular: regular rate and rhythym Respiratory: no respiratory distress, reduced air movement, expiratory wheeze Gastrointestinal: normoactive bowel sounds, soft, non-tender abdomen Skin: warm Musculoskeletal: full muscle strength Neurologic: AAOx3 Psychiatric: interacting appropriately ICD10 Worksheet Patient Problems: Problems Problem Status Onset Asthma attack Acute Bronchitis Acute Acute asthma exacerbation Acute Acute respiratory failure Acute Altered mental status Acute Asthma Acute Pneumonia Acute Respiratory failure Acute Seizure Acute Submandibular gland swelling Acute
[2017-11-18] MEDS: predniSONE 20 MG TAB PO SCH (10:31)
[2017-11-18] MEDS: guaiFENesin 600 MG TAB.ER PO SCH ×2 (10:32→21:18)
[2017-11-18] MEDS: LEVALBUTEROL 1.25 MG/3 ML DEYVIAL IH SCH ×2 (11:11→16:25)
[2017-11-18] MEDS ORDERED: LEVALBUTEROL 0.63 MG/3 ML DEYVIAL ONE (20:36)
[2017-11-18] MEDS: QUEtiapine FUMARATE 200 MG TAB PO SCH (21:19)
[2017-11-18] MEDS ORDERED: POTASSIUM CL 10 MEQ TAB PO ONE (21:26)
[2017-11-19] MEDS: LEVALBUTEROL 1.25 MG/3 ML DEYVIAL IH SCH ×4 (00:09→15:29)
[2017-11-19] MEDS ORDERED: GABAPENTIN 300 MG CAP PO ONE (02:08)
[2017-11-19] MEDS: ENOXAPARIN 40 MG/0.4 ML SYR SC SCH (10:10)
[2017-11-19] MEDS: predniSONE 20 MG TAB PO SCH (10:11)
[2017-11-19] MEDS: GABAPENTIN 400 MG CAP PO SCH ×2 (10:11→20:42)
[2017-11-19] MEDS: guaiFENesin 600 MG TAB.ER PO SCH ×2 (10:11→20:42)
[2017-11-19] MEDS: diphenhydrAMINE 25 MG CAP PO PRN ×2 (10:19→20:42)
[2017-11-19] MEDS ORDERED: POTASSIUM CL 10 MEQ TAB PO ONE ×2 (11:02→14:15)
--- NOTE | 2017-11-19 15:18 | ASMTCMCOM ---
CM Note CM Note Notes: Chart reviewed. Met with patient to review any discharge planning needs she may have. She currently denies needs other than a bus token for transportation home. She is here s/p severe asthma attack. On room air. No current needs identified. CM available should needs arise. Plan: Home independent. Date Signed: 11/19/2017 03:18 PM Electronically Signed By:Rosa Hampton RN
[2017-11-19] MEDS: ALBUTEROL 3 ML DEYVIAL IH PRN (15:34)
--- NOTE | 2017-11-19 15:37 | HOSPPROG ---
Hospitalist Progress Note Assessment/Plan: 57 yo F with hx of asthma and recent exacerbation requiring intubation pw acute asthma exacerbation # asthma with acute exacerbation: with some improvement since admission but patient still feeling very SOB. On exam she has relatively clear lungs with significant upper airway breath sounds/stridor. Sats remain good (98% on RA), suspect patient may have component of vocal cord dysfunction. If continues to fail to improve will discuss with ENT whether laryngoscopy could be helpful. # acute hypoxic respiratory failure: resolved, now satting well on RA # seizure d/o: continue gabapentin # cocaine abuse: recommend cessation # IP status Patient new to my care. Old records reviewed and summarized as above. Subjective: no acute overnight events, patient states she feels quite sob this morning, sats 98%, still coughing Objective: Vital Signs Temp Pulse Resp BP Pulse Ox 36.9 C 107 H 20 128/79 H 92 11/19/17 12:30 11/19/17 12:30 11/19/17 12:30 11/19/17 12:30 11/19/17 12:30 Laboratory Results 11/17/17 09:05 11/19/17 04:20 11/18/17 11/19/17 11/20/17 05:59 05:59 05:59 Intake Total 3000 3180 Output Total 2075 Balance 925 3180 awake alert nad anicteric op clear +stridor cta b normal wob rrr no mrg soft nt nd no cce warm dry well perfused oriented appropraite ICD10 Worksheet Patient Problems: Problems Problem Status Onset Asthma attack Acute Seizure Acute Submandibular gland swelling Acute Acute asthma exacerbation Acute Asthma Acute Acute respiratory failure Acute Altered mental status Acute Respiratory failure Acute Pneumonia Acute Bronchitis Acute
--- NOTE | 2017-11-19 17:22 | PDINTPN ---
[facility] Progress Note Assessment/Plan: Assessment: * Acute asthma-improved since admit, but not since transfer. * Acute respiratory failure secondary to above -Now sats OK on RA * History of tobacco abuse: Continues to smoke. * Seizure disorder * Cocaine abuse: May contribute to asthma Plan: Continue PO steroids. Restart Symbicort. Start scheduled DuoNeb. Change levalbuterol to PRN. 11/19/17 17:22 Subjective: Reports that breathing continues to feel tight. Has dyspnea with short walk around unit. Cough with scant green/yellow sputum. Denies tobacco cravings. Objective: Vital Signs Temp Pulse Resp BP Pulse Ox 36.9 C 114 H 20 122/73 H 92 11/19/17 15:53 11/19/17 15:53 11/19/17 15:53 11/19/17 15:53 11/19/17 15:53 Laboratory Results 11/17/17 09:05 11/19/17 04:20 11/18/17 11/19/17 11/20/17 05:59 05:59 05:59 Intake Total 3000 3180 Output Total 2075 Balance 925 3180 Physical Exam - Physical Exam General Appearance: alert, no apparent distress EENT: normal ENT inspection Neck: normal inspection Respiratory: decreased breath sounds, wheezing Cardiac/Chest: regular rate, rhythm, edema Abdomen: normal bowel sounds, non-tender Skin: normal color, warm/dry Extremities: normal inspection Neuro/Psych: alert, normal mood/affect, No motor weakness ICD10 Worksheet Patient Problems: Problems Problem Status Onset Asthma attack Acute Bronchitis Acute Acute asthma exacerbation Acute Acute respiratory failure Acute Altered mental status Acute Asthma Acute Pneumonia Acute Respiratory failure Acute Seizure Acute Submandibular gland swelling Acute
[2017-11-19] MEDS ORDERED: LEVALBUTEROL 1.25 MG/3 ML DEYVIAL IH PRN (17:24)
[2017-11-19] MEDS: IPRATROPIUM/ALBUTEROL 3 ML DEYVIAL IH SCH ×2 (18:08→23:42)
[2017-11-19] MEDS: BUDESONIDE/FORMOTEROL 160/4.5 60 PUFFS/MDI IH SCH (21:27)
[2017-11-19] MEDS: QUEtiapine FUMARATE 200 MG TAB PO SCH (22:12)
[2017-11-20] MEDS: IPRATROPIUM/ALBUTEROL 3 ML DEYVIAL IH SCH ×4 (05:20→22:55)
[2017-11-20] MEDS: GABAPENTIN 400 MG CAP PO SCH ×2 (06:13→21:16)
[2017-11-20] MEDS: BUDESONIDE/FORMOTEROL 160/4.5 60 PUFFS/MDI IH SCH ×2 (09:28→22:55)
[2017-11-20] MEDS: ENOXAPARIN 40 MG/0.4 ML SYR SC SCH (09:56)
[2017-11-20] MEDS: diphenhydrAMINE 25 MG CAP PO PRN ×2 (09:56→21:18)
[2017-11-20] MEDS: predniSONE 20 MG TAB PO SCH (09:56)
[2017-11-20] MEDS: guaiFENesin 600 MG TAB.ER PO SCH ×2 (09:56→21:16)
--- NOTE | 2017-11-20 15:39 | HOSPPROG ---
Hospitalist Progress Note Assessment/Plan: 57 yo F with hx of asthma and recent exacerbation requiring intubation pw acute asthma exacerbation # asthma with acute exacerbation: with some improvement since admission but patient still feeling very SOB. Continues to have wheezing that seems largely to be in area of upper airway raising some concern for vocal cord dysfunction as well, but improved today from yesterday. Patient states breathing treatments are helping. Will continue BDs, symbicort, prednisone 40 (day 3/5) # acute hypoxic respiratory failure: resolved, now satting well on RA, 2/2 above # seizure d/o: continue gabapentin # cocaine abuse: recommend cessation # IP status Subjective: no acute overnight events, patient still notes significant wheezing and sob especially with exertion Objective: Vital Signs Temp Pulse Resp BP Pulse Ox 36.9 C 100 18 123/98 H 94 11/20/17 11:39 11/20/17 11:39 11/20/17 11:39 11/20/17 11:39 11/20/17 11:39 Laboratory Results 11/17/17 09:05 11/20/17 04:16 11/19/17 11/20/17 11/21/17 05:59 05:59 05:59 Intake Total 3180 1900 Balance 3180 1900 awake alert nad anicteric op clear scattered wheeze, ? referred wheeze from upper airway rrr no mrg soft nt nd no cce warm dry well perfused oriented appropraite ICD10 Worksheet Patient Problems: Problems Problem Status Onset Asthma attack Acute Bronchitis Acute Acute asthma exacerbation Acute Acute respiratory failure Acute Altered mental status Acute Asthma Acute Pneumonia Acute Respiratory failure Acute Seizure Acute Submandibular gland swelling Acute
[2017-11-20] MEDS: QUEtiapine FUMARATE 200 MG TAB PO SCH (21:16)
[2017-11-21] MEDS: IPRATROPIUM/ALBUTEROL 3 ML DEYVIAL IH SCH ×2 (06:15→10:02)
[2017-11-21 07:35] VITALS: BP 130/82
--- NOTE | 2017-11-21 09:58 | PDDCSUM ---
Discharge Summary Discharge Summary: Dates of service 11/16-11/21/17 Consultations: pulmonary Procedures: none Hospital course by problem: 57 yo F with hx of asthma and recent exacerbation requiring intubation pw acute asthma exacerbation # asthma with acute exacerbation: with some improvement since admission but patient still feeling very SOB. Continues to have wheezing that seems largely to be in area of upper airway raising some concern for vocal cord dysfunction as well, but improved overall. She is followed already as an OP by pulmonary and by [facility], recommend further w/u as an OP. Patient states breathing treatments are helping. Will continue BDs, symbicort, as an OP. Completed course of prednisone. # acute hypoxic respiratory failure: resolved, now satting well on RA, 2/2 above # seizure d/o: continue gabapentin # cocaine abuse: recommend cessation # IP status Dc home > 35 min spent in dc of patient more than half in coordination of care.
[2017-11-21] MEDS: BUDESONIDE/FORMOTEROL 160/4.5 60 PUFFS/MDI IH SCH (10:02)
[2017-11-21] MEDS: ENOXAPARIN 40 MG/0.4 ML SYR SC SCH (10:11)
[2017-11-21] MEDS: GABAPENTIN 400 MG CAP PO SCH (10:11)
[2017-11-21] MEDS: predniSONE 20 MG TAB PO SCH (10:11)
[2017-11-21] MEDS: guaiFENesin 600 MG TAB.ER PO SCH (10:11)
[2017-11-21] MEDS: diphenhydrAMINE 25 MG CAP PO PRN (10:11)
== END 2017-11-21 11:41 | disposition home or self-care (01) | DRG 141 ==
LOC: EDUNIT# → OBSVTOIN 21:34 → F2N 22:25 → F1N 11-18 17:45
PROVIDERS: ADMIT Hospitalist; ATTEND Hospitalist
DX: J45.901 Unspecified asthma with (acute) exacerbation (principal); J96.01 Acute respiratory failure with hypoxia; F17.210 Nicotine dependence, cigarettes, uncomplicated; F14.10 Cocaine abuse, uncomplicated; G40.909 Epilepsy, unspecified, not intractable, without status epilepticus
CPT/HCPCS: 80307; 96365; G0480; J1650; J2930; J3475; J7512; J7613

== ENCOUNTER 2017-12-14 12:14 | Emergency (ER) | payer MEDICAID ==
[2017-12-14 12:39] VITALS: BP 120/82
[2017-12-14] MEDS ORDERED: FLUORESCEIN SOD/BENOXINATE HCL 20 DROPS/ML OPHT.BTL OP ONE (13:08)
[2017-12-14] MEDS ORDERED: PROPARACAINE/FLUORESCEIN SOD 5 ML OPHT.BTL ONE (13:09)
--- NOTE | 2017-12-14 14:09 | EDPHY ---
H & P Time Seen by Provider: 12/14/17 12:48 HPI/ROS: CHIEF COMPLAINT: Continued right eye pain HISTORY OF PRESENT ILLNESS: 57-year-old female with baseline visual acuity of 20 /20, uncorrected, complaining of 5 days of atraumatic progressive right eye pain and decreased visual acuity with associated photophobia. No exposure to high speed projectiles. She was seen at [facility] emergency department for similar complaints 2 days ago diagnosed with dry eyes, given artificial tears which he has been using.. Symptoms continue. She has decreased visual acuity in the right eye, photophobia. No headache. No nausea or vomiting. No facial lesions. PHYSICAL EXAM (Prior to examination, patient consented to physical exam, hands were washed and my usual and customary physical exam procedures followed) 1) GENERAL: Well-developed, well-nourished, alert and oriented. Appears to be in no acute distress. 2) HEAD: Normocephalic 3) HEENT: sclera anicteric 4) LUNGS: Breathing comfortably. [5) OCULAR EXAM: Visual Acuity: OD 20/100, OS 20/15, OU 20/25 Pupils:equal round and reactive to light EOMI Lids: no edema or swelling, upper lid is tender to palpation, pain with eversion of the lid. Eversion no foreign bodies are visualized. upper and lower lids were everted and no foreign bodies were visualized, no areas of increased fluorescein uptake. Skin: no proptosis, no periorbital erythema or swelling, no vesicles, no pain with extraocular movements. Conjunctivae: Positive clear discharge. [not injected,, negative Renetta test. Cornea: exam with fluorescein shows multiple punctate areas of increased uptake , no dendritic ulcers or appearance. No limbal injection. Anterior chamber:normal, no hyphema or hypopyon Smoking Status: Current every day smoker Constitutional: Initial Vital Signs Temperature (C) 36.7 C 12/14/17 12:37 Heart Rate 89 12/14/17 12:37 Respiratory Rate 16 12/14/17 12:37 Blood Pressure 120/82 H 12/14/17 12:37 O2 Sat (%) 98 12/14/17 12:37 O2 Delivery Mode Room Air Allergies/Adverse Reactions: acetaminophen [From Tylenol] Allergy (Severe, Verified 12/14/17 12:36) Anaphylaxis ibuprofen Allergy (Verified 12/14/17 12:36) Home Medications: Medication Instructions Recorded Gabapentin [Neurontin 400 MG (*)] 800 mg PO BID 04/28/17 diphenhydrAMINE [Benadryl 50 MG 50 mg PO DAILY PRN 04/28/17 (*)] Budesonide/Formoterol 160/4.5 2 puffs IH BID #1 mdi 07/27/17 [Symbicort 160-4.5 Mcg Inh (*)] Albuterol [Proventil Neb] 3 ml IH Q3HRS PRN #30 deyvial 11/21/17 Ipratropium/Albuterol [Duoneb (*)] 3 ml IH Q6HRS #24 deyvial 11/21/17 Erythromycin Base [Erythromycin] 1 kimberly OP TID 7 Days oint...g. 12/14/17 Flovent Hfa 12/14/17 MDM/Departure - MDM Medications Given: Discontinued Medications Fluorescein Sodium/Benoxinate HCl (Flurox) 2 drops OP EDNOW ONE Stop: 12/14/17 13:09 Last Admin: 12/14/17 13:32 Dose: 2 drops ED Course/Re-evaluation: I reviewed the patient's medical records from [facility] Emergency Department dated 2 days ago at which point she was also evaluated by ophthalmology , diagnosed with dry eyes and recommended artificial tears. Here in emergency department patient has multiple punctate lesions on her cornea with decreased visual acuity. I will consult with Ophthalmology. I saw this patient independently based on established practice protocols. Care of patient under supervision of secondary supervising physician Dr Darrius Swain. 2:25 p.m.: Phone consultation with on-call ophthalmology Dr. Flavia Sampson. Today is Sunday. Dr. Flavia Sampson recommended follow up in the office on Sunday, recommended initiation of erythromycin ointment 3 times daily. - Depart Disposition: Home, Routine, Self-Care Clinical Impression: Corneal abrasion Qualifiers: Encounter type: initial encounter Laterality: right Qualified Code(s): S05.01XA - Injury of conjunctiva and corneal abrasion without foreign body, right eye, initial encounter Condition: Good Instructions: Corneal Abrasion (ED) Additional Instructions: If you develop new or worsening symptoms contact Dr. Flavia Sampson at the listed phone number for her office or return to the emergency department. Prescriptions: Erythromycin Base [Erythromycin] 1 kimberly OP TID 7 Days oint...g. Referrals: Flavia Sampson MD [Non Staff Provider (MD)] - 12/17/17
== END 2017-12-14 15:24 | disposition home or self-care (01) ==
DX: H57.11 Ocular pain, right eye (principal); F17.200 Nicotine dependence, unspecified, uncomplicated

== ENCOUNTER 2017-12-23 09:25 | Inpatient (IN) | payer MEDICAID ==
[2017-12-23] MEDS ORDERED: PROPARACAINE 0.5% 15 ML OPHT DROP ONE (09:40)
[2017-12-23] MEDS ORDERED: IPRATROPIUM/ALBUTEROL 3 ML DEYVIAL IH ONE (09:43)
[2017-12-23] MEDS ORDERED: methylPREDNISolone SOD SUCC 125 MG/2 ML VIAL IVP ONE (09:43)
--- NOTE | 2017-12-23 09:50 | EDPHY ---
H & P Stated Complaint: SOB/L eye Source: Patient, Old records Exam Limitations: No limitations - Personal History Tetanus Vaccine Date: less than 5 years - Medical/Surgical History Hx Asthma: Yes Hx Chronic Respiratory Disease: Yes Hx Diabetes: No Hx Cardiac Disease: No Hx Renal Disease: No Hx Cirrhosis: No Hx Alcoholism: No Hx HIV/AIDS: No Hx Splenectomy or Spleen Trauma: No Other PMH: multiple intubations, asthma, seziure, hysterectomy, abd infx req mult surg, RSV - Social History Smoking Status: Current every day smoker Time Seen by Provider: 12/23/17 09:46 HPI/ROS: HPI: This is a 57-year-old female who presents with Chief Complaint: Shortness of breath Location: Chest Quality: Dyspnea Duration: 3 days Signs and Symptoms: + shortness of breath at rest, + shortness of breath on exertion, + productive cough, no chest pain, no palpitations, no lower extremity edema, no wheezing, no orthopnea, no paroxysmal nocturnal dyspnea, no fever, no injury/trauma, no hemoptysis, no carpal pedal spasms Timing: Acute on chronic Severity: Moderate Context: Patient has a history of asthma with multiple intubations and admissions for asthma exacerbation presents with 3 day history of worsening shortness of breath and productive cough. She last used her albuterol and nebulizer around 730 this morning without any improvement. She reports that she does suffer from allergies and this may be the trigger this time. She has felt warm at home but denies any fever, chills, nausea, vomiting, abdominal pain , chest pain. She does use albuterol inhaler as well as Flovent. She reports compliance on his medications. Patient is still occur every day tobacco user. Last admission was in September of 2017 requiring IV Solu-Medrol and 5% continuous Heliox. Modifying Factors: See above Comment: ROS: see HPI Constitutional: No fever, no chills, no weight loss Eyes: No blurred vision Respiratory: No shortness of breath, no cough Cardiovascular: No chest pain, no palpitations, no lower extremity edema Gastrointestinal: No nausea, no vomiting, no diarrhea Genitourinary: No dysuria Extremities: No myalgias Neurologic: No weakness, no numbness Skin: No rashes Hematologic: No bruising, no bleeding MEDICAL/SURGICAL/SOCIAL HISTORY: Medical/surgical history: multiple intubations, asthma, seizure, hysterectomy, abd infx req mult surg, RSV Social history: Retired. Tobacco use. CONSTITUTIONAL: awake and alert, no obvious distress HEENT: Atraumatic and normocephalic, PERRL, EOMI. Left eye conjunctiva shows mild irritation. Ledge show no edema or swelling. Skin shows no proptosis, no periorbital erythema or swelling, no vesicles. Cornea with fluorescein shows no uptake. Nares patent; no rhinorrhea; no nasal mucosal edema. Tympanic membranes clear. Oropharynx clear, no exudate and moist pink mucosa. Airway patent. No lymphadenopathy. No meningismus. Cardiovascular: Normal S1/S2, regular rate, regular rhythm, without murmur rub or gallop. PULMONARY/CHEST: Symmetrical and nontender. Clear to auscultation bilaterally. Good air movement. No accessory muscle usage. ABDOMEN: Soft, nondistended, nontender, no rebound, no guarding, no peritoneal signs, no masses or organomegaly. No CVAT. EXTREMITIES: 2/2 pulses, strength 5/5, no deformities, no clubbing, no cyanosis or edema. NEUROLOGICAL: no focal neuro deficits. GCS 15. SKIN: Warm and dry, no erythema. no rash. Good capillary refill. (Yadira Rollins) Constitutional: Initial Vital Signs Temperature (C) 37.2 C 12/23/17 09:32 Heart Rate 105 H 18 09:32 Respiratory Rate 18 12/23/17 09:32 Blood Pressure 151/90 H 12/23/17 09:32 O2 Sat (%) 97 12/23/17 09:32 O2 Delivery Mode Room Air Allergies/Adverse Reactions: acetaminophen [From Tylenol] Allergy (Severe, Verified 12/23/17 09:32) Anaphylaxis ibuprofen Allergy (Verified 12/23/17 09:32) Home Medications: Medication Instructions Recorded Albuterol [Proventil Neb] 3 ml IH Q3 PRN 12/23/17 Budesonide/Formoterol 160/4.5 2 puffs IH BID 12/23/17 [Symbicort 160-4.5 Mcg Inh (*)] Gabapentin [Gabapentin 800 mg] 800 mg PO BID 12/23/17 Ipratropium/Albuterol [Duoneb (*)] 3 ml IH Q3 PRN 06/17/18 diphenhydrAMINE [Benadryl 50 MG 50 mg PO DAILY PRN 12/23/17 (*)] Medical Decision Making - Diagnostics Imaging Results: Imaging Impressions Chest X-Ray 12/23/17 09:43 Impression: No evidence of acute cardiopulmonary abnormality. ED Course/Re-evaluation: Labs, IV medication, chest x-ray, nebulizer therapy ordered Vital signs reviewed upon arrival. O2 sats 97% on room air with a heart rate of 105 beats per minute Noted increased work of breathing with productive hacking cough and mild respiratory distress. Proparacaine used to numb the left eye. Given tobramycin eyedrops for conjunctivitis allergic versus bacterial. Reassessed patient after 125 mg Solu-Medrol and DuoNeb with continued increased work of breathing. O2 sats remain 95-97% on room air 1020: Labs reviewed. No signs of leukocytosis/anemia/platelet dysfunction/DAVID/ electrolyte imbalance/CHF. Chest x-ray my read shows no effusion, no opacity, no pneumothorax. I doubt infectious process. 1015: ED decision to consult for admission moderate asthma exacerbation who is a poor candidate for outpatient treatment due to rapid decompensation in the past. Spoke with hospitalist J[facility]ACHING who kindly agrees to admit patient to med surg under Dr. Perez's care. This patient was seen under the supervision of my secondary supervising physician. I evaluated care for this patient independently. Discussed this patient with Dr. Rubi who did not see the patient. (Yadira Rollins) Differential Diagnosis: Shortness of breath including but not limited to pulmonary infectious process, COPD, asthma, pulmonary embolus and congestive heart failure. (Yadira Rollins) Other Provider: PHYSICIAN DOCUMENTATION: The patient was evaluated and managed by the [facility] and myself. I have reviewed the chart and agree with the findings and plan of care as documented. In addition, I examined the patient myself at 1058. History confirmed as shortness of breath just like previous asthma exacerbation. Physical findings as follows: Still tight and wheezing, but able to speak in full sentences. Admission for asthma with history of multiple admissions, severity is similar to previous admissions. I am the secondary supervising physician. (Lokesh Rubi) - Data Points Laboratory Results: Laboratory Results 12/23/17 09:45 12/23/17 09:45 06/17/18 06/17/18 09:45 09:45 WBC 5.58 10^3/uL 10^3/uL (3.80-9.50) RBC 4.41 10^6/uL 10^6/uL (4.18-5.33) Hgb 12.8 g/dL g/dL (12.6-16.3) Hct 39.0 % % (38.0-47.0) MCV 88.4 fL fL (81.5-99.8) MCH 29.0 pg pg (27.9-34.1) MCHC 32.8 g/dL g/dL (32.4-36.7) RDW 14.6 % % (11.5-15.2) Plt Count 274 10^3/uL 10^3/uL (150-400) MPV 10.3 fL fL (8.7-11.7) Neut % (Auto) 56.4 % % (39.3-74.2) Lymph % (Auto) 31.2 % % (15.0-45.0) [place] % (Auto) 8.2 % % (4.5-13.0) Eos % (Auto) 3.6 % % (0.6-7.6) Baso % (Auto) 0.4 % % (0.3-1.7) Nucleat RBC Rel Count 0.0 % % (0.0-0.2) Absolute Neuts (auto) 3.15 10^3/uL 10^3/uL (1.70-6.50) Absolute Lymphs (auto) 1.74 10^3/uL 10^3/uL (1.00-3.00) Absolute Monos (auto) 0.46 10^3/uL 10^3/uL (0.30-0.80) Absolute Eos (auto) 0.20 10^3/uL 10^3/uL (0.03-0.40) Absolute Basos (auto) 0.02 10^3/uL 10^3/uL (0.02-0.10) Absolute Nucleated RBC 0.00 10^3/uL 10^3/uL (0-0.01) Immature Gran % 0.2 % % (0.0-1.1) Immature Gran # 0.01 10^3/uL 10^3/uL (0.00-0.10) Sodium 144 mEq/L mEq/L (135-145) Potassium 4.1 mEq/L mEq/L (3.3-5.0) Chloride 106 mEq/L mEq/L (97-110) Carbon Dioxide 23 mEq/l mEq/l (22-31) Anion Gap 15 mEq/L mEq/L (8-16) BUN 7 mg/dL mg/dL (7-23) Creatinine 0.8 mg/dL mg/dL (0.6-1.0) Estimated GFR > 60 Glucose 97 mg/dL mg/dL (70-100) Calcium 9.7 mg/dL mg/dL (8.5-10.4) NT-Pro-B Natriuret Pep 189 pg/mL H pg/mL (0-125) Medications Given: Discontinued Medications Albuterol/Ipratropium (Duoneb) 3 ml IH EDNOW ONE Stop: 12/23/17 09:44 Last Admin: 12/23/17 09:48 Dose: 3 ml Methylprednisolone Sodium Succinate (Solu-Medrol) 125 mg IVP EDNOW ONE Stop: 12/23/17 09:44 Last Admin: 12/23/17 09:48 Dose: 125 mg Tobramycin (Tobrex 0.3% Opht Drops Prepack) 1 btl TAKEHOME EDNOW ONE Stop: 12/23/17 10:13 Last Admin: 12/23/17 10:39 Dose: 1 btl Departure - Departure Disposition: [facility] [place] [facility] Acute Clinical Impression: Acute conjunctivitis, left eye Qualifiers: Acute conjunctivitis type: unspecified Qualified Code(s): H10.32 - Unspecified acute conjunctivitis, left eye Asthma with acute exacerbation in adult Qualifiers: Asthma severity: moderate Asthma persistence: persistent Qualified Code(s): J45.41 - Moderate persistent asthma with (acute) exacerbation Condition: Fair
[2017-12-23 09:51] LABS: PLATELET COUNT 274 10^3/uL (150-400)
[2017-12-23] MEDS ORDERED: TOBRAMYCIN 0.3% SOLN PREPACK OPHT.BTL TAKEHOME ONE (10:12)
[2017-12-23] MEDS ORDERED: ONDANSETRON DISINTEGRATING 4 MG TAB PO PRN (10:29)
[2017-12-23] MEDS ORDERED: ONDANSETRON 4 MG/2 ML VIAL IVP PRN (10:29)
[2017-12-23] MEDS ORDERED: IPRATROPIUM/ALBUTEROL 3 ML DEYVIAL IH PRN (10:30)
[2017-12-23] MEDS: guaiFENesin 600 MG TAB.ER PO SCH ×2 (11:50→21:08)
[2017-12-23] MEDS: BENZONATATE 100 MG CAP PO PRN (11:50)
[2017-12-23] MEDS: NAPROXEN SODIUM 220 MG TAB PO PRN (11:50)
[2017-12-23] MEDS ORDERED: diphenhydrAMINE 50 MG CAP PO PRN (11:53)
[2017-12-23] MEDS: IPRATROPIUM/ALBUTEROL 3 ML DEYVIAL IH SCH ×3 (12:00→21:00)
[2017-12-23] MEDS: GABAPENTIN 400 MG CAP PO SCH ×2 (12:31→21:08)
[2017-12-23] MEDS: diphenhydrAMINE 25 MG CAP PO PRN (12:54)
--- NOTE | 2017-12-23 13:23 | GHP ---
[f rep st] HISTORY AND PHYSICAL DATE OF ADMISSION: 12/23/2017 CHIEF COMPLAINT: Acute asthma exacerbation. HISTORY OF PRESENT ILLNESS: A 57-year-old female with history of severe asthma with 4 prior intubations, depression, PTSD, seizures, presenting with shortness of breath and cough. Says for the last 3-4 days, she has had productive yellow sputum. Denies fevers, chills, or sweats. No ill contacts. She has been using her inhaler more and now having to use her nebulizers. She thinks it is secondary to all the pollen and cotton. She has also complained of right eye conjunctivitis that was treated, now it is in her left, complaining of pain in that eye, and complaining of it being sealed shut in the morning. Denies any trauma or scratching in that eye. She has chest pain with cough. No lower extremity swelling, PND, or pillow orthopnea. REVIEW OF SYSTEMS: I completed a 10-point review of systems, negative, except as noted in HPI. PAST MEDICAL HISTORY: Severe asthma, depression, PTSD, seasonal allergies, history of cocaine use. PAST SURGICAL HISTORY: 3 c-sections, hysterectomy. SOCIAL HISTORY: Lives with a roommate in [place]. Denies cigarettes, drugs, or alcohol. FAMILY HISTORY: Daughter and father of asthma. ALLERGIES: Tylenol, ibuprofen, but does tolerate Aleve. She has been taking this at home. HOME MEDICATIONS: Benadryl as needed, DuoNeb, gabapentin 800 mg p.o. b.i.d., Symbicort, albuterol. PHYSICAL EXAMINATION: VITAL SIGNS: Temperature 36.7, blood pressure 130/76, heart rate 90s to 105, respirations 18-24, 94% on room air. GENERAL: She is uncomfortable, coughing. HEENT: PERRLA. Left eye is sealed shut; when opening , has mild injection, but no overt purulence. No evidence of cellulitis or infection around the eye. Moist mucous membranes. CV: Tachy, but regular. LUNGS: Tight. Poor air movement with expiratory wheezing. GI: Soft, nontender , nondistended. Positive bowel sounds. : No [place]. MUSCULOSKELETAL: 5/5 upper and lower extremity. NEUROLOGIC: 2 through 12 intact. PSYCH: Alert and oriented x3. LABORATORY/IMAGING: WBC 5, hemoglobin 12, hematocrit 39, platelets 274. Sodium 144, potassium 4.1, chloride 106, carbon dioxide 23, creatinine 0.8, glucose is 97. BNP is 187. Chest x-ray is personally reviewed by me. Clear. No evidence of pneumonia. ASSESSMENT/PLAN: 1. Acute asthma exacerbation: due to allergies with excessive pollen. She has been afebrile. No leukocytosis. We will treat with scheduled DuoNeb, steroids , along with azithromycin given yellow sputum. Provide antitussives. She is hemodynamically stable. 2. Tachycardia: due to acute exacerbation, now normalized. 3. Posttraumatic stress disorder/depression. Resume home medications. 4. History of seizures, gabapentin. 5. Left eye conjunctivitis. Will resume tobramycin eye drops. 6. Diet: Regular. 7. Deep venous thrombosis prophylaxis: Lovenox. DISPOSITION: Patient warrants admission given acute hypoxic respiratory failure. If clinically improves, moving more air, can discharge tomorrow. /[id number]/MODL MTDD
[2017-12-23] MEDS: TOBRAMYCIN 0.3% LEFTEYE SCH ×3 (14:00→21:08)
[2017-12-23] MEDS: TEARS/DEXTRAN 70/HYPROMELLOSE 15 ML OPHT.BTL EACHEYE PRN ×2 (19:31→22:51)
[2017-12-23] MEDS ORDERED: ALBUTEROL 3 ML DEYVIAL IH PRN (22:38)
[2017-12-24] MEDS: TOBRAMYCIN 0.3% LEFTEYE SCH ×7 (03:32→22:28)
[2017-12-24] MEDS: IPRATROPIUM/ALBUTEROL 3 ML DEYVIAL IH SCH ×4 (05:13→21:30)
[2017-12-24] MEDS: guaiFENesin 600 MG TAB.ER PO SCH (08:51)
[2017-12-24] MEDS: GABAPENTIN 400 MG CAP PO SCH ×2 (08:52→20:13)
[2017-12-24] MEDS ORDERED: predniSONE 20 MG TAB PO SCH (09:00)
[2017-12-24] MEDS: ENOXAPARIN 40 MG/0.4 ML SYR SC SCH (11:35)
[2017-12-24] MEDS: TEARS/DEXTRAN 70/HYPROMELLOSE 15 ML OPHT.BTL EACHEYE PRN (11:38)
--- NOTE | 2017-12-24 12:07 | ASMTCASEMG ---
Living Arrangements What is your living Answers: With Other (Not Family) arrangement? Who do you live with? Type Of Residence What kind of residence do Answers: Apartment you live in? Discharge Plan Comments Coordination Status Comments Notes: Pt is a 57 y/o female admitted for asthma exacerbation. Pt has a hx of depression, PTSD and 4 prior intubations. CM met w/ pt for dispo planning. Pt reports that she is well connected w/ [facility]. Pt reports that she has a psychiatrist that she sees there twice a week. Pt is agreeable for CM to make a referral to [facility] for additional support. Referral made to [facility]. Pt reports that she will need assistance w/ a bus pass when she is medically stable to d/c. CM to follow. Plan: Independent Date Signed: 12/24/2017 12:07 PM Electronically Signed By:SEBASTIEN Blas
[2017-12-24] MEDS: AZITHROMYCIN 250 MG TAB PO SCH (12:42)
--- NOTE | 2017-12-24 13:24 | HOSPPROG ---
Hospitalist Progress Note Assessment/Plan: #Acute hypoxic resp failure: due to asthma exacerbation #Asthma exacerbation: stable on RA, but poor air movement. Cont nebs, Azithro, IV steroids #Left eye pain: trialed Tobramycin, but very painful like scratched it. Opthal to eval today #PTSD/depression: home meds #Seizure d/o: gabapentin #DVT ppx: SCDs Subjective: "left eye is so painful; feels like scratched it" Cough uncontrolled Objective: Vital Signs Temp Pulse Resp BP Pulse Ox 36.9 C 93 18 137/86 H 94 12/24/17 08:00 12/24/17 11:18 12/24/17 11:18 12/24/17 08:00 12/24/17 11:18 - Time Spent With Patient Time Spent with Patient: greater than 35 minutes Time Spent with Patient: Greater than 35 minutes spent on this patients care, greater than 50% of time spent counseling, educating, and coordinating care regarding the above mentioned plan. - Physical Exam Constitutional: uncomfortable Eyes: other (left eye closed, cannot open it. No periorbital swelling/redness) Ears, Nose, Mouth, Throat: moist mucous membranes Cardiovascular: regular rate and rhythym Respiratory: expiratory wheeze, rhonchi, other (poor air movement) Gastrointestinal: normoactive bowel sounds, soft, non-tender abdomen Genitourinary: no bladder fullness Musculoskeletal: full muscle strength Neurologic: AAOx3, CN II-XII Intact ICD10 Worksheet Patient Problems: Problems Problem Status Onset Acute conjunctivitis, left eye Acute Asthma with acute exacerbation in adult Acute Acute asthma exacerbation Acute Acute respiratory failure Acute Altered mental status Acute Asthma Acute Asthma attack Acute Bronchitis Acute Pneumonia Acute Respiratory failure Acute Seizure Acute Submandibular gland swelling Acute
--- NOTE | 2017-12-24 15:08 | PDMN ---
Medical Necessity Medical necessity: change to IP; los>2mn for acute hypoxic resp failure r/t asthma exacerbation, and L eye pain; requires IV steroids, nebs, and opthal consult; comorbid PTSD/ depression, and sz disorder; per order and progress note 12/24/17
[2017-12-24] MEDS ORDERED: NS 1,000 ML IV SCH (16:45)
[2017-12-24] MEDS: guaiFENesin/CODEINE PHOS 10 ML UDCUP PO PRN (20:13)
[2017-12-24] MEDS: methylPREDNISolone SOD SUCC 40 MG/ML VIAL IVP SCH (20:13)
[2017-12-24] MEDS: diphenhydrAMINE 25 MG CAP PO PRN (20:13)
[2017-12-25] MEDS: NAPROXEN SODIUM 220 MG TAB PO PRN (01:30)
[2017-12-25] MEDS: guaiFENesin/CODEINE PHOS 10 ML UDCUP PO PRN ×2 (02:12→17:25)
[2017-12-25] MEDS: CEPACOL LOZENGE PO PRN ×5 (02:12→20:03)
[2017-12-25] MEDS: IPRATROPIUM/ALBUTEROL 3 ML DEYVIAL IH SCH ×4 (05:24→21:02)
[2017-12-25] MEDS: GABAPENTIN 400 MG CAP PO SCH ×2 (09:55→20:02)
[2017-12-25] MEDS: AZITHROMYCIN 250 MG TAB PO SCH (09:55)
[2017-12-25] MEDS: methylPREDNISolone SOD SUCC 40 MG/ML VIAL IVP SCH ×2 (09:55→20:03)
[2017-12-25] MEDS: ENOXAPARIN 40 MG/0.4 ML SYR SC SCH (09:57)
[2017-12-25] MEDS: BENZONATATE 100 MG CAP PO PRN (11:49)
[2017-12-25] MEDS: TOBRAMYCIN 0.3% LEFTEYE SCH ×4 (12:40→20:14)
[2017-12-25] MEDS ORDERED: BUDESONIDE/FORMOTEROL 160/4.5 60 PUFFS/MDI IH SCH (14:15)
[2017-12-25] MEDS: BUDESONIDE/FORMOTEROL 160/4.5 60 PUFFS/MDI IH SCH ×2 (14:46→21:01)
--- NOTE | 2017-12-25 16:49 | HOSPPROG ---
Hospitalist Progress Note Assessment/Plan: # acute resp failure - d/t asthma exacerbation # asthma with acute exacerbation - cont solu-medrol and azith - cont nebs; added symbicort at her request - referral to Dr Peacock on dc for consideration for BT # tachycardia - d/t above, indicative of acute illness; doubt PE at this point given her physical exam # seizure d/o - gabapentin # L eye pain - eval'd by ophtho - possible corneal abrasion? - treated today in ophtho clinic with significant improvement # depr/PTSD - Subjective: still feels very SOB; coughing Objective: Vital Signs Temp Pulse Resp BP Pulse Ox 36.8 C 104 H 20 144/91 H 91 L 12/25/17 16:00 12/25/17 16:00 12/25/17 16:00 12/25/17 16:00 12/25/17 16:00 12/24/17 12/25/17 12/26/17 05:59 05:59 05:59 Intake Total 1695 Balance 1695 chart reviewed CXR personally reviewed - Physical Exam Constitutional: uncomfortable Cardiovascular: regular rate and rhythym, no murmur, rub, or gallop Respiratory: expiratory wheeze, respiratory distress (mod), No reduced air movement, No inspiratory crackles Gastrointestinal: soft, non-tender abdomen, no palpable masses ICD10 Worksheet Patient Problems: Problems Problem Status Onset Asthma attack Acute Seizure Acute Submandibular gland swelling Acute Acute asthma exacerbation Acute Asthma Acute Acute respiratory failure Acute Altered mental status Acute Respiratory failure Acute Pneumonia Acute Bronchitis Acute Acute conjunctivitis, left eye Acute Asthma with acute exacerbation in adult Acute
[2017-12-25] MEDS: diphenhydrAMINE 25 MG CAP PO PRN (20:03)
[2017-12-26] MEDS: TOBRAMYCIN 0.3% LEFTEYE SCH ×3 (02:37→11:51)
[2017-12-26] MEDS: IPRATROPIUM/ALBUTEROL 3 ML DEYVIAL IH SCH ×2 (05:51→10:57)
[2017-12-26] MEDS: AZITHROMYCIN 250 MG TAB PO SCH (08:28)
[2017-12-26] MEDS: GABAPENTIN 400 MG CAP PO SCH (08:28)
[2017-12-26] MEDS: methylPREDNISolone SOD SUCC 40 MG/ML VIAL IVP SCH (08:29)
[2017-12-26] MEDS: ENOXAPARIN 40 MG/0.4 ML SYR SC SCH (08:29)
[2017-12-26 08:51] VITALS: BP 143/86
[2017-12-26] MEDS: BUDESONIDE/FORMOTEROL 160/4.5 60 PUFFS/MDI IH SCH (10:58)
--- NOTE | 2017-12-26 15:02 | GDS ---
[f rep st] DISCHARGE SUMMARY DIAGNOSES: 1. Asthma with acute exacerbation. 2. Parainfluenza virus infection. 3. Tobacco use. 4. Acute respiratory failure. 5. Tachycardia. 6. Seizure disorder, on gabapentin. 7. Left eye likely corneal abrasion. 8. Depression and post-traumatic stress disorder. HOSPITAL COURSE: A 57-year-old female admitted with an asthma exacerbation. She has had 6 admission s so far this year for the same. She was found to have a parainfluenza virus infection. She was diogo ated with azithromycin, prednisone, inhalers. She also tells me she had run out of her albuterol as well as her Symbicort. On the day of discharge, she has improved markedly. She is off oxygen. She still has some wheezes, which she says is her baseline. She is able to ambulate around the halls and outside without any assistance. She is anxious to be discharged. I have given her a prescription f or 2 more days of azithromycin, 3 more days of prednisone, as well as Symbicort and albuterol inhaler . I have given her a referral to see Dr. Peacock as an outpatient for consideration of bronchial thyr oplasty. She had some severe left eye pain as well as change in her vision. She was seen by Ophthalmology who felt as though she had some sort a corneal abrasion. They did a procedure in their clinic, she tell s me that her eyesight is much better. She should continue to use eye lubricant drops for the next f ew days and follow up with Dr. Pressley as an outpatient. BILLING: I spent more than 30 minutes on the day of discharge coordinating care. /[id number]/MODL
--- NOTE | 2017-12-26 15:04 | ASMTCMCOM ---
CM Note CM Note Notes: Plan remains the same, pt discharging independent. CM gave bus pass, pt to [facility] at [facility] on . [place] Plan: Independent Date Signed: 12/26/2017 03:03 PM Electronically Signed By:Mady Ferrell RN
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
== END 2017-12-26 15:37 | disposition home or self-care (01) | DRG 141 ==
LOC: F3E 11:06 → OBSVTOIN 12-24 13:25
PROVIDERS: ADMIT Internal Medicine; ATTEND Student in an Organized Health Care Education/Training Program
DX: J45.41 Moderate persistent asthma with (acute) exacerbation (principal); J96.01 Acute respiratory failure with hypoxia; J11.1 Influenza due to unidentified influenza virus with other respiratory manifestations; S05.02XA Injury of conjunctiva and corneal abrasion without foreign body, left eye, initial encounter; X58.XXXA Exposure to other specified factors, initial encounter; F32.9 Major depressive disorder, single episode, unspecified; F43.10 Post-traumatic stress disorder, unspecified; F17.210 Nicotine dependence, cigarettes, uncomplicated; R00.0 Tachycardia, unspecified; G40.909 Epilepsy, unspecified, not intractable, without status epilepticus; Z79.51 Long term (current) use of inhaled steroids; Z92.89 Personal history of other medical treatment; Z82.5 Family history of asthma and other chronic lower respiratory diseases
CPT/HCPCS: 96374; G0378; J1650; J2920; J2930; J7512; J7613

== ENCOUNTER 2018-03-28 15:17 | Inpatient (IN) | payer MEDICAID ==
[2018-03-28] MEDS ORDERED: ALBUTEROL 3 ML DEYVIAL IH ONE (15:24)
[2018-03-28] MEDS ORDERED: IPRATROPIUM/ALBUTEROL 3 ML DEYVIAL IH ONE (15:24)
--- NOTE | 2018-03-28 15:27 | EDPHY ---
H & P Stated Complaint: SOB Time Seen by Provider: 03/28/18 15:18 HPI/ROS: CHIEF COMPLAINT: Dyspnea HISTORY OF PRESENT ILLNESS: The patient presents to the ED with complaints of dyspnea. The patient has a history of asthma with multiple hospitalizations this year. She reports she has been using her albuterol inhaler continuously. She reports she has been taking prednisone 20 mg a day for the past 5 days. She denies fever. She does complain of a dry nonproductive cough. She denies asymmetric calf pain or swelling. The patient does smoke cigarettes. The patient also takes gabapentin. She reports a prior history of seizure disorder. She did have a recent fall and complains of some pain over her left lateral thigh. REVIEW OF SYSTEMS: A comprehensive 10 point review of systems is otherwise negative aside from elements mentioned in the history of present illness. Source: Patient Exam Limitations: No limitations - Personal History Current Tetanus/Diphtheria Vaccine: Yes Tetanus Vaccine Date: less than 5 years - Medical/Surgical History Hx Asthma: Yes Hx Chronic Respiratory Disease: Yes Hx Diabetes: No Hx Cardiac Disease: No Hx Renal Disease: No Hx Cirrhosis: No Hx Alcoholism: No Hx HIV/AIDS: No Hx Splenectomy or Spleen Trauma: No Other PMH: multiple intubations, asthma, seziure, hysterectomy, abd infx req mult surg, RSV - Social History Smoking Status: Current every day smoker - Physical Exam Exam: General Appearance: Disheveled female, mild respiratory distress Eyes: Pupils equal and round no pallor or injection ENT, Mouth: Mucous membranes moist Respiratory: Tachypnea, decreased breath sounds bilaterally, expiratory wheezing Cardiovascular: Tachycardic Gastrointestinal: Abdomen is soft and nontender, no masses, bowel sounds normal Neurological: 5/5 strength all 4 extremities Skin: Warm and dry, no rashes Musculoskeletal: Neck is supple nontender Extremities: symmetrical, full range of motion, no clinical evidence of DVT Constitutional: Initial Vital Signs Temperature (C) 37.0 C 03/28/18 15:19 Heart Rate 113 H 03/28/18 15:19 Respiratory Rate 18 03/28/18 15:19 Blood Pressure 109/90 H 03/28/18 15:19 O2 Sat (%) 97 03/28/18 15:19 O2 Delivery Mode Room Air O2 (L/minute) 6 Allergies/Adverse Reactions: acetaminophen [From Tylenol] Allergy (Severe, Verified 03/28/18 15:21) Anaphylaxis ibuprofen Allergy (Verified 03/28/18 15:21) Home Medications: Medication Instructions Recorded Gabapentin [Gabapentin 800 mg] 800 mg PO BID 12/23/17 diphenhydrAMINE [Benadryl 50 MG 50 mg PO DAILY PRN 12/23/17 (*)] Albuterol [Ventolin Hfa Inhaler] 200 puffs IH Q4 #1 mdi 12/26/17 Azithromycin [Zithromax] 250 mg PO DAILY #2 tab 12/26/17 Budesonide/Formoterol 160/4.5 2 puffs IH BID #1 mdi 12/26/17 [Symbicort 160-4.5 Mcg Inh (*)] Tears/Dextran 70/Hypromellose 1 drop EACHEYE Q2HRS PRN opht.btl 12/26/17 [Natural Balance Tears (*)] predniSONE 20 mg PO DAILY #6 tablet 12/26/17 Medical Decision Making - Diagnostics Imaging Results: Imaging Impressions Chest X-Ray 03/28/18 15:25 Impression: Negative. ED Course/Re-evaluation: The patient presents to the ED with an acute asthma exacerbation. She was treated with a DuoNeb, IV Solu-Medrol and a continuous albuterol nebulizer. Chest x-ray demonstrates no evidence of a focal infiltrate. Patient was placed on a child monitor. Examined at 5:00 p.m. And continues to have mild tachypnea and expiratory wheezing. Reexamined at 6:00 p.m.. Mildly tachycardic, wheezing has decreased however patient continues to still be mildly tachypneic. I do feel the patient should be admitted for observation and stabilization this evening. Consultation was made with the hospitalist service at 6:00 p.m.. The patient will be admitted by Dr. Yu. Differential Diagnosis: Differential diagnosis considered includes asthma, bronchitis, pneumonia - Data Points Medications Given: Discontinued Medications Albuterol (Proventil Neb) 3 ml IH EDNOW ONE Stop: 03/28/18 15:25 Last Admin: 03/28/18 16:01 Dose: 3 ml Albuterol/Ipratropium (Duoneb) 3 ml IH EDNOW ONE Stop: 03/28/18 15:25 Last Admin: 03/28/18 15:30 Dose: 3 ml Methylprednisolone Sodium Succinate (Solu-Medrol) 125 mg IVP EDNOW ONE Stop: 03/28/18 15:41 Last Admin: 03/28/18 15:46 Dose: 125 mg Departure - Departure Disposition: [facility] Acute Clinical Impression: Acute asthma exacerbation Qualifiers: Asthma severity: moderate Asthma persistence: persistent Qualified Code(s): J45.41 - Moderate persistent asthma with (acute) exacerbation Condition: Fair
[2018-03-28] MEDS ORDERED: methylPREDNISolone SOD SUCC 125 MG/2 ML VIAL IVP ONE (15:40)
[2018-03-28] MEDS ORDERED: ONDANSETRON DISINTEGRATING 4 MG TAB PO PRN (18:24)
[2018-03-28] MEDS ORDERED: ONDANSETRON 4 MG/2 ML VIAL IVP PRN (18:24)
[2018-03-28] MEDS ORDERED: ALBUTEROL 3 ML DEYVIAL IH PRN (18:24)
[2018-03-28] MEDS ORDERED: ACETAMINOPHEN 325 MG TAB PO PRN (18:24)
--- NOTE | 2018-03-28 19:45 | PDGENHP ---
History and Physical - Chief Complaint SOB, wheezing - History of Present Illness 57 yo female with h/o moderate persistent asthma presents to ED with increased SOB and wheezing. She denies recent cocaine use, though admits she previously smoked smoked cocaine. 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 There was a lot of dust and debris and since then she has had increased dyspnea and wheezing. She denies fevers. No sick contacts. She has been going to narcotics anonymous meetings at [facility] and says she can't recall the last time she used cocaine. In the ED, she was hypoxic and is currently on 2 LPM O2. She received a nebulizer treatment and IV solumedrol. She is admitted to the hospital for further management. History Information - Allergies/Home Medication List Allergies/Adverse Reactions: acetaminophen [From Tylenol] Allergy (Severe, Verified 03/28/18 15:21) Anaphylaxis ibuprofen Allergy (Verified 03/28/18 18:35) Other-Enter Comments Home Medications: Gabapentin [Gabapentin 800 mg] 800 mg PO BID 12/23/17 [Last Taken 12/22/17] Albuterol [Ventolin Hfa Inhaler] 1 puffs IH Q4 PRN 03/28/18 [Last Taken Unknown] I have personally reviewed and updated: family history, medical history, social history, surgical history - Past Medical History asthma Additional medical history: Asthma - 4 previous intubations, frequent hospitalizations. Depression. H/O seizure. Cocaine abuse - Surgical History Reports: no pertinent surgical hx - Family History Positive for: cancer Additional family history: Daughter of asthma exacerbation - Social History Smoking Status: Current every day smoker Additional social history: Just got an apartment, was previously homeless. Quit smoking 3 weeks ago. H/O cocaine use, reports to be sober. Review of Systems Review of Systems: ROS: 10pt was reviewed & negative except for what was stated in HPI & below Physical Exam Physical Exam: Temp Pulse Resp BP Pulse Ox 37 C 101 H 18 117/70 97 03/28/18 19:08 03/28/18 19:08 03/28/18 19:08 03/28/18 19:08 03/28/18 19:08 O2 (L/minute) 2 Constitutional: no apparent distress Eyes: PERRL Ears, Nose, Mouth, Throat: moist mucous membranes Cardiovascular: regular rate and rhythym Respiratory: no respiratory distress, reduced air movement Gastrointestinal: normoactive bowel sounds, soft, non-tender abdomen Skin: warm Musculoskeletal: full muscle strength Neurologic: AAOx3 Lab Data & Imaging Review Visualized and Interpreted Chest x-ray results: Yes Chest X-Ray results: no infiltrate Assessment & Plan Assessment: Acute asthma exacerbation (Acute) - pt denies recent cocaine use, but this has been a trigger in the past. 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 -nebs, O2, RT support -IV solumedrol -send resp viral panel H/O cocaine abuse - pt denies. -check tox screen Full code Dispo - obs
[2018-03-28] MEDS: IPRATROPIUM/ALBUTEROL 3 ML DEYVIAL IH SCH (20:47)
[2018-03-28] MEDS: GABAPENTIN 400 MG CAP PO SCH (22:57)
[2018-03-29] MEDS: IPRATROPIUM/ALBUTEROL 3 ML DEYVIAL IH SCH ×4 (06:01→20:50)
[2018-03-29] MEDS: GABAPENTIN 400 MG CAP PO SCH ×2 (09:11→20:40)
[2018-03-29] MEDS: ENOXAPARIN 40 MG/0.4 ML SYR SC SCH (09:12)
[2018-03-29] MEDS: BUDESONIDE/FORMOTEROL 160/4.5 60 PUFFS/MDI IH SCH ×2 (09:56→20:50)
[2018-03-29] MEDS ORDERED: GUAIFENESIN/DM 10 ML UDCUP PO PRN (10:53)
--- NOTE | 2018-03-29 10:56 | HOSPPROG ---
Hospitalist Progress Note Assessment/Plan: * acute asthma exacerbation * Pretty wheezy this morning * Continue nebulizers and IV steroids * history of cocaine abuse * U tox positive * Asthma exacerbation could be from smoking cocaine * dispo - , make full admit keep another day Subjective: Pretty wheezy and short of breath after taking a walk Objective: Vital Signs Temp Pulse Resp BP Pulse Ox 36.5 C 88 20 122/73 H 97 03/29/18 07:58 03/29/18 09:57 03/29/18 09:57 03/29/18 07:58 03/29/18 09:57 Microbiology 03/28/18 21:45 Respiratory Panel (PCR) - Final Nasal, Sinus - Swab No Organism Detected 03/28/18 03/29/18 03/30/18 05:59 05:59 05:59 Intake Total 650 Output Total 900 Balance -250 - Physical Exam Constitutional: no apparent distress (Moderate respiratory distress) Eyes: anicteric sclera, EOMI Ears, Nose, Mouth, Throat: moist mucous membranes Cardiovascular: regular rate and rhythym, no murmur, rub, or gallop Respiratory: no rales or rhonchi, reduced air movement (Pretty tight), expiratory wheeze (Audible without stethoscope), No no respiratory distress ( Moderate tachypnea) Skin: warm Neurologic: AAOx3 Psychiatric: interacting appropriately, not anxious, not encephalopathic, thought process linear ICD10 Worksheet Patient Problems: Problems Problem Status Onset Acute asthma exacerbation Acute Acute conjunctivitis, left eye Acute Acute respiratory failure Acute Altered mental status Acute Asthma Acute Asthma attack Acute Asthma with acute exacerbation in adult Acute Bronchitis Acute Pneumonia Acute Respiratory failure Acute Seizure Acute Submandibular gland swelling Acute
--- NOTE | 2018-03-29 13:17 | PDMN ---
Medical Necessity Medical necessity: Pt meets INPT criteria per MD as of 03/28/18 and [facility] M-60 Asthma (est. LOS >2 MN for eval/mgmt of acute asthma exacerbation with hypoxia requiring supplemental O2; hx asthma with previous intubations and frequent hospitalizations).
[2018-03-29] MEDS: methylPREDNISolone SOD SUCC 125 MG/2 ML VIAL IVP SCH (21:25)
[2018-03-30] MEDS: methylPREDNISolone SOD SUCC 125 MG/2 ML VIAL IVP SCH ×3 (03:12→20:14)
[2018-03-30] MEDS: IPRATROPIUM/ALBUTEROL 3 ML DEYVIAL IH SCH ×4 (05:29→20:33)
[2018-03-30] MEDS: GABAPENTIN 400 MG CAP PO SCH ×3 (06:47→18:31)
[2018-03-30] MEDS: BUDESONIDE/FORMOTEROL 160/4.5 60 PUFFS/MDI IH SCH ×2 (08:42→20:33)
[2018-03-30] MEDS: ENOXAPARIN 40 MG/0.4 ML SYR SC SCH (08:47)
--- NOTE | 2018-03-30 10:51 | HOSPPROG ---
Hospitalist Progress Note Assessment/Plan: * acute asthma exacerbation - still rather wheezy, on IV solumedrol 60 mg q6h, sats in 90's on room air * Continue nebulizers * Decrease IV solumedrol to q12h, if continues to improve, could d/c tomorrow on oral prednisone * history of cocaine abuse * U tox positive though pt denies * Asthma exacerbation could be from smoking cocaine * chronic back pain - cont home gabapentin dose Agreed to adding noon dose * dispo - cont inpt, possible d/c tomorrow on oral prednisone if tolerates solumedrol wean today Subjective: Pt doing ok, still intermittently wheezy. Denies cough or CP. Some SOB with ambulation. No fevers. She c/o back pain, asks for increased gabapentin dose. Objective: Vital Signs Temp Pulse Resp BP Pulse Ox 36.8 C 84 16 121/91 H 95 03/30/18 07:37 03/30/18 08:45 03/30/18 08:45 03/30/18 07:37 03/30/18 08:45 Microbiology 03/28/18 21:45 Respiratory Panel (PCR) - Final Nasal, Sinus - Swab No Organism Detected 03/29/18 03/30/18 03/31/18 05:59 05:59 05:59 Intake Total 650 1000 Output Total 900 Balance -250 1000 - Physical Exam Constitutional: no apparent distress Eyes: PERRL Ears, Nose, Mouth, Throat: moist mucous membranes Cardiovascular: regular rate and rhythym Respiratory: no respiratory distress, reduced air movement, expiratory wheeze Gastrointestinal: normoactive bowel sounds, soft, non-tender abdomen Skin: warm Musculoskeletal: full muscle strength Neurologic: AAOx3 Psychiatric: interacting appropriately ICD10 Worksheet Patient Problems: Problems Problem Status Onset Acute asthma exacerbation Acute Acute conjunctivitis, left eye Acute Acute respiratory failure Acute Altered mental status Acute Asthma Acute Asthma attack Acute Asthma with acute exacerbation in adult Acute Bronchitis Acute Pneumonia Acute Respiratory failure Acute Seizure Acute Submandibular gland swelling Acute
--- NOTE | 2018-03-30 16:43 | ASMTCMCOM ---
CM Note CM Note Notes: 03/30/2018 Case Management Note Met w/pt and Bill [phone]. Pt is well known to case management with regular admissions to [facility] d/t asthma exacerbations. There are no identified case management d/c needs identified d/t pt age, marital status and independence in ADL's prior to admission. Referred to [facility] for supports at d/c. Case Management d/c poc: anticipating indepedent with follow up as directed. Case Management to follow. Date Signed: 03/30/2018 04:42 PM Electronically Signed By:Le Russell RN
[2018-03-31] MEDS: GABAPENTIN 400 MG CAP PO SCH ×2 (06:21→11:49)
[2018-03-31] MEDS: IPRATROPIUM/ALBUTEROL 3 ML DEYVIAL IH SCH ×2 (06:48→08:37)
[2018-03-31] MEDS: BUDESONIDE/FORMOTEROL 160/4.5 60 PUFFS/MDI IH SCH (08:38)
[2018-03-31] MEDS: ENOXAPARIN 40 MG/0.4 ML SYR SC SCH (09:52)
[2018-03-31] MEDS: methylPREDNISolone SOD SUCC 125 MG/2 ML VIAL IVP SCH (09:52)
--- NOTE | 2018-03-31 10:59 | PDDCSUM ---
Discharge Summary Discharge Summary: Dates of service 03/28-03/31/18 Consultations/procedures: none * acute asthma exacerbation -has resolved essentially completely--lungs clear, patient on RA, ambulating well -has had short course of IV steroids in house but no longer requiring given completely clear lungs currently and sats in mid to high 90s on RA so will dc -will resume home inhalers and f/u with PCP -query if related to smoking cocaine as next * history of cocaine abuse * U tox positive though pt denies * Asthma exacerbation could be from smoking cocaine * chronic back pain - cont home gabapentin dose * dispo - dc home > 35 min spent on dc more than half in coordination of care f/u with PCP
[2018-03-31 11:37] VITALS: BP 134/80
--- NOTE | 2018-03-31 15:07 | ASMTDCNOTE ---
Case Management Discharge Discharge Order Complete? Answers: Yes Patient to Obtain Answers: Independently Medications Transportation Arranged Answers: Family/Friends Discharge Comments Notes: 03/31/2018 Case Management Note Pt discharged independent with follow up as directed. Referred pt to [facility] for outpatient follow up for asthma and history of drug use. Date Signed: 03/31/2018 03:06 PM Electronically Signed By:Le Russell RN
--- NOTE | 2018-03-31 15:07 | ASDISCHSUM ---
Discharge Information Plan Status:Home with No Needs Medically Cleared to Leave:03/31/2018 Discharge Date:03/31/2018 12:22 PM CM D/C Disposition:Home, Routine, Self-Care ADT D/C Disposition:Home, Routine, Self-Care Projected Discharge Date:03/31/2018 12:22 PM Transportation at D/C:Family Discharge Delay Reason: Follow-Up Date:03/31/2018 12:22 PM Discharge Slot: Final Diagnosis: Placement Information Patient Contact Information Contact Name:NETTA Relationship:Other Address: Work Phone: City: [facility] Phone: State/[place] Code: Email: Financial Information Financial Class:Medicaid Primary Plan Desc:[employer] [place] Primary Plan Number:[id number] Secondary Plan Desc: Secondary Plan Number: Assessment Information LACE LACE Length of stay for Answers: 2 days current admission Acuity / Level of Answers: Yes Care: Did the patient have an inpatient admission? Comorbidities - select Answers: Chronic pulmonary disease all that apply Opioid dependence / Chronic pain Other Notes: Asthma; Seizure disorder, h/o cocaine u se # of Emergency department Answers: 5-8 visits in the last 6 months Social determinants Answers: History of substance abuse (ETOH, street drugs, prescription drugs, etc.) Mental health diagnosis (anxiety, depression, pers onality disorders, etc.) Score: 22 Date Signed: 03/31/2018 03:05 PM Electronically Signed By:Le Russell RN [facility] CM Progress Note CM Note CM Note Notes: 03/30/2018 Case Management Note Met w/pt and Bill [phone]. Pt is well known to case management with regular admissions to [facility] d/t asthma exacerbations. There are no identified case management d/c needs identified d/t pt age, marital status and independence in ADL's prior to admission. Referred to [facility] for supports at d/c. Case Management d/c poc: anticipating indepedent with follow up as directed. Case Management to follow. Date Signed: 03/30/2018 04:42 PM Electronically Signed By:Le Russell RN Case Management Discharge Plan Note Case Management Discharge Discharge Order Complete? Answers: Yes Patient to Obtain Answers: Independently Medications Transportation Arranged Answers: Family/Friends Discharge Comments Notes: 03/31/2018 Case Management Note Pt discharged independent with follow up as directed. Referred pt to [facility] for outpatient follow up for asthma and history of drug use. Date Signed: 03/31/2018 03:06 PM Electronically Signed By:Le Russell RN Intervention Information Intervention Type:*Incorrect Registration Date of Service:03/29/2018 01:09 PM Patient Type:Observation Staff Member:ABRAN Hanley, [place] Hours: Discipline: Severity: Comment:
== END 2018-03-31 12:22 | disposition home or self-care (01) | DRG 141 ==
LOC: OBSVTOIN 18:14 → F1N 19:36
PROVIDERS: ADMIT Hospitalist; ATTEND Hospitalist
DX: J45.41 Moderate persistent asthma with (acute) exacerbation (principal); G89.29 Other chronic pain; Z72.0 Tobacco use
CPT/HCPCS: 80307; 96374; G0480; J1650; J2930; J7613

== ENCOUNTER 2018-05-23 10:21 | Inpatient (IN) | payer MEDICAID ==
[2018-05-23] MEDS ORDERED: IPRATROPIUM/ALBUTEROL 3 ML DEYVIAL ONE (10:29)
[2018-05-23] MEDS ORDERED: IPRATROPIUM/ALBUTEROL 3 ML DEYVIAL IH ONE (10:31)
[2018-05-23] MEDS ORDERED: methylPREDNISolone SOD SUCC 125 MG/2 ML VIAL IVP ONE (10:34)
[2018-05-23] MEDS ORDERED: ALBUTEROL 3 ML DEYVIAL IH ONE ×2 (10:34→11:39)
[2018-05-23] MEDS ORDERED: MAGNESIUM SULF 2 GM/WATER 50 ML IV ONE (10:46)
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
[2018-05-23 10:59] LABS: PLATELET COUNT 228 10^3/uL (150-400)
[2018-05-23] MEDS ORDERED: ONDANSETRON DISINTEGRATING 4 MG TAB PO PRN (11:00)
[2018-05-23] MEDS ORDERED: ONDANSETRON 4 MG/2 ML VIAL IVP PRN (11:00)
[2018-05-23] MEDS ORDERED: IPRATROPIUM/ALBUTEROL 3 ML DEYVIAL IH PRN (11:03)
--- NOTE | 2018-05-23 11:05 | CPEKG ---
Test Reason : OPEN Blood Pressure : / mmHG Vent. Rate : 096 BPM Atrial Rate : 096 BPM P-R Int : 147 ms QRS Dur : 086 ms QT Int : 365 ms P-R-T Axes : 074 048 053 degrees QTc Int : 462 ms Sinus rhythm Confirmed by Lokesh Rubi ([id number]) on 05/23/2018 11:05:04 AM Referred By: Confirmed By:Lokesh Rubi
[2018-05-23] MEDS ORDERED: BENZONATATE 100 MG CAP PO ONE (11:11)
[2018-05-23] MEDS: BENZONATATE 100 MG CAP PO ONE ×2 (11:15→11:16)
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
[2018-05-23] MEDS: IPRATROPIUM/ALBUTEROL 3 ML DEYVIAL IH PRN (18:15)
[2018-05-23] MEDS: guaiFENesin 600 MG TAB.ER PO SCH (20:31)
[2018-05-23] MEDS: AZITHROMYCIN 250 MG TAB PO SCH (20:31)
[2018-05-23] MEDS ORDERED: LORazepam 0.5 MG TAB PO PRN (20:58)
[2018-05-23] MEDS: GABAPENTIN 400 MG CAP PO SCH (21:07)
[2018-05-23] MEDS: GUAIFENESIN/DM 10 ML UDCUP PO PRN (21:12)
[2018-05-24] MEDS: GUAIFENESIN/DM 10 ML UDCUP PO PRN ×3 (05:29→21:36)
[2018-05-24] MEDS: IPRATROPIUM/ALBUTEROL 3 ML DEYVIAL IH PRN ×4 (05:35→16:53)
[2018-05-24] MEDS: methylPREDNISolone SOD SUCC 125 MG/2 ML VIAL IVP SCH ×2 (09:07→21:33)
[2018-05-24] MEDS: ENOXAPARIN 40 MG/0.4 ML SYR SC SCH (09:07)
[2018-05-24] MEDS: guaiFENesin 600 MG TAB.ER PO SCH ×2 (09:07→21:34)
[2018-05-24] MEDS: AZITHROMYCIN 250 MG TAB PO SCH (09:07)
[2018-05-24] MEDS: GABAPENTIN 400 MG CAP PO SCH ×2 (09:07→21:33)
[2018-05-24] MEDS: LORazepam 0.5 MG TAB PO PRN ×2 (09:53→21:36)
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
--- NOTE | 2018-05-24 13:10 | HOSPPROG ---
Hospitalist Progress Note Assessment/Plan: 57y female with c/o SOB. First encounter, chart reviewed. #Acute asthma exacerbation: -doing ok -still with wheezing and cough -on room air -cont current treatment -IV steriods, abx etc #Hx vocal cord disfunction -fu ENT outpatient #PTSD -cont ativan #Hx SZ -no meds -no SZ #Hx drug use -no signs of complications #Dispo -unclear -change to inpt status -still sob with significant inflammation Subjective: Breathing feels tight. Still with significant cough. Feels crummy. Objective: Vital Signs Temp Pulse Resp BP Pulse Ox 36.5 C 97 20 139/79 H 95 05/24/18 11:52 05/24/18 11:52 05/24/18 11:52 05/24/18 11:52 05/24/18 11:52 Microbiology 05/23/18 15:30 Respiratory Panel (PCR) - Final Nasal, Sinus - Swab Human Rhinovirus/Enterovirus - Physical Exam Constitutional: appears nourished, chronically ill appearing, uncomfortable Eyes: PERRL, anicteric sclera, EOMI Ears, Nose, Mouth, Throat: moist mucous membranes, hearing normal, ears appear normal Cardiovascular: No JVD, No tachycardia, No edema Respiratory: reduced air movement, expiratory wheeze, bronchial breath sounds Gastrointestinal: normoactive bowel sounds, No tenderness, No ascites Skin: warm, normal color, No mottled Musculoskeletal: normal joint ROM, no joint effusions, generalized weakness Neurologic: AAOx3 Psychiatric: not encephalopathic, thought process linear, anxious, poor judgement ICD10 Worksheet Patient Problems: Problems Problem Status Onset Asthma attack Acute Seizure Acute Submandibular gland swelling Acute Acute asthma exacerbation Acute Asthma Acute Acute respiratory failure Acute Altered mental status Acute Respiratory failure Acute Pneumonia Acute Bronchitis Acute Acute conjunctivitis, left eye Acute Asthma with acute exacerbation in adult Acute
[2018-05-24] MEDS ORDERED: BENZONATATE 100 MG CAP PO PRN (13:11)
--- NOTE | 2018-05-24 14:06 | PDMN ---
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
[2018-05-25] MEDS: IPRATROPIUM/ALBUTEROL 3 ML DEYVIAL IH PRN ×5 (03:52→22:18)
[2018-05-25] MEDS: GUAIFENESIN/DM 10 ML UDCUP PO PRN ×2 (08:34→21:13)
[2018-05-25] MEDS: AZITHROMYCIN 250 MG TAB PO SCH (08:34)
[2018-05-25] MEDS: guaiFENesin 600 MG TAB.ER PO SCH ×2 (08:34→21:08)
[2018-05-25] MEDS: GABAPENTIN 400 MG CAP PO SCH ×2 (08:35→21:08)
[2018-05-25] MEDS: LORazepam 0.5 MG TAB PO PRN ×2 (08:35→21:13)
[2018-05-25] MEDS: methylPREDNISolone SOD SUCC 125 MG/2 ML VIAL IVP SCH ×2 (08:35→21:07)
[2018-05-25] MEDS: ENOXAPARIN 40 MG/0.4 ML SYR SC SCH (08:35)
--- NOTE | 2018-05-25 10:04 | HOSPPROG ---
Hospitalist Progress Note Assessment/Plan: 57y female with c/o SOB. #Acute asthma exacerbation: -doing ok -still with wheezing and cough -on room air -cont current treatment -IV steroids, abx nebs #Hx vocal cord disfunction -fu ENT outpatient #PTSD -cont ativan #Hx SZ -no meds -no SZ #Hx drug use -no signs of complications #Dispo -unclear -still requires nebs and IV steroids -still sob with significant inflammation Subjective: In bed. Still very SOB with cough. Wheezing. No pain. Objective: Vital Signs Temp Pulse Resp BP Pulse Ox 36.7 C 89 15 140/75 H 94 05/25/18 07:17 05/25/18 08:06 05/25/18 08:06 05/25/18 07:17 05/25/18 08:06 05/24/18 05/25/18 05/26/18 05:59 05:59 05:59 Intake Total 550 Balance 550 - Physical Exam Constitutional: appears nourished, not in pain, chronically ill appearing Eyes: PERRL, anicteric sclera, EOMI Ears, Nose, Mouth, Throat: moist mucous membranes, hearing normal, ears appear normal Cardiovascular: regular rate and rhythym, No JVD, No tachycardia, No edema Respiratory: no respiratory distress, reduced air movement, expiratory wheeze Gastrointestinal: normoactive bowel sounds, No tenderness, No ascites Skin: warm, normal color, No mottled Musculoskeletal: normal joint ROM, no joint effusions, generalized weakness Neurologic: AAOx3 Psychiatric: interacting appropriately, not anxious, not encephalopathic, thought process linear ICD10 Worksheet Patient Problems: Problems Problem Status Onset Asthma attack Acute Seizure Acute Submandibular gland swelling Acute Acute asthma exacerbation Acute Asthma Acute Acute respiratory failure Acute Altered mental status Acute Respiratory failure Acute Pneumonia Acute Bronchitis Acute Acute conjunctivitis, left eye Acute Asthma with acute exacerbation in adult Acute
[2018-05-26] MEDS: IPRATROPIUM/ALBUTEROL 3 ML DEYVIAL IH PRN (07:06)
[2018-05-26 07:16] VITALS: BP 156/79
[2018-05-26] MEDS: ENOXAPARIN 40 MG/0.4 ML SYR SC SCH (08:19)
[2018-05-26] MEDS: methylPREDNISolone SOD SUCC 125 MG/2 ML VIAL IVP SCH (08:19)
[2018-05-26] MEDS: guaiFENesin 600 MG TAB.ER PO SCH (08:19)
[2018-05-26] MEDS: AZITHROMYCIN 250 MG TAB PO SCH (08:19)
[2018-05-26] MEDS: GABAPENTIN 400 MG CAP PO SCH (08:19)
[2018-05-26] MEDS: LORazepam 0.5 MG TAB PO PRN (08:37)
--- NOTE | 2018-05-26 11:23 | GDS ---
DISPOSITION: The patient left against medical advice. DISCHARGE DIAGNOSES: 1. Acute asthma exacerbation. 2. Acute vocal cord dysfunction. 3. Posttraumatic stress disorder. 4. History of seizure. 5. History of drug use. PHYSICAL EXAM: GENERAL: The patient is alert. VITAL SIGNS: Afebrile at 36.7, pulse is 87, respira tory rate is 18, blood pressure is 156/79, she is saturating 97% on room air. HOSPITAL COURSE: The patient is a 57-year-old female who presented to the emergency room with compla ints of shortness of breath. She was evaluated and diagnosed with acute asthma exacerbation. During this hospitalization, she was treated with IV steroids. She has removed her peripheral IV against m edical advice and is refusing any further treatment at this time. She states that she needs to be di scharged for a family emergency and is unwilling to wait for any further intervention. The nurse has reviewed this disposition with me. The patient will be leaving the building against medical advice to follow up on her own in the outpatient setting. There are no pending studies. DISCHARGE MEDICATIONS: None. FOLLOWUP: Followup will be with the patient's choice. /[id number]/MODL
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
[2018-05-26] MEDS ORDERED: predniSONE 20 MG TAB PO SCH (18:00)
== END 2018-05-26 09:23 | disposition left against medical advice (07) | DRG 141 ==
LOC: F3E 14:08 → OBSVTOIN 05-24 13:14
PROVIDERS: ADMIT Internal Medicine; ATTEND Internal Medicine
DX: J45.901 Unspecified asthma with (acute) exacerbation (principal); F17.210 Nicotine dependence, cigarettes, uncomplicated; F43.10 Post-traumatic stress disorder, unspecified; F14.10 Cocaine abuse, uncomplicated; R56.9 Unspecified convulsions
CPT/HCPCS: 96374; G0378; J1650; J2930; J3475; J7613

== ENCOUNTER 2018-07-05 16:00 | Inpatient (IN) | payer MEDICAID ==
[2018-07-05] MEDS ORDERED: ALBUTEROL 3 ML DEYVIAL ONE (16:07)
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
[2018-07-05] MEDS ORDERED: BENZONATATE 100 MG CAP PO ONE (16:13)
[2018-07-05] MEDS ORDERED: methylPREDNISolone SOD SUCC 125 MG/2 ML VIAL IVP ONE (16:13)
[2018-07-05] MEDS ORDERED: ALBUTEROL 3 ML DEYVIAL IH ONE ×3 (16:13→17:05)
[2018-07-05] MEDS ORDERED: MAGNESIUM SULF 2 GM/WATER 50 ML IV ONE (16:13)
[2018-07-05] MEDS ORDERED: IPRATROPIUM/ALBUTEROL 3 ML DEYVIAL IH ONE (16:13)
[2018-07-05] MEDS ORDERED: oxyCODONE IR 5 MG TAB PO PRN (18:09)
[2018-07-05] MEDS ORDERED: ONDANSETRON DISINTEGRATING 4 MG TAB PO PRN (18:09)
[2018-07-05] MEDS ORDERED: ALBUTEROL 60 PUFFS/8 GM MDI IH PRN (18:09)
[2018-07-05] MEDS ORDERED: LORazepam 2 MG/ML INJ IVP PRN (18:09)
[2018-07-05] MEDS ORDERED: ACETAMINOPHEN 325 MG TAB PO PRN (18:09)
[2018-07-05] MEDS ORDERED: ONDANSETRON 4 MG/2 ML VIAL IVP PRN (18:09)
--- NOTE | 2018-07-05 18:16 | PDGENHP ---
History and Physical - Chief Complaint shortness of breath - History of Present Illness 58yo F with asthma with recurrent exacerbations, history of cocaine abuse presents with increasing shortness of breath and dry cough. 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 She thinks her symptoms were triggered by the cold air. Has been using albuterol inhaler and nebulizer up to 10 times/day but symptoms not improving. Also started taking 20mg prednisone twice daily yesterday morning with no relief. Denies fevers, chills. Stopped smoking about 30 days ago. smokes but not in the house. No sick contacts. No other travel. Of note, she has been hospitalized several times in past few months for asthma. She has required intubation in the past. In the ED was noted to be tachypneic with wheezing. Was given nebulizers and 125mg IV methylpred. She is being admitted for further management. History Information - Allergies/Home Medication List Allergies/Adverse Reactions: acetaminophen [From Tylenol] Allergy (Severe, Verified 03/28/18 15:21) Anaphylaxis ibuprofen Allergy (Verified 03/28/18 18:35) Other-Enter Comments Home Medications: Albuterol [Proventil Inhaler HFA (*)] 1 - 2 puffs IH Q4H PRN 05/23/18 [Last Taken 07/04/18] Budesonide/Formoterol 160/4.5 [Symbicort 160-4.5 Mcg Inh (*)] 2 puffs IH BID [Last Taken 07/04/18] Fluticasone Hfa 220 Mcg [Flovent 220 MCG Hfa MDI (*)] 2 puffs IH BID PRN [Last Taken 05/23/18] guaiFENesin [Mucinex 600 MG (*)] 600 mg PO BID 05/23/18 [Last Taken 07/03/18] Gabapentin 1,600 mg PO DAILY@18 07/05/18 [Last Taken 07/04/18] Ipratropium/Albuterol [Duoneb (*)] 3 ml IH Q3H PRN 07/05/18 [Last Taken 07/04/18 ] Tiotropium Inhaler [Spiriva Handihaler] 18 mcg IH DAILY 07/05/18 [Last Taken ] I have personally reviewed and updated: family history, medical history, social history, surgical history - Past Medical History asthma Additional medical history: Asthma - 4 previous intubations, frequent hospitalizations. Depression. H/O seizure. Cocaine abuse - Surgical History Reports: no pertinent surgical hx - Family History Positive for: cancer Additional family history: Daughter of asthma exacerbation - Social History Smoking Status: Former smoker Alcohol Use: None Drug Use: None Additional social history: Lives in apartment with , was previously homeless. Quit smoking 4 weeks ago. H/O cocaine use, reports to be sober. Review of Systems Review of Systems: ROS: 10pt was reviewed & negative except for what was stated in HPI & below Physical Exam Physical Exam: Temp Pulse Resp BP Pulse Ox 37.0 C 88 16 98/62 L 100 07/05/18 18:04 07/05/18 18:04 07/05/18 18:04 07/05/18 18:04 07/05/18 18:04 O2 (L/minute) 4 Constitutional: appears nourished, uncomfortable Eyes: PERRL, anicteric sclera, EOMI Ears, Nose, Mouth, Throat: moist mucous membranes, hearing normal, ears appear normal, no oral mucosal ulcers Cardiovascular: no murmur, rub, or gallop, tachycardia, No JVD, No edema Respiratory: no rales or rhonchi, reduced air movement (significant), expiratory wheeze, other Gastrointestinal: normoactive bowel sounds, soft, non-tender abdomen, no palpable masses Genitourinary: no bladder fullness, no bladder tenderness Skin: warm, normal color, no rashes or abrasions, no fluctuance, no induration, No mottled Musculoskeletal: full muscle strength, no muscle tenderness, normal joint ROM, no joint effusions Neurologic: AAOx3 Psychiatric: interacting appropriately, not anxious, not encephalopathic, thought process linear Lab Data & Imaging Review Visualized and Interpreted Chest x-ray results: Yes Visualized and Interpreted imaging results: Yes Interpretation: CXR: no infiltrate or effusion, mild peribronchial thickening ( interp by me) Assessment & Plan Assessment: 58yo F with asthma requiring intubation, history of cocaine abuse presents with increasing shortness of breath and dry cough found to be wheezing consistent with asthma exacerbation. Plan: 1. Acute asthma exacerbation: Possibly triggered by bronchospasm from cold weather. Respiratory viral panel pending. CXR without pneumonia. Denies recent crack cocaine use. - Scheduled duonebs, high dose IV steroids, cough suppressants - Continue home ICS/LABA - Monitor clinical status closely, has required intubation in the past 2. Vocal cord dysfunction: Recent diagnosis. 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 3. H/o seizures: Not on medications for this. 4. Depression/anxiety/PTSD: Not on medications. VTE ppx: LMWH Diet: regular Code: full Dispo: Admit under observation
[2018-07-05] MEDS: GABAPENTIN 400 MG CAP PO SCH (18:43)
[2018-07-05] MEDS: AZITHROMYCIN IV 500 MG in NS 250 ML IV SCH (18:43)
[2018-07-05] MEDS: methylPREDNISolone SOD SUCC 125 MG/2 ML VIAL IVP SCH (20:10)
[2018-07-05] MEDS: guaiFENesin 600 MG TAB.ER PO SCH (20:10)
[2018-07-05] MEDS: BUDESONIDE/FORMOTEROL 160/4.5 60 PUFFS/MDI IH SCH (20:10)
[2018-07-05] MEDS: IPRATROPIUM/ALBUTEROL 3 ML DEYVIAL IH SCH (21:27)
[2018-07-06] MEDS: IPRATROPIUM/ALBUTEROL 3 ML DEYVIAL IH SCH ×4 (05:25→21:55)
[2018-07-06 06:16] LABS: PLATELET COUNT 257 10^3/uL (150-400)
[2018-07-06] MEDS: ENOXAPARIN 40 MG/0.4 ML SYR SC SCH (08:25)
[2018-07-06] MEDS: guaiFENesin 600 MG TAB.ER PO SCH ×2 (08:25→20:22)
[2018-07-06] MEDS: methylPREDNISolone SOD SUCC 125 MG/2 ML VIAL IVP SCH ×2 (08:25→20:22)
[2018-07-06] MEDS: BUDESONIDE/FORMOTEROL 160/4.5 60 PUFFS/MDI IH SCH ×2 (08:26→20:26)
[2018-07-06] MEDS: AZITHROMYCIN IV 500 MG in NS 250 ML IV SCH (08:26)
[2018-07-06] MEDS: LORazepam 1 MG TAB PO SCH (09:30)
[2018-07-06] MEDS: CEPACOL LOZENGE PO PRN ×3 (09:44→20:22)
--- NOTE | 2018-07-06 09:49 | HOSPPROG ---
Hospitalist Progress Note Assessment/Plan: 1. Acute asthma exacerbation: Possibly triggered by bronchospasm from cold weather. Respiratory viral panel pending. CXR without pneumonia. Denies recent crack cocaine use. - Scheduled duonebs, high dose IV steroids, cough suppressants - Continue home ICS/LABA - Monitor clinical status closely, has required intubation in the past 2. Vocal cord dysfunction: Recent diagnosis. 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 3. H/o seizures: Not on medications for this. 4. Depression/anxiety/PTSD: Not on medications * probably the root cause of all. Subjective: feels better but still short of breath and wheezy Objective: Vital Signs Temp Pulse Resp BP Pulse Ox 36.9 C 90 16 114/64 94 07/06/18 07:32 07/06/18 07:32 07/06/18 07:32 07/06/18 07:32 07/06/18 07:32 Laboratory Results 07/06/18 05:55 07/06/18 05:55 07/05/18 07/06/18 07/07/18 05:59 05:59 05:59 Intake Total 600 Balance 600 - Physical Exam Constitutional: no apparent distress, appears nourished, not in pain Eyes: anicteric sclera Ears, Nose, Mouth, Throat: moist mucous membranes Cardiovascular: regular rate and rhythym Respiratory: no respiratory distress, expiratory wheeze (fine) Gastrointestinal: normoactive bowel sounds Skin: warm Neurologic: AAOx3 Psychiatric: interacting appropriately, not anxious, not encephalopathic, thought process linear ICD10 Worksheet Patient Problems: Problems Problem Status Onset Asthma with acute exacerbation in adult Acute Acute asthma exacerbation Acute Acute conjunctivitis, left eye Acute Acute respiratory failure Acute Altered mental status Acute Asthma Acute Asthma attack Acute Bronchitis Acute Pneumonia Acute Respiratory failure Acute Seizure Acute Submandibular gland swelling Acute
--- NOTE | 2018-07-06 17:16 | ASMTCMCOM ---
CM Note CM Note Notes: Pt admitted with asthma excacerbation, lives with and works. Does have a hx of cocaine use, but currently sober. Anticipate he will dc home with support when medically stable. CM available for any changes. DC Plan: Independent Date Signed: 07/06/2018 05:15 PM Electronically Signed By:Mady Ferrell RN
[2018-07-06] MEDS: GABAPENTIN 400 MG CAP PO SCH (17:48)
[2018-07-06] MEDS ORDERED: MELATONIN 3 MG TAB PO SCH (21:00)
[2018-07-07] MEDS: IPRATROPIUM/ALBUTEROL 3 ML DEYVIAL IH SCH ×2 (05:14→11:42)
[2018-07-07] MEDS: CEPACOL LOZENGE PO PRN (05:41)
[2018-07-07 08:40] VITALS: BP 135/88
[2018-07-07] MEDS: LORazepam 1 MG TAB PO SCH (08:53)
[2018-07-07] MEDS: ENOXAPARIN 40 MG/0.4 ML SYR SC SCH (08:53)
[2018-07-07] MEDS: AZITHROMYCIN IV 500 MG in NS 250 ML IV SCH (08:53)
[2018-07-07] MEDS: guaiFENesin 600 MG TAB.ER PO SCH (08:53)
[2018-07-07] MEDS: methylPREDNISolone SOD SUCC 125 MG/2 ML VIAL IVP SCH (08:54)
[2018-07-07] MEDS: BUDESONIDE/FORMOTEROL 160/4.5 60 PUFFS/MDI IH SCH (08:55)
--- NOTE | 2018-07-07 09:54 | ASDISCHSUM ---
Discharge Information Plan Status:Home with No Needs Medically Cleared to Leave:07/06/2018 Discharge Date:07/06/2018 CM D/C Disposition:Home, Routine, Self-Care ADT D/C Disposition: Projected Discharge Date:07/07/2018 12:00 AM Transportation at D/C:Bus Ticket Discharge Delay Reason: Follow-Up Date:07/07/2018 12:00 AM Discharge Slot: Final Diagnosis: Placement Information Patient Contact Information Contact Name:SHAWNA Relationship: Address: Work Phone: City: [facility] Phone: State/NeuroSave Code: Email: Financial Information Financial Class:Medicaid Primary Plan Desc[place] [place] Primary Plan Number:[id number] Secondary Plan Desc: Secondary Plan Number: Assessment Information LACE LACE Length of stay for Answers: 1 day current admission Comorbidities - select Answers: Other Notes: Asthma all that apply # of Emergency department Answers: 5-8 visits in the last 6 months Social determinants Answers: History of substance abuse (ETOH, street drugs, prescription drugs, etc.) Mental health diagnosis (anxiety, depression, pers onality disorders, etc.) Score: 12 Date Signed: 07/07/2018 09:53 AM Electronically Signed By:SEBASTIEN Caputo [facility] CM Progress Note CM Note CM Note Notes: Pt admitted with asthma excacerbation, lives with and works. Does have a hx of cocaine use, but currently sober. Anticipate he will dc home with support when medically stable. CM available for any changes. DC Plan: Independent Date Signed: 07/06/2018 05:15 PM Electronically Signed By:Mady Ferrell RN Case Management Discharge Plan Note Case Management Discharge Discharge Order Complete? Answers: Yes Patient to Obtain Answers: Other Notes: CM provided bus pasa Medications Transportation Arranged Answers: Bus [employer] Family Notified Answers: Yes Discharge Comments Notes: CM discussed discharge plan with pt and significant other who was sleeping in the room at bedside. Pt was appreciative of bus passes. Pt reports she is able to obtain food and reports no other concerns at this time. Date Signed: 07/07/2018 09:53 AM Electronically Signed By:SEBASTIEN Caputo Intervention Information Intervention Type:*Incorrect Registration Date of Service:07/05/2018 06:57 PM Patient Type:Inpatient Staff Member:Nicole Otoole Hours: Discipline: Severity: Comment:
[2018-07-07] MEDS ORDERED: AZITHROMYCIN 250 MG TAB PO ONE (11:07)
--- NOTE | 2018-07-07 11:33 | GDS ---
DISCHARGE DIAGNOSES: 1. Asthma exacerbation. 2. History of vocal cord dysfunction. 3. History of seizure disorder. 4. Depression, anxiety, and posttraumatic stress disorder. HISTORY OF PRESENT ILLNESS: This is a 58-year-old female, well known to us, presenting with asthma e xacerbation. This started 3 days prior to admission. HOSPITAL COURSE: Patient was admitted and given IV Solu-Medrol. She improved. She is going to be d ischarged on prednisone. She has appointment with what seems to be [facility] tomorrow to help with her pulmonary issues. /[id number]/MODL
--- NOTE | 2018-07-07 11:42 | PDMN ---
Medical Necessity Medical necessity: [facility] M60 Asthma: 58 yo presents w/ acute asthma exacerbation. Initially OBS for workup but after 24 hours pt still SOB and wheezy and pt does have a hx of required intubation in past for asthma. Pt to cont duonebs and high dose IV steroids for additional MN. Hx seizures, substance abuse. Change to IP status 07/06/18@1705 per MD order
== END 2018-07-07 12:40 | disposition home or self-care (01) | DRG 141 ==
LOC: INTOOBSV 16:58 → F3E 17:59 → OBSVTOIN 07-06 17:05
PROVIDERS: ADMIT Internal Medicine; ATTEND Internal Medicine
DX: J45.41 Moderate persistent asthma with (acute) exacerbation (principal); J38.3 Other diseases of vocal cords; G40.909 Epilepsy, unspecified, not intractable, without status epilepticus; F32.9 Major depressive disorder, single episode, unspecified; F41.9 Anxiety disorder, unspecified; F43.12 Post-traumatic stress disorder, chronic
CPT/HCPCS: 96374; G0378; J0456; J1650; J2405; J2930; J3475; J7613

== ENCOUNTER 2018-07-19 08:59 | Inpatient (IN) | payer MEDICAID ==
[2018-07-19] MEDS ORDERED: IPRATROPIUM/ALBUTEROL 3 ML DEYVIAL ONE (09:15)
[2018-07-19] MEDS ORDERED: IPRATROPIUM/ALBUTEROL 3 ML DEYVIAL IH ONE (09:20)
[2018-07-19] MEDS ORDERED: ALBUTEROL 3 ML DEYVIAL IH ONE ×2 (10:09→12:55)
[2018-07-19] MEDS ORDERED: methylPREDNISolone SOD SUCC 125 MG/2 ML VIAL IVP ONE (10:09)
[2018-07-19 11:52] LABS: PLATELET COUNT 295 10^3/uL (150-400)
[2018-07-19] MEDS ORDERED: FLUTICASONE HFA 220 MCG MDI IH PRN (13:21)
[2018-07-19] MEDS ORDERED: ALBUTEROL 60 PUFFS/8 GM MDI IH PRN (13:21)
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
[2018-07-19] MEDS ORDERED: ONDANSETRON DISINTEGRATING 4 MG TAB PO PRN (15:55)
[2018-07-19] MEDS ORDERED: ALBUTEROL 3 ML DEYVIAL IH PRN (15:55)
[2018-07-19] MEDS ORDERED: ONDANSETRON 4 MG/2 ML VIAL IVP PRN (15:55)
[2018-07-19] MEDS: IPRATROPIUM/ALBUTEROL 3 ML DEYVIAL IH SCH ×2 (16:35→21:10)
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
[2018-07-19] MEDS ORDERED: BUDESONIDE/FORMOTEROL 160/4.5 60 PUFFS/MDI IH SCH (21:00)
[2018-07-19] MEDS: GABAPENTIN 400 MG CAP PO SCH (21:37)
[2018-07-19] MEDS: ALPRAZolam 1 MG TAB PO SCH (21:37)
[2018-07-19] MEDS: MELATONIN 3 MG TAB PO SCH (21:37)
[2018-07-19] MEDS: GUAIFENESIN/DM 10 ML UDCUP PO PRN (21:37)
[2018-07-19] MEDS: guaiFENesin 600 MG TAB.ER PO SCH (21:37)
[2018-07-20] MEDS: IPRATROPIUM/ALBUTEROL 3 ML DEYVIAL IH SCH ×4 (05:52→21:56)
[2018-07-20] MEDS: predniSONE 20 MG TAB PO SCH (08:38)
[2018-07-20] MEDS: guaiFENesin 600 MG TAB.ER PO SCH ×2 (08:39→21:48)
[2018-07-20] MEDS: GABAPENTIN 400 MG CAP PO SCH ×2 (08:39→21:48)
[2018-07-20] MEDS: ENOXAPARIN 40 MG/0.4 ML SYR SC SCH (08:39)
[2018-07-20] MEDS ORDERED: TIOTROPIUM INHALER 18 MCG/DOSE 5 DOSE/MDI IH SCH (09:00)
--- NOTE | 2018-07-20 17:01 | ASMTCMCOM ---
CM Note CM Note Notes: Reviewed chart. Pt admitted with a COPD exacerbation. History includes asthma with 8 intubations, COPD, vocal cord dysfunction, seizures, depression, anxiety, PTSD, and cocaine abuse. Pt is , has 2 living children and 2 children. Discharge needs remain unclear at this time. Anticipate pt will likely discharge home independently when medically stable. CM will continue to follow for any potential needs. Discharge Plan: Likely independent Date Signed: 07/20/2018 05:01 PM Electronically Signed By:Marycruz Mora RN
--- NOTE | 2018-07-20 17:33 | HOSPPROG ---
Hospitalist Progress Note Assessment/Plan: * Asthma exacerbation due to viral infection (coronavirus) -prednisone, nebs * Acute respiratory failure -66% RR today with terrible increased work of breathing -continue O2 and respiratory support * Vocal cord dysfunction -this exacerbation clearly a true asthma event * Seizure disorder -gabapentin * Anxiety/PTSD -Xanax qhs Subjective: Very SOB, desating, feels terrible Objective: Vital Signs Temp Pulse Resp BP Pulse Ox 37.0 C 106 H 18 148/79 H 94 07/20/18 15:38 07/20/18 16:50 07/20/18 16:50 07/20/18 15:38 07/20/18 16:50 Microbiology 07/19/18 13:10 Respiratory Panel (PCR) - Final Nasal, Sinus - [place] Viral Transport Coronovirus Oc43 Detected CXR viewed, my personal interpretation is - negative Laboratory Tests 07/19/18 11:45 WBC 11.89 H Hct 32.6 L old chart reviewed - last admission here for asthma was 06/25 - Physical Exam Constitutional: uncomfortable, other (difficult breathing, SOB, increased WOB) Cardiovascular: regular rate and rhythym, no murmur, rub, or gallop Respiratory: expiratory wheeze, inspiratory crackles, respiratory distress, rhonchi Gastrointestinal: normoactive bowel sounds, soft, non-tender abdomen, no palpable masses Skin: no rashes or abrasions, no fluctuance, no induration Neurologic: AAOx3, sensation intact bilaterally Psychiatric: interacting appropriately, not anxious, not encephalopathic, thought process linear ICD10 Worksheet Patient Problems: Problems Problem Status Onset Asthma attack Acute Seizure Acute Submandibular gland swelling Acute Acute asthma exacerbation Acute Asthma Acute Acute respiratory failure Acute Altered mental status Acute Respiratory failure Acute Pneumonia Acute Bronchitis Acute Acute conjunctivitis, left eye Acute Asthma with acute exacerbation in adult Acute
[2018-07-20] MEDS ORDERED: MAG HYDROX/AL HYDROX/SIMETH 30 ML UDCUP PO PRN (20:00)
[2018-07-20] MEDS ORDERED: MAGNESIUM HYDROXIDE 30 ML UDCUP PO PRN (20:00)
[2018-07-20] MEDS ORDERED: BISACODYL 10 MG SUPP PR PRN (20:00)
[2018-07-20] MEDS ORDERED: POLYETHYLENE GLYCOL 3350 17 GM PKT PO PRN (20:00)
[2018-07-20] MEDS ORDERED: LACTULOSE 20 GM/30 ML UDCUP PO PRN (20:00)
--- NOTE | 2018-07-20 20:09 | PDMN ---
Medical Necessity Medical necessity: Pt meets INPT criteria per MD as of 07/20/18 and MCG M-60 Asthma (est. LOS >2 MN for ongoing eval/mgmt of asthma exacerbation d/t viral infection, acute respiratory failure, vocal cord dysfunction; comorbid seizure disorder, anxiety/PTSD).
[2018-07-20] MEDS: SENNOSIDES/DOCUSATE SODIUM TAB PO SCH (21:47)
[2018-07-20] MEDS: MELATONIN 3 MG TAB PO SCH (21:47)
[2018-07-20] MEDS: ALPRAZolam 1 MG TAB PO SCH (21:47)
[2018-07-20] MEDS: GUAIFENESIN/DM 10 ML UDCUP PO PRN (21:50)
[2018-07-21 05:39] LABS: PLATELET COUNT 343 10^3/uL (150-400)
[2018-07-21] MEDS: IPRATROPIUM/ALBUTEROL 3 ML DEYVIAL IH SCH ×4 (06:02→20:25)
[2018-07-21] MEDS: predniSONE 20 MG TAB PO SCH (07:53)
[2018-07-21] MEDS: SENNOSIDES/DOCUSATE SODIUM TAB PO SCH ×2 (07:53→20:47)
[2018-07-21] MEDS: GABAPENTIN 400 MG CAP PO SCH ×2 (07:53→20:46)
[2018-07-21] MEDS: guaiFENesin 600 MG TAB.ER PO SCH ×2 (07:53→20:47)
[2018-07-21] MEDS: ENOXAPARIN 40 MG/0.4 ML SYR SC SCH (07:54)
[2018-07-21] MEDS: BUDESONIDE/FORMOTEROL 160/4.5 60 PUFFS/MDI IH SCH ×2 (11:34→20:25)
--- NOTE | 2018-07-21 17:30 | HOSPPROG ---
Hospitalist Progress Note Assessment/Plan: * Asthma exacerbation due to viral infection (coronavirus) -prednisone, nebs * Acute respiratory failure -still desats with any ambulation -continue O2 and respiratory support * Vocal cord dysfunction -this exacerbation clearly a true asthma event * Seizure disorder -gabapentin * Anxiety/PTSD -Xanax qhs Subjective: much better, thinks she will be ready for discharge tomorrow Objective: Vital Signs Temp Pulse Resp BP Pulse Ox 36.8 C 87 18 119/78 92 07/21/18 15:40 07/21/18 17:00 07/21/18 17:00 07/21/18 15:40 07/21/18 17:00 Laboratory Results 07/21/18 04:50 - Physical Exam Constitutional: no apparent distress, appears nourished, not in pain Cardiovascular: regular rate and rhythym, no murmur, rub, or gallop Respiratory: expiratory wheeze, inspiratory crackles, respiratory distress, rhonchi Gastrointestinal: normoactive bowel sounds, soft, non-tender abdomen, no palpable masses Skin: no rashes or abrasions, no fluctuance, no induration Neurologic: AAOx3, sensation intact bilaterally Psychiatric: interacting appropriately, not anxious, not encephalopathic, thought process linear ICD10 Worksheet Patient Problems: Problems Problem Status Onset Asthma attack Acute Seizure Acute Submandibular gland swelling Acute Acute asthma exacerbation Acute Asthma Acute Acute respiratory failure Acute Altered mental status Acute Respiratory failure Acute Pneumonia Acute Bronchitis Acute Acute conjunctivitis, left eye Acute Asthma with acute exacerbation in adult Acute
[2018-07-21] MEDS: GUAIFENESIN/DM 10 ML UDCUP PO PRN (20:46)
[2018-07-21] MEDS: ALPRAZolam 1 MG TAB PO SCH (20:46)
[2018-07-21] MEDS: MELATONIN 3 MG TAB PO SCH (20:47)
[2018-07-22] MEDS: IPRATROPIUM/ALBUTEROL 3 ML DEYVIAL IH SCH ×2 (05:06→10:36)
[2018-07-22] MEDS: predniSONE 20 MG TAB PO SCH (07:47)
[2018-07-22] MEDS: GABAPENTIN 400 MG CAP PO SCH (07:47)
[2018-07-22] MEDS: guaiFENesin 600 MG TAB.ER PO SCH (07:47)
[2018-07-22] MEDS: BUDESONIDE/FORMOTEROL 160/4.5 60 PUFFS/MDI IH SCH (08:31)
[2018-07-22 09:19] VITALS: BP 111/72
[2018-07-22] MEDS: ENOXAPARIN 40 MG/0.4 ML SYR SC SCH (09:24)
[2018-07-22] MEDS: SENNOSIDES/DOCUSATE SODIUM TAB PO SCH (09:25)
--- NOTE | 2018-07-22 11:50 | ASMTLACE ---
BLAKE Length of stay for Answers: 3 days current admission Acuity / Level of Answers: Yes Care: Did the patient have an inpatient admission? Comorbidities - select Answers: Chronic pulmonary disease all that apply Other Notes: Asthma w/ 8 intubations # of Emergency department Answers: 3-4 visits in the last 6 months Social determinants Answers: Mental health diagnosis (anxiety, depression, pers onality disorders, etc.) Score: 15 Date Signed: 07/22/2018 11:50 AM Electronically Signed By:SEBASTIEN Blas
--- NOTE | 2018-07-22 11:51 | ASMTCMCOM ---
CM Note CM Note Notes: Pt is being d/c'd today. Pt does not have any d/c needs. CM provided pt w/ a bus pass. CM available for changes. Plan: Independent Date Signed: 07/22/2018 11:51 AM Electronically Signed By:SEBASTIEN Blas
--- NOTE | 2018-07-22 14:35 | PDDCSUM ---
Discharge Summary Discharge Summary: Date of Admission: 07/20/2018 Date of Discharge: 07/22/2018 Consults: N/A Procedures: N/A Followup: PCP Hospital Course Problem List: * Asthma exacerbation due to viral infection (coronavirus) -prednisone (will complete 5 day course), nebs * Acute respiratory failure -Weaned off 02 * Vocal cord dysfunction -this exacerbation clearly a true asthma event * Seizure disorder -Continue gabapentin * Anxiety/PTSD -Continue Xanax qhs Time spent on discharge was >35 minutes with >50% of time spent on patient education and counseling.
== END 2018-07-22 12:39 | disposition home or self-care (01) | DRG 141 ==
LOC: F3E 15:37 → OBSVTOIN 07-20 11:04
PROVIDERS: ADMIT Internal Medicine; ATTEND Internal Medicine
DX: J45.901 Unspecified asthma with (acute) exacerbation (principal); J96.00 Acute respiratory failure, unspecified whether with hypoxia or hypercapnia; B97.29 Other coronavirus as the cause of diseases classified elsewhere; G40.909 Epilepsy, unspecified, not intractable, without status epilepticus; F32.9 Major depressive disorder, single episode, unspecified; F41.9 Anxiety disorder, unspecified; F43.10 Post-traumatic stress disorder, unspecified; Z87.891 Personal history of nicotine dependence; Z80.9 Family history of malignant neoplasm, unspecified
CPT/HCPCS: 80305; 96374; 97165-GO; G0378; J1650; J2930; J7512; J7613

== ENCOUNTER 2018-11-02 17:38 | Inpatient (IN) | payer MEDICAID ==
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
[2018-11-02] MEDS ORDERED: IPRATROPIUM/ALBUTEROL 3 ML DEYVIAL ONE (17:46)
[2018-11-02] MEDS ORDERED: MAGNESIUM SULF 2 GM/WATER 50 ML BAG IV ONE (17:46)
[2018-11-02] MEDS ORDERED: methylPREDNISolone SOD SUCC 125 MG/2 ML VIAL ONE (17:46)
[2018-11-02] MEDS ORDERED: methylPREDNISolone SOD SUCC 125 MG/2 ML VIAL IVP ONE (17:49)
[2018-11-02] MEDS ORDERED: MAGNESIUM SULF 2 GM/WATER 50 ML IV ONE (17:49)
[2018-11-02] MEDS ORDERED: IPRATROPIUM/ALBUTEROL 3 ML DEYVIAL IH ONE (17:49)
[2018-11-02] MEDS ORDERED: ALBUTEROL 3 ML DEYVIAL ONE (17:54)
[2018-11-02] MEDS ORDERED: KETAMINE 500 MG/10 ML VIAL IM ONE ×2 (18:00→18:15)
[2018-11-02] MEDS ORDERED: KETAMINE 500 MG/10 ML VIAL IV ONE ×2 (18:00→18:05)
[2018-11-02] MEDS ORDERED: NS 1,000 ML IV ONE (18:09)
[2018-11-02] MEDS ORDERED: PROPOFOL/EMULSION 1,000 MG/100 ML BOTTLE IV ONE (18:11)
[2018-11-02] MEDS ORDERED: KETAMINE 200 MG/20 ML VIAL IV ONE ×2 (18:15→22:00)
[2018-11-02] MEDS ORDERED: SUCCINYLCHOLINE CHLORIDE 200 MG/10 ML SYR IVP ONE ×3 (18:19→22:00)
[2018-11-02] MEDS ORDERED: PROPOFOL 200 MG/20 ML VIAL IVP ONE ×3 (18:25→19:15)
[2018-11-02] MEDS: PROPOFOL/EMULSION 100 ML IV SCH ×2 (18:29→21:44)
[2018-11-02] MEDS ORDERED: ONDANSETRON DISINTEGRATING 4 MG TAB PO PRN (18:31)
[2018-11-02] MEDS ORDERED: ONDANSETRON 4 MG/2 ML VIAL IVP PRN (18:31)
[2018-11-02 18:40] LABS: PLATELET COUNT 341 10^3/uL (150-400)
[2018-11-02] MEDS ORDERED: NS 1,000 ML IV SCH (19:15)
[2018-11-02] MEDS ORDERED: fentaNYL 100 MCG/2 ML INJ ONE (19:18)
[2018-11-02] MEDS ORDERED: fentaNYL 100 MCG/2 ML INJ IVP ONE (19:23)
[2018-11-02] MEDS ORDERED: fentaNYL/NACL 100 ML IV ONE (19:30)
--- NOTE | 2018-11-02 19:57 | GHP ---
[f rep st] HISTORY AND PHYSICAL DATE OF ADMISSION: 11/02/2018 CHIEF COMPLAINT: Asthma exacerbation. Primary Launch Steward: at [facility] HISTORY OF PRESENT ILLNESS: A 58-year-old female, well known to me, with asthma and multiple intubations in the past, presented with shortness of breath. She was last hospitalized at [facility] in July 2018 for exacerbation from Coronavirus. Presented here today with severe shortness of breath. She was very tachypneic and wheezy in ER and required emergent intubation. History obtained from ER note and . saw her this morning and she was not having any breathing issues, no cough. Nebulizer machine has not been working since . Still smokes cigarettes. Per ER note, she says cleaned oven yesterday and exposed to the housecleaner floor. REVIEW OF SYSTEMS: I completed review of systems through chart review as patient is intubated. PAST MEDICAL HISTORY: Asthma with multiple intubations, vocal cord dysfunction , seizure, anxiety/PTSD, cocaine abuse. PAST SURGICAL HISTORY: None. FAMILY HISTORY: Daughter of an asthma exacerbation. HOME MEDICATIONS: Spiriva, melatonin, gabapentin, Flonase, Flovent, Symbicort, albuterol, alprazolam. ALLERGIES: Tylenol, ibuprofen. PHYSICAL EXAMINATION: VITAL SIGNS: Temperature 36.7, blood pressure 165/95, heart rate in the 130s, respirations 16, 98% on 100% FiO2. GENERAL: She is sedated on propofol. No acute distress. HEENT: PERRLA. Moist mucous membranes. CV: Tachy, regular. LUNGS: Clear anteriorly. ABDOMEN: Soft, nontender. No grimace. : Woodard in place. NEUROLOGIC: Sedated. PSYCHIATRIC: Sedated. LABORATORY DATA: WBC 9, hemoglobin 13, hematocrit 42, platelets 341. Sodium 141, potassium 4.1, chloride 105, carbon dioxide 26, creatinine 0.8, glucose 101. Troponin pending. ASSESSMENT AND PLAN: 1. Acute asthma exacerbation: Emergently intubated. Perhaps due to chemical- exposure. Afebrile, no PNA on CXR. Check resp panel. h/o cocaine, check drug screen. High-dose steroids, nebs. 2. Acute hypoxemic resp failure: due to above 3. Anxiety: Hold medications. 3. Seizures: Resume when taking p.o. 5. History of cocaine abuse: Utox pending 6. Diet: N.p.o. 7. Deep venous thrombosis prophylaxis: Lovenox. DISPOSITION: Patient warrants ICU admission for asthma exacerbation requiring intubation. Critical care time spent: 60min reviewing records, speaking with , and d/ w Dr. Cooley /[id number]/MODL MTDD
[2018-11-02] MEDS: FAMOTIDINE 20 MG/NACL 50 ML IV SCH (20:56)
[2018-11-02] MEDS: CHLORHEXIDINE GLUCONATE 15 ML UDL PO SCH (21:14)
[2018-11-02] MEDS ORDERED: KETAMINE 200 MG/20 ML VIAL ONE (21:51)
--- NOTE | 2018-11-02 21:52 | EDPHY ---
ED Progress Note Narrative: I was called to the ICU at approximately 9:20 p.m. after this patient self extubated. At the time of my arrival she had supplemental oxygen in place with a pulse oximetry of 100%. She was tachypneic with virtually absent breath sounds bilaterally. She was reintubated with a 7-0 ET tube using the glide scope for visualization. ET tube was visualized passing through the vocal folds. She received ketamine 100 mg IV and succinylcholine 100 mg IV prior to re -intubation. Breath sounds were audible bilaterally following intubation. Chest x-ray ordered to assess position. Care returned to ICU staff.
--- NOTE | 2018-11-02 21:57 | HOSPPROG ---
Hospitalist Progress Note Assessment/Plan: Approx 21:40, she self-extubated. Gen: very agitated CV: tachy Lungs: diffuse wheezing, tight, poor air movement A&P 1. Acute hypoxemic resp failure -Appreciate Dr. Olivarez's assistance with re-intubation. -cont cares as previously dictated Objective: Vital Signs Temp Pulse Resp BP Pulse Ox 37.4 C 91 16 163/97 H 100 11/02/18 19:12 11/02/18 20:50 11/02/18 20:50 11/02/18 19:39 11/02/18 20:50 11/01/18 11/02/18 11/03/18 05:59 05:59 05:59 Intake Total 1000 Balance 1000 ICD10 Worksheet Patient Problems: Problems Problem Status Onset Acute asthma exacerbation Acute Respiratory distress Acute Respiratory failure Acute Acute conjunctivitis, left eye Acute Acute respiratory failure Acute Altered mental status Acute Asthma Acute Asthma attack Acute Asthma with acute exacerbation in adult Acute Bronchitis Acute Pneumonia Acute Seizure Acute Submandibular gland swelling Acute
[2018-11-02] MEDS ORDERED: MIDAZOLAM 2 MG/2 ML VIAL IVP ONE (22:03)
[2018-11-02] MEDS ORDERED: MIDAZOLAM HCL 50 MG in NS 50 ML IV SCH (22:15)
[2018-11-03] MEDS: IPRATROPIUM/ALBUTEROL 3 ML DEYVIAL IH SCH ×5 (00:02→19:41)
[2018-11-03] MEDS: methylPREDNISolone SOD SUCC 125 MG/2 ML VIAL IVP SCH ×2 (00:13→06:01)
[2018-11-03] MEDS: fentaNYL/NACL 100 ML IV SCH ×2 (01:49→09:30)
[2018-11-03] MEDS: PROPOFOL/EMULSION 100 ML IV SCH ×3 (01:49→10:13)
[2018-11-03] MEDS: CHLORHEXIDINE GLUCONATE 15 ML UDL PO SCH (08:45)
[2018-11-03] MEDS: ENOXAPARIN 40 MG/0.4 ML SYR SC SCH (09:20)
[2018-11-03] MEDS: FAMOTIDINE 20 MG/NACL 50 ML IV SCH (09:20)
--- NOTE | 2018-11-03 09:32 | PDMN ---
Medical Necessity Medical necessity: [facility] M60 Asthma, A-day: 58 yo w/ acute asthma exacerbation requiring emergent intubation for acute resp failure poss r/t chemical exposure. Admit IP status to ICU. Meets [facility] IP criteria for asthma w/ required ventilator support.
[2018-11-03] MEDS ORDERED: QUEtiapine FUMARATE 100 MG TAB PO ONE (10:35)
[2018-11-03] MEDS ORDERED: FUROSEMIDE 40 MG/4 ML VIAL IVP ONE (10:40)
[2018-11-03] MEDS ORDERED: QUEtiapine FUMARATE 100 MG TAB TUBE ONE (10:45)
[2018-11-03] MEDS ORDERED: ONDANSETRON DISINTEGRATING 4 MG TAB TUBE PRN (11:00)
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
--- NOTE | 2018-11-03 12:28 | ASMTCMCOM ---
CM Note CM Note Notes: Pt presented to the ED yesterday for asthma exacerbation, SOB, & wheezing after being exposed to chemical irritants while cleaning her oven w/oven fish cleaner. Pt admitted for respiratory failure w/hypoxia requiring intubation and soft restraints. Pt self-extubated last night but was successfully re-intubated. Pt's PMH includes: asthma, COPD, multiple intubations, seizure disorder, vocal cord dysfunction, CHI, hysterectomy and other abdominal infxns requiring multiple surgeries, depression, anxiety, PTSD, and past polysubstance abuse (but pt's u-tox is negative for all substances). Per past CM Reports, pt is ( is Johnny ([phone] ) and has 2 living children and 2 children (pt's daughter of an asthma exacerbation). Per H&P, pt's nebulizer machine has not been working since . Not sure if pt has a PCP, as one is not listed currently but per chart review pt had been followed at the [facility] ([facility]) in the past. Pt has also been followed by Dr Mendoza at [facility] in the past. *See various past CM Reports for additional background info. SENIOR ACCOUNT CLERK eval ordered. Exact DC needs TBD. Maybe consider a Palliative Care consult and referral to [facility]? CM to follow. Date Signed: 11/03/2018 11:49 AM Electronically Signed By:Marcela Bedoya RN
[2018-11-03] MEDS ORDERED: TEARS/DEXTRAN 70/HYPROMELLOSE 15 ML OPHT.BTL EACHEYE PRN (14:36)
[2018-11-03] MEDS ORDERED: FLUTICASONE HFA 220 MCG MDI IH PRN (14:36)
--- NOTE | 2018-11-03 14:43 | HOSPPROG ---
Hospitalist Progress Note Assessment/Plan: 58 yo F w astham admitted w hypoxic resp failure, now extubated asthma: improving steroids scheduled nebs restart home meds hold abx AHRF: as above cocaine: s/p some ativan does not seem intoxicated at this point still tachycardic proph: lmwh dispo: SDU Subjective: extubated today. case d/w dr mathis Objective: Vital Signs Temp Pulse Resp BP Pulse Ox 37.1 C 104 H 20 153/95 H 94 11/03/18 08:00 11/03/18 13:00 11/03/18 13:00 11/03/18 13:00 11/03/18 13:00 Microbiology 11/02/18 20:45 Respiratory Panel (PCR) - Final Nasal, Sinus - Swab No Organism Detected By Pcr 11/02/18 11/03/18 11/04/18 05:59 05:59 05:59 Intake Total 2069.8 Output Total 1030 Balance 1039.8 - Physical Exam Constitutional: no apparent distress, appears nourished Eyes: PERRL, anicteric sclera Ears, Nose, Mouth, Throat: moist mucous membranes, hearing normal Cardiovascular: regular rate and rhythym, no murmur, rub, or gallop Respiratory: other (prolonged espiratory phase wwheezes. goos air movement) Gastrointestinal: normoactive bowel sounds, soft, non-tender abdomen Genitourinary: No hook in urethra Skin: warm, normal color Musculoskeletal: full muscle strength Neurologic: AAOx3 ICD10 Worksheet Patient Problems: Problems Problem Status Onset Acute asthma exacerbation Acute Respiratory distress Acute Respiratory failure Acute Acute conjunctivitis, left eye Acute Acute respiratory failure Acute Altered mental status Acute Asthma Acute Asthma attack Acute Asthma with acute exacerbation in adult Acute Bronchitis Acute Pneumonia Acute Seizure Acute Submandibular gland swelling Acute
--- NOTE | 2018-11-03 15:02 | PDCONSULT ---
Buffing Line Set Up Worker Note: ASSESSMENT 58 year old female with acute hypoxemic respiratory failure requiring intubation mechanical ventilation due to asthma exacerbation from cocaine abuse and medication non adherence. # acute hypoxemic respiratory failure requiring intubation mechanical ventilation # asthma exacerbation. Severe. Cocaine abuse in medication non adherence. Partner states she does not use her medication # cocaine intoxication. Utox positive # encephalopathy, toxic and metabolic PLAN # lung protective ventilation # assess daily for extubation # scheduled steroids # schedule duo nebs # no evidence of infection thus no role for antibiotics # as needed Ativan for cocaine intoxication # will need counseling on medication adherence # sedation with propofol # Feeding - NPO # Analgesia low-dose fentanyl as needed # Sedation propofol # Thromboprophylaxis - SQ hep # Head of bed elevated # Ulcer prophylaxis - H2 lesly # Glucose SSI # Skin no skin breakdown # Delirium - delirium precautions Patient is critical ill due to life threatening organ dysfunction and is at high risk for decompensation and . Total critical care time, excluding procedures: 83 min IMAGING I personally reviewed interpreted radiographic images well as formal radiology reads 10/26/2018 CXR lungs well expanded ET tube in place no focal infiltrate Chief complaint Shortness of breath HPI I was asked by Dr. Perez of [facility] to evaluate this patient for ICU care in the setting of acute hypoxemic respiratory failure mechanical ventilation. The is a 58-year-old female with asthma and longstanding drug abuse with multiple admissions and intubations who presents emergency department with severe shortness of breath and respiratory failure. She was last intubated in in July 2018 with viral URI leading to asthma exacerbation. Patient is not regularly been using medications. Admits to cocaine use cigarette use. Emergency department she was emergently intubated and placed on mechanical ventilation. She subsequently self extubated and was Re intubated with an short. She required high-dose propofol fentanyl and Versed for sedation. Further review of systems unable to be obtained Allergies Tylenol ibuprofen Past medical history Asthma, recurrent asthma exacerbations, anxiety, drug abuse Social history Cocaine and tobacco use, lives with male partner Family history Asthma Review of systems Unable to be obtained secondary to patient's mental status Physical exam Tachy 112, 143/72 21 on 50% FiO2 on ventilator GEN: Intubated sedated resting in bed NEURO: Intubated sedated no focal deficits HEENT: ET tube in place no purulent discharge NECK: supple, trachea midline CHEST normal shape, no pes excavatum CVS: rrr no m/r/g, no JVD appreciated PULM: Scant diffuse wheezing ABD: soft, NT, ND, NABS EXT: no swelling, no cyanosis, full ROM SKIN: warm, dry, intact, no rash PSYCH sedated Labs Reviewed no leukocytosis
[2018-11-03] MEDS: BUDESONIDE/FORMOTEROL 160/4.5 60 PUFFS/MDI IH SCH ×2 (15:21→19:42)
[2018-11-03] MEDS: GABAPENTIN 400 MG CAP PO SCH (20:09)
[2018-11-04] MEDS: IPRATROPIUM/ALBUTEROL 3 ML DEYVIAL IH SCH ×2 (05:03→10:27)
[2018-11-04] MEDS: BUDESONIDE/FORMOTEROL 160/4.5 60 PUFFS/MDI IH SCH (08:07)
[2018-11-04] MEDS ORDERED: predniSONE 20 MG TAB PO SCH (09:00)
[2018-11-04] MEDS: ENOXAPARIN 40 MG/0.4 ML SYR SC SCH ×2 (09:25→09:26)
[2018-11-04] MEDS: GABAPENTIN 400 MG CAP PO SCH (09:25)
[2018-11-04 11:34] VITALS: BP 119/61
[2018-11-04] MEDS ORDERED: guaiFENesin 600 MG TAB.ER PO SCH (14:00)
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
--- NOTE | 2018-11-04 15:06 | ASMTCMCOM ---
CM Note CM Note Notes: Pt packed up her bags and told RN she was leaving and wanted to go home. MD and RN attempted to convince pt to stay but pt said she needed to go home. CM provided list of urgent cares and [facility] crisis center if needed. Pt left AMA. Date Signed: 11/04/2018 03:05 PM Electronically Signed By:SEBASTIEN Caputo
--- NOTE | 2018-11-04 18:01 | GDS ---
[f rep st] DISCHARGE SUMMARY Please note the patient left against medical advice. The patient is a pleasant 58-year-old female, presented to the hospital 2 days ago with increased wor k of breathing and high cocaine level. She was consistent with an asthma flare, requiring overnight intubation. She was extubated without complication yesterday. The patient was actually doing pretty well in step-down. She developed some chest pain today. An EKG showed lateral T-wave inversions wh ich were new. A troponin was sent and came back at a low level positivity of 0.076. It was less eliseo n 0.012 on presentation. She does not have a history of coronary disease and has not had previous pr ovocative testing here. During the request for a nebulizer with respiratory therapist, the patient became frustrated with the answer and elected to leave against medical advice. I spent about 10 minutes talking to the patient , hoped to attempt to allow her to stay, explained the risks and benefits of leaving or going. She d ecided to leave. She is therefore discharged against medical advice. No prescriptions provided. /[id number]/MODL
== END 2018-11-04 15:59 | disposition left against medical advice (07) | DRG 133 ==
LOC: F2N 19:55
PROVIDERS: ADMIT Internal Medicine; ATTEND Internal Medicine
DX: J96.01 Acute respiratory failure with hypoxia (principal); J45.901 Unspecified asthma with (acute) exacerbation; G92 Toxic encephalopathy; F14.129 Cocaine abuse with intoxication, unspecified; F17.210 Nicotine dependence, cigarettes, uncomplicated; Z91.19 Patient's noncompliance with other medical treatment and regimen; Z77.098 Contact with and (suspected) exposure to other hazardous, chiefly nonmedicinal, chemicals
CPT/HCPCS: 82435-PO; 82565-PO; 82947-PO; 84132-PO; 84295-PO; 84520-PO; 85014-ER; 96365; G0480; J0330; J1650; J1940; J2250; J2704; J2930; J3010; J3475; J7512; J7613